=== PATIENT | female | born 1965 | race Two or more races ===

== ENCOUNTER 2022-06-06 10:54 | Outpatient (REF) | payer OTHER, SELFPAY | END 2022-06-06 10:55 | disposition home or self-care (01) | LOC: HO.LAB 10:54 | PROVIDERS: Visit Provider Nurse Practitioner Family | DX: Z13.89 Encounter for screening for other disorder (principal) ==

== ENCOUNTER 2022-06-06 11:31 | Outpatient (REF) | payer OTHER, SELFPAY ==
[2022-06-06 13:59] LABS: Hematocrit 44.2 % (37.0-47.0); Hemoglobin 14.1 g/dl (12.0-16.0); Mean Corpuscular HGB Conc 31.9 g/dl (31.0-35.0); Mean Corpuscular Hemoglobin 28.8 pg (27.0-33.0); Mean Corpuscular Volume 90.4 fL (80.0-98.0); Mean Platelet Volume 10.7 fL (9.4-12.3); Platelet Count 320 X10*3/uL (160-400); Red Blood Count 4.89 X10*6/uL (4.20-5.50); Red Cell Distribution Width 14.1 % (11.0-16.0); White Blood Count 11.4 X10*3/uL (4.8-10.8)
[2022-06-06 14:23] LABS: Appearance Urine Clear; Color Urine Yellow; Glucose Urine UA >=1000 mg/dL (Negative); Leukocyte Esterase Urine Negative (Negative); Nitrite Urine Negative (Negative); Specific Gravity - Urine >= 1.030 (1.005-1.025); UMIC TRIGGER UACC YES; Urine Blood Small (1+) (Negative); Urine Ketones Trace mg/dL (Negative); Urine Protein Trace mg/dL (Neg-Trace)
[2022-06-06 14:28] LABS: Alanine Aminotransferase 56 U/L (0-31); Albumin Level 4.5 g/dL (3.5-5.0); Alkaline Phosphatase 73 U/L (39-117); Anion Gap 13 (12-20); Aspartate Amino Transferase 31 U/L (5-31); Bilirubin Total 0.3 mg/dL (0.0-1.0); Blood Urea Nitrogen 10 mg/dL (9-16); Calcium 9.5 mg/dL (8.4-10.2); Carbon Dioxide 27 mmol/L (22-29); Chloride 109 mmol/L (96-108); Cholesterol 155 mg/dL; Estimated Glomerular Filt Rate > 60; Glucose Fasting 99 mg/dL (60-99); HDL Cholesterol 51 mg/dL; LDL Cholesterol Calculated 70 mg/dl; Potassium 4.7 mmol/L (3.3-5.1); Sodium 144 mmol/L (135-145); Total Protein 7.6 g/dL (6.5-8.0); Triglycerides 171 mg/dL
[2022-06-06 14:30] LABS: Bacteria Urine Trace (None Seen); Calcium Oxalate Crystals Urine Present; Hyaline Casts Urine 0-2 /LPF (0-2); Squamous Epithelial Cell Urine 0-2 /HPF (0-2); WBC Urine 0-5 /HPF (0-5)
[2022-06-06 14:45] LABS: TSH reflex Free T4 1.64 uIU/mL (0.32-4.0)
== END 2022-06-06 11:32 | disposition home or self-care (01) ==
LOC: HO.WFDLDS 11:31
PROVIDERS: Visit Provider Nurse Practitioner Family
DX: E03.9 Hypothyroidism, unspecified (principal); E11.9 Type 2 diabetes mellitus without complications; E78.00 Pure hypercholesterolemia, unspecified; I10 Essential (primary) hypertension; K21.9 Gastro-esophageal reflux disease without esophagitis; K76.0 Fatty (change of) liver, not elsewhere classified
CPT/HCPCS: 36415; 80053; 80061; 81001; 84443; 85027

== ENCOUNTER 2022-07-20 09:15 | Outpatient (REF) | payer OTHER, SELFPAY ==
[2022-07-20 12:23] LABS: Rheumatoid Factor < 13.0 IU/mL (<15.0)
== END 2022-07-20 09:16 | disposition home or self-care (01) ==
LOC: HO.WFDLDS 09:15
PROVIDERS: Visit Provider Nurse Practitioner Family
DX: M19.041 Primary osteoarthritis, right hand (principal); M19.042 Primary osteoarthritis, left hand
CPT/HCPCS: 36415; 86431

== ENCOUNTER 2022-09-14 14:50 | Outpatient (AMB) | payer OTHER, SELFPAY ==
--- NOTE | 2022-09-14 14:52 | MHC.PC.OV ---
Vital Signs 09/14/22 14:55 Height 5 ft 1 in Weight 184 lb 4 oz BMI 34.8 BP 122/74 Blood Pressure Location Lt brachial Position Sitting Pulse 78 Pulse Source Auscultation Intake Visit Reasons: f/u A1C, right pointer finger pain, tinnitus Intake Note: pt is here for f/u dm, right pointer finger pain, tinnitus Yard Manager Required: No Accompanied by: Self / Same As Patient Allergies adhesive tape Allergy (Intermediate, Verified 09/14/22 15:05) Rash tilapia Allergy (Severe, Uncoded 09/14/22 15:05) Anaphylaxis Medication List - Last Reconciled 09/14/22 by Gunjan Davis CNP acetaminophen ER (Tylenol Arthritis Pain) 650 mg PO Q8H PRN 30 days acetaminophen-caffeine 500-65 mg (Excedrin Tension Headache) 2 tabs PO Q8H PRN 30 days amlodipine 5 mg PO DAILY 30 days atorvastatin 20 mg PO DAILY 30 days conj estrog-medroxyprogest brian 0.3-1.5 mg (Prempro) 1 tab PO DAILY duloxetine 60 mg PO DAILY levothyroxine 50 mcg PO DAILY 30 days loratadine (Claritin) 10 mg PO DAILY 30 days metformin ER 500 mg PO DAILY 30 days jmdmskcj-fsn-uwid-FA-vit K-lut 8 mg iron-400 mcg-50 mcg (Centrum Silver Women) 1 tab PO DAILY 30 days nitrofurantoin macrocrystal 50 mg PO BEDTIME pantoprazole 40 mg PO DAILY 30 days sitagliptin phosphate (Januvia) 100 mg PO DAILY 30 days trazodone 200 mg PO DAILY PRN Tobacco use date assessed: 06/06/22 Dental Screening Dental Screen Date: 09/14/22 Did you have a dental visit in the last 12 months?: Yes Did you have a dental problem in the last 6 months where you did not have access to dental care?: No Was dental information given to patient?: Patient has dentist HPI HPI Comments History of Present Illness Details 57-year-old female presents for diabetes, right index finger pain, and tinnitus follow-up She states she has been taking her medications as prescribed. She reports continued persistent pain to her right index finger. She notes new onset of intermittent pain to her wrists and ankle. She also reports continued tinnitus to both years. Reports h/o perforated right TM. She states she recently had sleep studies by [facility] sleep medicine and was diagnose with sleep apnea. She is awaiting to be fitted with CPAP device. She states had eye exam on 02/2022 She has a f/u with podiatry next week. [facility]LY [facility] Medical History (Updated 09/14/22 @ 15:41 by Gunjan Davis CNP) Acid reflux Carpal tunnel syndrome Fatty liver High cholesterol Hypertension Sinusitis Thyroid disease Surgical History (Updated 07/12/22 @ 12:46 by Charlene Tam MA) H/O bilateral oophorectomy H/O: hysterectomy History of back surgery History of cholecystectomy Status post creation of urethral sling by suprapubic approach Family History (Updated 07/12/22 @ 12:47 by Charlene Tam MA) Mother Hypertension High cholesterol Diabetes Father Alcoholism Family/Other Diabetes Social [facility] Patient Tobacco Use Status: Former Tobacco user e-Cigarette/Vaping Use: Never Used Substance Use Type: Marijuana service: No Current occupational status: retired and disabled Cognitive needs: No Hearing needs: Yes (Patient see's ENT) Vision needs: No Questionnaire Thrive Questionnaire Date Thrive assessed: 06/06/22 BON-7 AMB Questionnaire BON-7 Date BON - 7 assessed: 07/12/22 Source: Developed by Drs. Keith Cota, Rhoda Vega, Álvaro Casiano and colleagues, with an educational jose from [employer] Review of Systems Const Details: Const Denies chills, Denies fatigue, Denies fever(s), Denies headache(s) and Denies weakness ENT Denies dizziness and Denies headache(s) Card Denies chest pain, Denies lightheadedness, Denies dyspnea and Denies other (Palpitations) Resp Denies cough, Denies dyspnea, Denies wheezing and Denies other ( shortness of breath) GI Denies abdominal pain, Denies melena, Denies hematochezia, Denies change in bowel habits, Denies dyspepsia and Denies nausea Denies hematuria and Denies dysuria Musc Reports pain to right index finger, wrists, and ankles, Denies abnormal gait, Denies numbness and Denies tingling Skin/Breast Denies rash, Denies unusual bruising and Denies wounds Neuro Denies abnormal gait, Denies dizziness, Denies headache(s), Denies memory loss, Denies numbness, Denies Sensory deficit (Neuro), Denies tingling and Denies weakness Psych Denies anxiety and Denies depression Endo Denies fatigue Aller/Immun Denies wheezing Physical exam (Primary Care) Vital Signs: Last Vital Signs BP 122/74 09/14/22 14:55 BMI result Body Mass Index 34.8 Tobacco/Smoking Status: Tobacco use Status Tobacco use date assessed 06/06/22 09/14/22 14:52 Patient Tobacco Use Status Former Tobacco user 09/14/22 14:52 e-Cigarette/Vaping Use Never Used 09/14/22 14:52 Thrive Assessment: Date of Thrive Assessment Date Thrive assessed 06/06/22 09/14/22 14:52 Const Other: General: no acute distress and well developed Nutritional Appearance: well nourished Orientation/consciousness: patient oriented x3 HENMT Head: Yes normocephalic and Yes atraumatic Eyes General: appearance normal, both eyes and all related structures Pupils: Equal, round and reactive pupils present EOM: EOMs intact bilaterally Resp Effort & Inspection: normal respiratory effort Auscultation: clear to auscultation bilaterally Cardio Rate: regular rate Rhythm: regular rhythm Heart sounds: S1 normal heart sound present, S2 normal heart sound present, no gallops, no murmurs and no rubs GI Palpation (GI): No Abdominal aortic bruit present, Soft to palpation, nontender, No hepatosplenomegaly present and No Rebound tenderness present Auscultation: normal bowel sounds General: Yes no CVA tenderness Back/Spine/Pelvis Back: no CVA tenderness Cervical Spine: cervical ROM normal and No Cervical spine tenderness Thoracic/Lumbar Spine: thoraco-lumbar ROM normal, No pain with thoraco-lumbar ROM, No thoracic spinal tenderness and No lumbar spinal tenderness Extrem General: Yes normal to inspection, No edema and No calf tenderness Tenderness and mild erythema and edema of the right index finger; skin is warm, dry, intact Skin General: warm and dry. Normal skin color. Normal skin turgor Lesions: no lesions Rashes: no rashes Trauma: no lacerations or abrasions Wounds: no wounds Nails: normal Neuro General: patient oriented x3, gait normal and no focal neuro deficit Cranial nerves: Yes Equal, round and reactive pupils present Cognition (Neuro): normal cognition Gait exam (Neuro): Normal gait present Sensory Exam: No Sensory deficit (Neuro) Psych Affect: normal affect Results AMB Hemoglobin A1c AMB Hemoglobin A1c 6.2 % Last Edit by Jonah Penny CMA on 09/14/22 15:51 Assessment and Plan Assessment & Plan (1) Pain in finger of right hand: Code(s): M79.644 - Pain in right finger(s) Plan: She reports continued persistent pain to her right index finger Tenderness and mild erythema and edema of the right index finger RF factor was normal Continue to take Tylenol as needed for pain or discomfort Warm/cold compresses encouraged Referred to rheumatology for further evaluation and treatment (2) Pain in joints: Code(s): M25.50 - Pain in unspecified joint Plan: She notes new onset of intermittent pain to her wrists and ankle. Likely RA. OA is also possible Treatment as above (3) Type 2 diabetes mellitus: Code(s): E11.9 - Type 2 diabetes mellitus without complications Plan: A1c 6.2%, within goal of less than 7.0% Continue with current treatment regimen She is up-to-date on eye exam and has a follow-up appointment with podiatry next week ADA diet and routine exercise encouraged Follow-up in 3 months or return sooner with concerns or symptoms Verbalized understanding and agreed with treatment plan. (4) Hypertension: Code(s): I10 - Essential (primary) hypertension Plan: Blood pressure is controlled, 122/74, within goal of less than 130/80 Continue with current treatment regimen Low-sodium diet encouraged Follow-up in 3 months or return sooner with concerns or symptoms Verbalized understanding and agreed with treatment plan (5) Hypothyroidism: Code(s): E03.9 - Hypothyroidism, unspecified Plan: Previous TSH/T4 were normal Continue with current treatment regimen Will recheck TSH/T4 level (6) High cholesterol: Code(s): E78.00 - Pure hypercholesterolemia, unspecified Plan: Recent cholesterol level is at goal, LDL was 70, within goal of less than 100 Continue with current treatment regimen Will recheck cholesterol level Advised to limit foods high in saturated fat and avoid foods high trans fat Verbalized understanding and agreed with treatment plan. (7) Bilateral tinnitus: Code(s): H93.13 - Tinnitus, bilateral Plan: She also reports continued tinnitus to both years. Reports h/o perforated right TM. Normal exam of both ears Referred to ENT Follow-up with worsening or new symptoms Verbalized understanding and agreed with the plan. Orders: Orders TSH reflex Free T4 Today E03.9 - Hypothyroidism, unspecified Lipid Panel Today E78.00 - Pure hypercholesterolemia, unspecified AMB Hemoglobin A1c Today E11.9 - Type 2 diabetes mellitus without complications Referrals Ear/Nose/Throat Referral H93.13 - Tinnitus, bilateral Rheumatology Referral M25.50 - Pain in unspecified joint, M79.644 - Pain in right finger(s) Coding Level of Care Code Est Pt Level 4 (39808) Diagnoses Pain in finger of right hand M79.644 Pain in joints M25.50 Type 2 diabetes mellitus E11.9 Hypertension I10 Hypothyroidism E03.9 High cholesterol E78.00 Bilateral tinnitus H93.13 Time Spent (min) 35
[2022-09-14 14:55] VITALS: BP 122/74; PULSE 78; BMI 34.8
== END 2022-09-14 15:34 | disposition home or self-care (01) ==
PROVIDERS: PCP Nurse Practitioner Family; Visit Provider Nurse Practitioner Family
DX: M79.644 Pain in right finger(s) (principal); H93.13 Tinnitus, bilateral; I10 Essential (primary) hypertension; E11.9 Type 2 diabetes mellitus without complications; E03.9 Hypothyroidism, unspecified; M25.50 Pain in unspecified joint; E78.00 Pure hypercholesterolemia, unspecified
CPT/HCPCS: 83036; 99214

== ENCOUNTER 2022-09-19 10:27 | Outpatient (REF) | payer OTHER, SELFPAY ==
[2022-09-19 12:39] LABS: Cholesterol 148 mg/dL; HDL Cholesterol 46 mg/dL; LDL Cholesterol Calculated 71 mg/dl; TSH reflex Free T4 0.76 uIU/mL (0.32-4.0); Triglycerides 159 mg/dL
[2022-09-19 14:30] LABS: Appearance Urine Turbid; Color Urine Yellow; Glucose Urine UA Negative (Negative); Leukocyte Esterase Urine Negative (Negative); Nitrite Urine Negative (Negative); PH 5.5 (5.0-9.0); Urine Blood Negative (Negative); Urine Ketones Trace mg/dL (Negative); Urine Protein Trace mg/dL (Neg-Trace)
[2022-09-19 15:15] LABS: Creatinine Urine 164.22 mg/dL; Microalbum/Creatinine Ratio Ur 8.5 ug/mg cr
== END 2022-09-19 10:28 | disposition home or self-care (01) ==
LOC: HO.WFDLDS 10:27
PROVIDERS: Visit Provider Nurse Practitioner Family
DX: E11.9 Type 2 diabetes mellitus without complications (principal); E03.9 Hypothyroidism, unspecified; E78.00 Pure hypercholesterolemia, unspecified
CPT/HCPCS: 36415; 80061; 81003; 82043; 84443

== ENCOUNTER 2022-11-30 15:47 | Outpatient (AMB) | payer OTHER, SELFPAY ==
[2022-11-30 16:00] VITALS: BP 124/70; PULSE 87; RESP 13; TEMP 36.6; O2SAT 99; BMI 34.1
--- NOTE | 2022-11-30 16:00 | MHC.PC.OV ---
Vital Signs 11/30/22 16:00 Height 5 ft 1 in Weight 180 lb 8 oz BMI 34.1 BP 124/70 Blood Pressure Location Rt brachial Position Sitting Respiration 13 Pulse 87 Pulse Source Pulse Oximeter Temp 98 F Temp Source Temporal Artery Scan Pulse Oximetry (%) 99 Oxygen Delivery Method Room Air Intake Visit Reasons: headaches Urban Renewal Manager Required: No Accompanied by: Self / Same As Patient Allergies adhesive tape Allergy (Intermediate, Verified 11/30/22 16:17) Rash tilapia Allergy (Severe, Uncoded 11/30/22 16:17) Anaphylaxis Medication List - Last Reconciled 11/30/22 by Gunjan Davis CNP acetaminophen ER (Tylenol Arthritis Pain) 650 mg PO Q8H PRN 30 days acetaminophen-caffeine 500-65 mg (Excedrin Tension Headache) 2 tabs PO Q8H PRN 30 days amlodipine 5 mg PO DAILY 30 days atorvastatin 20 mg PO DAILY 30 days conj estrog-medroxyprogest brian 0.3-1.5 mg (Prempro) 1 tab PO DAILY duloxetine 60 mg PO DAILY levothyroxine 50 mcg PO DAILY 30 days loratadine (Claritin) 10 mg PO DAILY 30 days metformin ER 500 mg PO DAILY 30 days tunarrgd-bho-bkmm-FA-vit K-lut 8 mg iron-400 mcg-50 mcg (Centrum Silver Women) 1 tab PO DAILY 30 days nitrofurantoin macrocrystal 50 mg PO BEDTIME pantoprazole 40 mg PO DAILY 30 days sitagliptin phosphate (Januvia) 100 mg PO DAILY 30 days trazodone 200 mg PO DAILY PRN Tobacco use date assessed: 06/06/22 Dental Screening Dental Screen Date: 11/30/22 Did you have a dental visit in the last 12 months?: Yes Did you have a dental problem in the last 6 months where you did not have access to dental care?: No Was dental information given to patient?: Patient has dentist HPI HPI Comments History of Present Illness Details 57-year-old female presents with complaints of persistent left-sided headache. She was recently evaluated by Dr. Black, ENT for tinnitus of the right ear, right acoustic neuroma, and chronic right-sided headaches. MRI of the brain on 11/14/2022 was negative. She reports persistent right sided headaches for the past 3 months. She reports associated intermittent pain to the right eye. She notes that she has been taking Excedrin migraine with improvement only if she takes at at the onset of symptoms. She reports history of adverse reactions to Topamax. She denies nausea or vomiting. FORMERLY [facility] Medical History Carpal tunnel syndrome Thyroid disease Hypertension High cholesterol Fatty liver Acid reflux Sinusitis Surgical History H/O bilateral oophorectomy Status post creation of urethral sling by suprapubic approach History of cholecystectomy History of back surgery H/O: hysterectomy Family History Mother Hypertension High cholesterol Diabetes Father Alcoholism Family/Other Diabetes Social History Housing: Condominium Patient Tobacco Use Status: Former Tobacco user e-Cigarette/Vaping Use: Never Used Substance Use Type: Marijuana service: No Current occupational status: retired and disabled Cognitive needs: No Hearing needs: Yes (Patient see's ENT) Vision needs: No Questionnaire Thrive Questionnaire Date Thrive assessed: 06/06/22 BON-7 AMB Questionnaire BON-7 Date BON - 7 assessed: 07/12/22 Source: Developed by Drs. Keith Cota, Rhoda Vega, Álvaro Casiano and colleagues, with an educational jose from [employer]. Review of Systems Const Details: Const Denies chills, Denies fatigue, Denies fever(s), Denies headache(s) and Denies weakness ENT Denies dizziness and Reports headache(s) Card Denies chest pain, Denies lightheadedness, Denies dyspnea and Denies other (Palpitations) Resp Denies cough, Denies dyspnea, Denies wheezing and Denies other ( shortness of breath) GI Denies abdominal pain, Denies melena, Denies hematochezia, Denies change in bowel habits, Denies dyspepsia and Denies nausea Denies hematuria and Denies dysuria Musc Denies abnormal gait, Denies myalgias, Denies arthralgias, Denies numbness and Denies tingling Skin/Breast Denies rash, Denies unusual bruising and Denies wounds Neuro Denies abnormal gait, Denies dizziness, Reports headache(s), Denies memory loss, Denies numbness, Denies Sensory deficit (Neuro), Denies tingling and Denies weakness Psych Denies anxiety, Denies depression, Denies memory loss Endo Denies cold intolerance, Denies fatigue, Denies heat intolerance, Denies polydipsia and Denies polyuria Aller/Immun Denies wheezing Physical exam (Primary Care) Vital Signs: Last Vital Signs Temp 98 F 11/30/22 16:00 Pulse 87 11/30/22 16:00 Resp 13 11/30/22 16:00 BP 124/70 11/30/22 16:00 Pulse Ox 99 11/30/22 16:00 Oxygen Delivery Method Room Air 11/30/22 16:00 BMI result Body Mass Index 34.1 Tobacco/Smoking Status: Tobacco use Status Tobacco use date assessed 06/06/22 11/30/22 16:11 Patient Tobacco Use Status Former Tobacco user 11/30/22 16:11 e-Cigarette/Vaping Use Never Used 11/30/22 16:11 Thrive Assessment: Date of Thrive Assessment Date Thrive assessed 06/06/22 11/30/22 16:11 Const Other: General: no acute distress and well developed Nutritional Appearance: well nourished Orientation/consciousness: patient oriented x3 HENMT Head: Yes normocephalic and Yes atraumatic Eyes General: appearance normal, both eyes and all related structures Pupils: Equal, round and reactive pupils present EOM: EOMs intact bilaterally Resp Effort & Inspection: normal respiratory effort Auscultation: clear to auscultation bilaterally Cardio Rate: regular rate Rhythm: regular rhythm Heart sounds: S1 normal heart sound present, S2 normal heart sound present, no gallops, no murmurs and no rubs GI Palpation (GI): No Abdominal aortic bruit present, Soft to palpation, nontender, No hepatosplenomegaly present and No Rebound tenderness present Auscultation: normal bowel sounds General: Yes no CVA tenderness Back/Spine/Pelvis Back: no CVA tenderness Cervical Spine: cervical ROM normal and No Cervical spine tenderness Thoracic/Lumbar Spine: thoraco-lumbar ROM normal, No pain with thoraco-lumbar ROM, No thoracic spinal tenderness and No lumbar spinal tenderness Extrem General: Yes normal to inspection, No edema and No calf tenderness Skin General: warm and dry. Normal skin color. Normal skin turgor Lesions: no lesions Rashes: no rashes Trauma: no lacerations or abrasions Wounds: no wounds Nails: normal Neuro General: patient oriented x3, gait normal and no focal neuro deficit Cranial nerves: Yes Equal, round and reactive pupils present Cognition (Neuro): normal cognition Gait exam (Neuro): Normal gait present Sensory Exam: No Sensory deficit (Neuro) Psych Appearance: grossly normal Affect: normal affect Attitude: cooperative Thought process: Normal thought process present Assessment and Plan Assessment & Plan (1) Migraine: Code(s): G43.909 - Migraine, unspecified, not intractable, without status migrainosus Plan: Reports persistent right sided headaches for the past 3 months. She reports associated intermittent pain to the right eye. She was recently evaluated by ENT and had a normal MRI Continue to take Excedrin as needed Riboflavin and magnesium ordered. Take as prescribed Advised to keep diary of possible triggers of her migraines Follow-up with PCP next month as planned or return sooner with worsening or new symptoms Verbalized understanding and agreed with treatment plan. Medications: New riboflavin (vitamin B2) 400 mg PO DAILY 30 tabs 3RF 30 days magnesium oxide 400 mg PO DAILY 30 tabs 3RF 30 days Coding Level of Care Code Est Pt Level 3 (00836) Diagnoses Migraine G43.909
== END 2022-11-30 16:29 | disposition home or self-care (01) ==
PROVIDERS: PCP Nurse Practitioner Family; Visit Provider Nurse Practitioner Family
DX: G43.909 Migraine, unspecified, not intractable, without status migrainosus (principal)
CPT/HCPCS: 99213

== ENCOUNTER 2022-12-12 11:01 | Outpatient (AMB) | payer OTHER, SELFPAY ==
[2022-12-12 11:14] VITALS: BP 124/76; TEMP 36.2; BMI 34.4
--- NOTE | 2022-12-12 11:14 | MHC.OFFVIS ---
Intake Vital Signs 12/12/22 11:14 Height 5 ft 1 in Weight 182 lb 1.629 oz BMI 34.4 BP 124/76 Blood Pressure Location Rt brachial Position Sitting Temp 97.1 F Temp Source Skin Intake Visit Reasons: Joint Pain Intake Note: New pt presents today for consult. C/o pain in multiple joints, mostly hands Started approx 1 year ago Has tried voltaren, tylenol, motrin Inspector And Clerk Required: No Accompanied by: Self / Same As Patient Allergies adhesive tape Allergy (Intermediate, Verified 12/12/22 11:30) Rash tilapia Allergy (Severe, Uncoded 12/12/22 11:30) Anaphylaxis Medication List - Last Reconciled 12/12/22 by Gunjan Carter MD acetaminophen ER (Tylenol Arthritis Pain) 650 mg PO Q8H PRN 30 days acetaminophen-caffeine 500-65 mg (Excedrin Tension Headache) 2 tabs PO Q8H PRN 30 days alprazolam mg PO amlodipine 5 mg PO DAILY 30 days atorvastatin 20 mg PO DAILY 30 days conj estrog-medroxyprogest brian 0.3-1.5 mg (Prempro) 1 tab PO DAILY duloxetine 60 mg PO DAILY levothyroxine 50 mcg PO DAILY 30 days loratadine (Claritin) 10 mg PO DAILY 30 days magnesium oxide 400 mg PO DAILY 30 days metformin 500 mg PO DAILY metformin ER 500 mg PO DAILY 30 days uqljcptu-zmk-cdow-FA-vit K-lut 8 mg iron-400 mcg-50 mcg (Centrum Silver Women) 1 tab PO DAILY 30 days naproxen 500 mg PO BID nitrofurantoin macrocrystal 50 mg PO BEDTIME pantoprazole 40 mg PO DAILY 30 days riboflavin (vitamin B2) 400 mg PO DAILY 30 days sitagliptin phosphate (Januvia) 100 mg PO DAILY 30 days trazodone 200 mg PO DAILY PRN HPI HPI Comments History of Present Illness Details This is a 57-year-old female who presents for evaluation of bilateral hand pain. The majority of the pain is the right index DIP joint. States that over the last year or so she has been having worsening finger stiffness and pain. Difficulty opening jars. She has used different medicine such as Tylenol, Aleve, Advil, Voltaren gel all with some relief. She is unaware of any family history of an autoimmune rheumatic disease [facility] Medical History Carpal tunnel syndrome Thyroid disease Hypertension High cholesterol Fatty liver Acid reflux Sinusitis Surgical History H/O bilateral oophorectomy Status post creation of urethral sling by suprapubic approach History of cholecystectomy History of back surgery H/O: hysterectomy Family History Mother Hypertension High cholesterol Diabetes Father Alcoholism Family/Other Diabetes Social History Housing: Condominium Patient Tobacco Use Status: Former Tobacco user e-Cigarette/Vaping Use: Never Used Substance Use Type: Marijuana service: No Current occupational status: retired and disabled Cognitive needs: No Hearing needs: Yes (Patient see's ENT) Vision needs: No Review of Systems Const Reports fatigue and Reports headache(s) Eyes Reports diplopia ENT Reports headache(s), Reports hearing loss and Reports tinnitus GI Reports nausea Reports nocturia Musc Reports deformity, Reports arthralgias, Reports joint swelling, Reports limited range of motion and Reports stiffness Neuro Reports headache(s) and Reports memory loss Psych Reports abnormal sleep pattern, Reports anxiety, Reports depression and Reports memory loss Endo Reports fatigue and Reports polydipsia Physical Exam Vital Signs: Last Vital Signs Temp 97.1 F 12/12/22 11:14 BP 124/76 12/12/22 11:14 BMI result Body Mass Index 34.4 Const General: cooperative, healthy appearing and comfortable Nutritional Appearance: obese Orientation/consciousness: patient oriented x3 Limitations: no limitations HEENT Head: Yes normocephalic and Yes atraumatic Mouth: moist mucous membranes Resp Effort & Inspection: normal respiratory effort and able to speak in complete sentences Neuro General: patient oriented x3 Extrem Other: Right index Heberden's node, mildly erythematous and tender Normal nailfold capillaroscopy Normal range of motion of hands, wrists, elbows and shoulders Assessment & Plan Assessment & Plan (1) Osteoarthritis of hands, bilateral: Code(s): M19.041 - Primary osteoarthritis, right hand; M19.042 - Primary osteoarthritis, left hand Qualifiers: Osteoarthritis type: primary Qualified Code(s): M19.041 - Primary osteoarthritis, right hand; M19.042 - Primary osteoarthritis, left hand Plan: This is a 57-year-old female who presents for evaluation of right index pain. Clinical picture consistent with a Heberden's node. I discussed nature of hand osteoarthritis with patient. Discussed different management strategies. Will refer patient to occupational therapy. She can consider buying a paraffin wax machine. She can take Tylenol up to 1300 mg daily (hx of fatty liver) as needed for joint pain. Can use Voltaren gel. Use NSAIDs only sparingly Plan I spent 30 minutes reviewing patient's chart, evaluating patient, placing orders, counseling patient and documenting in the chart Orders: Orders OT Evaluation and Treatment Today M19.041 - Primary osteoarthritis, right hand, M19.042 - Primary osteoarthritis, left hand Coding Level of Care Code New Pt Level 3 (12458) Diagnoses Primary osteoarthritis of both hands M19.041; M19.042 Osteoarthritis type: primary
== END 2022-12-12 11:50 | disposition home or self-care (01) ==
PROVIDERS: PCP Nurse Practitioner Family; Visit Provider Student in an Organized Health Care Education/Training Program
DX: M19.041 Primary osteoarthritis, right hand (principal); M19.042 Primary osteoarthritis, left hand
CPT/HCPCS: 99203

== ENCOUNTER → 2022-12-12 11:01 | Outpatient (BNVA) | payer OTHER, SELFPAY | PROVIDERS: PCP Nurse Practitioner Family; Visit Provider Student in an Organized Health Care Education/Training Program | DX: M19.041 Primary osteoarthritis, right hand (principal); M19.042 Primary osteoarthritis, left hand | CPT/HCPCS: 99202 ==

== ENCOUNTER 2022-12-28 15:43 | Outpatient (AMB) | payer OTHER, SELFPAY ==
--- NOTE | 2022-12-28 15:45 | A.OFFPC_ITS ---
Vital Signs 12/28/22 15:46 Height 5 ft 1 in BMI Reason not done Patient refused/unable BP 128/74 Blood Pressure Location Lt brachial Position Sitting Respiration 13 Pulse 88 Pulse Source Pulse Oximeter Temp 98.4 F Temp Source Temporal Artery Scan Pulse Oximetry (%) 99 Oxygen Delivery Method Room Air Intake Visit Reasons: 3 mos DM, HTN, HLD, thyroid, joint pain Intake Note: Patient states that she hasn't been able to get her Metformin due to pharmacy stating they didn't receive it. Patient states that she has received ER version of Metformin but not regular.Patient would also like bloodwork to check hormones. Production Reproduction Manager Required: No Accompanied by: Self / Same As Patient Allergies sulfur dioxide Allergy (Severe, Verified 12/28/22 15:56) Anaphylaxis adhesive tape Allergy (Intermediate, Verified 12/28/22 15:56) Rash tilapia Allergy (Severe, Uncoded 12/12/22 11:30) Anaphylaxis Tobacco use date assessed: 12/28/22 Dental Screening Dental Screen Date: 12/28/22 Did you have a dental visit in the last 12 months?: Yes Did you have a dental problem in the last 6 months where you did not have access to dental care?: No Was dental information given to patient?: Patient has dentist HPI HPI Comments History of Present Illness Details 57-year-old female presents for diabetes , hypertension, hyperlipidemia, and hypothyroidism follow-up Her last A1c was 6.2% She admits to taking her medications as prescribed. She notes she was on metformin IR 500 mg and ER 500 mg daily. However, she has been taking metformin ER daily for the past 1 month. She is also on Januvia. [facility] Medical History Carpal tunnel syndrome Thyroid disease Hypertension High cholesterol Fatty liver Acid reflux Sinusitis Surgical History H/O bilateral oophorectomy Status post creation of urethral sling by suprapubic approach History of cholecystectomy History of back surgery H/O: hysterectomy Family History Mother Hypertension High cholesterol Diabetes Father Alcoholism Family/Other Diabetes Social History Housing: Condominium Patient Tobacco Use Status: Former Tobacco user e-Cigarette/Vaping Use: Never Used Substance Use Type: Marijuana service: No Current occupational status: retired and disabled Cognitive needs: No Hearing needs: Yes (Patient see's ENT) Vision needs: No Questionnaire Thrive Questionnaire Date Thrive assessed: 06/06/22 BON-7 AMB Questionnaire BON-7 Date BON - 7 assessed: 07/12/22 Source: Developed by Drs. Keith Cota, Rhoda Vega, Álvaro Casiano and colleagues, with an educational jose from [employer]. Review of Systems Const Details: Const Denies chills, Denies fatigue, Denies fever(s), Denies headache(s) and Denies weakness ENT Denies dizziness and Denies headache(s) Card Denies chest pain, Denies lightheadedness, Denies dyspnea and Denies other (Palpitations) Resp Denies cough, Denies dyspnea, Denies wheezing and Denies other ( shortness of breath) GI Denies abdominal pain, Denies melena, Denies hematochezia, Denies change in jose wel habits, Denies dyspepsia and Denies nausea Denies hematuria and Denies dysuria Musc Denies abnormal gait, Denies myalgias, Denies arthralgias, Denies numbness and Denies tingling Skin/Breast Denies rash, Denies unusual bruising and Denies wounds Neuro Denies abnormal gait, Denies dizziness, Denies headache(s), Denies memory loss, Denies numbness, Denies Sensory deficit (Neuro), Denies tingling and Denies weakness Psych Denies anxiety, Denies depression, Denies memory loss Endo Denies cold intolerance, Denies fatigue, Denies heat intolerance, Denies polydipsia and Denies polyuria Aller/Immun Denies wheezing Physical exam (Primary Care) Tobacco/Smoking Status: Tobacco use Status Tobacco use date assessed 06/06/22 12/28/22 15:46 Patient Tobacco Use Status Former Tobacco user 12/28/22 15:46 e-Cigarette/Vaping Use Never Used 12/28/22 15:46 Thrive Assessment: Date of Thrive Assessment Date Thrive assessed 06/06/22 12/28/22 15:46 Const Other: General: no acute distress and well developed Nutritional Appearance: well nourished Orientation/consciousness: patient oriented x3 [facility] Head: Yes normocephalic and Yes atraumatic Eyes General: appearance normal, both eyes and all related structures Pupils: Equal, round and reactive pupils present EOM: EOMs intact bilaterally Resp Effort & Inspection: normal respiratory effort Auscultation: clear to auscultation bilaterally Cardio Rate: regular rate Rhythm: regular rhythm Heart sounds: S1 normal heart sound present, S2 normal heart sound present, no gallops, no murmurs and no rubs GI Palpation (GI): No Abdominal aortic bruit present, Soft to palpation, nontender, No hepatosplenomegaly present and No Rebound tenderness present Auscultation: normal bowel sounds General: Yes no CVA tenderness Back/Spine/Pelvis Back: no CVA tenderness Cervical Spine: cervical ROM normal and No Cervical spine tenderness Thoracic/Lumbar Spine: thoraco-lumbar ROM normal, No pain with thoraco-lumbar ROM, No thoracic spinal tenderness and No lumbar spinal tenderness Extrem General: Yes normal to inspection, No edema and No calf tenderness Skin General: warm and dry. Normal skin color. Normal skin turgor Lesions: no lesions Rashes: no rashes Trauma: no lacerations or abrasions Wounds: no wounds Nails: normal Neuro General: patient oriented x3, gait normal and no focal neuro deficit Cranial nerves: Yes Equal, round and reactive pupils present Cognition (Neuro): normal cognition Gait exam (Neuro): Normal gait present Sensory Exam: No Sensory deficit (Neuro) Psych Appearance: grossly normal Affect: normal affect Attitude: cooperative Thought process: Normal thought process present Results AMB Hemoglobin A1c AMB Hemoglobin A1c 6.2 % Last Edit by Charlene Tam MA on 12/28/22 16:17 Assessment and Plan Assessment & Plan (1) Type 2 diabetes mellitus: Code(s): E11.9 - Type 2 diabetes mellitus without complications Plan: A1c today is 6.2%, within goal of less than 7.0%. Previous A1c was 6.2% She recent LDL is 71, slightly above goal of less than 70. Continue to take atorvastatin as prescribed. Will recheck lipid level Recent urine/microalbumin creatinine ratio is 8.5 Continue to take metformin and Januvia as prescribed ADA diet and routine exercise encouraged Will recheck A1c in 3 months Follow-up in a month for an extended physical exam Return sooner with symptoms or concerns Verbalized understanding and agreed with treatment plan. (2) Hypertension: Code(s): I10 - Essential (primary) hypertension Plan: Blood pressure is 128/74, within goal of less than 130/80 Continue to take amlodipine as prescribed Low-sodium diet encouraged Will continue to monitor Verbalized understanding and agreed with treatment plan. (3) High cholesterol: Code(s): E78.00 - Pure hypercholesterolemia, unspecified Plan: Normal recent triglycerides, total cholesterol, and HDL level, 159, 148, and 46 respectively LDL is 71, slightly above goal of less than 70 Continue current treatment regimen Advised to limit foods high in saturated fat and avoid foods high trans fat Routine exercise encouraged Will recheck lipid level. Advised to get fasting blood work done before her nex t visit Follow-up in 1 month for an extended physical exam Return sooner with symptoms or concerns Verbalized understanding and agreed with treatment plan. (4) Hypothyroidism: Code(s): E03.9 - Hypothyroidism, unspecified Plan: Recent TSH is normal Continue to take levothyroxine as prescribed Return with symptoms or concerns Verbalized understanding and agreed with treatment plan. Orders: Orders Lipid Panel Today E11.9 - Type 2 diabetes mellitus without complications, E78.00 - Pure hypercholesterolemia, unspecified AMB Hemoglobin A1c Today Z13.9 - Encounter for screening, unspecified Coding Level of Care Code Est Pt Level 4 (09334) Diagnoses Type 2 diabetes mellitus E11.9 Hypertension I10 High cholesterol E78.00 Hypothyroidism E03.9
[2022-12-28 15:46] VITALS: BP 128/74; PULSE 88; RESP 13; TEMP 36.9; O2SAT 99
== END 2022-12-28 16:34 | disposition home or self-care (01) ==
PROVIDERS: PCP Nurse Practitioner Family; Visit Provider Nurse Practitioner Family
DX: E11.9 Type 2 diabetes mellitus without complications (principal); I10 Essential (primary) hypertension; E78.00 Pure hypercholesterolemia, unspecified; E03.9 Hypothyroidism, unspecified
CPT/HCPCS: 99214

== ENCOUNTER 2023-03-08 10:14 | Outpatient (AMB) | payer OTHER, SELFPAY ==
[2023-03-08 10:23] VITALS: BP 118/80; PULSE 108; RESP 13; TEMP 36.4; O2SAT 99; BMI 33.4
--- NOTE | 2023-03-08 10:23 | MHC.PC.OV ---
Vital Signs 03/08/23 10:23 Height 5 ft 1 in Weight 177 lb BMI 33.4 BP 118/80 Blood Pressure Location Rt brachial Position Sitting Respiration 13 Pulse 108 H Pulse Source Pulse Oximeter Temp 97.6 F Temp Source Temporal Artery Scan Pulse Oximetry (%) 99 Oxygen Delivery Method Room Air Intake Visit Reasons: CPE Pulmonary Disease Specialist Required: No Accompanied by: Self / Same As Patient Allergies sulfur dioxide Allergy (Severe, Verified 03/08/23 10:32) Anaphylaxis adhesive tape Allergy (Intermediate, Verified 03/08/23 10:32) Rash tilapia Allergy (Severe, Uncoded 03/08/23 10:32) Anaphylaxis Medication List - Last Reconciled 03/08/23 by Gunjan Davis CNP acetaminophen ER (Tylenol Arthritis Pain) 650 mg PO Q8H PRN 30 days acetaminophen-caffeine 500-65 mg (Excedrin Tension Headache) 2 tabs PO Q8H PRN 30 days alprazolam mg PO amlodipine 5 mg PO DAILY 30 days atorvastatin 20 mg PO DAILY 30 days conj estrog-medroxyprogest brian 0.3-1.5 mg (Prempro) 1 tab PO DAILY duloxetine 60 mg PO DAILY levothyroxine 50 mcg PO DAILY 30 days loratadine (Claritin) 10 mg PO DAILY 30 days magnesium oxide 400 mg PO DAILY 30 days metformin ER 1,000 mg (2 x 500 mg) PO DAILY 90 days invokybo-thd-jzoy-FA-vit K-lut 8 mg iron-400 mcg-50 mcg (Centrum Silver Women) 1 tab PO DAILY 30 days naproxen 500 mg PO BID nitrofurantoin macrocrystal 50 mg PO BEDTIME pantoprazole 40 mg PO DAILY 30 days riboflavin (vitamin B2) 400 mg PO DAILY 30 days sitagliptin phosphate (Januvia) 100 mg PO DAILY 30 days trazodone 200 mg PO DAILY PRN Tobacco use date assessed: 03/08/23 Dental Screening Dental Screen Date: 03/08/23 Did you have a dental visit in the last 12 months?: Yes Did you have a dental problem in the last 6 months where you did not have access to dental care?: No Was dental information given to patient?: Patient has dentist HPI HPI Comments History of Present Illness Details 57-year-old female presents for an extended physical exam She has history of diabetes, hypertension, hyperlipidemia, anxiety, and depression She admits to taking her medications as prescribed without adverse reactions She reports controlled anxiety and depression symptoms on current treatment regimen Reports nasal congestion with post nasal dip. No runny nose, sore throat, cough, headache, fever, chills, fatigue, or weakness. Last mammogram 09/2022: benign mass of the left breast. Next mammogram in March, Last colonoscopy 3 years ago: Benign polyp. She gets colonoscopy done every 5 years She no longer gets pap smear test done. History of hysterectomy and left oophorectomy She is up-to-date on the flu and shingles vaccines [facility] Medical History Carpal tunnel syndrome Thyroid disease Hypertension High cholesterol Fatty liver Acid reflux Sinusitis Surgical History H/O bilateral oophorectomy Status post creation of urethral sling by suprapubic approach History of cholecystectomy History of back surgery H/O: hysterectomy Family History Mother Hypertension High cholesterol Diabetes Father Alcoholism Family/Other Diabetes Social History Housing: Condominium Patient Tobacco Use Status: Former Tobacco user e-Cigarette/Vaping Use: Never Used Substance Use Type: Marijuana service: No Current occupational status: retired and disabled Cognitive needs: No Hearing needs: Yes (Patient see's ENT) Vision needs: No Questionnaire PHQ-9 Over the last 2 weeks, how often have you been bothered by any of the following problems? 1. Little interest or pleasure in doing things: not at all 2. Feeling down, depressed, or hopeless: not at all 3. Trouble falling or staying asleep, or sleeping too much: not at all 4. Feeling tired or having little energy: not at all 5. Poor appetite or overeating: not at all 6. Feeling bad about yourself - or that you are a failure or have let yourself or your family down: not at all 7. Trouble concentrating on things, such as reading the newspaper or watching television: not at all 8. Moving or speaking so slowly that other people could have noticed. Or the opposite - being so fidgety or restless that you have been moving around a lot more than usual: not at all 9. Thoughts that you would be better off or of hurting yourself in some way: not at all Total score: 0 Depression Screening Interpretation: Negative Depression Screening Done: Yes 48876 - PHQ-9 Billing: Yes Source: Developed by Drs. Keith Cota, Rhoda Vega, Álvaro Casiano and colleagues, with an educational jose from [employer]. Thrive Questionnaire Date Thrive assessed: 03/08/23 I am a: Patient What is your living situation today?: I have a steady place to live Within the past 12 months, did the food you bought not last and you didn't have the money to get more?: Never true Within the past 12 months, did you worry whether your food would run out before you got money to buy more?: Never true Do you have trouble paying for medicines?: No Do you have trouble getting transportation to medical appointments?: No Do you have trouble paying your heating and electricity bill?: No Do you have trouble taking care of your child, family member or friend?: No Do you have trouble with day-to-day activities such as bathing, preparing meals, shopping, managing finances, etc.?: No Are you currently unemployed and looking for a job?: No Are you interested in more education?: Yes Please select the resources that you would like help with: Education Currently or been in a relationship where the following occur: no concerns reported THRIVE Score: 0 AUDIT C Alcohol Use Questionnaire (AUDIT-C) 1. How often do you have a drink containing alcohol?: Monthly or less 2. How many drinks containing alcohol do you have on a typical day when you are drinking?: 1 or 2 3. How often do you have six or more drinks on one occasion?: Never Total Score: 1 BON-7 AMB Questionnaire BON-7 Date BNO - 7 assessed: 03/08/23 Feeling nervous, anxious, or on edge: 3 = Nearly every day Not being able to stop or control worryin = Several days Worrying too much about different things: 1 = Several days Trouble relaxin = Not at all Being so restless that it is hard to sit still: 3 = Nearly every day Becoming easily annoyed or irritable: 0 = Not at all Feeling afraid as if something awful might happen: 0 = Not at all Total BON-7 score (0-4 normal; 5-9 mild; 10-14 moderate; 15-21 severe): 8 Source: Developed by Drs. Keith Cota, Rhoda Vega, Álvaro Casiano and colleagues, with an educational jose from [employer]. BON-7 Assessment Billing BON-7 Assessment Tool: BON-7 Assessment 85718 Review of Systems Const Details: Denies chills, Denies fatigue, Denies fever(s), Denies headache(s) and Denies weakness HEENT Denies change in vision, Denies dizziness, Denies headache(s), Denies hearing loss, Denies nasal congestion, Denies sinus pain, Denies sinus pressure and Denies sore throat Card Denies chest pain, Denies lightheadedness, Denies dyspnea and Denies other (palpitations) Resp Denies cough, Denies dyspnea and Denies wheezing GI Denies abdominal pain, Denies melena, Denies hematochezia, Denies change in bowel habits, Denies dyspepsia and Denies nausea Denies hematuria and Denies dysuria Musc Denies abnormal gait, Denies myalgias, Denies arthralgias, Denies numbness and Denies tingling Skin/Breast Denies rash, Denies unusual bruising and Denies wounds Neuro Denies abnormal gait, Denies dizziness, Denies headache(s), Denies memory loss, Denies numbness, Denies Sensory deficit (Neuro), Denies tingling and Denies weakness Psych Denies anxiety, Denies depression and Denies memory loss Endo Denies cold intolerance, Denies fatigue, Denies heat intolerance, Denies polydipsia and Denies polyuria Mark/Lymph Denies easy bleeding and Denies easy bruising Aller/Immun Denies wheezing Physical exam (Primary Care) Vital Signs: Last Vital Signs Temp 97.6 F 03/08/23 10:23 Pulse 108 H 03/08/23 10:23 Resp 13 03/08/23 10:23 BP 118/80 03/08/23 10:23 Pulse Ox 99 03/08/23 10:23 Oxygen Delivery Method Room Air 03/08/23 10:23 BMI result Body Mass Index 33.4 Tobacco/Smoking Status: Tobacco use Status Tobacco use date assessed 03/08/23 03/08/23 10:34 Patient Tobacco Use Status Former Tobacco user 03/08/23 10:34 e-Cigarette/Vaping Use Never Used 03/08/23 10:34 Depression Screening Interpretation: Negative Thrive Assessment: Date of Thrive Assessment Date Thrive assessed 06/06/22 03/08/23 10:34 Currently or been in a relationship where the following occur: no concerns reported Const Other: General: no acute distress, well developed, alert and awake Nutritional Appearance: well nourished Orientation/consciousness: patient oriented x3 HEN[facility] Head: Yes normocephalic and Yes atraumatic Ears: hearing grossly normal bilaterally and TM's normal bilaterally General nose exam: Normal external nose present and Normal nares present Mouth: Normal oral and palatal mucosa present and moist mucous membranes Teeth and gingiva: dentition normal Throat: Yes oropharynx normal Eyes Pupils: Equal, round and reactive pupils present and Pupil accommodation reflex normal EOM: EOMs intact bilaterally Nose Nasal turbinate with mild erythema and edema Neck Neck: Yes normal visual inspection, Yes no lymphadenopathy and Yes trachea midline Thyroid: Thyroid normal Carotids: no bruits Lymphatic: no lymphadenopathy noted Chest Chest palpation & inspection: normal inspection of the chest Resp Effort & Inspection: normal respiratory effort Auscultation: clear to auscultation bilaterally Cardio Rate: regular rate Rhythm: regular rhythm Heart sounds: S1 normal heart sound present, S2 normal heart sound present, no gallops, no murmurs and no rubs Bruits: no abdominal aortic bruits and no carotid bruits GI Palpation (GI): No Abdominal aortic bruit present, Soft to palpation, nontender, No hepatosplenomegaly present and No Rebound tenderness present Auscultation: normal bowel sounds General: Yes no CVA tenderness Back/Spine/Pelvis Back: no CVA tenderness Cervical Spine: cervical ROM normal and No Cervical spine tenderness Thoracic/Lumbar Spine: thoraco-lumbar ROM normal, No pain with thoraco-lumbar ROM, No thoracic spinal tenderness and No lumbar spinal tenderness Skin General: warm and dry. Normal skin color. Normal skin turgor Lesions: no lesions Rashes: no rashes Trauma: no lacerations or abrasions Wounds: no wounds Nails: normal Neuro General: patient oriented x3, gait normal and CN's II-XI intact bilaterally Cranial nerves: Yes Equal, round and reactive pupils present Cognition (Neuro): normal cognition Gait exam (Neuro): Normal gait present Motor exam (neuro): 5/5 motor strength present throughout Sensory Exam: No Sensory deficit (Neuro) Deep tendon reflexes (DTR's): Right patellar reflex intensity grade: 2+ and Left patellar reflex intensity grade: 2+ Extrem General: Yes normal to inspection, No edema and No calf tenderness Psych Appearance: grossly normal Affect: normal affect Attitude: cooperative Thought process: Normal thought process present Assessment and Plan Assessment & Plan (1) Normal physical examination, routine: Code(s): Z00.00 - Encounter for general adult medical examination without abnormal findings Plan: No significant physical restrictions or limitations noted Continue current treatment regimen Follow-up for hypertension and diabetes in 1 month Return sooner with symptoms or concerns Verbalized understanding and agreed with treatment plan (2) Rhinitis: Code(s): J31.0 - Chronic rhinitis Plan: Nasal congestion and postnasal drip x3 weeks Nasal turbinate with mild erythema and edema Flonase as prescribed Follow-up with worsening or new symptoms Verbalized understanding and agreed with treatment plan Orders: Orders Lipid Panel Today E11.9 - Type 2 diabetes mellitus without complications Medications: New fluticasone propionate 50 mcg/actuation (Flonase Allergy Relief) administer into each nostril 1 spray intranasal Q12H 30 days PRN 16 grams 0RF nasal congestion Coding Level of Care Code Est Pt Prev Care 40-64y(32613) Diagnoses Normal physical examination, routine Z00.00 Rhinitis J31.0 Additional Codes BON-7 Assessment Billing - BON-7 Assessment Tool: BON-7 Assessment [id number] ([id number])
== END 2023-03-08 11:19 | disposition home or self-care (01) ==
PROVIDERS: PCP Nurse Practitioner Family; Visit Provider Nurse Practitioner Family
DX: Z00.00 Encounter for general adult medical examination without abnormal findings (principal); J31.0 Chronic rhinitis
CPT/HCPCS: 99396

== ENCOUNTER 2023-04-02 09:09 | Outpatient (REF) | payer OTHER, SELFPAY ==
[2023-04-02 12:00] LABS: Cholesterol 123 mg/dL (<200); HDL Cholesterol 44 mg/dL (>40); LDL Cholesterol Calculated 61 mg/dL (<100); Triglycerides 94 mg/dL (<150)
== END 2023-04-02 09:10 | disposition home or self-care (01) ==
LOC: HO.WFDLDS 09:09
PROVIDERS: Visit Provider Nurse Practitioner Family
DX: E11.9 Type 2 diabetes mellitus without complications (principal); E78.00 Pure hypercholesterolemia, unspecified
CPT/HCPCS: 36415; 80061

== ENCOUNTER 2023-04-05 11:15 | Outpatient (AMB) | payer OTHER, SELFPAY ==
--- NOTE | 2023-04-05 11:25 | MHC.PC.OV ---
Vital Signs 04/05/23 11:26 04/05/23 11:49 Height 5 ft 1 in Weight 174 lb 8 oz BMI 33.0 BP 124/80 120/70 Blood Pressure Location Rt brachial Rt brachial Position Sitting Sitting Respiration 13 Pulse 85 Pulse Source Pulse Oximeter Temp 97.5 F Temp Source Temporal Artery Scan Pulse Oximetry (%) 98 Oxygen Delivery Method Room Air Intake Visit Reasons: DM, HTN Upper And Bottom Lacer Hand Required: No Accompanied by: Self / Same As Patient Allergies sulfur dioxide Allergy (Severe, Verified 04/05/23 11:50) Anaphylaxis adhesive tape Allergy (Intermediate, Verified 04/05/23 11:50) Rash tilapia Allergy (Severe, Uncoded 04/05/23 11:50) Anaphylaxis Medication List - Last Reconciled 04/05/23 by Gunjan Davis CNP acetaminophen ER (Tylenol Arthritis Pain) 650 mg PO Q8H PRN 30 days acetaminophen-caffeine 500-65 mg (Excedrin Tension Headache) 2 tabs PO Q8H PRN 30 days alprazolam mg PO amlodipine 5 mg PO DAILY 30 days atorvastatin 20 mg PO DAILY 30 days conj estrog-medroxyprogest brian 0.3-1.5 mg (Prempro) 1 tab PO DAILY duloxetine 60 mg PO DAILY fluticasone propionate 50 mcg/actuation (Flonase Allergy Relief) 1 spray intranasal Q12H PRN 30 days levothyroxine 50 mcg PO DAILY 30 days loratadine (Claritin) 10 mg PO DAILY 30 days magnesium oxide 400 mg PO DAILY 30 days metformin ER 1,000 mg (2 x 500 mg) PO DAILY 90 days jyreirbq-kge-byer-FA-vit K-lut 8 mg iron-400 mcg-50 mcg (Centrum Silver Women) 1 tab PO DAILY 30 days naproxen 500 mg PO BID nitrofurantoin macrocrystal 50 mg PO BEDTIME pantoprazole 40 mg PO DAILY 30 days riboflavin (vitamin B2) 400 mg PO DAILY 30 days sitagliptin phosphate (Januvia) 100 mg PO DAILY 30 days trazodone 200 mg PO DAILY PRN Tobacco use date assessed: 03/08/23 Dental Screening Dental Screen Date: 04/05/23 Did you have a dental visit in the last 12 months?: Yes Did you have a dental problem in the last 6 months where you did not have access to dental care?: No Was dental information given to patient?: Patient has dentist HPI HPI Comments History of Present Illness Details 57-year-old female presents for hypertension and diabetes follow-up She admits to taking her medications as prescribed without adverse reactions She denies acute symptoms at this time [facility] Medical History Carpal tunnel syndrome Thyroid disease Hypertension High cholesterol Fatty liver Acid reflux Sinusitis Surgical History H/O bilateral oophorectomy Status post creation of urethral sling by suprapubic approach History of cholecystectomy History of back surgery H/O: hysterectomy Family History Mother Hypertension High cholesterol Diabetes Father Alcoholism Family/Other Diabetes Social History [facility] Patient Tobacco Use Status: Former Tobacco user e-Cigarette/Vaping Use: Never Used Substance Use Type: Marijuana service: No Current occupational status: retired and disabled Cognitive needs: No Hearing needs: Yes (Patient see's ENT) Vision needs: No Questionnaire Thrive Questionnaire Date Thrive assessed: 03/08/23 BON-7 AMB Questionnaire BON-7 Date BON - 7 assessed: 03/08/23 Source: Developed by Drs. Keith Cota, Rhoda Vega, Álvaro Casiano and colleagues, with an educational jose from [employer]. Review of Systems Const Details: Const Denies chills, Denies fatigue, Denies fever(s), Denies headache(s) and Denies weakness ENT Denies dizziness and Denies headache(s) Card Denies chest pain, Denies lightheadedness, Denies dyspnea and Denies other (Palpitations) Resp Denies cough, Denies dyspnea, Denies wheezing and Denies other ( shortness of breath) GI Denies abdominal pain, Denies melena, Denies hematochezia, Denies change in bowel habits, Denies dyspepsia and Denies nausea Denies hematuria and Denies dysuria Musc Denies abnormal gait, Denies myalgias, Denies arthralgias, Denies numbness and Denies tingling Skin/Breast Denies rash, Denies unusual bruising and Denies wounds Neuro Denies abnormal gait, Denies dizziness, Denies headache(s), Denies memory loss, Denies numbness, Denies Sensory deficit (Neuro), Denies tingling and Denies weakness Psych Denies anxiety, Denies depression, Denies memory loss Endo Denies cold intolerance, Denies fatigue, Denies heat intolerance, Denies polydipsia and Denies polyuria Aller/Immun Denies wheezing Physical exam (Primary Care) Vital Signs: Last Vital Signs Temp 97.5 F 04/05/23 11:26 Pulse 85 04/05/23 11:26 Resp 13 04/05/23 11:26 BP 124/80 04/05/23 11:26 Pulse Ox 98 04/05/23 11:26 Oxygen Delivery Method Room Air 04/05/23 11:26 BMI result Body Mass Index 33.0 Tobacco/Smoking Status: Tobacco use Status Tobacco use date assessed 03/08/23 04/05/23 11:32 Patient Tobacco Use Status Former Tobacco user 04/05/23 11:32 e-Cigarette/Vaping Use Never Used 04/05/23 11:32 Thrive Assessment: Date of Thrive Assessment Date Thrive assessed 03/08/23 04/05/23 11:32 Const Other: General: no acute distress and well developed Nutritional Appearance: well nourished Orientation/consciousness: patient oriented x3 HENMT Head: Yes normocephalic and Yes atraumatic Eyes General: appearance normal, both eyes and all related structures Pupils: Equal, round and reactive pupils present EOM: EOMs intact bilaterally Resp Effort & Inspection: normal respiratory effort Auscultation: clear to auscultation bilaterally Cardio Rate: regular rate Rhythm: regular rhythm Heart sounds: S1 normal heart sound present, S2 normal heart sound present, no gallops, no murmurs and no rubs GI Palpation (GI): No Abdominal aortic bruit present, Soft to palpation, nontender, No hepatosplenomegaly present and No Rebound tenderness present Auscultation: normal bowel sounds General: Yes no CVA tenderness Back/Spine/Pelvis Back: no CVA tenderness Cervical Spine: cervical ROM normal and No Cervical spine tenderness Thoracic/Lumbar Spine: thoraco-lumbar ROM normal, No pain with thoraco-lumbar ROM, No thoracic spinal tenderness and No lumbar spinal tenderness Extrem General: Yes normal to inspection, No edema and No calf tenderness Skin General: warm and dry. Normal skin color. Normal skin turgor Neuro General: patient oriented x3, gait normal and no focal neuro deficit Cranial nerves: Yes Equal, round and reactive pupils present Cognition (Neuro): normal cognition Gait exam (Neuro): Normal gait present Sensory Exam: No Sensory deficit (Neuro) Psych Appearance: grossly normal Affect: normal affect Attitude: cooperative Thought process: Normal thought process present Assessment and Plan Assessment & Plan (1) Type 2 diabetes mellitus: Code(s): E11.9 - Type 2 diabetes mellitus without complications Plan: Recent A1c is 6.4%, within goal of less than 7.0%. Previous A1c was 6.2% Recent LDL is 61, within goal of less than 70 Continue current treatment regimen ADA diet and routine exercise encouraged Follow-up in 3 months or return sooner with symptoms or concerns Verbalized understanding and agreed with treatment plan (2) Hypertension: Code(s): I10 - Essential (primary) hypertension Plan: Resting BP is 120/70, below goal of less than 130/80 Continue current tx Low sodium diet encouraged Follow up in 3 months Verbalized understanding and agreed with the plan Coding Level of Care Code Est Pt Level 3 (15255) Diagnoses Type 2 diabetes mellitus E11.9 Hypertension I10
[2023-04-05 11:26] VITALS: BP 124/80; PULSE 85; RESP 13; TEMP 36.4; O2SAT 98; BMI 33.0
[2023-04-05 11:49] VITALS: BP 120/70
== END 2023-04-05 11:57 | disposition home or self-care (01) ==
PROVIDERS: PCP Nurse Practitioner Family; Visit Provider Nurse Practitioner Family
DX: E11.9 Type 2 diabetes mellitus without complications (principal); I10 Essential (primary) hypertension
CPT/HCPCS: 83036; 99213

== ENCOUNTER 2023-05-14 10:24 | Outpatient (AMB) | payer OTHER, SELFPAY ==
--- NOTE | 2023-05-14 10:29 | MHC.PC.OV ---
Vital Signs 05/14/23 10:30 Height 5 ft 1 in Weight 178 lb BMI 33.6 BP 126/84 Blood Pressure Location Rt brachial Position Sitting Respiration 13 Pulse 96 Pulse Source Pulse Oximeter Temp 97.6 F Temp Source Temporal Artery Scan Pulse Oximetry (%) 99 Oxygen Delivery Method Room Air Intake Visit Reasons: [facility] ed Strategic Planning Specialist Required: No Accompanied by: Self / Same As Patient Allergies sulfur dioxide Allergy (Severe, Verified 05/14/23 10:44) Anaphylaxis adhesive tape Allergy (Intermediate, Verified 05/14/23 10:44) Rash tilapia Allergy (Severe, Uncoded 05/14/23 10:44) Anaphylaxis Medication List - Last Reconciled 05/14/23 by Gunjan Davis CNP acetaminophen ER (Tylenol Arthritis Pain) 650 mg PO Q8H PRN 30 days acetaminophen-caffeine 500-65 mg (Excedrin Tension Headache) 2 tabs PO Q8H PRN 30 days alprazolam mg PO amlodipine 5 mg PO DAILY 30 days atorvastatin 20 mg PO DAILY 30 days conj estrog-medroxyprogest brian 0.3-1.5 mg (Prempro) 1 tab PO DAILY duloxetine 60 mg PO DAILY fluticasone propionate 50 mcg/actuation (Flonase Allergy Relief) 1 spray intranasal Q12H PRN 90 days levothyroxine 50 mcg PO DAILY 30 days loratadine (Claritin) 10 mg PO DAILY 30 days magnesium oxide 400 mg PO DAILY 30 days metformin ER 1,000 mg (2 x 500 mg) PO DAILY 90 days lmdjslmq-odq-hbtz-FA-vit K-lut 8 mg iron-400 mcg-50 mcg (Centrum Silver Women) 1 tab PO DAILY 30 days naproxen 500 mg PO BID nitrofurantoin macrocrystal 50 mg PO BEDTIME pantoprazole 40 mg PO DAILY 30 days riboflavin (vitamin B2) 400 mg PO DAILY 30 days sitagliptin phosphate (Januvia) 100 mg PO DAILY 30 days tramadol 25 mg PO Q6H PRN trazodone 200 mg PO DAILY PRN Tobacco use date assessed: 03/08/23 Dental Screening Dental Screen Date: 04/05/23 HPI HPI Comments History of Present Illness Details 57-year-old female presents for follow-up visit She was evaluated and treated for left lower quadrant and left flank pain at [facility] ED on 05/09/2023. Abdominal CT due to history of diverticulitis and no history of CT in 20 years; revealed mild transverse colitis (no evidence of diverticulitis) and hepatic steatosis, otherwise normal findings. Labs and urinalysis were reassuring. She was discharged home on tramadol 50 mg a referral was as needed for breakthrough pain for 3 days. She was encouraged to drink plenty of fluids, Tylenol ibuprofen, and to follow-up with her PCP for GI referral She reports continued constant sharp pain in her LLQ. Her symptoms have been the same before and after she was evaluated and treated in the ED. She has been taking Tylenol and Tramadol with minimal relief. Her symptoms are worse with certain, including tomato sauce. She reports associated nausea 2-3 times daily and loose stool especially in the mornings. [facility] Medical History (Updated 05/14/23 @ 11:05 by Gunjan Davis CNP) Colitis Carpal tunnel syndrome Thyroid disease Hypertension High cholesterol Fatty liver Acid reflux Sinusitis Surgical History H/O bilateral oophorectomy Status post creation of urethral sling by suprapubic approach History of cholecystectomy History of back surgery H/O: hysterectomy Family History Mother Hypertension High cholesterol Diabetes Father Alcoholism Family/Other Diabetes Social History Housing: Condominium Patient Tobacco Use Status: Former Tobacco user e-Cigarette/Vaping Use: Never Used Substance Use Type: Marijuana service: No Current occupational status: retired and disabled Cognitive needs: No Hearing needs: Yes (Patient see's ENT) Vision needs: No Questionnaire Thrive Questionnaire Date Thrive assessed: 03/08/23 BON-7 AMB Questionnaire BON-7 Date BON - 7 assessed: 03/08/23 Source: Developed by Drs. Keith Cota, Rhoda Vega, Álvaro Casiano and colleagues, with an educational jose from [employer]. Review of Systems Const Details: Const Denies chills, Denies fatigue, Denies fever(s), Denies headache(s) and Denies weakness ENT Denies dizziness and Denies headache(s) Card Denies chest pain, Denies lightheadedness, Denies dyspnea and Denies other (Palpitations) Resp Denies cough, Denies dyspnea, Denies wheezing and Denies other ( shortness of breath) GI Reports as per HPI Denies hematuria and Denies dysuria Musc Denies abnormal gait, Denies myalgias, Denies arthralgias, Denies numbness and Denies tingling Skin/Breast Denies rash, Denies unusual bruising and Denies wounds Neuro Denies abnormal gait, Denies dizziness, Denies headache(s), Denies memory loss, Denies numbness, Denies Sensory deficit (Neuro), Denies tingling and Denies weakness Psych Denies anxiety, Denies depression, Denies memory loss Endo Denies cold intolerance, Denies fatigue, Denies heat intolerance, Denies polydipsia and Denies polyuria Aller/Immun Denies wheezing Physical exam (Primary Care) Vital Signs: Last Vital Signs Temp 97.6 F 05/14/23 10:30 Pulse 96 05/14/23 10:30 Resp 13 05/14/23 10:30 BP 126/84 05/14/23 10:30 Pulse Ox 99 05/14/23 10:30 Oxygen Delivery Method Room Air 05/14/23 10:30 BMI result Body Mass Index 33.6 Tobacco/Smoking Status: Tobacco use Status Tobacco use date assessed 03/08/23 05/14/23 10:39 Patient Tobacco Use Status Former Tobacco user 05/14/23 10:39 e-Cigarette/Vaping Use Never Used 05/14/23 10:39 Thrive Assessment: Date of Thrive Assessment Date Thrive assessed 03/08/23 05/14/23 10:39 Const Other: General: no acute distress and well developed Nutritional Appearance: well nourished Orientation/consciousness: patient oriented x3 HENMT Head: Yes normocephalic and Yes atraumatic Eyes General: appearance normal, both eyes and all related structures Pupils: Equal, round and reactive pupils present EOM: EOMs intact bilaterally Resp Effort & Inspection: normal respiratory effort Auscultation: clear to auscultation bilaterally Cardio Rate: regular rate Rhythm: regular rhythm Heart sounds: S1 normal heart sound present, S2 normal heart sound present, no gallops, no murmurs and no rubs GI Palpation (GI): No Abdominal aortic bruit present, Soft to palpation, tenderness to right upper and lower quadrants, left quadrant to his worse than right, No hepatosplenomegaly present and No Rebound tenderness present Auscultation: normal bowel sounds General: Yes no CVA tenderness Back/Spine/Pelvis Back: no CVA tenderness Cervical Spine: cervical ROM normal and No Cervical spine tenderness Thoracic/Lumbar Spine: thoraco-lumbar ROM normal, No pain with thoraco-lumbar ROM, No thoracic spinal tenderness and No lumbar spinal tenderness Extrem General: Yes normal to inspection, No edema and No calf tenderness Skin General: warm and dry. Normal skin color. Normal skin turgor Neuro General: patient oriented x3, gait normal and no focal neuro deficit Cranial nerves: Yes Equal, round and reactive pupils present Cognition (Neuro): normal cognition Gait exam (Neuro): Normal gait present Sensory Exam: No Sensory deficit (Neuro) Psych Appearance: grossly normal Affect: normal affect Attitude: cooperative Thought process: Normal thought process present Assessment and Plan Assessment & Plan (1) Colitis: Code(s): K52.9 - Noninfective gastroenteritis and colitis, unspecified Plan: Treated for colitis in the ED about 6 days ago Reports ongoing constant pain to her left lower quadrant Tenderness to right upper and lower quadrants, left quadrant to his worse than right Prednisone 40 mg daily for 5 days ordered. Take as prescribed Zofran prescribed for nausea May take tramadol or Tylenol as needed for breakthrough pain Advised to avoid foods that are triggers [place] [facility] [place] Follow-up with worsening or new symptoms Verbalized understanding and agreed with treatment plan Orders: Referrals Gastroenterology Referral K52.9 - Noninfective gastroenteritis and colitis, unspecified Medications: New ondansetron 4 mg PO Q8H PRN 14 tabs 0RF nausea and vomiting prednisone 40 mg (2 x 20 mg) PO DAILY 10 tabs 0RF 5 days Coding Level of Care Code Est Pt Level 4 (78644) Diagnoses Colitis K52.9
[2023-05-14 10:30] VITALS: BP 126/84; PULSE 96; RESP 13; TEMP 36.4; O2SAT 99; BMI 33.6
== END 2023-05-14 11:04 | disposition home or self-care (01) ==
PROVIDERS: PCP Nurse Practitioner Family; Visit Provider Nurse Practitioner Family
DX: K52.9 Noninfective gastroenteritis and colitis, unspecified (principal)
CPT/HCPCS: 99214

== ENCOUNTER 2023-05-28 16:42 | Outpatient (AMB) | payer OTHER, SELFPAY ==
[2023-05-28 16:47] VITALS: BP 126/76; PULSE 88; O2SAT 98; BMI 33.4
--- NOTE | 2023-05-28 16:47 | MHC.PC.OV ---
Vital Signs 05/28/23 16:47 Height 5 ft 1 in Weight 177 lb BMI 33.4 BP 126/76 Blood Pressure Location Lt brachial Position Sitting Pulse 88 Pulse Source Pulse Oximeter Pulse Oximetry (%) 98 Oxygen Delivery Method Room Air Intake Visit Reasons: Lumbar pain Intake Note: Patient is here with lumbar paqin even after being seen in [facility] 05/17 to 05/19. Allergies sulfur dioxide Allergy (Severe, Verified 05/28/23 16:57) Anaphylaxis adhesive tape Allergy (Intermediate, Verified 05/28/23 16:57) Rash tilapia Allergy (Severe, Uncoded 05/28/23 16:57) Anaphylaxis Medication List - Last Reconciled 05/28/23 by Gunjan Davis CNP acetaminophen ER (Tylenol Arthritis Pain) 650 mg PO Q8H PRN 30 days acetaminophen-caffeine 500-65 mg (Excedrin Tension Headache) 2 tabs PO Q8H PRN 30 days alprazolam mg PO amlodipine 5 mg PO DAILY 30 days atorvastatin 20 mg PO DAILY 30 days conj estrog-medroxyprogest brian 0.3-1.5 mg (Prempro) 1 tab PO DAILY duloxetine 60 mg PO DAILY fluticasone propionate 50 mcg/actuation (Flonase Allergy Relief) 1 spray intranasal Q12H PRN 90 days levothyroxine 50 mcg PO DAILY 30 days loratadine (Claritin) 10 mg PO DAILY 30 days magnesium oxide 400 mg PO DAILY 30 days metformin ER 1,000 mg (2 x 500 mg) PO DAILY 90 days vkzpidkg-skt-qphf-FA-vit K-lut 8 mg iron-400 mcg-50 mcg (Centrum Silver Women) 1 tab PO DAILY 30 days naproxen 500 mg PO BID nitrofurantoin macrocrystal 50 mg PO BEDTIME ondansetron 4 mg PO Q8H PRN pantoprazole 40 mg PO DAILY 30 days prednisone 40 mg (2 x 20 mg) PO DAILY 5 days riboflavin (vitamin B2) 400 mg PO DAILY 30 days sitagliptin phosphate (Januvia) 100 mg PO DAILY 30 days tramadol 25 mg PO Q6H PRN trazodone 200 mg PO DAILY PRN Tobacco use date assessed: 05/28/23 Dental Screening Dental Screen Date: 04/05/23 HPI HPI Comments History of Present Illness Details 57-year-old female presents for a follow-up visit for left flank pain. She notes that she was recently admitted at [facility] for same on 05/18/2023 to 05/20/2023. She brought discharged paperwork with her. She was diagnosed with pyelonephritis and was treated with IV cefpodoxime and sent home on cefpodoxime 100mg BID; she completed the course of the antibiotics. She reports persistent low back pain the day after she was discharged from the hospital. She notes that the pain feels as though Somebody is cracking me open. The pain is slightly improved with standing up. She has been taking taking Naproxen 500mg daily and alternate with Tylenol 650mg daily without improvement. She also uses otc lidocaine patch without relief. She denies fall, injury, or trauma. No tingling or numbness. [facility] Medical History (Updated 05/28/23 @ 17:16 by Gunjan Davis CNP) Colitis Carpal tunnel syndrome Thyroid disease Hypertension High cholesterol Fatty liver Acid reflux Sinusitis Surgical History H/O bilateral oophorectomy Status post creation of urethral sling by suprapubic approach History of cholecystectomy History of back surgery H/O: hysterectomy Family History Mother Hypertension High cholesterol Diabetes Father Alcoholism Family/Other Diabetes Social History Housing: Condominium Patient Tobacco Use Status: Former Tobacco user e-Cigarette/Vaping Use: Never Used Substance Use Type: Marijuana service: No Current occupational status: retired and disabled Cognitive needs: No Hearing needs: Yes (Patient see's ENT) Vision needs: No Questionnaire Thrive Questionnaire Date Thrive assessed: 03/08/23 BON-7 AMB Questionnaire BON-7 Date BON - 7 assessed: 03/08/23 Source: Developed by Drs. Keith Cota, Rhoda Vega, Álvaro Casiano and colleagues, with an educational jose from [employer]. Review of Systems Const Details: Const Denies chills, Denies fatigue, Denies fever(s), Denies headache(s) and Denies weakness ENT Denies dizziness and Denies headache(s) Card Denies chest pain, Denies lightheadedness, Denies dyspnea and Denies other (Palpitations) Resp Denies cough, Denies dyspnea, Denies wheezing and Denies other ( shortness of breath) GI Denies abdominal pain, Denies melena, Denies hematochezia, Denies change in bowel habits, Denies dyspepsia and Denies nausea Denies hematuria and Denies dysuria Musc Reports as per HPI Skin/Breast Denies rash, Denies unusual bruising and Denies wounds Neuro Denies abnormal gait, Denies dizziness, Denies headache(s), Denies memory loss, Denies numbness, Denies Sensory deficit (Neuro), Denies tingling and Denies weakness Psych Denies anxiety, Denies depression, Denies memory loss Endo Denies cold intolerance, Denies fatigue, Denies heat intolerance, Denies polydipsia and Denies polyuria Aller/Immun Denies wheezing Physical exam (Primary Care) Vital Signs: Last Vital Signs Pulse 88 05/28/23 16:47 BP 126/76 05/28/23 16:47 Pulse Ox 98 05/28/23 16:47 Oxygen Delivery Method Room Air 05/28/23 16:47 BMI result Body Mass Index 33.4 Tobacco/Smoking Status: Tobacco use Status Tobacco use date assessed 05/28/23 05/28/23 16:52 Patient Tobacco Use Status Former Tobacco user 05/28/23 16:52 e-Cigarette/Vaping Use Never Used 05/28/23 16:52 Thrive Assessment: Date of Thrive Assessment Date Thrive assessed 03/08/23 05/28/23 16:52 Const Other: General: no acute distress and well developed Nutritional Appearance: well nourished Orientation/consciousness: patient oriented x3 HENMT Head: Yes normocephalic and Yes atraumatic Eyes General: appearance normal, both eyes and all related structures Pupils: Equal, round and reactive pupils present EOM: EOMs intact bilaterally Resp Effort & Inspection: normal respiratory effort Auscultation: clear to auscultation bilaterally Cardio Rate: regular rate Rhythm: regular rhythm Heart sounds: S1 normal heart sound present, S2 normal heart sound present, no gallops, no murmurs and no rubs GI Palpation (GI): No Abdominal aortic bruit present, Soft to palpation, nontender, No hepatosplenomegaly present and No Rebound tenderness present Auscultation: normal bowel sounds General: Yes no CVA tenderness Back/Spine/Pelvis Back: no CVA tenderness Cervical Spine: cervical ROM normal and No Cervical spine tenderness Thoracic/Lumbar Spine: thoraco-lumbar ROM normal, No pain with thoraco-lumbar ROM, No thoracic spinal tenderness and lumbar spinal tenderness Extrem General: Yes normal to inspection, No edema and No calf tenderness Negative straight leg raise bilaterally Skin General: warm and dry. Normal skin color. Normal skin turgor Neuro General: patient oriented x3, gait normal and no focal neuro deficit Cranial nerves: Yes Equal, round and reactive pupils present Cognition (Neuro): normal cognition Gait exam (Neuro): Normal gait present Sensory Exam: No Sensory deficit (Neuro) Psych Appearance: grossly normal Affect: normal affect Attitude: cooperative Thought process: Normal thought process present Assessment and Plan Assessment & Plan (1) Low back pain: Code(s): M54.50 - Low back pain, unspecified Plan: Low back pain x1 week Lumbar tenderness to palpation Negative straight leg raise bilaterally No overt signs of trauma or injury Likely arthritis or herniated disc Tramadol and cyclobenzaprine ordered. Take as prescribed May take Tylenol as prescribed Warm/cool compresses encouraged Follow-up with worsening or new symptoms Verbalized understanding and agreed with treatment plan Medications: New cyclobenzaprine 10 mg PO BID PRN 10 tabs 0RF muscle spasm tramadol 25 mg PO Q6H PRN 10 tabs 0RF pain Coding Level of Care Code Est Pt Level 5 (17091) Diagnoses Low back pain M54.50
== END 2023-05-28 17:45 | disposition home or self-care (01) ==
PROVIDERS: PCP Nurse Practitioner Family; Visit Provider Nurse Practitioner Family
DX: M54.50 Low back pain, unspecified (principal)
CPT/HCPCS: 99214

== ENCOUNTER 2023-06-05 14:01 | Outpatient (REF) | payer OTHER, SELFPAY ==
[2023-06-05 19:18] LABS: Alanine Aminotransferase 49 U/L (0-31); Albumin Level 4.4 g/dL (3.5-5.0); Alkaline Phosphatase 64 U/L (39-117); Aspartate Amino Transferase 26 U/L (5-31); Bilirubin Direct 0.1 mg/dL (0.0-0.5); Bilirubin Total 0.3 mg/dL (0.0-1.0); Lipase 134 U/L (8-78); Total Protein 7.6 g/dL (6.5-8.0)
[2023-06-05 19:53] LABS: Folate 16.4 ng/mL (> or = 4.0); Vitamin B12 1268 pg/mL (200-900)
[2023-06-07 08:53] LABS: Transglutaminase Ab IgG <1.0 U/mL; Transglutaminase IgA <1.0 U/mL
[2023-06-10 07:23] LABS: Vitamin D 25-OH, D2 <4 ng/mL; Vitamin D 25-OH, D3 46 ng/mL; Vitamin D 25-OH, Total 46 ng/mL (30-100)
== END 2023-06-05 14:02 | disposition home or self-care (01) ==
LOC: HO.LAB 14:01
PROVIDERS: PCP Nurse Practitioner Family; Visit Provider Nurse Practitioner Family
DX: R10.9 Unspecified abdominal pain (principal); R74.01 Elevation of levels of liver transaminase levels; E55.9 Vitamin D deficiency, unspecified; R19.7 Diarrhea, unspecified
CPT/HCPCS: 36415; 80076; 82306; 82607; 82746; 83690; 86364; 99202

== ENCOUNTER 2023-06-05 14:01 | Outpatient (AMB) | payer OTHER, SELFPAY ==
--- NOTE | 2023-06-05 14:04 | A.OFFVIS_ITS ---
Vital Signs 06/05/23 14:08 Height 5 ft 1 in Weight 174 lb 2.643 oz BMI 32.9 BP 122/70 Blood Pressure Location Lt brachial Position Sitting Pulse 104 H Intake Visit Reasons: Colitis Intake Note: Jacy presents in the office as a new patient for colitis. CC: she states that she was diagnosed with colitis and her PCP gave her prednisone for a flare up. Every time that she eats she gets nausea - when she wakes up and has nothing in her stomach she has pains and nausea. She is having pains in the RUQ - she also states that she is having some pains in her back and not sure if that is also related to colitis. 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 Patient was seen in the ER on May 08 for right upper quadrant pain. Mild colitis shown in transverse colon. Patient was sent home on antibiotics. Week later patient developed severe abdominal pain radiating to her back. Patient was urinating dark brown urine. Was admitted with UTI with pyelonephritis for IV antibiotics. Patient reports to me that she has been dealing with her abdominal issues for very long time. Previously was evaluated by couple different GI specialties. No significant changes and in no treatment planned for her. Patient is status post cholecystectomy in 2007. Reports variation in her bowel movements. Days with no BM and days with 3-6 BM's a day. Patient reports that she is taking 20 mg of Prilosec every morning and continues to have epigastric pain and bloating. Patient reports that sometimes when the pain is severe she is not eating anything because she is unable to tolerate PFSH Medical History (Updated 06/10/23 @ 19:53 by Renetta Frias BATH HOUSE ATTENDANT-) Colitis Carpal tunnel syndrome Thyroid disease Hypertension High cholesterol Fatty liver Acid reflux Sinusitis Surgical History H/O bilateral oophorectomy Status post creation of urethral sling by suprapubic approach History of cholecystectomy History of back surgery H/O: hysterectomy Family History Mother Hypertension High cholesterol Diabetes Father Alcoholism Family/Other Diabetes Social History [facility] Patient Tobacco Use Status: Former Tobacco user e-Cigarette/Vaping Use: Never Used Substance Use Type: Marijuana service: No Current occupational status: retired and disabled Cognitive needs: No Hearing needs: Yes (Patient see's ENT) Vision needs: No Review of Systems Const Denies weight gain and Denies weight loss ENT Reports no additional complaints, Denies dysphagia and Denies odynophagia Card Reports no additional complaints Resp Reports no additional complaints GI Denies abdominal pain, Denies belching, Denies melena, Denies bloating, Reports constipation, Denies dysphagia, Denies excessive flatus, Reports dyspepsia, Reports heartburn, Denies diarrhea, Reports loose stools, Reports nausea, Denies odynophagia and Denies vomiting Reports no additional complaints Musc Reports no additional complaints Neuro Reports no additional complaints Psych Reports no additional complaints Endo Reports no additional complaints Physical Exam Vital Signs: Last Vital Signs Pulse 104 H 06/05/23 14:08 BP 122/70 06/05/23 14:08 BMI result Body Mass Index 32.9 Const General: healthy appearing and no acute distress Nutritional Appearance: obese Orientation/consciousness: patient oriented x3 Resp Effort & Inspection: normal respiratory effort, able to speak in complete sentences, no tracheal deviation and symmetric chest movement Auscultation: clear to auscultation bilaterally Cardio Rate: regular rate GI Inspection: Yes normal to inspection, No distended and Yes obesity Palpation (GI): Soft to palpation, not firm, nontender and No hepatosplenomegaly present Auscultation: normal bowel sounds General: Yes no CVA tenderness Back/Spine/Pelvis Back: no CVA tenderness Skin General skin exam: elasticity normal, turgor normal and dry skin Neuro General: patient oriented x3 Psych Appearance: grossly normal Mental Status: mental status grossly normal Assessment & Plan Assessment & Plan (1) Colitis: Code(s): K52.9 - Noninfective gastroenteritis and colitis, unspecified Category: Medical (2) Postprandial diarrhea: Code(s): K52.9 - Noninfective gastroenteritis and colitis, unspecified (3) Constipation: Code(s): K59.00 - Constipation, unspecified Qualifiers: Constipation type: slow transit constipation Qualified Code(s): K59.01 - Slow transit constipation (4) Acid reflux: Code(s): K21.9 - Gastro-esophageal reflux disease without esophagitis Category: Medical Qualifiers: Esophagitis presence: esophagitis presence not specified Qualified Code(s): K21.9 - Gastro-esophageal reflux disease without esophagitis (5) Postprandial epigastric pain: Code(s): R10.13 - Epigastric pain Plan Will rule out celiac, H pylori, pancreatic insufficiency. Patient does have a postprandial abdominal bloating and loose stools. Will rule out malabsorption check vitamin B12, folate, vitamin-D level. Will check her lipase as well as liver panel. Patient will be sent for ultrasound. She does report pain in the right upper quadrant right lower quadrant well as left upper quadrant. Low FODMAP diet discussed with patient. Patient will be placed on Nexium and will stop pantoprazole. Patient reports that she has no effect from pantoprazole. Patient can start taking Citrucel to help her bulk stools as well as senna to help her eliminate her bowels better. I will see her in 6 weeks, sooner on as needed basis. She is agreeable to this plan and verbalizes understanding of instructions. She was given the opportunity to ask questions and all questions answered. Thank you for allowing me to participate in her care [facility] records at [facility] reviewed from ED visits as well as admission records Orders: Orders Pancreatic Elastase-1 06/05/23 R10.9 - Unspecified abdominal pain Liver Panel 06/05/23 R74.01 - Elevation of levels of liver transaminase levels Vitamin B12 and Folate 06/05/23 R19.7 - Diarrhea, unspecified Vitamin D 25-OH (D2 and D3) 06/05/23 E55.9 - Vitamin D deficiency, unspecified US abdomen complete 06/05/23 R10.11 - Right upper quadrant pain, R10.9 - Unspecified abdominal pain H pylori Ag Stool 06/05/23 K21.9 - Gastro-esophageal reflux disease without esophagitis Transglutaminase Ab IgG 06/05/23 R10.9 - Unspecified abdominal pain Transglutaminase IgA 06/05/23 R10.9 - Unspecified abdominal pain Lipase 06/05/23 R10.9 - Unspecified abdominal pain Medications: New esomeprazole magnesium (Nexium) 40 mg PO DAILY 30 caps 5RF K21.9 - Gastro- esophageal reflux disease without esophagitis methylcellulose (laxative) (Citrucel) take it with full glass of water 500 mg PO DAILY 90 tabs 2RF K59.00 - Constipation, unspecified sennosides (Natural Senna Laxative) 17.2 mg (2 x 8.6 mg) PO BEDTIME 60 tabs 3RF constipation K59.00 - Constipation, unspecified famotidine (Pepcid) 20 mg PO BEDTIME 30 tabs 3RF K21.9 - Gastro-esophageal reflux disease without esophagitis Discontinued pantoprazole Discontinued Reason: Duplicate 40 mg PO DAILY 30 days 30 tabs 3RF Coding Level of Care Code New Pt Level 5 (76124) Diagnoses Colitis K52.9 Postprandial diarrhea K52.9 Slow transit constipation K59.01 Constipation type: slow transit constipation Gastroesophageal reflux disease, unspecified whether esophagitis present K21.9 Esophagitis presence: esophagitis presence not specified Postprandial epigastric pain R10.13 Time Spent (min) 55 Comment 30 minutes spent with patient and additional 25 minutes spent reviewing her records
[2023-06-05 14:08] VITALS: BP 122/70; PULSE 104; BMI 32.9
== END 2023-06-05 15:00 | disposition home or self-care (01) ==
PROVIDERS: PCP Nurse Practitioner Family; Visit Provider Nurse Practitioner Family
DX: K52.9 Noninfective gastroenteritis and colitis, unspecified (principal); K59.01 Slow transit constipation; K21.9 Gastro-esophageal reflux disease without esophagitis; R10.13 Epigastric pain
CPT/HCPCS: 99205

== ENCOUNTER 2023-06-14 09:29 | Outpatient (REF) | payer OTHER, SELFPAY ==
--- NOTE | ~2023-06-14 | US_ITS ---
EXAMINATION: US ABDOMEN COMPLETE CLINICAL INFORMATION: Unspecified abdominal pain. Right upper quadrant pain status post cholecystectomy. COMPARISON: None available. TECHNIQUE: Real-time imaging of the abdominal viscera. Limited visualization due to bowel gas. FINDINGS: PANCREAS: Limited visualization of pancreatic tail and head. Imaged portion of pancreatic body is unremarkable.. ABDOMINAL AORTA: Unremarkable. INFERIOR VENA CAVA: Visualized portions are normal. LIVER: Hepatomegaly, 18.4 cm. Increased hepatic parenchymal heterogeneity and echogenicity could be associated with hepatocellular disease/hepatic steatosis and substantially limits visualization. Correlation with liver function tests and clinical exam recommended to determine further management. GALLBLADDER: Surgically absent. Echogenic focus in the gallbladder fossa, possibly representing a surgical clip. Limited visualization due to bowel gas. COMMON BILE DUCT: Normal in caliber measuring 0.59 cm in diameter. RIGHT KIDNEY: No hydronephrosis. No renal calculi. Limited visualization. The kidney measures 10.5 cm in maximum dimension. LEFT KIDNEY: Left renal 3 mm upper pole and lower pole calculi. Left renal lower pole 8 mm cluster of calculi. Upper pole 1.3 cm pole cyst with benign features. There is no indication for follow-up imaging. Limited visualization. No hydronephrosis. The kidney measures 11.2 cm in maximum dimension. SPLEEN: Normal. The spleen measures 9.4 cm in maximum dimension. FREE FLUID: None. US/US abdomen complete IMPRESSION: 1. Hepatomegaly, 18.4 cm. Increased hepatic parenchymal heterogeneity and echogenicity could be associated with hepatocellular disease/hepatic steatosis and substantially limits visualization. Correlation with liver function tests and clinical exam recommended to determine further management. 2. Left renal 3 mm upper pole and lower pole calculi. Left renal lower pole 8 mm cluster of calculi. No hydronephrosis.
[2023-06-21 17:03] LABS: Pancreatic Elastase-1 >500 mcg/g
== END 2023-06-14 09:30 | disposition home or self-care (01) ==
LOC: HO.US 09:29
PROVIDERS: PCP Nurse Practitioner Family; Visit Provider Nurse Practitioner Family
DX: R10.11 Right upper quadrant pain (principal); K21.9 Gastro-esophageal reflux disease without esophagitis
CPT/HCPCS: 76700; 82656; 87338

== ENCOUNTER 2023-07-05 12:16 | Outpatient (AMB) | payer OTHER, SELFPAY ==
--- NOTE | 2023-07-05 12:25 | MHC.PC.OV ---
Vital Signs 07/05/23 12:29 Height 5 ft 1 in Weight 175 lb 8 oz BMI 33.2 BP 112/80 Blood Pressure Location Lt brachial Position Sitting Respiration 14 Pulse 108 H Pulse Source Pulse Oximeter Temp 98.4 F Temp Source Oral Pulse Oximetry (%) 98 Oxygen Delivery Method Room Air Intake Visit Reasons: HTN, DM, anxiety, depression Intake Note: Follow up diabetes, depression, anxiety, HTN De Icer Kit Assembler Required: No Allergies sulfur dioxide Allergy (Severe, Verified 07/05/23 12:34) Anaphylaxis adhesive tape Allergy (Intermediate, Verified 07/05/23 12:34) Rash tilapia Allergy (Severe, Uncoded 07/05/23 12:34) Anaphylaxis Medication List - Last Reconciled 07/05/23 by Gunjan Davis CNP acetaminophen ER (Tylenol Arthritis Pain) 650 mg PO Q8H PRN 30 days acetaminophen-caffeine 500-65 mg (Excedrin Tension Headache) 2 tabs PO Q8H PRN 30 days alprazolam mg PO amlodipine 5 mg PO DAILY 30 days atorvastatin 20 mg PO DAILY 30 days conj estrog-medroxyprogest brian 0.3-1.5 mg (Prempro) 1 tab PO DAILY cyclobenzaprine 10 mg PO BID PRN duloxetine 60 mg PO DAILY esomeprazole magnesium (Nexium) 40 mg PO DAILY famotidine (Pepcid) 20 mg PO BEDTIME fluticasone propionate 50 mcg/actuation (Flonase Allergy Relief) 1 spray intranasal Q12H PRN 90 days levothyroxine 50 mcg PO DAILY 30 days magnesium oxide 400 mg PO DAILY 30 days metformin ER 1,000 mg (2 x 500 mg) PO DAILY 90 days methylcellulose (laxative) (Citrucel) 500 mg PO DAILY [id number]-FA-vit K-lut 8 mg iron-400 mcg-50 mcg (Centrum Silver Women) 1 tab PO DAILY 30 days ondansetron 4 mg PO Q8H PRN riboflavin (vitamin B2) 400 mg PO DAILY 30 days sennosides (Natural Senna Laxative) 17.2 mg (2 x 8.6 mg) PO BEDTIME sitagliptin phosphate (Januvia) 100 mg PO DAILY 30 days trazodone 200 mg PO DAILY PRN Tobacco use date assessed: 05/28/23 Dental Screening Dental Screen Date: 04/05/23 HPI HPI Comments History of Present Illness Details 57-year-old female presents for hypertension, diabetes, anxiety, and depression follow-up She admits to taking her medications as prescribed without adverse reactions. She is followed by a psychiatrist every 6 months and a therapist monthly. Her psychiatrist manages her psychotropic medications She requests hepatitis C test due to history of fatty liver and hepatomegaly She offers no complaints and denies acute symptoms at this time PENDING SALE TO [facility] Medical History (Updated 07/05/23 @ 12:58 by Gunjan Davis CNP) Colitis Carpal tunnel syndrome Thyroid disease Hypertension High cholesterol Fatty liver Acid reflux Sinusitis Surgical History H/O bilateral oophorectomy Status post creation of urethral sling by suprapubic approach History of cholecystectomy History of back surgery H/O: hysterectomy Family History Mother Hypertension High cholesterol Diabetes Father Alcoholism Family/Other Diabetes Social History Housing: Condominium Patient Tobacco Use Status: Former Tobacco user e-Cigarette/Vaping Use: Never Used Substance Use Type: Marijuana service: No Current occupational status: retired and disabled Cognitive needs: No Hearing needs: Yes (Patient see's ENT) Vision needs: No Questionnaire PHQ-9 Over the last 2 weeks, how often have you been bothered by any of the following problems? 1. Little interest or pleasure in doing things: several days 2. Feeling down, depressed, or hopeless: several days 3. Trouble falling or staying asleep, or sleeping too much: more than half the days 4. Feeling tired or having little energy: more than half the days 5. Poor appetite or overeating: more than half the days 6. Feeling bad about yourself - or that you are a failure or have let yourself or your family down: several days 7. Trouble concentrating on things, such as reading the newspaper or watching television: not at all 8. Moving or speaking so slowly that other people could have noticed. Or the opposite - being so fidgety or restless that you have been moving around a lot more than usual: several days 9. Thoughts that you would be better off or of hurting yourself in some way: several days Total score: 11 Depression Screening Interpretation: Positive Depression Screening Follow-up: Existing condition and In treatment Depression Screening Done: Yes 66419 - PHQ-9 Billing: Yes Source: Developed by Drs. Keith Cota, Rhoda Vega, Álvaro Casiano and colleagues, with an educational jose from [employer]. Thrive Questionnaire Date Thrive assessed: 03/08/23 BON-7 AMB Questionnaire BON-7 Date BON - 7 assessed: 07/05/23 Feeling nervous, anxious, or on edge: 2 = More than half the days Not being able to stop or control worryin = Several days Worrying too much about different things: 2 = More than half the days Trouble relaxin = More than half the days Being so restless that it is hard to sit still: 0 = Not at all Becoming easily annoyed or irritable: 1 = Several days Feeling afraid as if something awful might happen: 0 = Not at all Total BON-7 score (0-4 normal; 5-9 mild; 10-14 moderate; 15-21 severe): 8 Source: Developed by Drs. Keith Cota, Rhoda Vega, Álvaro Casiano and colleagues, with an educational jose from [employer]. Review of Systems Const Details: Const Denies chills, Denies fatigue, Denies fever(s), Denies headache(s) and Denies weakness ENT Denies dizziness and Denies headache(s) Card Denies chest pain, Denies lightheadedness, Denies dyspnea and Denies other (Palpitations) Resp Denies cough, Denies dyspnea, Denies wheezing and Denies other ( shortness of breath) GI Denies abdominal pain, Denies melena, Denies hematochezia, Denies change in bowel habits, Denies dyspepsia and Denies nausea Denies hematuria and Denies dysuria Musc Denies abnormal gait, Denies myalgias, Denies arthralgias, Denies numbness and Denies tingling Skin/Breast Denies rash, Denies unusual bruising and Denies wounds Neuro Denies abnormal gait, Denies dizziness, Denies headache(s), Denies memory loss, Denies numbness, Denies Sensory deficit (Neuro), Denies tingling and Denies weakness Psych Denies anxiety, Denies depression, Denies memory loss Endo Denies cold intolerance, Denies fatigue, Denies heat intolerance, Denies polydipsia and Denies polyuria Aller/Immun Denies wheezing Physical exam (Primary Care) Vital Signs: Last Vital Signs Temp 98.4 F 07/05/23 12:29 Pulse 108 H 07/05/23 12:29 Resp 14 07/05/23 12:29 BP 112/80 07/05/23 12:29 Pulse Ox 98 07/05/23 12:29 Oxygen Delivery Method Room Air 07/05/23 12:29 BMI result Body Mass Index 33.2 Tobacco/Smoking Status: Tobacco use Status Tobacco use date assessed 05/28/23 07/05/23 12:27 Patient Tobacco Use Status Former Tobacco user 07/05/23 12:27 e-Cigarette/Vaping Use Never Used 07/05/23 12:27 PHQ-9: PHQ-9 Score PHQ-9: Total score 11 07/05/23 12:31 Depression Screening Interpretation: Positive Depression Screening Follow-up: Existing condition and In treatment Thrive Assessment: Date of Thrive Assessment Date Thrive assessed 03/08/23 07/05/23 12:27 Const Other: General: no acute distress and well developed Nutritional Appearance: well nourished Orientation/consciousness: patient oriented x3 HENMT Head: Yes normocephalic and Yes atraumatic Eyes General: appearance normal, both eyes and all related structures Pupils: Equal, round and reactive pupils present EOM: EOMs intact bilaterally Resp Effort & Inspection: normal respiratory effort Auscultation: clear to auscultation bilaterally Cardio Rate: regular rate Rhythm: regular rhythm Heart sounds: S1 normal heart sound present, S2 normal heart sound present, no gallops, no murmurs and no rubs GI Palpation (GI): No Abdominal aortic bruit present, Soft to palpation, nontender, No hepatosplenomegaly present and No Rebound tenderness present Auscultation: normal bowel sounds General: Yes no CVA tenderness Back/Spine/Pelvis Back: no CVA tenderness Cervical Spine: cervical ROM normal and No Cervical spine tenderness Thoracic/Lumbar Spine: thoraco-lumbar ROM normal, No pain with thoraco-lumbar ROM, No thoracic spinal tenderness and No lumbar spinal tenderness Extrem General: Yes normal to inspection, No edema and No calf tenderness Skin General: warm and dry. Normal skin color. Normal skin turgor Neuro General: patient oriented x3, gait normal and no focal neuro deficit Cranial nerves: Yes Equal, round and reactive pupils present Cognition (Neuro): normal cognition Gait exam (Neuro): Normal gait present Sensory Exam: No Sensory deficit (Neuro) Psych Appearance: grossly normal Affect: normal affect Attitude: cooperative Thought process: Normal thought process present Results AMB Hemoglobin A1c AMB Hemoglobin A1c 5.8 % Last Edit by Saba Corona CMA on 07/05/23 12:39 Assessment and Plan Assessment & Plan (1) Hypertension: Code(s): I10 - Essential (primary) hypertension Plan: Blood pressure is 112/80, slightly above goal of less than 130/80 Continue current treatment regimen Low-sodium diet encouraged Advised to get fasting labs done before her next visit Follow-up in 3 months return sooner with symptoms or concerns Verbalized understanding and agreed with treatment plan (2) Type 2 diabetes mellitus: Code(s): E11.9 - Type 2 diabetes mellitus without complications Plan: A1c today is 5.8%, within goal of less than 7.0%. Previous A1c was 6.4% Continue current treatment regimen ADA diet and routine exercise encouraged Follow-up in 3 months Verbalized understanding and agreed with treatment plan (3) Anxiety and depression: Code(s): F41.9 - Anxiety disorder, unspecified; F32.A - Depression, unspecified Plan: Controlled anxiety and depression symptoms on current treatment regimen PHQ-9 and BON-7 scores revealed moderate depression and mild anxiety respectively Continue current treatment regimen Continue follow-up with psychiatrist and therapist as planned Follow-up with symptoms or concerns Verbalized understanding and agreed with treatment plan (4) Fatty liver: Code(s): K76.0 - Fatty (change of) liver, not elsewhere classified Plan: Requests hep C test due to history of fatty liver and hepatomegaly Hep B and C lab ordered (5) Hepatomegaly: Code(s): R16.0 - Hepatomegaly, not elsewhere classified Plan: As above Orders: Orders AMB Hemoglobin A1c Today E11.9 - Type 2 diabetes mellitus without complications TSH reflex Free T4 Today E03.9 - Hypothyroidism, unspecified Complete Blood Count Auto Diff Today E11.9 - Type 2 diabetes mellitus without complications Microalbumin, Random (w Creat) Today E11.9 - Type 2 diabetes mellitus without complications Lipid Panel Today E78.00 - Pure hypercholesterolemia, unspecified Comprehensive [place]. Panel Fast Today E11.9 - Type 2 diabetes mellitus without complications Hepatitis B,C Profile Today K76.0 - Fatty (change of) liver, not elsewhere classified, R16.0 - Hepatomegaly, not elsewhere classified Medications: Refilled cyclobenzaprine 10 mg PO BID PRN 10 tabs 0RF muscle spasm ondansetron 4 mg PO Q8H PRN 14 tabs 0RF nausea and vomiting Coding Level of Care Code Est Pt Level 4 (95129) Complex EM visit Add On G2211 Diagnoses Hypertension I10 Type 2 diabetes mellitus E11.9 Anxiety and depression F41.9; F32.A Fatty liver K76.0 Hepatomegaly R16.0
[2023-07-05 12:29] VITALS: BP 112/80; PULSE 108; RESP 14; TEMP 36.9; O2SAT 98; BMI 33.2
== END 2023-07-05 13:02 | disposition home or self-care (01) ==
PROVIDERS: PCP Nurse Practitioner Family; Visit Provider Nurse Practitioner Family
DX: I10 Essential (primary) hypertension (principal); E11.9 Type 2 diabetes mellitus without complications; F41.9 Anxiety disorder, unspecified; F32.A Depression, unspecified; K76.0 Fatty (change of) liver, not elsewhere classified; R16.0 Hepatomegaly, not elsewhere classified
CPT/HCPCS: 83036; 99214; G2211

== ENCOUNTER 2023-07-19 13:45 | Outpatient (AMB) | payer OTHER, SELFPAY ==
--- NOTE | 2023-07-19 14:00 | A.OFFVIS_ITS ---
Vital Signs 07/19/23 14:07 Height 5 ft 1 in Weight 175 lb 0.752 oz BMI 33.1 BP 110/72 Blood Pressure Location Rt brachial Position Sitting Pulse 92 Pulse Source Pulse Oximeter Pulse Oximetry (%) 98 Oxygen Delivery Method Room Air Intake Visit Reasons: 6 week follow up Intake Note: Jacy presents in office today for a scheduled FUV. CC; Pt reports that their sx have remained somewhat stable. Pt states that they are still experiencing abdominal cramping and nausea. Pt reports that they don't like to eat because they constantly deal with these sx. Pt does report however, that their GERD sx have improved since starting the nexium. 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 Patient does have a postprandial abdominal bloating and loose stools. Will rule out malabsorption check vitamin B12, folate, vitamin-D level. Will check her lipase as well as liver panel. Patient will be sent for ultrasound. She does report pain in the right upper quadrant right lower quadrant well as left upper quadrant. Low FODMA P diet discussed with patient. Patient will be placed on Nexium and will stop pantoprazole. Patient reports that she has no effect from pantoprazole. Patient can start taking Citrucel to help her bulk stools as well as senna to help her eliminate her bowels better. I will see her in 6 weeks, sooner on as needed basis. She is agreeable to this plan and verbalizes understanding of instructions. She was given the opportunity to ask questions and all questions answered. ? Thank you for allowing me to participate in her care ? [facility] records at [facility] reviewed from ED visits as well as admission records Orders Orders Pancreatic Elastase-1 06/05/23 R10.9 Liver Panel 06/05/23 R74.01 Vitamin B12 and Folate 06/05/23 R19.7 Vitamin D 25-OH (D2 and D3) 06/05/23 E55.9 US abdomen complete 06/05/23 R10.11, R10.9 H pylori Ag Stool 06/05/23 K21.9 Transglutaminase Ab IgG 06/05/23 R10.9 Transglutaminase IgA 06/05/23 R10.9 Lipase 06/05/23 R10.9 Medications New esomeprazole magnesium (Nexium) 40 mg PO DAILY 30 caps 5RF K21.9 methylcellulose (laxative) (Citrucel) take it with full glass of water 500 mg PO DAILY 90 tabs 2RF K59.00 sennosides (Natural Senna Laxative) 17.2 mg (2 x 8.6 mg) PO BEDTIME 60 tabs 3RF constipation K59.00 famotidine (Pepcid) 20 mg PO BEDTIME 30 tabs 3RF K21.9 Discontinued pantoprazole Discontinued Reason: Duplicate 40 mg PO DAILY 30 days 30 tabs 3RF TODAY'S VISIT Patient is here today for follow-up and to discuss lab results and ultrasound results. Hepatic steatosis and hepatomegaly found without any acute processes. Patient continues to have postprandial abdominal bloating occasional loose stools and then constipation. Patient has not started Citrucel or Senokot. Patient did not want to get bound up taking the Citrucel. Patient reports that she is eating smaller meals and only couple times a day. Patient states that she does not fried her food. Usually patient reports that she bakes food. Patient reports that her symptoms of acid reflux have improved now that she started taking Nexium. Patient denies any dyspepsia, dysphagia or odynophagia. Denies melena, hematochezia, unintentional weight loss or ribbon like stools. Patient denies any other GI concerning symptoms. Increased AST and lipase level concerning for pancreatitis, chronic. Patient reports today that from her frequent bowel movements and then constipation she feels like her hemorrhoids are getting worse. [facility]LY [facility] Medical History Colitis Carpal tunnel syndrome Thyroid disease Hypertension High cholesterol Fatty liver Acid reflux Sinusitis Surgical History H/O bilateral oophorectomy Status post creation of urethral sling by suprapubic approach History of cholecystectomy History of back surgery H/O: hysterectomy Family History Mother Hypertension High cholesterol Diabetes Father Alcoholism Family/Other Diabetes Social History Housing: Condominium Patient Tobacco Use Status: Former Tobacco user e-Cigarette/Vaping Use: Never Used Substance Use Type: Marijuana service: No Current occupational status: retired and disabled Cognitive needs: No Hearing needs: Yes (Patient see's ENT) Vision needs: No Review of Systems Const Denies weight gain and Denies weight loss ENT Reports no additional complaints, Denies dysphagia and Denies odynophagia Card Reports no additional complaints Resp Reports no additional complaints GI Reports abdominal pain, Denies belching, Denies melena, Denies bloating, Reports constipation, Denies dysphagia, Denies excessive flatus, Denies dyspepsia, Reports heartburn (Improved), Denies diarrhea, Reports loose stools, Denies nausea, Denies odynophagia and Denies vomiting Reports no additional complaints Musc Reports no additional complaints Neuro Reports no additional complaints Psych Reports no additional complaints Endo Reports no additional complaints Physical Exam Vital Signs: Last Vital Signs Pulse 92 07/19/23 14:07 BP 110/72 07/19/23 14:07 Pulse Ox 98 07/19/23 14:07 Oxygen Delivery Method Room Air 07/19/23 14:07 BMI result Body Mass Index 33.1 Const General: healthy appearing and no acute distress Nutritional Appearance: obese Orientation/consciousness: patient oriented x3 Resp Effort & Inspection: normal respiratory effort, able to speak in complete sentences, no tracheal deviation and symmetric chest movement Auscultation: clear to auscultation bilaterally Cardio Rate: regular rate GI Inspection: Yes normal to inspection, No distended and Yes obesity Palpation (GI): Soft to palpation, not firm, nontender and No hepatosplenomegaly present Auscultation: normal bowel sounds General: Yes no CVA tenderness Back/Spine/Pelvis Back: no CVA tenderness Skin General skin exam: elasticity normal, turgor normal and dry skin Neuro General: patient oriented x3 Psych Appearance: grossly normal Mental Status: mental status grossly normal Results Reviewed Results Reviewed: Laboratory Tests 06/05/23 06/05/23 06/14/23 15:09 15:17 08:25 Hgb A1c (Clinic) Total Bilirubin 0.3 Direct Bilirubin 0.1 AST 26 ALT 49 H Alkaline Phosphatase 64 Total Protein 7.6 Lipase 134 H Vitamin B12 1268 H 25-OH Vitamin D Total 46 Folate 16.4 Stool Pancreat Elastase >500 Tiss Transglutamin IgG <1.0 Tiss Transglutamin IgA <1.0 07/05/23 12:31 Hgb A1c (Clinic) 5.8 Total Bilirubin Direct Bilirubin AST ALT Alkaline Phosphatase Total Protein Lipase Vitamin B12 25-OH Vitamin D Total Folate Stool Pancreat Elastase Tiss Transglutamin IgG Tiss Transglutamin IgA ABDOMINAL ULTRASOUND IMPRESSION: 1. Hepatomegaly, 18.4 cm. Increased hepatic parenchymal heterogeneity and echogenicity could be associated with hepatocellular disease/hepatic steatosis and substantially limits visualization. Correlation with liver function tests and clinical exam recommended to determine further management. 2. Left renal 3 mm upper pole and lower pole calculi. Left renal lower pole 8 mm cluster of calculi. No hydronephrosis. Assessment & Plan Assessment & Plan (1) Hepatomegaly: Code(s): R16.0 - Hepatomegaly, not elsewhere classified Category: Medical Plan Most likely chronic pancreatitis, patient was encouraged to avoid dietary triggers. Increased AST as well and hepatomegaly and increase echogenicity of the liver found. Will rule out autoimmune disorders, hemochromatosis, check liver fibrosis. Will send patient for MRCP to rule out blocked CBD. Patient will return in 2-3 months, sooner on as needed basis. Patient was encouraged to increase fluid intake and activity to promote better bowel motility. Patient was encouraged also to take Citrucel daily to help her bulk stools and then Senokot in the evening to help her evacuate her bowels better. Script for Pro ctosol given, patient is complaining of hemorrhoids and is asking for referral to General surgery. Referral sent. Patient will walk over to make appointment to discuss hemorrhoidectomy. She is agreeable to this plan and verbalizes understanding of instructions. She was given the opportunity to ask questions and all questions answered. Thank you for allowing me to participate in her care Orders: Orders Liver Fibrosis Pnl Today R74.8 - Abnormal levels of other serum enzymes Mitochondrial Antibody Today R79.89 - Other specified abnormal findings of blood chemistry Ferritin Today R74.8 - Abnormal levels of other serum enzymes Alpha Fetoprotein Today R79.89 - Other specified abnormal findings of blood chemistry Hepatitis A,B,C Profile Today R79.89 - Other specified abnormal findings of blood chemistry C Reactive Protein Today K58.9 - Irritable bowel syndrome without diarrhea Smooth Muscle Antibody Today R79.89 - Other specified abnormal findings of blood chemistry Calprotectin, Fecal Today R15.9 - Full incontinence of feces IRON PROFILE Today D64.9 - Anemia, unspecified Lipase Today R10.9 - Unspecified abdominal pain MR MRCP Today K85.90 - Acute pancreatitis without necrosis or infection, unspecified, R10.9 - Unspecified abdominal pain, R16.0 - Hepatomegaly, not elsewhere classified Referrals General Surgery Referral K64.9 - Unspecified hemorrhoids Medications: New hydrocortisone 2.5% (Proctosol HC) 1 appl ID BID-QID PRN 30 grams 2RF hemorrh oids K64.9 - Unspecified hemorrhoids Coding Level of Care Code Est Pt Level 4 (37026) Diagnoses Hepatomegaly R16.0 Time Spent (min) 40 Comment 25 minutes spent with patient and additional 10 minutes spent reviewing her records
[2023-07-19 14:07] VITALS: BP 110/72; PULSE 92; O2SAT 98; BMI 33.1
== END 2023-07-19 15:08 | disposition home or self-care (01) ==
PROVIDERS: PCP Nurse Practitioner Family; Visit Provider Nurse Practitioner Family
DX: R16.0 Hepatomegaly, not elsewhere classified (principal)
CPT/HCPCS: 99214

== ENCOUNTER → 2023-07-19 13:45 | Outpatient (BNVA) | payer OTHER, SELFPAY | PROVIDERS: PCP Nurse Practitioner Family; Visit Provider Nurse Practitioner Family | DX: R16.0 Hepatomegaly, not elsewhere classified (principal) | CPT/HCPCS: 99212 ==

== ENCOUNTER 2023-07-23 09:00 | Outpatient (REF) | payer OTHER, SELFPAY ==
[2023-07-23 11:09] LABS: MANUAL DIFF FLAG NO
[2023-07-23 11:23] LABS: Basophils Absolute Auto 0.1 X10*3/uL (0.0-0.2); Basophils Percent Auto 0.5 % (0-2); Eosinophils Absolute Auto 0.2 X10*3/uL (0.0-0.4); Eosinophils Percent Auto 1.4 % (0-4); Hematocrit 45.1 % (37.0-47.0); Hemoglobin 14.7 g/dl (12.0-16.0); Imm Gran Abs Auto 0.04 X10*3/uL (0.00-0.03); Imm Gran Pct Auto 0.3 % (0.0-0.4); Lymphocytes Absolute Auto 2.9 X10*3/uL (1.2-4.9); Lymphocytes Percent Auto 25.1 % (20-40); Mean Corpuscular HGB Conc 32.6 g/dl (31.0-35.0); Mean Corpuscular Hemoglobin 29.4 pg (27.0-33.0); Mean Corpuscular Volume 90.2 fL (80.0-98.0); Mean Platelet Volume 10.4 fL (9.4-12.3); Monocytes Absolute Auto 0.9 X10*3/uL (0.1-1.2); Monocytes Percent Auto 7.7 % (2-11); Neutrophils Absolute Auto 7.6 x10*3/uL (2.0-8.3); Platelet Count 353 X10*3/uL (160-400); Red Cell Distribution Width 14.3 % (11.0-16.0); White Blood Count 11.7 X10*3/uL (4.8-10.8)
[2023-07-23 11:57] LABS: Ferritin 19 ng/mL (10-250)
[2023-07-23 12:02] LABS: HBS Num1 101.09 mIU/mL (0-7.99); HBsAGNum1 0.22 S/CO (0.00-0.99); Hepatitis B Core Antibody Nonreactive (Nonreactive); Hepatitis B Surface Antigen Negative (Negative); ~HepC Num1 0.05 S/CO (0.00-0.79); ~Hepatitis B Surface Antibody REACTIVE (Nonreactive); ~Hepatitis C Antibody Nonreactive (Nonreactive)
[2023-07-23 12:03] LABS: HBS Num1 102.63 mIU/mL (0-7.99); HBsAGNum1 0.26 S/CO (0.00-0.99); Hepatitis A Antibody IgM 0.14 Index (0-0.79); Hepatitis B Core Antibody Nonreactive (Nonreactive); Hepatitis B Surface Antigen Negative (Negative); ~HepC Num1 0.05 S/CO (0.00-0.79); ~Hepatitis A Antibody IgM Nonreactive (Nonreactive); ~Hepatitis B Surface Antibody REACTIVE (Nonreactive); ~Hepatitis C Antibody Nonreactive (Nonreactive)
[2023-07-23 12:27] LABS: Alanine Aminotransferase 52 U/L (0-31); Albumin Level 4.7 g/dL (3.5-5.0); Alkaline Phosphatase 71 U/L (39-117); Anion Gap 14 (12-20); Aspartate Amino Transferase 31 U/L (5-31); Bilirubin Total 0.3 mg/dL (0.0-1.0); Blood Urea Nitrogen 13 mg/dL (9-16); C Reactive Protein 0.15 mg/dL (< or = 0.50); Calcium 9.9 mg/dL (8.4-10.2); Carbon Dioxide 27 mmol/L (22-29); Chloride 105 mmol/L (96-108); Cholesterol 143 mg/dL (<200); Estimated Glomerular Filt Rate > 60; Glucose Fasting 116 mg/dL (60-99); HDL Cholesterol 50 mg/dL (>40); Iron 43 mcg/dL (30-160); LDL Cholesterol Calculated 63 mg/dL (<100); Lipase 42 U/L (8-78); Percent Iron Saturation 11 % (15-50); Potassium 4.1 mmol/L (3.3-5.1); Sodium 142 mmol/L (135-145); TSH reflex Free T4 1.28 uIU/mL (0.32-4.0); Total Iron Binding Capacity 391 mcg/dL (228-428); Total Protein 8.1 g/dL (6.5-8.0); Triglycerides 152 mg/dL (<150); Unsaturated Iron Binding 348 ug/dL
[2023-07-23 12:29] LABS: Microalbum/Creatinine Ratio Ur 12.3 ug/mg cr (<30)
[2023-07-25 13:07] LABS: Alpha Fetoprotein 1.8 ng/mL
[2023-07-26 08:07] LABS: Mitochondrial Antibodies NEGATIVE (NEGATIVE)
[2023-07-29 05:59] LABS: Smooth Muscle Antibody <20 U (<20)
[2023-08-07 18:49] LABS: FIB-ALT 44 U/L (6-29); FIB-Alpha-2-Macroglobulin 324 mg/dL (106-279); FIB-Apolipoprotein A1 168 mg/dL (101-198); FIB-GGT 75 U/L (3-65); FIB-Haptoglobin 254 mg/dL (43-212); FIB-Total Bilirubin 0.3 mg/dL (0.2-1.2); Liver Fibrosis Score 0.27; Liver Fibrosis Stage F1; Nec Inflam Act Grade A0-A1; Nec Inflam Act Score 0.24
== END 2023-07-23 09:01 | disposition home or self-care (01) ==
LOC: HO.WFDLDS 09:00
PROVIDERS: Referring Provider Nurse Practitioner Family; Visit Provider Nurse Practitioner Family
DX: E11.9 Type 2 diabetes mellitus without complications (principal); E03.9 Hypothyroidism, unspecified; K76.0 Fatty (change of) liver, not elsewhere classified; R16.0 Hepatomegaly, not elsewhere classified; R79.89 Other specified abnormal findings of blood chemistry; R74.8 Abnormal levels of other serum enzymes; K58.9 Irritable bowel syndrome, unspecified; D64.9 Anemia, unspecified; R10.9 Unspecified abdominal pain
CPT/HCPCS: 36415; 80053; 80061; 81596; 82043; 82105; 82570; 82728; 83540; 83690; 84443; 85025; 86015; 86140; 86381; 86704; 86706; 86709; 86803; 87340

== ENCOUNTER 2023-08-06 10:12 | Outpatient (AMB) | payer OTHER, SELFPAY ==
--- NOTE | 2023-08-06 10:25 | A.OFFVIS_ITS ---
Vital Signs 08/06/23 10:32 Height 5 ft 1 in Weight 176 lb BMI 33.3 BP 120/76 Blood Pressure Location Rt brachial Position Sitting Pulse 86 Intake Visit Reasons: Unspecified hemorrhoids Intake Note: Patient referred by Steffi LÓPEZ for hemorrhoids. Reports dealing with hemorrhoids for 25yrs since . Was prescribed proctosol cream and noticed mild improvement. Last colonoscopy in 2016. Awaiting to be schedule for repeat colonoscopy. Patient c/o: bleeding. Normal BM. Admissions Recruiter Required: No Accompanied by: Self / Same As Patient Allergies sulfur dioxide Allergy (Severe, Verified 08/06/23 10:30) Anaphylaxis adhesive tape Allergy (Intermediate, Verified 08/06/23 10:30) Rash tilapia Allergy (Severe, Uncoded 08/06/23 10:30) Anaphylaxis HPI Comments Details: Patient presents with a longstanding history of symptomatic hemorrhoids. This has lasted approximately 25 years. She complains of pain, swelling, and prolapsing and bleeding. Patient has had colonoscopies in the past. The most recent was reapproximated years ago and was otherwise within normal limits. Patient has a history of occasional constipation and takes the right if purgatives and stool softeners. No other GI issues or complaints. Chart was reviewed and patient evaluated [facility] Medical History Colitis Carpal tunnel syndrome Thyroid disease Hypertension High cholesterol Fatty liver Acid reflux Sinusitis Surgical History H/O bilateral oophorectomy Status post creation of urethral sling by suprapubic approach History of cholecystectomy History of back surgery H/O: hysterectomy Family History Mother Hypertension High cholesterol Diabetes Father Alcoholism Family/Other Diabetes Social History Housing: Condominium Patient Tobacco Use Status: Former Tobacco user e-Cigarette/Vaping Use: Never Used Substance Use Type: Marijuana service: No Current occupational status: retired and disabled Cognitive needs: No Hearing needs: Yes (Patient see's ENT) Vision needs: No Physical Exam Vital Signs: Last Vital Signs Pulse 86 08/06/23 10:32 BP 120/76 08/06/23 10:32 BMI result Body Mass Index 33.3 Chest Other: Chest breath sounds bilaterally, HS 1 in 2 GI Other: Abdomen corpulent, soft, benign. Rectal exam demonstrates a large external hemorrhoid at the 6 o'clock position and a smaller 1 at the 2 o'clock position prone. Assessment & Plan Assessment & Plan (1) Hemorrhoids: Code(s): K64.9 - Unspecified hemorrhoids Category: Surgical Plan Patient wishes to have these excised. Risks, benefits, and alternatives of hemorrhoidectomy were reviewed with the patient included but not limited to bleeding, infection, recurrence, numbness, pain, scarring, incontinence and the patient wishes to proceed. All questions answered. Arrangements were made for this. Patient will be given a mini bowel prep day prior. Coding Level of Care Code New Pt Level 5 (57272) Diagnoses Hemorrhoids K64.9
[2023-08-06 10:32] VITALS: BP 120/76; PULSE 86; BMI 33.3
== END 2023-08-06 11:21 | disposition home or self-care (01) ==
PROVIDERS: PCP Nurse Practitioner Family; Referring Provider Nurse Practitioner Family; Visit Provider Surgery
DX: K64.9 Unspecified hemorrhoids (principal)
CPT/HCPCS: 99204

== ENCOUNTER → 2023-08-06 10:12 | Outpatient (BNVA) | payer OTHER, SELFPAY | PROVIDERS: PCP Nurse Practitioner Family; Referring Provider Nurse Practitioner Family; Visit Provider Surgery ==

== ENCOUNTER 2023-08-06 10:35 | Outpatient (REF) | payer OTHER, SELFPAY ==
[2023-08-13 21:24] LABS: Calprotectin, Fecal 200 mcg/g
== END 2023-08-06 10:36 | disposition home or self-care (01) ==
LOC: HO.LNP 10:35
PROVIDERS: Visit Provider Nurse Practitioner Family
DX: R15.9 Full incontinence of feces (principal); K64.9 Unspecified hemorrhoids
CPT/HCPCS: 83993; 99202

== ENCOUNTER 2023-08-23 15:59 | Outpatient (AMB) | payer OTHER, SELFPAY ==
[2023-08-23 16:05] VITALS: BP 134/81; PULSE 79; BMI 32.9
--- NOTE | 2023-08-23 16:05 | A.OFFVIS_ITS ---
Vital Signs 08/23/23 16:05 Height 5 ft 1 in Weight 174 lb 2.643 oz BMI 32.9 BP 134/81 Blood Pressure Location Rt brachial Position Sitting Pulse 79 Intake Visit Reasons: 5 week follow up Intake Note: Patient in office today in follow up of labs and US. CC: Patient c/o RUQ abdominal pain and back, nausea and occasional vomiting. Denies other GI symptoms. 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 Increased AST as well and hepatomegaly and increase echogenicity of the liver found. Will rule out autoimmune disorders, hemochromatosis, check liver fibrosis. Will send patient for MRCP to rule out blocked CBD. Patient will return in 2-3 months, sooner on as needed basis. Patient was encouraged to increase fluid intake and activity to promote better bowel motility. Patient was encouraged also to take Citrucel daily to help her bulk stools and then Senokot in the evening to help her evacuate her bowels better. Script for Proctosol given, patient is complaining of hemorrhoids and is asking for referral to General surgery. Referral sent. Patient will walk over to make appointment to discuss hemorrhoidectomy. She is agreeable to this plan and verbalizes understanding of instructions. She was given the opportunity to ask questions and all questions answered. ? Thank you for allowing me to participate in her care Orders Orders Liver Fibrosis Pnl Today R74.8 Mitochondrial Antibody Today R79.89 Ferritin Today R74.8 Alpha Fetoprotein Today R79.89 Hepatitis A,B,C Profile Today R79.89 C Reactive Protein Today K58.9 Smooth Muscle Antibody Today R79.89 Calprotectin, Fecal Today R15.9 IRON PROFILE Today D64.9 Lipase Today R10.9 MR MRCP Today K85.90, R10.9, R16.0 Referrals General Surgery Referral K64.9 Medications New hydrocortisone 2.5% (Proctosol HC) 1 appl [place] BID-QID PRN 30 grams 2RF hemorrhoids K64.9 TODAY'S VISIT Patient is here today for follow-up and to discuss lab results. Negative CRP, ALT continues to be elevated, normal AST. Stool calprotectin 200. Patient continues to have a postprandial loose stools. Abdominal ultrasound shows increase hepatic echogenicity suggesting hepatic steatosis. Patient reports that she has seen GI in the past no mentioned of IBD in the past. Symptoms have been going on for very long time on and off, worsening lately in the past few months.. No family history of IBD. Patient denies melena, hematochezia. Denies any dyspepsia, dysphagia or odynophagia. However patient does reports to feel nauseous occasionally specially in the morning. Occasional vomiting. COUNT INCLUDES THE [facility] Medical History Colitis Carpal tunnel syndrome Thyroid disease Hypertension High cholesterol Fatty liver Acid reflux Sinusitis Surgical History H/O bilateral oophorectomy Status post creation of urethral sling by suprapubic approach History of cholecystectomy History of back surgery H/O: hysterectomy Family History Mother Hypertension High cholesterol Diabetes Father Alcoholism Family/Other Diabetes Social History Housing: Condominium Patient Tobacco Use Status: Former Tobacco user e-Cigarette/Vaping Use: Never Used Substance Use Type: Marijuana service: No Current occupational status: retired and disabled Cognitive needs: No Hearing needs: Yes (Patient see's ENT) Vision needs: No Review of Systems Const Denies weight gain and Denies weight loss ENT Reports no additional complaints, Denies dysphagia and Denies odynophagia Card Reports no additional complaints Resp Reports no additional complaints GI Reports abdominal pain (RUQ), Denies belching, Denies melena, Denies bloating, Reports constipation, Denies dysphagia, Denies excessive flatus, Denies dyspepsia, Reports heartburn (Improved), Denies diarrhea, Reports loose stools, Reports nausea (Occasional), Denies odynophagia and Reports vomiting (Occasional) Reports no additional complaints Musc Reports no additional complaints Neuro Reports no additional complaints Psych Reports no additional complaints Endo Reports no additional complaints Physical Exam Vital Signs: Last Vital Signs Pulse 79 08/23/23 16:05 BP 134/81 08/23/23 16:05 BMI result Body Mass Index 32.9 Const General: healthy appearing and no acute distress Nutritional Appearance: obese Orientation/consciousness: patient oriented x3 Resp Effort & Inspection: normal respiratory effort, able to speak in complete sentences, no tracheal deviation and symmetric chest movement Auscultation: clear to auscultation bilaterally Cardio Rate: regular rate GI Inspection: Yes normal to inspection, No distended and Yes obesity Palpation (GI): Soft to palpation, not firm, nontender and No hepatosplenomegaly present Auscultation: normal bowel sounds General: Yes no CVA tenderness Back/Spine/Pelvis Back: no CVA tenderness Skin General skin exam: elasticity normal, turgor normal and dry skin Neuro General: patient oriented x3 Psych Appearance: grossly normal Mental Status: mental status grossly normal Results Reviewed Results Reviewed: Laboratory Tests 06/05/23 07/23/23 08/06/23 15:17 09:11 08:30 Iron 43 TIBC 391 Ferritin 19 AST 31 ALT 52 H Alkaline Phosphatase 71 Liver GGT 75 H Liver Total Bilirubin 0.3 Liver Fibrosis ALT 44 H Liver Fibrosis Score 0.27 Liver Fibrosis Stage F1 C-Reactive Protein 0.15 Triglycerides 152 H Lipase 134 H 42 Alpha Fetoprotein 1.8 TSH 1.28 Stool Calprotectin 200 H Anti-Mitochondrial Ab NEGATIVE Anti-Smooth Muscle Ab <20 Hepatitis A IgM Ab Nonreactive Hep Bs Antigen Negative Hep Bs Antibody REACTIVE Hep B Core Total Ab Nonreactive Hepatitis C Ab (EIA) Nonreactive ABDOMINAL ULTRASOUND IMPRESSION: 1. Hepatomegaly, 18.4 cm. Increased hepatic parenchymal heterogeneity and echogenicity could be associated with hepatocellular disease/hepatic steatosis and substantially limits visualization. Correlation with liver function tests and clinical exam recommended to determine further management. 2. Left renal 3 mm upper pole and lower pole calculi. Left renal lower pole 8 mm cluster of calculi. No hydronephrosis. Assessment & Plan Assessment & Plan (1) High fecal calprotectin: Code(s): R19.5 - Other fecal abnormalities (2) Abdominal pain: Code(s): R10.9 - Unspecified abdominal pain Qualifiers: Abdominal location: right upper quadrant Qualified Code(s): R10.11 - Right upper quadrant pain (3) Colitis: Code(s): K52.9 - Noninfective gastroenteritis and colitis, unspecified Category: Medical (4) Acid reflux: Code(s): K21.9 - Gastro-esophageal reflux disease without esophagitis Category: Medical Qualifiers: Esophagitis presence: esophagitis presence not specified Qualified Code(s): K21.9 - Gastro-esophageal reflux disease without esophagitis (5) Postprandial diarrhea: Code(s): K52.9 - Noninfective gastroenteritis and colitis, unspecified (6) Constipation: Code(s): K59.00 - Constipation, unspecified Qualifiers: Constipation type: slow transit constipation Qualified Code(s): K59.01 - Slow transit constipation (7) Postprandial epigastric pain: Code(s): R10.13 - Epigastric pain Plan Normal CRP, elevated stool calprotectin. Will send patient for CT enterography. History of colitis in the past. Patient is going next week for hemorrhoidectomy with Dr. Browning. I will see her in the office in 2 months. Patient was encouraged to increase fluid intake and activity to promote better bowel motility. Patient will increase fiber. Continue Nexium in the morning and famotidine at bedtime. Avoid dietary triggers and late night snacking. Staying upright for minimum 3 hours after meals discussed with patient. Patient can take senna at night time to help her move her bowels better. Can take dicyclomine with food couple times a day to help her with cramps. Patient is agreeable to this plan and verbalizes understanding of instructions. She was given the opportunity to ask questions and all questions answered. Thank you for allowing me to participate in her care Orders: Orders Blood Urea Nitrogen 08/23/23 R10.11 - Right upper quadrant pain Creatinine 08/23/23 R10.11 - Right upper quadrant pain CT enterography 08/23/23 R10.9 - Unspecified abdominal pain, R19.5 - Other fecal abnormalities, R19.7 - Diarrhea, unspecified Medications: New dicyclomine 10 mg PO BID PRN 90 caps 2RF abdominal discomfort K58.9 - Irritable bowel syndrome without diarrhea Coding Level of Care Code Est Pt Level 4 (66203) Diagnoses High fecal calprotectin R19.5 Right upper quadrant abdominal pain R10.11 Abdominal location: right upper quadrant Colitis K52.9 Gastroesophageal reflux disease, unspecified whether esophagitis present K21.9 Esophagitis presence: esophagitis presence not specified Postprandial diarrhea K52.9 Slow transit constipation K59.01 Constipation type: slow transit constipation Postprandial epigastric pain R10.13 Time Spent (min) 35 Comment 20 minutes spent with patient and additional 15 minutes spent reviewing her records
== END 2023-08-23 16:35 ==
PROVIDERS: PCP Nurse Practitioner Family; Visit Provider Nurse Practitioner Family
DX: R19.5 Other fecal abnormalities (principal); R10.11 Right upper quadrant pain; K52.9 Noninfective gastroenteritis and colitis, unspecified; K21.9 Gastro-esophageal reflux disease without esophagitis; K59.01 Slow transit constipation; R10.13 Epigastric pain
CPT/HCPCS: 99214

== ENCOUNTER → 2023-08-23 15:59 | Outpatient (BNVA) | payer OTHER, SELFPAY | PROVIDERS: PCP Nurse Practitioner Family; Visit Provider Nurse Practitioner Family | DX: K21.9 Gastro-esophageal reflux disease without esophagitis (principal); K52.9 Noninfective gastroenteritis and colitis, unspecified; K59.01 Slow transit constipation; R19.5 Other fecal abnormalities; R10.11 Right upper quadrant pain; R10.13 Epigastric pain | CPT/HCPCS: 99212 ==

== ENCOUNTER 2023-08-30 10:13 | Day surgery (SDC) | payer OTHER, SELFPAY ==
[2023-08-28 14:30] VITALS: BMI 33.3
--- NOTE | 2023-08-29 16:00 | MHC.SHP ---
Pre-Procedural Eval Section A - 24 Hr Update-Section A only Date of Service: 08/29/23 The patient is an INPATIENT: No Changes since office visit: No Cold of Flu in the past 2 weeks, No New Medical Problems, No Changes in Medication and No Patient answered all questions Section B - Complete if H&P > 30 days Chief Complaint: Unspecified hemorrhoids Allergies: Allergies Allergy/AdvReac Type Severity Reaction Status Date / Time sulfur dioxide Allergy Severe Anaphylaxis Verified 08/23/23 16:12 adhesive tape Allergy Intermediate Rash Verified 08/23/23 16:12 tilapia Allergy Severe Anaphylaxis Uncoded 08/06/23 10:30 Review of Systems Sugical H&P ROS: Negative: Constitution, Cardiovascular, Respiratory, Neurological, Psychiatric, Hem-Onc, Allergic/Immunologic, Gastrointestinal, Genitourinary, Musculoskeletal, Integumentary, Endocrine and Eyes/Ears/Nose/Throat Exam Surgical H&P Exam: Normal: HEENT, Normal: Heart, Normal: Lungs, Normal: Extremities, Normal: Abdomen, Normal: Skin and Normal: Neurological Plan I have reviewed the history and physical and performed a pertinent physical examination on my patient. No changes have occurred unless specified. Time Spent With Patient Time: Total time managing care of this patient today ____ minutes.
--- OUTSIDE RECORDS SUMMARY | 2023-08-30 10:18 | XMS_ITS | Continuity of Care Document ---
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 Role Phone Noa VELOZ, Yefri Regalado Primary Care Physician [place] [facility] [facility] [place]): [place]/22 [facility] [employer] [facility] [address] [place], [place] [address] Attending Physician: Dean Breen Admitting Physician: AdmDean shah Referring Physician: [id number] Allergies, Adverse Reactions, Alerts Substance Reaction Severity Status sulfa drugs rash Active Adhesive Bandage skin irritation, blisters Active Fish hives,anaphylaxis Active metFORMIN nausea Active Immunizations Given and Recorded Vaccine Date Status Refusal Reason pneumococcal 23-valent vaccine 11/22/21 Recorded pneumococcal 23-valent vaccine 04/09/15 Given influenza virus vaccine, inactivated 11/13/21 George rded influenza virus vaccine, inactivated 11/30/20 George rded influenza virus vaccine, inactivated 09/28/18 George rded influenza virus vaccine, inactivated 06/18/18 George rded influenza virus vaccine, inactivated 11/07/17 George rded influenza virus vaccine, inactivated 11/18/15 George rded [id number] 12y+ bivalent booster vax 11/13/21 Recorded Hepatitis A-Hepatitis B Vaccine 07/18/21 Recorded tetanus/diphtheria/pertussis, acel(Tdap) 07/11/21 Recorded SARS-CoV-2 mRNA ([id number]) vax 05/26/21 Recorded zoster vaccine, inactivated 07/12/20 Recorded zoster vaccine, inactivated 10/14/19 Recorded SARS-CoV-2 (COVID-19) mRNA BNT-162b2 vac 06/01/20 Recorded SARS-CoV-2 (COVID-19) mRNA BNT-162b2 vac 05/11/20 Recorded Medications amLODIPine 5 mg oral tablet 1 tablet, By Mouth, Daily, # 90 tablet, 1 Refills, Maintenance, 03/23/22 12:28:00 EST, [id number], 154.94, cm, 03/08/22 9:07:00 EST, Height, 82.7, kg, 12/28/21 14:44:00 EST, Dry Weight Start Date: 03/23/22 Status: Ordered atorvastatin 20 mg oral tablet See Instructions, TAKE 1 TABLET BY MOUTH DAILY AFTER SUPPER. STOP PRAVASTATIN., # 90 tablet, 1 Refills, Maintenance, 04/13/22 9:03:00 EST, [id number], 154.94, cm, 03/08/22 9:07:00 EST, Height, 82.7, kg, 12/28/21 14:44:00 EST, Dry Weight Start Date: 04/13/22 Status: Ordered Cymbalta 60 mg oral enteric coated capsule 1 capsule = 60 mg, By Mouth, Daily, 0 Refills, Maintenance, 06/10/20 9:25:00 EDT, Partial fill uponpatient request if the prescription is for a schedule II opioid drug. Start Date: 06/10/20 Status: Ordered Excedrin Migraine 2 tablet, By Mouth, Every 6 hours, PRN Migraine Headache, 0 Refills, Maintenance, 08/22/16 14:59:30EDT Start Date: 08/22/16 Status: Ordered Freestyle Lite Lancets See Instructions, # 200 each, Refills 1, Tot. Refills 1, Maintenance, Use to check glucose twice daily Dx:E11.9, 06/20/20 11:45:00 EDT, Supply, 155, cm, 06/20/20 11:37:00 EDT, Height, 86.2, kg, 10/29/19 10:59:00 EDT, Dry Weight Start Date: 06/20/20 Stop Date: 08/19/20 Status: Ordered Freestyle Lite Monitor See Instructions, # 1 each, Refills 0, Tot. Refills 0, Maintenance, Use to check glucose twice daily Dx:E11.9, 05/10/21 11:43:00 EDT, Supply, 155, cm, 06/20/20 11:37:00 EDT, Height, 86.2, kg, 10/29/19 10:59:00 EDT, Dry Weight Start Date: 06/20/20 Stop Date: 07/20/20 Status: Ordered Freestyle Lite Test Strips See Instructions, # 200 each, Refills 1, Tot. Refills 1, Maintenance, Use to check glucose twice daily Dx:E11.9, 12/05/20 14:15:00 EDT, Supply, 155, cm, 11/30/20 8:07:00 EDT, Height, 81.6, kg, 11/04/20 22:55:00 EDT, Dry Weight Start Date: 12/05/20 Stop Date: 02/03/21 Status: Ordered Januvia 100 mg oral tablet 1 tablet, By Mouth, Daily, # 90 tablet, 1 Refills, Maintenance, 02/21/22 11:01:00 EST, [facility], 154.94, cm, 12/28/21 14:44:00 EST, Height, 82.7, kg, 12/28/21 14:44:00 EST, Dry Weight Start Date: 02/21/22 Status: Ordered levothyroxine 0.05 mg oral tablet 1 tablet, By Mouth, Daily, # 90 tablet, 1 Refills, Maintenance, 04/03/22 10:03:00 EST, [facility], 154.94, cm, 03/08/22 9:07:00 EST, Height, 82.7, kg, 12/28/21 14:44:00 EST, Dry Weight Start Date: 04/03/22 Status: Ordered lidocaine 5% topical film See Instructions, APPLY 1 PATCH AND LEAVE IN PLACE FOR 12 HOURS, THEN REMOVE AND LEAVE OFF FOR 12 HOURS., # 30 patch, 1 Refills, 02/18/20 13:36:00 EST, [facility]/pharmacy #1234, 30, APPLY [address] FOR 12 HOURS, THEN REMOVE AND LEAVE OFF FO... Start Date: 02/18/20 Status: Ordered MetFORMIN (Eqv-Glucophage XR) 500 mg oral tablet, extended release 1 tablet, By Mouth, Daily, # 30 tablet, 3 Refills, Maintenance, 03/20/22 18:47:00 EST, [id number], 154.94, cm, 03/08/22 9:07:00 EST, Height, 82.7, kg, 12/28/21 14:44:00 EST, Dry Weight Start Date: 03/20/22 Status: Ordered nitrofurantoin macrocrystals 50 mg oral capsule See Instructions, 1 capsule By Mouth Daily after intercourse, # 30 capsule, 5 Refills, Acute 01/23/23 13:32:00 EST, 01/24/22 13:32:00 EST, [id number], Partial fill upon patient request if theprescription is for a schedule II opioid drug., 154... Start Date: 01/24/22 Stop Date: 01/23/23 Status: Ordered nitrofurantoin macrocrystals 50 mg oral capsule See Instructions, 1 capsule By Mouth after intercourse for UTI prevention, # 30 capsule, 5 Refills,Maintenance, 01/23/23 13:32:00 EST, [facility]/pharmacy #1234, Partial fill upon patient request if the prescription is for a schedule II opioid drug., 154.94... Start Date: 01/23/23 Status: Ordered pantoprazole 40 mg oral delayed release tablet 1 tablet, By Mouth, Daily, # 30 tablet, 11 Refills, Maintenance, 02/15/21 13:56:00 EST, 155, cm, 11/30/20 8:07:00 EDT, Height, 81.6, kg, 11/04/20 22:55:00 EDT, Dry Weight Start Date: 02/15/21 Status: Ordered Prempro 0.3 mg-1.5 mg oral tablet See Instructions, ERIN MALIKA TABLETA DIARIA, # 28 tablet, 1 Refills, Maintenance, 05/11/22 13:29:00 EDT, [id number], 28, ERIN MALIKA TABLETA DIARIA, 154.94, cm, 05/08/22 13:56:00 EDT, Height, 84.4,kg, 05/08/22 13:56:00 EDT, Dry Weight Start Date: 05/11/22 Status: Ordered traZODone 100 mg oral tablet 1, tablet, By Mouth, Daily at bedtime, # 30 tablet, Refills 2, Tot. Refills 0, Maintenance, 10/26/19 11:51:00 EDT, Route to Pharmacy Electronically, [id number], 155, cm, 09/08/19 13:02:00 EDT, Height, 85.5, kg, 08/04/19 11:52:00 EDT, Dry Weight Start Date: 10/26/19 Status: Ordered Zofran 4 mg oral tablet 1 tablet = 4 mg, By Mouth, Every 6 hours, PRN Nausea & Vomiting, # 56 tablet, 0 Refills, Maintenance, 06/10/20 10:43:00 EDT, [facility]/pharmacy #[id number], Partial fill upon patient request if the prescription is for a schedule II opioid drug., 155, cm, 06/10/20... Start Date: 06/10/20 Stop Date: 06/24/20 Status: Ordered Problem List Condition Confirmation Course Effective Dates Status H ealth Status Informant Anxiety Confirmed Active Vaginal atrophy Confirmed Active Blepharitis of left eye Confirmed Active Chronic right shoulder pain Confirmed Active Breast cyst on imaging Confirmed Active Recurrent UTI Confirmed Active Depression Confirmed Active Difficulty sleeping Confirmed Active Thoracic disc disease Confirmed Active Duodenitis Confirmed Active Dyspnea on exertion Confirmed Active Gastroesophageal reflux disease Confirmed Active Hormone replacement therapy Confirmed Active Hyperlipidemia Confirmed Active HTN (hypertension) Confirmed Active Hypothyroid Confirmed Active Irritable bowel syndrome Confirmed Active Leukoplakia of tongue Confirmed Active Menopause Confirmed Active Migraines Confirmed Active Obesity Confirmed Active Palpitation Confirmed Active Palpitations Confirmed Active Persistent cough Confirmed Active Prediabetes Confirmed Active Severe obesity (BMI 35.0-39.9) with comorbidity Confirmed Active Fatty liver Confirmed Active Thoracic back pain Confirmed Active New onset type 2 diabetes mellitus Confirmed Active Type 2 diabetes, HbA1c goal < 7% Confirmed Active Ventricular premature beats Confirmed Active Vitamin D deficiency Confirmed Active Social History Social History Type Response Smoking Status Former smoker, quit more than 30 days ago; Other: quit 2016; entered on: 06/25/19 Sex Patient Care team information Care Team Personnel Name: Temi Branch RN Position: [facility] ED RN W/OE and Tasks Member Role: Primary Care Nurse Name: Yefri Latham MD Position: [facility] Primary Care Physician Member Role: PCP Address: Address: [address] [place] [address], [facility] [address] [place] [address]- Care Team Related Persons Name: RICO MALIK Address: home [address] [place] [address] Name: RICO MEREDITH Address: home [id number] [place] [address]
--- OUTSIDE RECORDS SUMMARY | 2023-08-30 10:18 | XMS_ITS | Continuity of Care Document ---
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 Role Phone Yefri Latham MD Primary Care Physician Encounter [facility] [place] Date(s): 08/10/19 - 09/09/19 [facility] [address] [place] [id number] [facility] Allergies, Adverse Reactions, Alerts Substance Reaction Severity Status Adhesive Bandage skin irritation, blisters Active Fish hives,anaphylaxis Active Immunizations Given and Recorded Vaccine Date Status Refusal Reason influenza virus vaccine, inactivated 06/18/18 George rded pneumococcal 23-valent vaccine 04/09/15 Given Medications amLODIPine 2.5 mg oral tablet See Instructions, ART WANG TODOS LOS RODRIGUEZ, # 90 tablet, 1 Refills, Maintenance, 06/08/19 9:09:00 EDT, [facility]/pharmacy #[id number], 155, cm, 04/07/19 11:52:00 EST, Height, 84.7, kg, 04/07/19 11:52:00 EST, Dry Weight Start Date: 06/08/19 Status: Ordered benzonatate 100 mg oral capsule 1 capsule, By Mouth, 3 times a day, for 10 days, # 30 capsule, 0 Refills, Acute, 09/04/19 15:45:00 EDT, [facility], 155, cm, 08/04/19 11:52:00 EDT, Height, 85.5, kg, 08/04/19 11:52:00 EDT, Dry Weight Start Date: 09/04/19 Stop Date: 09/14/19 Status: Ordered busPIRone 5 mg oral tablet 1.5, tablet, By Mouth, 2 times a day, # 90 tablet, Refills 2, Tot. Refills 0, Maintenance, :13:00 EDT, Route to Pharmacy Electronically, [id number], 155, cm, 07/07/19 10:52:00 EDT, Height, 86.6, kg, 07/07/19 10:52:00 EDT, Dry Weight Start Date: 07/27/19 Status: Ordered Excedrin Migraine 2 tablet, By Mouth, Every 6 hours, PRN Migraine Headache, 0 Refills, Maintenance, 08/22/16 14:59:30EDT Start Date: 08/22/16 Status: Ordered levothyroxine 0.05 mg oral tablet 1 tablet, By Mouth, Daily, # 30 tablet, 2 Refills, Maintenance, 07/20/19 9:20:00 EDT, [id number], 155, cm, 07/07/19 10:52:00 EDT, Height, 86.6, kg, 07/07/19 10:52:00 EDT, Dry Weight Start Date: 07/20/19 Status: Ordered lidocaine 5% topical film See Instructions, APPLY 1 PATCH AND LEAVE IN PLACE FOR 12 HOURS, THEN REMOVE AND LEAVE OFF FOR 12 HOURS., # 30 patch, 1 Refills, Maintenance, [facility], 30, APPLY 1 PATCH AND LEAVE IN PLACE FOR12 HOURS, THEN REMOVE AND LEAVE OFF FOR 12 HOURS.,... Start Date: 08/05/19 Status: Ordered melatonin 10 mg oral capsule 1 capsule = 10 mg, By Mouth, Daily at bedtime, 0 Refills, Maintenance, 01/05/19 10:45:14 EST Start Date: 01/05/19 Status: Ordered Milk Thistle = 250 mg, 2 times a day, 0 Refills, Maintenance, 04/07/19 11:54:00 EST Start Date: 04/07/19 Status: Ordered pravastatin 40 mg oral tablet See Instructions, TAKE ONE TABLET BY MOUTH AFTER DINNER INSURANCE ONLY COVERS 30 DAY SUPPLY, # 90 tablet, 1 Refills, Maintenance, 06/08/19 9:10:00 EDT, [facility]/pharmacy #[id number], 155, cm, 04/07/19 11:52:00 EST, Height, 84.7, kg, 04/07/19 11:52:00 EST, Dry We... Start Date: 06/08/19 Status: Ordered Prempro 0.3 mg-1.5 mg oral tablet See Instructions, ERIN DALY TABLETA DIARIA, # 28 tablet, 2 Refills, Maintenance, [facility], 28, ERIN DALY TABLETA DIARIA, 155, cm, 06/25/19 9:37:00 EDT, Height, 84.7, kg, 04/07/19 11:52:00 EST,Dry Weight Start Date: 06/29/19 Status: Ordered traZODone 100 mg oral tablet See Instructions, TAKE 1 TABLET BY MOUTH EVERYDAY AT BEDTIME, # 90 tablet, Refills 1, Tot. Refills 1, Maintenance, 05/08/19 12:14:00 EDT, Instructions Replace Required Details, Route to Pharmacy Electronically, [facility]/pharmacy #[id number], 155, cm, 04/07/19 11... Start Date: 05/08/19 Status: Ordered Problem List Condition Effective Dates Status Health Status Inform ant Anxiety(Confirmed) Active Breast cyst on imaging(Confirmed) Active Depression(Confirmed) Active Difficulty sleeping(Confirmed) Active Thoracic disc disease(Confirmed) Active Diverticulitis(Confirmed) Active Duodenitis(Confirmed) Active Gastroesophageal reflux disease(Confirmed) Active Hormone replacement therapy(Confirmed) Active Hyperlipidemia(Confirmed) Active HTN (hypertension)(Confirmed) Active Hypothyroid(Confirmed) Active Irritable bowel syndrome(Confirmed) Active Menopause(Confirmed) Active Migraines(Confirmed) Active Obesity(Confirmed) Active Prediabetes(Confirmed) Active Fatty liver(Confirmed) Active Thoracic back pain(Confirmed) Active Ventricular premature beats(Confirmed) Active Vitamin D deficiency(Confirmed) Active Social History Social History Type Response Smoking Status Former smoker, quit more than 30 days ago; Other: quit 2016; entered on: 06/25/19 Sex
--- OUTSIDE RECORDS SUMMARY | 2023-08-30 10:19 | XMS_ITS | Continuity of Care Document ---
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 Name Role Phone Yefri Latham MD Primary Care Physician Encounter [facility] [place] Date(s): 08/10/20 - 09/09/[address] [place], [place] [address] Attending Physician: Admpablo, Brent8 Admitting Physician: Admtr, Brent8 Referring Physician: Admtr, Ar8 Allergies, Adverse Reactions, Alerts Substance Reaction Severity Status Adhesive Bandage skin irritation, blisters Active Fish hives,anaphylaxis Active Immunizations Given and Recorded Vaccine Date Status Refusal Reason influenza virus vaccine, inactivated 06/18/18 George rded pneumococcal 23-valent vaccine 04/09/15 Given Medications amLODIPine 2.5 mg oral tablet See Instructions, ART LEONARDOA TODOS LOS RODRIGUEZ, # 90 tablet, 1 Refills, Maintenance, [facility], 155, cm, 06/10/20 9:21:00 EDT, Height, 86.2, kg, 10/29/19 10:59:00 EDT, Dry Weight Start Date: 06/16/20 Status: Ordered busPIRone 5 mg oral tablet 1.5, tablet, By Mouth, 2 times a day, # 270 tablet, Refills 1, Tot. Refills 1, Maintenance, 04/14/20 9:58:00 EST, Route to Pharmacy Electronically, [facility]/pharmacy #[id number], 155, cm, 11/26/19 11:22:00 EDT,Height, 86.2, kg, 10/29/19 10:59:00 EDT, Dry Weight Start Date: 04/14/20 Status: Ordered Cymbalta 60 mg oral enteric [...] to check glucose twice daily Dx:E11.9, 06/20/20 11:43:00 EDT, Supply, 155, cm, 06/20/20 11:37:00 EDT, Height, 86.2, kg, 10/29/19 10:59:00 EDT, Dry Weight Start Date: 06/20/20 Stop Date: 07/20/20 Status: Ordered Freestyle Lite Test Strips See Instructions, # 200 each, Refills 1, Tot. Refills 1, Maintenance, Use to check glucose twice daily Dx:E11.9, 06/20/20 11:44:00 EDT, Supply, 155, cm, 06/20/20 11:37:00 EDT, Height, 86.2, kg, 10/29/19 10:59:00 EDT, Dry Weight Start Date: 06/20/20 Stop Date: 08/19/20 Status: Ordered Januvia 50 mg oral tablet 1 tablet = 50 mg, By Mouth, Daily, # 30 tablet, 2 Refills, Maintenance, 09/08/20 19:01:00 EDT, [facility]t, [facility], Partial fill upon patient request if the prescription is for a schedule II opioid drug., 155, cm, 08/10/20 10:55:00 EDT, Height,... Start Date: 09/08/20 Status: Ordered Januvia 50 mg oral tablet 1 tablet = 50 mg, By Mouth, Daily, # 90 tablet, 1 Refills, Maintenance, 08/01/20 12:14:00 EDT, Tablet, [facility]/pharmacy #1234, Partial fill upon patient request if the prescription is for a schedule II opioid drug., 155, cm, 08/01/20 11:21:00 EDT, Height,... Start Date: 08/01/20 Stop Date: 01/28/21 Status: Ordered levothyroxine 0.05 mg oral tablet 1 tablet, By Mouth, Daily, # 90 tablet, 1 Refills, Maintenance, 10/20/19 19:10:00 EDT, [facility]/pharmacy#1234, 155, cm, 09/08/19 13:02:00 EDT, Height, 85.5, kg, 08/04/19 11:52:00 EDT, Dry Weight Start Date: 10/20/19 Stop Date: 04/17/20 Status: Ordered lidocaine 5% topical film See Instructions, APPLY 1 PATCH AND LEAVE IN PLACE FOR 12 HOURS, THEN REMOVE AND LEAVE OFF FOR 12 HOURS., # 30 patch, 1 Refills, 02/18/20 13:36:00 EST, [facility]/pharmacy #1234, 30, APPLY [address] LEAVEIN PLACE FOR 12 HOURS, THEN REMOVE AND LEAVE OFF FO... Start Date: 02/18/20 Status: Ordered pantoprazole 40 mg oral delayed release tablet 1 tablet, By Mouth, Daily, # 30 tablet, 11 Refills, Maintenance, 01/26/20 12:44:00 EST, 155, cm, 11/26/19 11:22:00 EDT, Height, 86.2, kg, 10/29/19 10:59:00 EDT, Dry Weight Start Date: 01/26/20 Status: Ordered pravastatin 40 mg oral tablet See Instructions, TAKE ONE TABLET BY MOUTH AFTER DINNER INSURANCE ONLY COVERS 30 DAY SUPPLY, # 90 tablet, 1 Refills, Maintenance, 06/15/20 8:14:00 EDT, [facility], 155, cm, 06/10/20 9:21:00 EDT, Height, 86.2, kg, 10/29/19 10:59:00 EDT, Dry Weight Start Date: 06/15/20 Status: Ordered Prempro 0.3 mg-1.5 mg oral tablet See Instructions, ERIN DALY TABLETA DIARIA, # 28 tablet, 1 Refills, Maintenance, [facility], 28, ERIN MALIKA TABLETA DIARIA, 155, cm, 06/20/20 11:37:00 EDT, Height, 86.2, kg, 10/29/19 10:59:00 EDT, Dry Weight Start Date: 07/12/20 Status: Ordered traMADol 50 mg oral tablet See Instructions, TAKE 1 TABLET BY MOUTH EVERY 12 HOURS NEEDED FOR PAIN,INSTR:MAY CAUSE DROWSINESS. NOT TO BE TAKEN WITH TRAZODONE, # 30 tablet, 0 Refills, Maintenance, 12/03/19 21:58:00 EDT, [facility]/pharmacy #1234, 155, cm, 11/26/19 11:22:00 EDT, Heig... Start Date: 12/03/19 Status: Ordered traZODone 100 mg oral tablet 1, tablet, By Mouth, Daily at bedtime, # 30 tablet, Refills 2, Tot. Refills 0, Maintenance, 10/26/19 11:51:00 EDT, Route to Pharmacy Electronically, [id number], 155, cm, 09/08/19 13:02:00 EDT, Height, 85.5, kg, 08/04/19 11:52:00 EDT, Dry Weight Start Date: 10/26/19 Status: Ordered Zofran 4 mg oral tablet 1 tablet = 4 mg, By Mouth, Every 6 hours, PRN Nausea & Vomiting, # 56 tablet, 0 Refills, Maintenance, 06/10/20 10:43:00 EDT, [facility]/pharmacy #1234, Partial fill upon patient request if the prescription is for a schedule II opioid drug., 155, cm, 06/10/20... Start Date: 06/10/20 Stop Date: 06/24/20 Status: Ordered Problem List Condition Effective Dates Status Health Status Inform ant Anxiety(Confirmed) Active Breast cyst on imaging(Confirmed) Active Depression(Confirmed) Active Difficulty sleeping(Confirmed) Active Thoracic disc disease(Confirmed) Active Duodenitis(Confirmed) Active Dyspnea on exertion(Confirmed) Active Gastroesophageal reflux disease(Confirmed) Active Hormone replacement therapy(Confirmed) Active Hyperlipidemia(Confirmed) Active HTN (hypertension)(Confirmed) Active Hypothyroid(Confirmed) Active Irritable bowel syndrome(Confirmed) Active Menopause(Confirmed) Active Migraines(Confirmed) Active Obesity(Confirmed) Active Palpitation(Confirmed) Active Prediabetes(Confirmed) Active Fatty liver(Confirmed) Active Thoracic back pain(Confirmed) Active New onset type 2 diabetes mellitus(Confirmed) Active Ventricular premature beats(Confirmed) Active Vitamin D deficiency(Confirmed) Active Social History Social History Type Response Smoking Status Former smoker, quit more than 30 days ago; Other: quit 2016; entered on: 06/25/19 Sex
--- OUTSIDE RECORDS SUMMARY | 2023-08-30 10:19 | XMS_ITS | Continuity of Care Document ---
Author Organization [facility] Address [address] [place] [address]- Care Team Providers Care Cargo Station Worker Name Role Phone Noa VELOZ, Yefri Regalado Primary Care Physician [place] [facility] [place] - 12/23/[address] [address] Attending Physician: Dean Breen Admitting Physician: Dean Breen Referring Physician: AdmtrDean Allergies, Adverse Reactions, Alerts Substance Reaction Severity [...] influenza virus vaccine, inactivated 11/18/15 George rded [id number] 12y+ bivalent booster vax 11/13/21 Recorded Hepatitis A-Hepatitis B Vaccine 07/18/21 Recorded tetanus/diphtheria/pertussis, acel(Tdap) 07/11/21 Recorded SARS-CoV-2 mRNA (zuahtmj-fpum-eowsp) vax 05/26/21 Recorded zoster vaccine, inactivated 07/12/20 Recorded zoster vaccine, inactivated 10/14/19 Recorded SARS-CoV-2 (COVID-19) mRNA BNT-162b2 vac 06/01/20 Recorded SARS-CoV-2 (COVID-19) mRNA BNT-162b2 vac 05/11/20 Recorded Medications amLODIPine 5 mg oral tablet 1 tablet, By Mouth, Daily, # 90 tablet, 1 Refills, Maintenance, 03/23/22 12:28:00 EST, [facility], 154.94, cm, 03/08/22 9:07:00 EST, Height, 82.7, kg, 12/28/21 14:44:00 EST, Dry Weight Start Date: 03/23/22 Status: Ordered atorvastatin 20 mg oral tablet See Instructions, TAKE 1 TABLET BY MOUTH DAILY AFTER SUPPER. STOP PRAVASTATIN., # 90 tablet, 1 Refills, Maintenance, 04/13/22 9:03:00 EST, [facility], 154.94, cm, 03/08/22 9:07:00 EST, Height, 82.7, [...] Daily, # 90 tablet, 1 Refills, Maintenance, 06/25/22 13:25:00 EDT, [facility], 154.94, cm, 06/13/22 15:46:00 EDT, Height, 84.4, kg, 05/08/22 13:56:00 EDT, Dry Weight Start Date: 06/25/22 Status: Ordered levothyroxine 0.05 mg oral tablet 1 tablet, By Mouth, Daily, # 90 tablet, 1 Refills, Maintenance, 04/03/22 10:03:00 EST, [facility], 154.94, cm, 03/08/22 9:07:00 EST, Height, 82.7, kg, 12/28/21 14:44:00 EST, Dry Weight Start Date: 04/03/22 Status: Ordered lidocaine 5% topical film See Instructions, APPLY 1 PATCH AND LEAVE IN PLACE FOR 12 HOURS, THEN REMOVE AND LEAVE OFF FOR 12 HOURS., # 30 patch, 1 Refills, 02/18/20 13:36:00 EST, [facility]/pharmacy #1234, 30, APPLY [address] FOR 12 HOURS, THEN REMOVE AND LEAVE OFF FO... Start Date: 02/18/20 Status: Ordered MetFORMIN (Eqv-Glucophage XR) 500 mg oral tablet, extended release 1 tablet, By Mouth, Daily, # 30 tablet, 2 Refills, Maintenance, 07/20/22 9:09:00 EDT, [facility], 154.94, cm, 06/13/22 15:46:00 EDT, Height, 84.4, kg, 05/08/22 13:56:00 EDT, Dry Weight Start Date: 07/20/22 Status: Ordered nitrofurantoin macrocrystals 50 mg oral capsule See Instructions, 1 capsule By Mouth Daily after intercourse, # 30 capsule, 5 Refills, Acute 01/23/23 13:32:00 EST, 01/24/22 13:32:00 EST, [facility]/pharmacy #1234, Partial fill upon patient request if theprescription is for a schedule II opioid drug., 154... Start Date: 01/24/22 Stop Date: 01/23/23 Status: Ordered nitrofurantoin macrocrystals 50 mg oral capsule See Instructions, 1 capsule By Mouth after intercourse for UTI prevention, # 30 capsule, 5 Refills,Maintenance, 01/23/23 13:32:00 EST, [facility]/pharmacy #1234, Partial fill upon patient request if [...] Refills, Maintenance, 05/11/22 13:29:00 EDT, [facility], 28, ERIN MALIKA TABLETA DIARIA, 154.94, cm, 05/08/22 13:56:00 EDT, Height, 84.4,kg, 05/08/22 13:56:00 EDT, Dry Weight Start Date: 05/11/22 Status: Ordered traZODone 100 mg oral tablet 1, tablet, By Mouth, Daily at bedtime, # 30 tablet, Refills 2, Tot. Refills 0, Maintenance, 10/26/19 11:51:00 EDT, Route to Pharmacy Electronically, [facility] ST[facility] 458[facility], 155, cm, 09/08/19 13:02:00 EDT, Height, 85.5, kg, 08/04/19 11:52:00 EDT, Dry Weight Start Date: 10/26/19 Status: Ordered Zofran 4 mg oral tablet 1 tablet = 4 mg, By Mouth, Every 6 hours, PRN Nausea & Vomiting, # 56 tablet, 0 Refills, Maintenance, 06/10/20 10:43:00 EDT, [facility]/pharmacy #1234, Partial fill upon patient request if [...] Active Menopause Confirmed Active Migraines Confirmed Active Obese class I Confirmed Active Obesity Confirmed Active Palpitation Confirmed Active Palpitations Confirmed Active Persistent cough Confirmed Active Prediabetes Confirmed Active Fatty liver Confirmed Active Thoracic back pain Confirmed Active New onset type 2 diabetes mellitus Confirmed Active Type 2 diabetes, HbA1c goal < 7% Confirmed Active Ventricular premature beats Confirmed Active Vitamin D deficiency Confirmed Active Social History Social History Type Response Smoking Status Former smoker, quit more than 30 days ago; Other: quit 2017; entered on: 06/25/19 Sex Patient Care team information Care Team Personnel Name: Temi Branch RN Position: [facility] ED RN W/OE and Tasks Member Role: Primary Care Nurse Name: Yefri Latham MD Position: [facility] Physician - Primary Care Member Role: PCP Address: Address: [address] [place] [address], [address] [place] [address]- Care Team Related Persons Name: RICO MALIK Address: home [address] [place] [address] Name: RICO MEREDITH Address: home [address] [place] [address]
--- OUTSIDE RECORDS SUMMARY | 2023-08-30 10:19 | XMS_ITS | Continuity of Care Document ---
Author Organization [facility] Address [address] [place] [address] [address] [place] [address]- Care Team Providers Care Accounts Specialist Name Role Phone Noa VELOZ, Yefri Regalado Primary Care Physician En[place] [facility] [place](s[place] 08/10/20 - 08/17/[address] [place] [address]- Attending Physician: Ky Dawson MD Referring Physician: Selma Real MD Allergies, Adverse Reactions, Alerts Substance Reaction Severity Status Adhesive Bandage skin irritation, blisters Active Fish hives,anaphylaxis Active Immunizations Given and Recorded Vaccine Date Status Refusal Reason influenza virus vaccine, inactivated 06/18/18 George rded pneumococcal 23-valent vaccine 04/09/15 Given Medications amLODIPine 2.5 mg oral tablet See Instructions, ART AWNG TODOS [place], # 90 tablet, 1 Refills, Maintenance, [facility] ST[facility] 67545, 155, cm, 06/10/20 9:21:00 EDT, Height, 86.2, kg, 10/29/19 10:59:00 EDT, Dry Weight Start Date: 06/16/20 Status: Ordered busPIRone 5 mg oral tablet 1.5, tablet, By Mouth, 2 times a day, # 270 tablet, Refills 1, Tot. Refills 1, Maintenance, 04/14/20 9:58:00 EST, Route to Pharmacy Electronically, [facility]/pharmacy #[id number], 155, cm, 11/26/19 11:22:00 EDT,Height, 86.2, [...] 1 Refills, Maintenance, 08/01/20 12:14:00 EDT, Tablet, [facility]/pharmacy #1234, Partial fill upon patient request if the prescription is for a schedule II opioid drug., 155, cm, 08/01/20 11:21:00 EDT, Height,... Start Date: 08/01/20 Stop Date: 01/28/21 Status: Ordered levothyroxine 0.05 mg oral tablet 1 tablet, By Mouth, Daily, # 90 tablet, 1 Refills, Maintenance, 10/20/19 19:10:00 EDT, [facility]/pharmacy#1234, 155, cm, 09/08/19 13:02:00 EDT, Height, 85.5, kg, 08/04/19 11:52:00 EDT, Dry Weight Start Date: 10/20/19 Stop Date: 04/17/20 Status: Ordered lidocaine 5% topical film See Instructions, APPLY 1 PATCH AND LEAVE IN PLACE FOR 12 HOURS, THEN REMOVE AND LEAVE OFF FOR 12 HOURS., # 30 patch, 1 Refills, 02/18/20 13:36:00 EST, [facility]/pharmacy #1234, 30, APPLY [address] FOR 12 HOURS, THEN REMOVE AND LEAVE OFF FO... Start Date: 02/18/20 Status: Ordered metFORMIN 500 mg oral tablet See Instructions, Take 1 tab daily for 3 days then increase to 1 tab twice daily after meals, # 180tablet, 1 Refills, Maintenance, 06/20/20 11:42:00 EDT, [facility]/pharmacy #[id number], Partial fill upon patient request if the prescription is for a schedule II o... Start Date: 06/20/20 Status: Ordered metFORMIN 500 mg oral tablet, extended release 2 tablet = 1,000 mg, By Mouth, Daily, # 180 tablet, 1 Refills, Maintenance, 08/01/20 12:14:00 EDT, ER Tablet, [facility]/pharmacy #1234, Partial fill upon patient request if the prescription is for a schedule II opioid drug., 155, cm, 08/01/20 11:21:00 EDT,... Start Date: 08/01/20 Stop Date: 01/28/21 Status: Ordered pantoprazole 40 mg oral delayed [...] tablet, 1 Refills, Maintenance, 06/15/20 8:14:00 EDT, [facility]/pharmacy #1234, 155, cm, 06/10/20 9:21:00 EDT, Height, 86.2, kg, 10/29/19 10:59:00 EDT, Dry Weight Start Date: 06/15/20 Status: Ordered Prempro 0.3 mg-1.5 mg oral tablet See Instructions, ERIN MALIKA TABLETA DIARIA, # 28 tablet, 1 Refills, Maintenance, [facility] ST[facility] 10980, 28, ERIN MALIKA TABLETA DIARIA, 155, cm, 06/20/20 11:37:00 EDT, Height, 86.2, kg, 10/29/19 10:59:00 EDT, Dry Weight Start Date: 07/12/20 Status: Ordered traMADol 50 mg oral tablet See Instructions, TAKE 1 TABLET BY MOUTH EVERY 12 HOURS NEEDED FOR PAIN,INSTR:MAY CAUSE DROWSINESS. NOT TO BE TAKEN WITH TRAZODONE, # 30 tablet, 0 Refills, Maintenance, 12/03/19 21:58:00 EDT, [facility]/pharmacy #1234, 155, cm, 11/26/19 11:22:00 EDT, He[facility]... Start Date: 12/03/19 Status: Ordered traZODone 100 mg oral tablet 1, tablet, By Mouth, Daily at bedtime, # 30 tablet, Refills 2, Tot. Refills 0, Maintenance, 10/26/19 11:51:00 EDT, Route to Pharmacy Electronically, [facility] STORE 16590, 155, cm, 09/08/19 13:02:00 EDT, Height, 85.5, kg, 08/04/19 11:52:00 EDT, Dry Weight Start Date: 10/26/19 Status: Ordered Zofran 4 mg oral tablet 1 tablet = 4 mg, By Mouth, Every 6 hours, PRN Nausea & Vomiting, # 56 tablet, 0 Refills, Maintenance, 06/10/20 10:43:00 EDT, [id number], Partial fill upon patient request if the [...] premature beats(Confirmed) Active Vitamin D deficiency(Confirmed) Active Vital Signs Most recent to oldest [Reference Range]: 1 Height 155 cm (08/10/20 10:55 AM) Weight 84.7 kg (08/10/20 10:55 AM) Pulse Rate [55-90 bpm] 109 bpm *H* (08/10/20 10:55 AM) Body Mass Index [18.5-24.99] 35.25 *>HHI* (08/10/20 10:55 AM) Blood Pressure [90-138/55-84 mm Hg] 121/ 78mm Hg (08/10/20 10:55 AM) Respiratory Rate [16-30 br/min] 16 br/mi n (08/10/20 10:55 AM) Temperature [96.8-100.4 DegF] 96.7 DegF *L* (08/10/20 10:55 AM) Blood pressure sites Arm, right (08/10/20 10:55 AM) Temperature Route Temporal (08/10/20 10:55 AM) Weight Obtained Via Standing scale (08/10/20 10:55 AM) Social History Social History Type Response Smoking Status Former smoker, quit more than 30 days ago; Other: quit 2016; entered on: 06/25/19 Sex
--- OUTSIDE RECORDS SUMMARY | 2023-08-30 10:19 | XMS_ITS | Continuity of Care Document ---
Author Organization [facility] Address [address] [place] [address]- Care Team Providers Care Tennis Net Maker Name Role Phone Yefri Latham MD Primary Care Physician [phone] Encounter [facility] [place] Date(s): 08/25/22 - 12/23/[address] [address] Attending Physician: Pat Becerra MD Admitting Physician: Pat Becerra MD Referring Physician: Yefri Latham MD Allergies, Adverse Reactions, Alerts Substance Reaction [...] influenza virus vaccine, inactivated 11/18/15 George rded [id number] 12y+ bivalent booster vax 11/13/21 Recorded Hepatitis A-Hepatitis B Vaccine 07/18/21 Recorded tetanus/diphtheria/pertussis, acel(Tdap) 07/11/21 Recorded SARS-CoV-2 mRNA ([id number]-lrkk-oblbl) vax 05/26/21 Recorded zoster vaccine, inactivated 07/12/20 Recorded zoster vaccine, inactivated 10/14/19 Recorded SARS-CoV-2 (COVID-19) mRNA BNT-162b2 vac 06/01/20 Recorded SARS-CoV-2 (COVID-19) mRNA BNT-162b2 vac 05/11/20 Recorded Medications amLODIPine 5 mg oral tablet 1 tablet, By Mouth, Daily, # 90 tablet, 1 Refills, Maintenance, 03/23/22 12:28:00 EST, [facility], 154.94, cm, 03/08/22 9:07:00 EST, Height, 82.7, kg, 12/28/21 14:44:00 EST, Dry Weight Start Date: 03/23/22 Status: Ordered atorvastatin 20 mg oral tablet See Instructions, TAKE 1 TABLET BY MOUTH DAILY AFTER SUPPER. STOP PRAVASTATIN., # 90 tablet, 1 Refills, Maintenance, 04/13/22 9:03:00 EST, [facility], 154.94, cm, 03/08/22 9:07:00 EST, Height, 82.7, [...] Refills, Maintenance, 06/25/22 13:25:00 EDT, [facility], 154.94, cm, 06/13/22 15:46:00 EDT, Height, 84.4, kg, 05/08/22 13:56:00 EDT, Dry Weight Start Date: 06/25/22 Status: Ordered levothyroxine 0.05 mg oral tablet 1 tablet, By Mouth, Daily, # 90 tablet, 1 Refills, Maintenance, 04/03/22 10:03:00 EST, [facility], 154.94, cm, 03/08/22 9:07:00 EST, Height, 82.7, kg, 12/28/21 14:44:00 EST, Dry Weight Start Date: 04/03/22 Status: Ordered lidocaine 5% topical film See Instructions, APPLY 1 PATCH [address] LEAVE IN PLACE FOR 12 HOURS, THEN REMOVE AND LEAVE OFF FOR 12 HOURS., # 30 patch, 1 Refills, 02/18/20 13:36:00 EST, [facility]/pharmacy #1234, 30, APPLY [address] FOR 12 HOURS, THEN REMOVE AND LEAVE OFF FO... Start Date: 02/18/20 Status: Ordered MetFORMIN (Eqv-Glucophage XR) 500 mg oral tablet, extended release 1 tablet, By Mouth, Daily, # 30 tablet, 2 Refills, Maintenance, 07/20/22 9:09:00 EDT, [facility], 154.94, cm, 06/13/22 15:46:00 EDT, Height, 84.4, kg, 05/08/22 13:56:00 EDT, Dry Weight Start Date: 07/20/22 Status: Ordered nitrofurantoin macrocrystals 50 mg oral capsule See Instructions, 1 capsule By Mouth Daily after intercourse, # 30 capsule, 5 Refills, Acute 01/23/23 13:32:00 EST, 01/24/22 13:32:00 EST, [facility]/pharmacy #1234, Partial fill upon patient request if theprescription is for a schedule II opioid drug., 154... Start Date: 01/24/22 Stop Date: 01/23/23 Status: Ordered nitrofurantoin macrocrystals 50 mg oral capsule See Instructions, 1 capsule By Mouth after intercourse for UTI prevention, # 30 capsule, 5 Refills,Maintenance, 01/23/23 13:32:00 EST, [facility]/pharmacy #1234, Partial fill upon patient request if [...] Refills, Maintenance, 05/11/22 13:29:00 EDT, [facility], 28, ERIN MALIKA TABLETA DIARIA, 154.94, cm, 05/08/22 13:56:00 EDT, Height, 84.4,kg, 05/08/22 13:56:00 EDT, Dry Weight Start Date: 05/11/22 Status: Ordered traZODone 100 mg oral tablet 1, tablet, By Mouth, Daily at bedtime, # 30 tablet, Refills 2, Tot. Refills 0, Maintenance, 10/26/19 11:51:00 EDT, Route to Pharmacy Electronically, [facility] STORE 12005, 155, cm, 09/08/19 13:02:00 EDT, Height, 85.5, kg, 08/04/19 11:52:00 EDT, Dry Weight Start Date: 10/26/19 Status: Ordered Zofran 4 mg oral tablet 1 tablet = 4 mg, By Mouth, Every 6 hours, PRN Nausea & Vomiting, # 56 tablet, 0 Refills, Maintenance, 06/10/20 10:43:00 EDT, [facility]/pharmacy #1234, Partial fill upon patient request if [...] Team Personnel Name: Temi Branch RN Position: [facility] ED RN W/OE and Tasks Member Role: Primary Care Nurse Name: Yefri Latham MD Position: [facility] Physician - Primary Care Member Role: PCP Address: Address: [address] [place] [address], [address] [place] [address]- Care Team Related Persons Name: RICO MALIK Address: home [address] [place] [address] Name: RICO MEREDITH Address: home [address] [place] [address]
--- OUTSIDE RECORDS SUMMARY | 2023-08-30 10:19 | XMS_ITS | Continuity of Care Document ---
Author Organization [facility] Address [address] [place] [address]- Care Team Providers Care Lapel Baster Name Role Phone Susan SUGGS, Gunjan Primary Care Physician Encounter [facility] [place] Date(s): 08/27/22 - 09/26/22 [facility] [address] [place] [id number]- Allergies, Adverse Reactions, Alerts Substance Reaction Severity [...] influenza virus vaccine, inactivated 11/18/15 George rded [id number] 12y+ bivalent booster vax 11/13/21 Recorded Hepatitis A-Hepatitis B Vaccine 07/18/21 Recorded tetanus/diphtheria/pertussis, acel(Tdap) 07/11/21 Recorded SARS-CoV-2 mRNA ([id number]) vax 05/26/21 Recorded zoster vaccine, inactivated 07/12/20 Recorded zoster vaccine, inactivated 10/14/19 Recorded SARS-CoV-2 (COVID-19) mRNA BNT-162b2 vac 06/01/20 Recorded SARS-CoV-2 (COVID-19) mRNA BNT-162b2 vac 05/11/20 Recorded Medications amLODIPine 5 mg oral tablet 1 tablet, By Mouth, Daily, # 90 tablet, 1 Refills, Maintenance, 03/23/22 12:28:00 EST, [facility], 154.94, cm, 03/08/22 9:07:00 EST, Height, 82.7, kg, 12/28/21 14:44:00 EST, Dry Weight Start Date: 03/23/22 Status: Ordered atorvastatin 20 mg oral tablet See Instructions, TAKE 1 TABLET BY MOUTH DAILY AFTER SUPPER. STOP PRAVASTATIN., # 90 tablet, 1 Refills, Maintenance, 04/13/22 9:03:00 EST, [facility], 154.94, cm, 03/08/22 9:07:00 EST, Height, 82.7, [...] Refills, Maintenance, 06/25/22 13:25:00 EDT, [facility], 154.94, cm, 06/13/22 15:46:00 EDT, Height, 84.4, kg, 05/08/22 13:56:00 EDT, Dry Weight Start Date: 06/25/22 Status: Ordered levothyroxine 0.05 mg oral tablet 1 tablet, By Mouth, Daily, # 90 tablet, 1 Refills, Maintenance, 04/03/22 10:03:00 EST, [facility] ST[facility] 36806, 154.94, cm, 03/08/22 9:07:00 EST, Height, 82.7, kg, 12/28/21 14:44:00 EST, Dry Weight Start Date: 04/03/22 Status: Ordered lidocaine 5% topical film See Instructions, APPLY 1 [address] LEAVE IN PLACE FOR 12 HOURS, THEN REMOVE AND LEAVE OFF FOR 12 HOURS., # 30 patch, 1 Refills, 02/18/20 13:36:00 EST, [facility]/pharmacy #1234, 30, APPLY [address] LEAVEIN PLACE FOR 12 HOURS, THEN REMOVE AND LEAVE OFF FO... Start Date: 02/18/20 Status: Ordered MetFORMIN (Eqv-Glucophage XR) 500 mg oral tablet, extended release 1 tablet, By Mouth, Daily, # 30 tablet, 2 Refills, Maintenance, 07/20/22 9:09:00 EDT, [facility] ST[facility] 63142, 154.94, cm, 06/13/22 15:46:00 EDT, Height, 84.4, [...] 30 capsule, 5 Refills,Maintenance, 01/23/23 13:32:00 EST, [id number], Partial fill upon [...] Refills, Maintenance, 05/11/22 13:29:00 EDT, [facility], 28, ERIN MALIKA TABLETA DIARIA, 154.94, cm, 05/08/22 13:56:00 EDT, Height, 84.4,kg, 05/08/22 13:56:00 EDT, Dry Weight Start Date: 05/11/22 Status: Ordered traZODone 100 mg oral tablet 1, tablet, By Mouth, Daily at bedtime, # 30 tablet, Refills 2, Tot. Refills 0, Maintenance, 10/26/19 11:51:00 EDT, Route to Pharmacy Electronically, [facility], 155, cm, 09/08/19 13:02:00 EDT, Height, 85.5, kg, 08/04/19 11:52:00 EDT, Dry Weight Start Date: 10/26/19 Status: Ordered Zofran 4 mg oral tablet 1 tablet = 4 mg, By Mouth, Every 6 hours, PRN Nausea & Vomiting, # 56 tablet, 0 Refills, Maintenance, 06/10/20 10:43:00 EDT, [id number], Partial fill upon patient request [...] Team Personnel Name: Temi Branch RN Position: S ED RN W/OE and Tasks Member Role: Primary Care Nurse Name: Gunjan Davis NP Position: Reference Physician Member Role: PCP Address: Address: [address] [place] [address]- Care Team Related Persons Name: RICO MALIK Address: home [address] [place] [address] Name: RICO MEREDITH Address: home [address] [place] [address]
--- OUTSIDE RECORDS SUMMARY | 2023-08-30 10:19 | XMS_ITS | Continuity of Care Document ---
Author Organization [facility] Address [address] [place] [address] [address] [place] [address]- Care Team Providers Care Drum Saw Operator Name Role Phone Yefri Latham MD Primary Care Physician [phone] [place] [facility] [place] Date(s): 03/18/23 - 08/17/[address] [place] [address]- Attending Physician: Thea Evans MD Referring Physician: Yefri Latham MD Allergies, [...] influenza virus vaccine, inactivated 11/18/15 George rded [id number] 12y+ bivalent booster vax 11/13/21 Recorded Hepatitis A-Hepatitis B Vaccine 07/18/21 Recorded tetanus/diphtheria/pertussis, acel(Tdap) 07/11/21 Recorded SARS-CoV-2 mRNA ([id number]) vax 05/26/21 Recorded zoster vaccine, inactivated 07/12/20 Recorded zoster vaccine, inactivated 10/14/19 Recorded SARS-CoV-2 (COVID-19) mRNA BNT-162b2 vac 06/01/20 Recorded SARS-CoV-2 (COVID-19) mRNA BNT-162b2 vac 05/11/20 Recorded Medications amLODIPine 5 mg oral tablet 1 tablet, By Mouth, Daily, # 90 tablet, 1 Refills, Maintenance, 03/23/22 12:28:00 EST, [facility], 154.94, cm, 03/08/22 9:07:00 EST, Height, 82.7, kg, 12/28/21 14:44:00 EST, Dry Weight Start Date: 03/23/22 Status: Ordered atorvastatin 20 mg oral tablet See Instructions, TAKE 1 TABLET BY MOUTH DAILY AFTER SUPPER. STOP PRAVASTATIN., # 90 tablet, 1 Refills, Maintenance, 04/13/22 9:03:00 EST, [facility], 154.94, cm, 03/08/22 9:07:00 EST, Height, 82.7, [...] Daily, # 90 tablet, 1 Refills, Maintenance, 05/28/23 16:22:00 EDT, [facility], 155, cm, 05/20/23 12:48:00 EDT, Height, 78.5, kg, 05/18/23 16:51:00 EDT, Dry Weight Start Date: 05/28/23 Status: Ordered levothyroxine 0.05 mg oral tablet 1 tablet, By Mouth, Daily, # 90 tablet, 1 Refills, Maintenance, 04/03/22 10:03:00 EST, [facility], 154.94, cm, 03/08/22 9:07:00 EST, Height, 82.7, kg, 12/28/21 14:44:00 EST, Dry Weight Start Date: 04/03/22 Status: Ordered MetFORMIN (Eqv-Glucophage XR) 500 mg oral tablet, extended release 1 tablet, By Mouth, Daily, # 30 tablet, 2 Refills, Maintenance, 07/20/22 9:09:00 EDT, [facility], 154.94, cm, 06/13/22 15:46:00 EDT, Height, 84.4, kg, 05/08/22 13:56:00 EDT, Dry Weight Start Date: 07/20/22 Status: Ordered nitrofurantoin macrocrystals 50 mg oral capsule See Instructions, 1 capsule By Mouth after intercourse for UTI prevention, # 30 capsule, 5 Refills,Maintenance, 01/23/23 13:32:00 EST, [facility]/pharmacy #[id number], Partial fill upon patient request [...] Refills, Maintenance, 05/11/22 13:29:00 EDT, [facility], 28, ERIN MALIKA TABLETA DIARIA, 154.94, cm, 05/08/22 13:56:00 EDT, Height, 84.4,kg, 05/08/22 13:56:00 EDT, Dry Weight Start Date: 05/11/22 Status: Ordered traZODone 100 mg oral tablet 1, tablet, By Mouth, Daily at bedtime, # 30 tablet, Refills 2, Tot. Refills 0, Maintenance, 10/26/19 11:51:00 EDT, Route to Pharmacy Electronically, [facility], 155, cm, 09/08/19 13:02:00 EDT, Height, 85.5, kg, 08/04/19 11:52:00 EDT, Dry Weight Start Date: 10/26/19 Status: Ordered Zofran 4 mg oral tablet 1 tablet = 4 mg, By Mouth, Every 6 hours, PRN Nausea & Vomiting, # 56 tablet, 0 Refills, Maintenance, 06/10/20 10:43:00 EDT, [facility]/pharmacy #[id number], Partial fill upon patient request if the prescription is for a schedule II opioid drug., 155, cm, 06/10/20... Start Date: 06/10/20 Stop Date: 06/24/20 Status: Ordered Problem List Condition Confirmation Course Effective Dates Status H ealth Status Informant Anxiety Confirmed Active Vaginal atrophy Confirmed Active Blepharitis of left eye Confirmed Active Hematuria Confirmed Active Chronic right shoulder pain Confirmed Active Breast cyst on imaging Confirmed Active Recurrent UTI Confirmed Active Depression Confirmed Active Difficulty sleeping Confirmed Active Thoracic disc disease Confirmed Active Duodenitis Confirmed Active Dyspnea on exertion Confirmed Active Gastroesophageal reflux disease Confirmed Active Hormone replacement therapy Confirmed Active Hyperlipidemia Confirmed Active HTN (hypertension) Confirmed Active Hypothyroid Confirmed Active Irritable bowel syndrome Confirmed Active Renal calculi Confirmed Active Leukoplakia of tongue Confirmed Active Menopause Confirmed Active Migraines Confirmed Active Obese class I Confirmed Active Obesity Confirmed Active Palpitation Confirmed Active Palpitations Confirmed Active Persistent cough Confirmed Active Prediabetes Confirmed Active Fatty liver Confirmed Active Thoracic back pain Confirmed Active New onset type 2 diabetes mellitus Confirmed Active Type 2 diabetes, HbA1c goal < 7% Confirmed Active UTI (urinary tract infection) Confirmed Active Ventricular premature beats Confirmed Active Vitamin D deficiency Confirmed Active Social History Social History Type Response Smoking Status Former smoker, quit more than 30 days ago; Other: quit 2016; entered on: 06/25/19 Sex Patient Care team information Care Team Personnel Name: Temi Branch RN Position: [facility] ED RN W/OE and Tasks Member Role: Primary Care Nurse Name: Yefri Latham MD Position: [facility] Physician - Primary Care Member Role: PCP Address: Address: [address] [place] [address], [address] [place] [address]- Care Team Related Persons Name: RICO MALIK Address: [address] [place] [address] Name: RICO MEREDITH Address: home [id number] [place] [address]
--- OUTSIDE RECORDS SUMMARY | 2023-08-30 10:19 | XMS_ITS | Continuity of Care Document ---
Author Organization [facility] Address [address] [place] [address]- Care Team Providers Care Animal Trainer Name Role Phone Noa VELOZ, Yefri Regalado Primary Care Physician [phone] Encounter [facility] [place] Date(s): 10/02/19 - 11/01/[address] [address]- [facility] Attending Physician: Dean Breen Admitting Physician: AdmtrDean Referring Physician: Admtr ArRom Allergies, Adverse Reactions, Alerts Substance Reaction Severity Status Adhesive Bandage skin irritation, blisters Active Fish hives,anaphylaxis Active Immunizations Given and Recorded Vaccine Date Status Refusal Reason influenza virus vaccine, inactivated 06/18/18 George rded pneumococcal 23-valent vaccine 04/09/15 Given Medications amLODIPine 2.5 mg oral tablet See Instructions, ART WANG TODOS LOS RODRIGUEZ, # 90 tablet, 1 Refills, Maintenance, 06/08/19 9:09:00 EDT, [facility]/pharmacy #1234, 155, cm, 04/07/19 11:52:00 EST, Height, 84.7, kg, 04/07/19 11:52:00 EST, Dry Weight Start Date: 06/08/19 Status: Ordered busPIRone 5 mg oral tablet 1.5, tablet, By Mouth, 2 times a day, # 90 tablet, Refills 5, Tot. Refills 5, Maintenance, 10/20/2011:28:00 EDT, Route to Pharmacy Electronically, [facility]/pharmacy #1234, 155, cm, 09/08/19 13:02:00 EDT,Height, 85.5, kg, 08/04/19 11:52:00 EDT, Dry Weight Start Date: 10/20/19 Status: Ordered Excedrin Migraine 2 tablet, By Mouth, Every 6 hours, PRN Migraine Headache, 0 Refills, Maintenance, 08/22/16 14:59:30EDT Start Date: 08/22/16 Status: Ordered levothyroxine 0.05 mg oral tablet 1 tablet, By Mouth, Daily, # 90 tablet, 1 Refills, Maintenance, 10/20/19 19:10:00 EDT, [facility]/pharmacy#1234, 155, cm, 09/08/19 13:02:00 EDT, Height, 85.5, kg, 08/04/19 11:52:00 EDT, Dry Weight Start Date: 10/20/19 Stop Date: 04/17/20 Status: Ordered lidocaine 5% topical film See Instructions, APPLY 1 PATCH AND LEAVE IN PLACE FOR 12 HOURS, THEN REMOVE AND LEAVE OFF FOR 12 HOURS., # 30 patch, 1 Refills, Maintenance, [facility], 30, APPLY 1 PATCH AND LEAVE IN [...] tablet, 1 Refills, Maintenance, 06/08/19 9:10:00 EDT, [facility], 155, cm, 04/07/19 11:52:00 EST, Height, 84.7, kg, 04/07/19 11:52:00 EST, Dry We... Start Date: 06/08/19 Status: Ordered Prempro 0.3 mg-1.5 mg oral tablet See Instructions, ERIN MALIKA TABLETA DIARIA, # 28 tablet, 2 Refills, Maintenance, [facility], 28, ERIN MALIKA TABLETA DIARIA, 155, cm, 09/08/19 13:02:00 EDT, Height, 85.5, kg, 08/04/19 11:52:00 EDT, Dry Weight Start Date: 09/14/19 Status: Ordered traMADol 50 mg oral tablet 1 tablet = 50 mg, By Mouth, Every 12 hours, PRN as needed for pain, May cause drowsiness. Not to betaken with Trazodone, # 30 tablet, 0 Refills, Acute 11/06/19 18:05:00 EDT, 10/21/19 18:05:00 EDT, Tablet, [facility]/pharmacy #1234, 155, cm, 09/08/19 13:02... Start Date: 10/21/19 Stop Date: 11/06/19 Status: Ordered traZODone 100 mg oral tablet 1, tablet, By Mouth, Daily at bedtime, # 30 tablet, Refills 2, Tot. Refills 0, Maintenance, 10/26/19 11:51:00 EDT, Route to Pharmacy Electronically, [facility], 155, cm, 09/08/19 13:02:00 EDT, Height, 85.5, kg, 08/04/19 11:52:00 EDT, Dry Weight Start Date: 10/26/19 Status: Ordered Problem List Condition Effective Dates [...]
--- OUTSIDE RECORDS SUMMARY | 2023-08-30 10:19 | XMS_ITS | Continuity of Care Document ---
Author Organization [facility] Address [address] [place] [address] [address], [address] [place] [address]- Care Team Providers Care Armored Cable Machine Operator Name Role Phone Noa VELOZ, Yefri Regalado Primary Care Physician [phone] Encounter [facility] [place] Date(s): 11/11/19 - 12/11/19 [facility] [address] [place] [address] Drive, [address] [place] [address]- [facility] Allergies, Adverse Reactions, Alerts Substance Reaction Severity Status Adhesive Bandage skin irritation, blisters Active Fish hives,anaphylaxis Active Immunizations Given and Recorded Vaccine Date Status Refusal Reason influenza virus vaccine, inactivated 06/18/18 George rded pneumococcal 23-valent vaccine 04/09/15 Given Medications amLODIPine 2.5 mg oral tablet See Instructions, ART FERRARA RODRIGUEZ, # 90 tablet, 1 Refills, Maintenance, 12/03/19 10:55:00 EDT, [facility]/pharmacy #1234, 155, cm, 11/26/19 11:22:00 EDT, Height, 86.2, kg, 10/29/19 10:59:00 EDT, Dry Weight Start Date: 12/03/19 Status: Ordered busPIRone 5 mg oral tablet 1.5, tablet, By Mouth, 2 times a day, # 90 tablet, Refills 5, Tot. Refills 5, Maintenance, 10/20/2011:28:00 EDT, Route to Pharmacy Electronically, [facility]/pharmacy #1234, 155, cm, 09/08/19 13:02:00 EDT,Height, 85.5, kg, 08/04/19 11:52:00 EDT, Dry Weight Start Date: 10/20/19 Status: Ordered Excedrin Migraine 2 tablet, By Mouth, Every 6 hours, PRN Migraine Headache, 0 Refills, Maintenance, 08/22/16 14:59:30EDT Start Date: 08/22/16 Status: Ordered levothyroxine 0.05 mg oral tablet 1 tablet, By Mouth, Daily, # 90 tablet, 1 Refills, Maintenance, 10/20/19 19:10:00 EDT, [facility]/pharmacy#1234, 155, cm, 09/08/19 13:02:00 EDT, Height, 85.5, kg, 08/04/19 11:52:00 EDT, Dry Weight Start Date: 10/20/19 Stop Date: 04/17/20 Status: Ordered lidocaine 5% topical film See Instructions, APPLY 1 PATCH AND LEAVE IN PLACE FOR 12 HOURS, THEN REMOVE AND LEAVE OFF FOR 12 HOURS., # 30 patch, 1 Refills, Maintenance, [facility], 30, APPLY 1 PATCH AND LEAVE IN [...] SUPPLY, # 90 tablet, 1 Refills, Maintenance, 12/03/19 10:49:00 EDT, [facility], 155, cm, 11/26/19 11:22:00EDT, Height, 86.2, kg, 10/29/19 10:59:00 EDT, Dry W... Start Date: 12/03/19 Status: Ordered Prempro 0.3 mg-1.5 mg oral tablet See Instructions, ERIN MALIKA TABLETA DIARIA, # 28 tablet, 2 Refills, Maintenance, [facility], 28, ERIN MALIKA TABLETA DIARIA, 155, cm, 09/08/19 13:02:00 EDT, Height, 85.5, kg, 08/04/19 11:52:00 EDT, Dry Weight Start Date: 09/14/19 Status: Ordered traMADol 50 mg oral tablet See Instructions, TAKE 1 TABLET BY MOUTH EVERY 12 HOURS NEEDED FOR PAIN,INSTR:MAY CAUSE DROWSINESS. NOT TO BE TAKEN WITH TRAZODONE, # 30 tablet, 0 Refills, Maintenance, 12/03/19 21:58:00 EDT, [facility]/pharmacy #1234, 155, cm, 11/26/19 11:22:00 EDT, [facility]... Start Date: 12/03/19 Status: Ordered traZODone 100 mg oral tablet 1, tablet, By Mouth, Daily at bedtime, # 30 tablet, Refills 2, Tot. Refills 0, Maintenance, 10/26/19 11:51:00 EDT, Route to Pharmacy Electronically, [facility] 380[facility], 155, cm, 09/08/19 13:02:00 EDT, Height, 85.5, [...]
--- OUTSIDE RECORDS SUMMARY | 2023-08-30 10:19 | XMS_ITS | Continuity of Care Document ---
Author Organization [facility] Address [address] [place] [address], [address] [place] [address]- Care Team Providers Care Biometrics Experimentalist Name Role Phone Yefri Latham MD Primary Care Physician Encounter [facility] [place] Date(s): 11/26/19 - 12/03/19 [facility] [address] [place] [address] Drive, [address] [place] [address]- [facility] Attending Physician: Leonie Gonzalez MD Referring Physician: Yefri Latham MD Allergies, [...] tablet, 1 Refills, Maintenance, 12/03/19 10:55:00 EDT, [facility]/pharmacy #1234, 155, cm, 11/26/19 11:22:00 EDT, Height, 86.2, kg, 10/29/19 10:59:00 EDT, Dry Weight Start Date: 12/03/19 Status: Ordered busPIRone 5 mg oral tablet 1.5, tablet, By Mouth, 2 times a day, # 90 tablet, Refills 5, Tot. Refills 5, Maintenance, 10/20/2011:28:00 EDT, Route to Pharmacy Electronically, [facility]/pharmacy #1234, 155, cm, 09/08/19 13:02:00 EDT,Height, 85.5, kg, 08/04/19 11:52:00 EDT, Dry Weight Start Date: 10/20/19 Status: Ordered Excedrin Migraine 2 tablet, By Mouth, Every 6 hours, PRN Migraine Headache, 0 Refills, Maintenance, 08/22/16 14:59:30EDT Start Date: 08/22/16 Status: Ordered levothyroxine 0.05 mg oral tablet 1 tablet, By Mouth, Daily, # 90 tablet, 1 Refills, Maintenance, 10/20/19 19:10:00 EDT, [facility]/pharmacy#1234, 155, cm, 09/08/19 13:02:00 EDT, Height, 85.5, kg, 08/04/19 11:52:00 EDT, Dry Weight Start Date: 10/20/19 Stop Date: 04/17/20 Status: Ordered lidocaine 5% topical film See Instructions, APPLY 1 PATCH AND LEAVE IN PLACE FOR 12 HOURS, THEN REMOVE AND LEAVE OFF FOR 12 HOURS., # 30 patch, 1 Refills, Maintenance, [facility], 30, APPLY 1 PATCH AND LEAVE IN [...] 28 tablet, 2 Refills, Maintenance, [facility], 28, ERIN MALIKA TABLETA DIARIA, 155, cm, 09/08/19 13:02:00 EDT, Height, 85.5, kg, 08/04/19 11:52:00 EDT, Dry Weight Start Date: 09/14/19 Status: Ordered traMADol 50 mg oral tablet See Instructions, TAKE 1 TABLET BY MOUTH EVERY 12 HOURS NEEDED FOR PAIN,INSTR:MAY CAUSE DROWSINESS. NOT TO BE TAKEN WITH TRAZODONE, # 30 tablet, 0 Refills, Maintenance, 12/03/19 21:58:00 EDT, [facility]/pharmacy #1234, 155, cm, 11/26/19 11:22:00 EDT, Heig... Start Date: 12/03/19 Status: Ordered traZODone 100 mg oral tablet 1, tablet, By Mouth, Daily at bedtime, # 30 tablet, Refills 2, Tot. Refills 0, Maintenance, 10/26/19 11:51:00 EDT, Route to Pharmacy Electronically, [facility] 80844, 155, cm, 09/08/19 13:02:00 EDT, Height, 85.5, [...] oldest [Reference Range]: 1 Height 155 cm (11/26/19 11:22 AM) Weight 86.2 kg (11/26/19 11:22 AM) Body Mass Index [18.5-24.99] 35.88 *>HHI* (11/26/19 11:22 AM) Social History Social History Type Response Smoking Status Former smoker, quit more than 30 days ago; Other: quit 2016; entered on: 06/25/19 Sex
--- OUTSIDE RECORDS SUMMARY | 2023-08-30 10:19 | XMS_ITS | Continuity of Care Document ---
Author Organization [facility] Address [address] [place] [address]- Care Team Providers Care Automation Mechanic Name Role Phone Noa VELOZ, Yefri Regalado Primary Care Physician [id number] 01/12/21 - 02/11/[address] [address] Attending Physician: Dean Breen Admitting Physician: AdmtrDean Referring Physician: AdmtrDean Allergies, Adverse Reactions, Alerts [...] LOS RODRIGUEZ, # 90 tablet, 1 Refills, [facility], 155, cm, 11/30/20 8:07:00 EDT, Height, 81.6, kg, 11/04/20 22:55:00 EDT, Dry Weight Start Date: 12/06/20 Status: Ordered busPIRone 5 mg oral tablet 1.5, tablet, By Mouth, 2 times a day, # 270 tablet, Refills 1, Route to Pharmacy Electronically, [facility] 163[facility], 155, cm, 11/30/20 8:07:00 EDT, Height, 81.6, kg, 11/04/20 22:55:00 EDT, Dry Weight Start Date: 01/22/21 Status: Ordered Cymbalta 60 mg oral enteric coated capsule 1 capsule = 60 mg, By Mouth, Daily, 0 Refills, Maintenance, 06/10/20 9:25:00 EDT, Partial fill uponpatient request if the prescription is for a schedule II opioid drug. Start Date: 06/10/20 Status: Ordered Estrace Vaginal Cream 0.1 mg/g See Instructions, 1 Gm Vaginally nightly for 2 weeks, then twice per week, # 42.5 Gm, 3 Refills, Maintenance, 11/30/20 8:39:00 EDT, [facility]/pharmacy #1234, Partial fill upon patient request if the prescription is for a schedule II opioid drug., 155, cm, 1... Start Date: 11/30/20 Status: Ordered Excedrin Migraine 2 tablet, By [...] Date: 12/05/20 Stop Date: 02/03/21 Status: Ordered levothyroxine 0.05 mg oral tablet 1 tablet, By Mouth, Daily, # 90 tablet, 1 Refills, Maintenance, 10/20/19 19:10:00 EDT, [facility]/pharmacy#1234, 155, cm, 09/08/19 13:02:00 EDT, Height, 85.5, kg, 08/04/19 11:52:00 EDT, Dry Weight Start Date: 10/20/19 Stop Date: 04/17/20 Status: Ordered lidocaine 5% topical film See Instructions, APPLY 1 PATCH AND LEAVE IN PLACE FOR 12 HOURS, THEN REMOVE AND LEAVE OFF FOR 12 HOURS., # 30 patch, 1 Refills, 02/18/20 13:36:00 EST, [facility]/pharmacy #1234, 30, APPLY 1 PATCH AND LEAVEIN [...] INSURANCE ONLY COVERS 30 DAY SUPPLY, # 30 tablet, 5 Refills, Maintenance, 01/22/21 17:02:00 EST, [facility]/pharmacy #1234, 155, cm, 11/30/20 8:07:00 EDT, Height, 81.6, kg, 11/04/20 22:55:00 EDT, Dry We... Start Date: 01/22/21 Status: Ordered Prempro 0.3 mg-1.5 mg oral tablet See Instructions, ERIN MALIKA TABLETA DIARIA, # 28 tablet, 1 Refills, [facility] 34913, 28, ERIN MALIKA TABLETA DIARIA, 155, cm, 11/30/20 8:07:00 EDT, Height, 81.6, kg, 11/04/20 22:55:00 EDT, Dry Weight Start Date: 01/11/21 Status: Ordered sitaGLIPtin 100 mg oral tablet 1 tablet = 100 mg, By Mouth, Daily, (Increased dose), # 90 tablet, 1 Refills, Maintenance, 09/15/2111:43:00 EDT, Tablet, [facility]/pharmacy #1234, Partial fill upon patient request if the prescription is for a schedule II opioid drug., 155, cm, 08/10/20 10... Start Date: 09/14/20 Stop Date: 03/13/21 Status: Ordered traMADol 50 mg oral tablet See Instructions, TAKE 1 TABLET BY MOUTH EVERY 12 HOURS NEEDED FOR PAIN,INSTR:MAY CAUSE DROWSINESS. NOT TO BE TAKEN WITH TRAZODONE, # 30 tablet, 0 Refills, Maintenance, 12/03/19 21:58:00 EDT, [facility]/pharmacy #1234, 155, cm, 11/26/19 11:22:00 EDT, Heig... Start Date: 12/03/19 Status: Ordered traZODone 100 mg oral tablet 1, tablet, By Mouth, Daily at bedtime, # 30 tablet, Refills 2, Tot. Refills 0, Maintenance, 10/26/19 11:51:00 EDT, Route to Pharmacy Electronically, [facility] 63011, 155, cm, 09/08/19 13:02:00 EDT, Height, 85.5, kg, 08/04/19 11:52:00 EDT, Dry Weight Start Date: 10/26/19 Status: Ordered trimethoprim 100 mg oral tablet See Instructions, 1 tablet By Mouth Daily after intercourse, # 30 tablet, 5 Refills, Acute :40:00 EDT, 11/30/20 8:40:00 EDT, [facility], Partial fill upon patient request if the prescription is for a schedule II opioid drug., 155, cm... Start Date: 11/30/20 Stop Date: 11/29/21 Status: Ordered Zofran 4 mg oral tablet [...] Status Health Status Inform ant Anxiety(Confirmed) Active Vaginal atrophy(Confirmed) Active Blepharitis of left eye(Confirmed) Active Breast cyst on imaging(Confirmed) Active Recurrent UTI(Confirmed) Active Depression(Confirmed) Active Difficulty sleeping(Confirmed) Active Thoracic [...]
--- OUTSIDE RECORDS SUMMARY | 2023-08-30 10:19 | XMS_ITS | Continuity of Care Document ---
Author Organization [facility] Address [address] [place] [address]- Care Team Providers Care Flash Oven Operator Name Role Phone Noa VELOZ, Yefri Regalado Primary Care Physician [phone] [place] [facility] [place] - 01/19/[address] [address] Discharge Disposition: A-D/C Home Attending Physician: Reina Skinner MD Admitting Physician: Reina Skinner MD Referring Physician: Reina Skinner MD Allergies, Adverse Reactions, Alerts Substance Reaction Severity Status Adhesive Bandage skin irritation, blisters Active Fish hives,anaphylaxis Active Immunizations Given and Recorded Vaccine Date Status Refusal Reason influenza virus vaccine, inactivated 06/18/18 George rded pneumococcal 23-valent vaccine 04/09/15 Given Medications amLODIPine 2.5 mg oral tablet See Instructions, ART DALY TABLETA TODOS LOS RODRIGUEZ, # 90 tablet, 1 Refills, Maintenance, 12/03/19 10:55:00 EDT, [facility]/pharmacy #1234, 155, cm, 11/26/19 11:22:00 EDT, Height, 86.2, kg, 10/29/19 10:59:00 EDT, Dry Weight Start Date: 12/03/19 Status: Ordered busPIRone 5 mg oral tablet 1.5, tablet, By Mouth, 2 times a day, # 90 tablet, Refills 5, Tot. Refills 5, Maintenance, 10/20/2011:28:00 EDT, Route to Pharmacy Electronically, [facility]/pharmacy #1234, 155, cm, 09/08/19 13:02:00 EDT,Height, 85.5, kg, 08/04/19 11:52:00 EDT, Dry Weight Start Date: 10/20/19 Status: Ordered Excedrin Migraine 2 tablet, By Mouth, Every 6 hours, PRN Migraine Headache, 0 Refills, Maintenance, 08/22/16 14:59:30EDT Start Date: 08/22/16 Status: Ordered levothyroxine 0.05 mg oral tablet 1 tablet, By Mouth, Daily, # 90 tablet, 1 Refills, Maintenance, 10/20/19 19:10:00 EDT, [facility], 155, cm, 09/08/19 13:02:00 EDT, Height, 85.5, kg, 08/04/19 11:52:00 EDT, Dry Weight Start Date: 10/20/19 Stop Date: 04/17/20 Status: Ordered lidocaine 5% topical film See Instructions, APPLY 1 PATCH [address] LEAVE IN PLACE FOR 12 HOURS, THEN REMOVE AND LEAVE OFF FOR 12 HOURS., # 30 patch, 1 Refills, Maintenance, [facility] 24915, 30, APPLY 1 PATCH AND LEAVE IN PLACE FOR12 HOURS, THEN REMOVE AND LEAVE OFF FOR 12 HOURS.,... Start Date: 08/05/19 Status: Ordered melatonin 10 mg oral capsule 1 capsule = 10 mg, By Mouth, Daily at bedtime, 0 Refills, Maintenance, 01/05/19 10:45:14 EST Start Date: 01/05/19 Status: Ordered methocarbamol 750 mg oral tablet See Instructions, TAKE 1 TABLET BY MOUTH 3 TIMES A DAY FOR 10 DAYS, # 30 tablet, 1 Refills, Acute, [facility] 23578, 155, cm, 11/26/19 11:22:00 EDT, Height, 86.2, kg, 10/29/19 10:59:00 EDT, Dry Weight Start Date: 01/18/20 Status: Ordered Milk Thistle = 250 mg, [...] 28 tablet, 2 Refills, Maintenance, [facility], 28, ERIN MALIKA TABLETA DIARIA, 155, cm, 09/08/19 13:02:00 EDT, Height, 85.5, kg, 08/04/19 11:52:00 EDT, Dry Weight Start Date: 09/14/19 Status: Ordered traMADol 50 mg oral tablet See Instructions, TAKE 1 TABLET BY MOUTH EVERY 12 HOURS NEEDED FOR PAIN,INSTR:MAY CAUSE DROWSINESS. NOT TO BE TAKEN WITH TRAZODONE, # 30 tablet, 0 Refills, Maintenance, 12/03/19 21:58:00 EDT, [facility]/pharmacy #1234, 155, cm, 11/26/19 11:22:00 EDT, Heig... Start Date: 12/03/19 Status: Ordered traZODone 100 mg oral tablet 1, tablet, By Mouth, Daily at bedtime, # 30 tablet, Refills 2, Tot. Refills 0, Maintenance, 10/26/19 11:51:00 EDT, Route to Pharmacy Electronically, [facility], 155, cm, 09/08/19 13:02:00 EDT, Height, 85.5, [...]
--- OUTSIDE RECORDS SUMMARY | 2023-08-30 10:19 | XMS_ITS | Continuity of Care Document ---
Author Organization [facility] Address [address] [place] [address]- Care Team Providers Care Health Information Technician Name Role Phone Noa VELOZ, Yefri Regalado Primary Care Physician [place] [facility] [place]/26/20 - 02/25/20 [facility] [address], [place] [address] Allergies, Adverse Reactions, Alerts Substance Reaction Severity Status Adhesive Bandage skin irritation, blisters Active Fish hives,anaphylaxis Active Immunizations Given and Recorded Vaccine Date Status Refusal Reason influenza virus vaccine, inactivated 06/18/18 George rded pneumococcal 23-valent vaccine 04/09/15 Given Medications amLODIPine 2.5 mg oral tablet See Instructions, ART WANG TODOS LOS RODRIGUEZ, # 90 tablet, 1 Refills, Maintenance, 12/03/19 10:55:00 EDT, [facility]/pharmacy #1234, 155, cm, 11/26/19 11:22:00 EDT, Height, 86.2, kg, 10/29/19 10:59:00 EDT, Dry Weight Start Date: 12/03/19 Status: Ordered busPIRone 5 mg oral tablet 1.5, tablet, By Mouth, 2 times a day, # 90 tablet, Refills 5, Tot. Refills 5, Maintenance, 10/20/2011:28:00 EDT, Route to Pharmacy Electronically, [facility]/pharmacy #1234, 155, cm, 09/08/19 13:02:00 EDT,Height, 85.5, kg, 08/04/19 11:52:00 EDT, Dry Weight Start Date: 10/20/19 Status: Ordered Excedrin Migraine 2 tablet, By Mouth, Every 6 hours, PRN Migraine Headache, 0 Refills, Maintenance, 08/22/16 14:59:30EDT Start Date: 08/22/16 Status: Ordered levothyroxine 0.05 mg oral tablet 1 tablet, By Mouth, Daily, # 90 tablet, 1 Refills, Maintenance, 10/20/19 19:10:00 EDT, [facility]/pharmacy#1234, 155, cm, 09/08/19 13:02:00 EDT, Height, 85.5, kg, 08/04/19 11:52:00 EDT, Dry Weight Start Date: 10/20/19 Stop Date: 04/17/20 Status: Ordered lidocaine 5% topical film See Instructions, APPLY 1 PATCH AND LEAVE IN PLACE FOR 12 HOURS, THEN REMOVE AND LEAVE OFF FOR 12 HOURS., # 30 patch, 1 Refills, 02/18/20 13:36:00 EST, [facility]/pharmacy #1234, 30, APPLY [address]IN PL[address] FOR 12 HOURS, THEN REMOVE AND LEAVE OFF FO... Start Date: 02/18/20 Status: Ordered melatonin 10 mg oral capsule 1 capsule = 10 mg, By Mouth, Daily at bedtime, 0 Refills, Maintenance, 01/05/19 10:45:14 EST Start Date: 01/05/19 Status: Ordered Milk Thistle = 250 mg, 2 times a day, 0 Refills, Maintenance, 04/07/19 11:54:00 EST Start Date: 04/07/19 Status: Ordered pantoprazole 40 mg oral delayed [...] tablet, 1 Refills, Maintenance, 12/03/19 10:49:00 EDT, [facility]/pharmacy #1234, 155, cm, 11/26/19 11:22:00EDT, Height, 86.2, kg, 10/29/19 10:59:00 EDT, Dry W... Start Date: 12/03/19 Status: Ordered Prempro 0.3 mg-1.5 mg oral tablet See Instructions, ERIN DALY TABLETA DIARIA, # 28 tablet, 1 Refills, 01/26/20 11:46:00 EST, [facility]/pharmacy #1234, 28, ERIN DALY TABLETA DIARIA, 155, cm, 11/26/19 11:22:00 EDT, Height, 86.2, kg, 10/28/2009:59:00 EDT, Dry Weight Start Date: 01/26/20 Status: Ordered traMADol 50 mg oral tablet See Instructions, TAKE 1 TABLET BY MOUTH EVERY 12 HOURS NEEDED FOR PAIN,INSTR:MAY CAUSE DROWSINESS. NOT TO BE TAKEN WITH TRAZODONE, # 30 tablet, 0 Refills, Maintenance, 12/03/19 21:58:00 EDT, [facility]/pharmacy #1234, 155, cm, 11/26/19 11:22:00 EDT, [facility]... Start Date: 12/03/19 Status: Ordered traZODone 100 mg oral tablet 1, tablet, By Mouth, Daily at bedtime, # 30 tablet, Refills 2, Tot. Refills 0, Maintenance, 10/26/19 11:51:00 EDT, Route to Pharmacy Electronically, [facility] STORE [id number], 155, cm, 09/08/19 13:02:00 EDT, Height, 85.5, [...]
--- OUTSIDE RECORDS SUMMARY | 2023-08-30 10:19 | XMS_ITS | Continuity of Care Document ---
Author Organization [facility] Address [address] [place] [address]- Care Team Providers Care Refinery Operator Light Ends Recovery Name Role Phone Susan SUGGS, Gunjan Primary Care Physician [place] [facility] [place] - 10/11/[address] [address]- Attending Physician: Dean Breen Admitting Physician: Dean [...] influenza virus vaccine, inactivated 11/18/15 George rded [id number] 12y+ bivalent booster vax 11/13/21 Recorded Hepatitis A-Hepatitis B Vaccine 07/18/21 Recorded tetanus/diphtheria/pertussis, acel(Tdap) 07/11/21 Recorded SARS-CoV-2 mRNA ([id number]) vax 05/26/21 Recorded zoster vaccine, inactivated 07/12/20 Recorded zoster vaccine, inactivated 10/14/19 Recorded SARS-CoV-2 (COVID-19) mRNA BNT-162b2 vac 06/01/20 Recorded SARS-CoV-2 (COVID-19) mRNA BNT-162b2 vac 05/11/20 Recorded Medications amLODIPine 5 mg oral tablet 1 tablet, By Mouth, Daily, # 90 tablet, 1 Refills, Maintenance, 03/23/22 12:28:00 EST, [facility], 154.94, cm, 03/08/22 9:07:00 EST, Height, 82.7, kg, 12/28/21 14:44:00 EST, Dry Weight Start Date: 03/23/22 Status: Ordered atorvastatin 20 mg oral tablet See Instructions, TAKE 1 TABLET BY MOUTH DAILY AFTER SUPPER. STOP PRAVASTATIN., # 90 tablet, 1 Refills, Maintenance, 04/13/22 9:03:00 EST, [facility], 154.94, cm, 03/08/22 9:07:00 EST, Height, 82.7, [...] tablet, 1 Refills, Maintenance, 06/25/22 13:25:00 EDT, [facility], 154.94, cm, 06/13/22 15:46:00 EDT, Height, 84.4, kg, 05/08/22 13:56:00 EDT, Dry Weight Start Date: 06/25/22 Status: Ordered levothyroxine 0.05 mg oral tablet 1 tablet, By Mouth, Daily, # 90 tablet, 1 Refills, Maintenance, 04/03/22 10:03:00 EST, [facility], 154.94, cm, 03/08/22 9:07:00 EST, Height, 82.7, kg, 12/28/21 14:44:00 EST, Dry Weight Start Date: 04/03/22 Status: Ordered lidocaine 5% topical film See Instructions, APPLY 1 [address]ATCH [address] LEAVE IN PLACE FOR 12 HOURS, THEN REMOVE AND LEAVE OFF FOR 12 HOURS., # 30 patch, 1 Refills, 02/18/20 13:36:00 EST, [facility], 30, APPLY [address] LEAVEIN PL[address] FOR 12 HOURS, THEN REMOVE AND LEAVE OFF FO... Start Date: 02/18/20 Status: Ordered MetFORMIN (Eqv-Glucophage XR) 500 mg oral tablet, extended release 1 tablet, By Mouth, Daily, # 30 tablet, 2 Refills, Maintenance, 07/20/22 9:09:00 EDT, [facility], 154.94, cm, 06/13/22 15:46:00 EDT, Height, 84.4, [...] Refills, Maintenance, 05/11/22 13:29:00 EDT, [facility], 28, ERIN MALIKA TABLETA DIARIA, 154.94, cm, 05/08/22 13:56:00 EDT, Height, 84.4,kg, 05/08/22 13:56:00 EDT, Dry Weight Start Date: 05/11/22 Status: Ordered traZODone 100 mg oral tablet 1, tablet, By Mouth, Daily at bedtime, # 30 tablet, Refills 2, Tot. Refills 0, Maintenance, 10/26/19 11:51:00 EDT, Route to Pharmacy Electronically, [facility], 155, cm, 09/08/19 13:02:00 EDT, Height, 85.5, kg, 08/04/19 11:52:00 EDT, Dry Weight Start Date: 10/26/19 Status: Ordered Zofran 4 mg oral tablet 1 tablet = 4 mg, By Mouth, Every 6 hours, PRN Nausea & Vomiting, # 56 tablet, 0 Refills, Maintenance, 06/10/20 10:43:00 EDT, [facility]/pharmacy #1234, Partial fill upon patient [...] Care team information Care Team Personnel Name: Sarina RNTemi Position: S ED RN W/OE and Tasks Member Role: Primary Care Nurse Name: Gunjan Davis NP Position: Reference Physician Member Role: PCP Address: Address: [address] [place] [address]- Care Team Related Persons Name: RICO MALIK Address: home [address] [place] [address] Name: RICO MEREDITH Address: home [id number] [place] [address]
--- OUTSIDE RECORDS SUMMARY | 2023-08-30 10:19 | XMS_ITS | Continuity of Care Document ---
Author Organization [facility] Address [address] [place] [address]- Care Team Providers Care Dat Instructor Name Role Phone Yefri Latham MD Primary Care Physician [phone] [id number] Date(s): 10/31/18 - 02/27/19 [facility] [address] [place] [address]- [facility] Attending Physician: Ivonne Philip DO Admitting Physician: Ivonne Philip DO Referring Physician: Yefri Latham MD Allergies, Adverse Reactions, Alerts Substance Reaction Severity Status Adhesive Bandage skin irritation, blisters Active Fish hives,anaphylaxis Active Immunizations Given and Recorded Vaccine Date Status Refusal Reason influenza virus vaccine, inactivated 06/18/18 George rded pneumococcal 23-valent vaccine 04/09/15 Given Medications amLODIPine 2.5 mg oral tablet See Instructions, # 30 tablet, Refills 2 Tot. Refills 2, TOME MALIKA TABLETA TOFAROOQ RODRIGUEZ, [facility]/pharmacy #1234 Start Date: 10/31/18 Status: Ordered busPIRone 5 mg oral tablet 5 mg, 1, tablet, By Mouth, 2 times a day, May cause drowsiness, # 60 tablet, Refills 1, Tot. Refills 1, Maintenance, 01/06/19 17:35:19 EST, Route to Pharmacy Electronically, [id number], [facility]/pharmacy #1234 Start Date: 01/06/19 Stop Date: 03/07/19 Status: Ordered Carafate 1 gm oral tablet 1 Gm, 1, tablet, By Mouth, 4 times a day, # 120 tablet, Refills 3, Tot. Refills 3, Maintenance, 10/24/18 11:09:51 EDT, Route to Pharmacy Electronically, [id number], [facility]/pharmacy #1234 Start Date: 10/24/18 Status: Ordered Excedrin Migraine 2 tablet, By Mouth, Every 6 hours, PRN Other, 0 Refills, Maintenance, 08/22/16 14:59:30 Start Date: 08/22/16 Status: Ordered levothyroxine 0.05 mg oral tablet See Instructions, TAKE 1 TABLET BY MOUTH ONCE DAILY (DECREASED DOSE), # 90 tablet, 1 Refills, Soft Stop, 02/09/19 17:08:00 EST, [facility]/pharmacy #1234, 158, cm, 01/05/19 10:45:00 EST, Height, 82.6, kg, 12/08/18 14:09:00 EDT, Dry Weight Start Date: 02/09/19 Status: Ordered lidocaine 5% topical film See Instructions, # 30 patch, Refills 1 Tot. Refills 1, APPLY 1 PATCH AND LEAVE IN PLACE FOR 12 HOURS, THEN REMOVE AND LEAVE OFF FOR 12 HOURS., [facility]/pharmacy #1234 Start Date: 09/04/18 Status: Ordered melatonin 10 mg oral capsule 1 capsule = 10 mg, By Mouth, Daily at bedtime, 0 Refills, Maintenance, 01/05/19 10:45:14 EST Start Date: 01/05/19 Status: Ordered pravastatin 40 mg oral tablet See Instructions, # 30 tablet, Refills 1 Tot. Refills 1, TAKE ONE TABLET BY MOUTH AFTER DINNER INSURANCE ONLY COVERS 30 DAY SUPPLY, [facility]/pharmacy #1234 Start Date: 12/29/18 Status: Ordered Prempro 0.3 mg-1.5 mg oral tablet See Instructions, # 28 tablet, Refills 2 Tot. Refills 2, ERIN MALIKA TABLETA DIARIA, [facility]/pharmacy #1234 Start Date: 10/20/18 Status: Ordered Protonix 40 mg oral delayed release tablet 1 tablet = 40 mg, By Mouth, Daily, # 90 tablet, 3 Refills, Maintenance, 12/31/18 16:30:40 EST, EC Tablet Start Date: 12/31/18 Status: Ordered traZODone 100 mg oral tablet See Instructions, # 30 tablet, Refills 1 Tot. Refills 1, TAKE 1 TABLET BY MOUTH AT BEDTIME, [facility]/pharmacy #1234 Start Date: 12/23/18 Status: Ordered Valtrex 1 gm oral tablet 1 tablet = 1 Gm, By Mouth, 2 times a day, for 5 days, # 10 tablet, 2 Refills, Acute 03/04/19 17:44:00 EST, 02/17/19 17:44:00 EST, Tablet, [facility]/pharmacy #1234, 158, cm, 02/16/19 15:00:00 EST, Height, 82.6, kg, 12/08/18 14:09:00 EDT, Dry Weight Start Date: 02/17/19 Stop Date: 03/04/19 Status: Ordered Problem List Condition Effective Dates Status Health Status Inform ant URTI (acute upper respirator y infection)(Confirmed) Active Anxiety(Confirmed) Active Bipolar disorder(Confirmed) Active Breast cyst on imaging(Confirmed) Active Depression(Confirmed) Active Difficulty sleeping(Confirmed) Active Thoracic disc disease(Confirmed) Active Diverticulitis(Confirmed) Active Duodenitis(Confirmed) Active Gastroesophageal reflux disease(Confirmed) Active POP-Q stage 2 rectocele(Confirmed) Active Hormone replacement therapy(Confirmed) Active Hyperlipidemia(Confirmed) Active HTN (hypertension)(Confirmed) Active Hypothyroid(Confirmed) Active Irritable bowel syndrome(Confirmed) Active Menopause(Confirmed) Active Migraines(Confirmed) Active Mixed incontinence(Confirmed) Active Obesity(Confirmed) Active Prediabetes(Confirmed) Active Thoracic back pain(Confirmed) Active Ventricular premature beats(Confirmed) Active Vitamin D deficiency(Confirmed) Active Social History Social History Type Response Smoking Status Former smoker; Type: Cigarettes entered on: 08/22/16 Sex Female
--- OUTSIDE RECORDS SUMMARY | 2023-08-30 10:19 | XMS_ITS | Continuity of Care Document ---
Author Organization [facility] Address [address] [place] [address]- Care Team Providers Care Filler Shredder Helper Name Role Phone Noa VELOZ, Yefri Regalado Primary Care Physician [phone] Encounter [facility] [place] Date(s): 10/30/19 - 11/29/19 [facility] [address] [place] [address]- [facility] Allergies, Adverse Reactions, Alerts Substance Reaction Severity Status Adhesive Bandage skin irritation, blisters Active Fish hives,anaphylaxis Active Immunizations Given and Recorded Vaccine Date Status Refusal Reason influenza virus vaccine, inactivated 06/18/18 George rded pneumococcal 23-valent vaccine 04/09/15 Given Medications amLODIPine 2.5 mg oral tablet See Instructions, ART FERRARA RODRIGUEZ, # 90 tablet, 1 Refills, Maintenance, 06/08/19 9:09:00 EDT, [facility]/pharmacy #1234, 155, cm, 04/07/19 11:52:00 EST, Height, 84.7, kg, 04/07/19 11:52:00 EST, Dry Weight Start Date: 06/08/19 Status: Ordered busPIRone 5 mg oral tablet 1.5, tablet, By Mouth, 2 times a day, # 90 tablet, Refills 5, Tot. Refills 5, Maintenance, 10/20/2011:28:00 EDT, Route to Pharmacy Electronically, [facility]/pharmacy #1234, 155, cm, 09/08/19 13:02:00 EDT,Height, 85.5, kg, 08/04/19 11:52:00 EDT, Dry Weight Start Date: 10/20/19 Status: Ordered Excedrin Migraine 2 tablet, By Mouth, Every 6 hours, PRN Migraine Headache, 0 Refills, Maintenance, 08/22/16 14:59:30EDT Start Date: 08/22/16 Status: Ordered levothyroxine 0.05 mg oral tablet 1 tablet, By Mouth, Daily, # 90 tablet, 1 Refills, Maintenance, 10/20/19 19:10:00 EDT, [facility]/pharmacy#1234, 155, cm, 09/08/19 13:02:00 EDT, Height, 85.5, kg, 08/04/19 11:52:00 EDT, Dry Weight Start Date: 10/20/19 Stop Date: 04/17/20 Status: Ordered lidocaine 5% topical film See Instructions, APPLY 1 PATCH AND LEAVE IN PLACE FOR 12 HOURS, THEN REMOVE AND LEAVE OFF FOR 12 HOURS., # 30 patch, 1 Refills, Maintenance, [facility], 30, APPLY 1 PATCH AND LEAVE IN [...] 28 tablet, 2 Refills, Maintenance, [facility], 28, ERIN MALIKA TABLETA DIARIA, 155, cm, 09/08/19 13:02:00 EDT, Height, 85.5, kg, 08/04/19 11:52:00 EDT, Dry Weight Start Date: 09/14/19 Status: Ordered traZODone 100 mg oral tablet 1, tablet, By Mouth, Daily at bedtime, # 30 tablet, Refills 2, Tot. Refills 0, Maintenance, 10/26/19 11:51:00 EDT, Route to Pharmacy Electronically, [facility], 155, cm, 09/08/19 13:02:00 EDT, Height, 85.5, [...]
--- OUTSIDE RECORDS SUMMARY | 2023-08-30 10:19 | XMS_ITS | Continuity of Care Document ---
Author Organization [facility] Address [address] [place] [address]- Care Team Providers Care Firestop/Containment Worker Name Role Phone Noa VELOZ, Yefri Regalado Primary Care Physician [place] [facility] [place] 11/19/19 - 12/19/[address] [address] Attending Physician: Admtr, Brent8 Admitting Physician: AdmtrDean Referring Physician: Admtr, Ar8 Allergies, Adverse Reactions, [...] tablet, 1 Refills, Maintenance, 12/03/19 10:55:00 EDT, [facility]/pharmacy #1234, 155, cm, 11/26/19 11:22:00 EDT, Height, 86.2, kg, 10/29/19 10:59:00 EDT, Dry Weight Start Date: 12/03/19 Status: Ordered busPIRone 5 mg oral tablet 1.5, tablet, By Mouth, 2 times a day, # 90 tablet, Refills 5, Tot. Refills 5, Maintenance, 10/20/2011:28:00 EDT, Route to Pharmacy Electronically, [facility]/pharmacy #1234, 155, cm, 09/08/19 13:02:00 EDT,Height, 85.5, kg, 08/04/19 11:52:00 EDT, Dry Weight Start Date: 10/20/19 Status: Ordered Excedrin Migraine 2 tablet, By Mouth, Every 6 hours, PRN Migraine Headache, 0 Refills, Maintenance, 08/22/16 14:59:30EDT Start Date: 08/22/16 Status: Ordered levothyroxine 0.05 mg oral tablet 1 tablet, By Mouth, Daily, # 90 tablet, 1 Refills, Maintenance, 10/20/19 19:10:00 EDT, [facility]/pharmacy#1234, 155, cm, 09/08/19 13:02:00 EDT, Height, 85.5, kg, 08/04/19 11:52:00 EDT, Dry Weight Start Date: 10/20/19 Stop Date: 04/17/20 Status: Ordered lidocaine 5% topical film See Instructions, APPLY 1 PATCH AND LEAVE IN PLACE FOR 12 HOURS, THEN REMOVE AND LEAVE OFF FOR 12 HOURS., # 30 patch, 1 Refills, Maintenance, [facility], 30, APPLY 1 PATCH AND LEAVE IN [...] 28 tablet, 2 Refills, Maintenance, [facility], 28, ERIN MALIKA TABLETA DIARIA, 155, cm, 09/08/19 13:02:00 EDT, Height, 85.5, kg, 08/04/19 11:52:00 EDT, Dry Weight Start Date: 09/14/19 Status: Ordered traMADol 50 mg oral tablet See Instructions, TAKE 1 TABLET BY MOUTH EVERY 12 HOURS NEEDED FOR PAIN,INSTR:MAY CAUSE DROWSINESS. NOT TO BE TAKEN WITH TRAZODONE, # 30 tablet, 0 Refills, Maintenance, 12/03/19 21:58:00 EDT, [facility]/pharmacy #1234, 155, cm, 11/26/19 11:22:00 EDT, [facility]... Start Date: 12/03/19 Status: Ordered traZODone 100 mg oral tablet 1, tablet, By Mouth, Daily at bedtime, # 30 tablet, Refills 2, Tot. Refills 0, Maintenance, 10/26/19 11:51:00 EDT, Route to Pharmacy Electronically, [facility], 155, cm, 09/08/19 13:02:00 EDT, Height, 85.5, [...]
--- OUTSIDE RECORDS SUMMARY | 2023-08-30 10:19 | XMS_ITS | Continuity of Care Document ---
Author Organization [facility] Address [address] [place] [address]- Care Team Providers Care Funeral Pre Arrangement Specialist Name Role Phone Yefri Latham MD Primary Care Physician [phone] [place] [facility] [place] 07/23/19 - 08/22/19 [facility] [address] [place] [address]- [facility] Attending Physician: Dean Breen Admitting Physician: AdmtrDean Referring Physician: Admtr Ar8 Allergies, Adverse Reactions, Alerts Substance Reaction [...] Maintenance, :13:00 EDT, Route to Pharmacy Electronically, [facility], 155, cm, 07/07/19 10:52:00 EDT, Height, 86.6, kg, 07/07/19 10:52:00 EDT, Dry Weight Start Date: 07/27/19 Status: Ordered Excedrin Migraine 2 tablet, By Mouth, Every 6 hours, PRN Migraine Headache, 0 Refills, Maintenance, 08/22/16 14:59:30EDT Start Date: 08/22/16 Status: Ordered levothyroxine 0.05 mg oral tablet 1 tablet, By Mouth, Daily, # 30 tablet, 2 Refills, Maintenance, 07/20/19 9:20:00 EDT, [facility], 155, cm, 07/07/19 10:52:00 EDT, Height, 86.6, kg, 07/07/19 10:52:00 EDT, Dry Weight Start Date: 07/20/19 Status: Ordered lidocaine 5% topical film See Instructions, APPLY 1 PATCH AND LEAVE IN PLACE FOR 12 HOURS, THEN REMOVE AND LEAVE OFF FOR 12 HOURS., # 30 patch, 1 Refills, Maintenance, [facility], 30, APPLY 1 PATCH AND LEAVE IN [...] tablet, 1 Refills, Maintenance, 06/08/19 9:10:00 EDT, [facility]/pharmacy #1234, 155, cm, 04/07/19 11:52:00 EST, Height, 84.7, kg, 04/07/19 11:52:00 EST, Dry We... Start Date: 06/08/19 Status: Ordered Prempro 0.3 mg-1.5 mg oral tablet See Instructions, ERIN MALIKA TABLETA DIARIA, # 28 tablet, 2 Refills, Maintenance, [facility], 28, ERIN MALIKA TABLETA DIARIA, 155, cm, 06/25/19 9:37:00 EDT, Height, 84.7, kg, 04/07/19 11:52:00 EST,Dry Weight Start Date: 06/29/19 Status: Ordered traZODone 100 mg oral tablet See Instructions, TAKE 1 TABLET BY MOUTH EVERYDAY AT BEDTIME, # 90 tablet, Refills 1, Tot. Refills 1, Maintenance, 05/08/19 12:14:00 EDT, Instructions Replace Required Details, Route to Pharmacy Electronically, [facility]/pharmacy #1234, 155, cm, 04/07/19 11... Start Date: [...] Mixed incontinence(Confirmed) Active Obesity(Confirmed) Active Prediabetes(Confirmed) Active Fatty liver(Confirmed) Active Thoracic back pain(Confirmed) Active Ventricular premature beats(Confirmed) Active Vitamin D deficiency(Confirmed) Active Social History Social History Type Response Smoking Status Former smoker, quit more than 30 days ago; Other: quit 2016; entered on: 06/25/19 Sex
--- OUTSIDE RECORDS SUMMARY | 2023-08-30 10:19 | XMS_ITS | Continuity of Care Document ---
Author Organization [facility] ter Address [address] [place] [id number]- Care Team Providers Care Coldfusion Name Role Phone Yefri Latham MD Primary Care Physician [phone] [place] [facility] [place]): 03/03/19 - 03/10/[address] [address]- [facility] Attending Physician: Yefri Latham MD Allergies, Adverse Reactions, Alerts Substance Reaction Severity Status Adhesive Bandage skin irritation, blisters Active Fish hives,anaphylaxis Active Immunizations Given and Recorded Vaccine Date Status Refusal Reason influenza virus vaccine, inactivated 06/18/18 George rded pneumococcal 23-valent vaccine 04/09/15 Given Medications amLODIPine 2.5 mg oral tablet See Instructions, # 30 tablet, Refills 2 Tot. Refills 2, TOME MALIKA TABLETA TODOS [place]ODRIGUEZ, [facility]/pharmacy #[id number] Start Date: 10/31/18 Status: Ordered busPIRone 5 mg oral tablet See Instructions, 1.5 tabs By Mouth 2 times a day, # 180 tablet, Refills 1, Tot. Refills 1, Maintenance, 03/09/19 16:10:00 EST, Instructions Replace Required Details, Route to Pharmacy Electronically, [facility]/pharmacy #[id number], 158, cm, 03/03/19 12:49:00 ES... Start Date: 03/09/19 Status: Ordered Cipro 500 mg oral tablet 1 tablet = 500 mg, By Mouth, Every 12 hours, for 7 days, # 14 tablet, 0 Refills, Acute 03/13/19 12:35:00 EST, 03/06/19 12:35:00 EST, Tablet, [facility]/pharmacy #1234, 158, cm, 03/03/19 12:49:00 EST, Height, 82.6, kg, 12/08/18 14:09:00 EDT, Dry Weight Start Date: 03/06/19 Stop Date: 03/13/19 Status: Ordered Excedrin Migraine 2 tablet, By Mouth, Every 6 hours, PRN Migraine Headache, 0 Refills, Maintenance, 08/22/16 14:59:30EDT Start Date: 08/22/16 Status: Ordered levothyroxine 0.05 mg oral tablet See Instructions, TAKE 1 TABLET BY MOUTH ONCE DAILY (DECREASED DOSE), # 90 tablet, 1 Refills, Soft Stop, 02/09/19 17:08:00 EST, [facility]/pharmacy #1234, 158, cm, 01/05/19 10:45:00 EST, Height, 82.6, kg, 12/08/18 14:09:00 EDT, Dry Weight Start Date: 02/09/19 Status: Ordered lidocaine 5% topical film See Instructions, # 30 patch, Refills 1 Tot. Refills 1, APPLY 1 PATCH AND LEAVE IN PLACE FOR 12 HOURS, THEN REMOVE AND LEAVE OFF FOR 12 HOURS., [facility]/pharmacy #1234 Start Date: 09/04/18 Status: Ordered melatonin 10 mg oral capsule 1 capsule = 10 mg, By Mouth, Daily at bedtime, 0 Refills, Maintenance, 01/05/19 10:45:14 EST Start Date: 01/05/19 Status: Ordered pravastatin 40 mg oral tablet See Instructions, # 30 tablet, Refills 1 Tot. Refills 1, TAKE ONE TABLET BY MOUTH AFTER DINNER INSURANCE ONLY COVERS 30 DAY SUPPLY, [facility]/pharmacy #1234 Start Date: 12/29/18 Status: Ordered Prempro 0.3 mg-1.5 mg oral tablet See Instructions, # 28 tablet, Refills 2 Tot. Refills 2, ERIN MALIKA TABLETA DIARIA, [facility]/pharmacy #1234 Start Date: 10/20/18 Status: Ordered Problem List Condition Effective Dates [...] premature beats(Confirmed) Active Vitamin D deficiency(Confirmed) Active Results Orders for Microbiology Reports Name Date Urine Culture 03/03/19 Microbiology Reports TEST:Urine Culture STATUS:Auth (Verified) BODY SITE: SOURCE:URINE COLLECTED DATE/TIME:03/03/19 1:57 PM Urine Culture SPECIMEN DESCRIPTION : URINE CLEAN CATCH/MIDSTREAM SPECIAL REQUESTS : NONE CULTURE : 10-50,000 COL/ML PROTEUS MIRABILIS REPORT STATUS : FINAL 03/05/2019 ORGANISM 10-50,000 COL/ML PROTEUS MIRABILIS METHOD MIN. INHIB. CONC. (MCG/ML) AMPICILLIN SUSCEPTIBLE AMPICILLIN/SULBACTAM SUSCEPTIBLE AMOXICILLIN/CLAVULAN SUSCEPTIBLE CEFAZOLIN SUSCEPTIBLE CEFEPIME SUSCEPTIBLE CEFTRIAXONE SUSCEPTIBLE CIPROFLOXACIN SUSCEPTIBLE GENTAMICIN SUSCEPTIBLE LEVOFLOXACIN SUSCEPTIBLE MEROPENEM SUSCEPTIBLE NITROFURANTOIN RESISTANT PIPERACILLIN/TAZOBAC SUSCEPTIBLE TRIMETH/SULFAMETHOX SUSCEPTIBLE TETRACYCLINE RESISTANT Social History Social History Type Response Smoking Status Former smoker; Type: Cigarettes entered on: 08/22/16 Sex Female
[2023-08-30 10:51] VITALS: BMI 32.8
[2023-08-30 11:07] VITALS: BP 129/71; PULSE 105; RESP 16; TEMP 36.7; O2SAT 99
[2023-08-30 11:21] LABS: Glucose, Whole Blood 109 mg/dL (60-115)
[2023-08-30] MEDS: Lactated Ringers 1,000 ML 100 ML IVCONT (11:32)
--- NOTE | 2023-08-30 12:35 | HO.ANESPROP2 ---
Documented by User: Naima Mina NP 08/29/23 14:25 HPI - Anesthesia Eval Consult details Narrative: 58yo F for Hemorrhoidectomy Anesthesia Pre-Procedure Meds Is the patient on any of the following meds?: GLP1/DPP4 PMFSH Active Problems Active Problems: All Active Problems Hemorrhoids (Acute) Hepatomegaly (Acute) Low back pain (Acute) Rhinitis (Acute) Osteoarthritis of hands, bilateral (Acute) Migraine (Acute) Bilateral tinnitus (Acute) Pain in joints (Acute) Pain in finger of right hand (Acute) NESTOR (obstructive sleep apnea) (Acute) Arthritis of finger of both hands (Acute) Anxiety and depression (Acute) Lower urinary tract symptoms (Acute) Type 2 diabetes mellitus (Acute) Hypothyroidism (Acute) Colitis (Acute) High cholesterol (Acute) Fatty liver (Acute) Acid reflux (Acute) Hypertension (Acute) Past Medical History Medical History (Updated 08/30/23 @ 10:50 by Swathi Martinez RN) Bilateral carpal tunnel syndrome Diabetes Sleep apnea Colitis Carpal tunnel syndrome Thyroid disease Hypertension High cholesterol Fatty liver Acid reflux Sinusitis Family History Family History Mother Hypertension High cholesterol Diabetes Father Alcoholism Family/Other Diabetes Surgical History Surgical History (Updated 08/30/23 @ 10:51 by Swathi Martinez RN) History of ear surgery H/O bilateral oophorectomy Status post creation of urethral sling by suprapubic approach History of cholecystectomy History of back surgery H/O: hysterectomy Social History Social History Housing: Condominium Patient Tobacco Use Status: Former Tobacco user e-Cigarette/Vaping Use: Never Used Use of substances other than those prescribed or required for medical reasons: Yes Substance Use Type: Marijuana Are you DNR?: No Advance Directives: No Advance Directives Information Provided: Yes service: No Current occupational status: retired and disabled Cognitive needs: No Hearing needs: Yes (Patient see's ENT) Vision needs: No Meds Allergies Allergy/AdvReac Type Severity Reaction Status Date / Time sulfur dioxide Allergy Severe Anaphylaxis Verified 08/23/23 16:12 adhesive tape Allergy Intermediate Rash Verified 08/23/23 16:12 tilapia Allergy Severe Anaphylaxis Uncoded 08/06/23 10:30 Home Medications ?Medication ?Instructions ?Recorded ?Confirmed ?Last Taken ?Type duloxetine 60 mg capsule,delayed 60 mg PO DAILY 06/06/22 08/28/23 Unknown History release trazodone 100 mg tablet 200 mg PO DAILY PRN Insomnia 06/06/22 08/28/23 Unknown History alprazolam 0.5 mg tablet 0.25 mg PO DAILY PRN Anxiety 12/12/22 08/28/23 Unknown History sitagliptin phosphate 100 mg 100 mg PO QPM 08/28/23 08/28/23 Unknown History tablet (Januvia) Exam Height,Weight and Vital Signs: Height 5 ft 1 in Weight 79.832 kg Pertinent Lab Results Pertinent Lab Results: Laboratory Tests 07/23/23 09:11 WBC 11.7 H Hgb 14.7 Hct 45.1 Plt Count 353 Sodium 142 Potassium 4.1 Chloride 105 Carbon Dioxide 27 BUN 13 Creatinine 0.78 Assessment and Plan Assessment Anesthesia Assessment: Chart Reviewed Documented by User: Kath Hewitt DO 08/30/23 12:45 HPI - Anesthesia Eval Anesthesia Pre-Procedure Meds Is the patient on any of the following meds?: GLP1/DPP4 If yes to any meds - educate patient: Pt education - increased risk of aspiration and/or euvolemic DKA [facility] Past Medical History Medical History (Updated 08/30/23 @ 10:50 by Swathi Martinez RN) Bilateral carpal tunnel syndrome Diabetes Sleep apnea Colitis Carpal tunnel syndrome Thyroid disease Hypertension High cholesterol Fatty liver Acid reflux Sinusitis Family History Family History Mother Hypertension High cholesterol Diabetes Father Alcoholism Family/Other Diabetes Family history of problems with anesthesia: No Surgical History Surgical History (Updated 08/30/23 @ 10:51 by Swathi Martinez RN) History of ear surgery H/O bilateral oophorectomy Status post creation of urethral sling by suprapubic approach History of cholecystectomy History of back surgery H/O: hysterectomy History of Problems with Anesthesia: No Social History Social History Housing: Condominium Patient Tobacco Use Status: Former Tobacco user e-Cigarette/Vaping Use: Never Used Use of substances other than those prescribed or required for medical reasons: Yes Substance Use Type: Marijuana Are you DNR?: No Advance Directives: No Advance Directives Information Provided: Yes service: No Current occupational status: retired and disabled Cognitive needs: No Hearing needs: Yes (Patient see's ENT) Vision needs: No Meds Allergies Allergy/AdvReac Type Severity Reaction Status Date / Time sulfur dioxide Allergy Severe Anaphylaxis Verified 08/23/23 16:12 adhesive tape Allergy Intermediate Rash Verified 08/23/23 16:12 tilapia Allergy Severe Anaphylaxis Uncoded 08/06/23 10:30 Home Medications ?Medication ?Instructions ?Recorded ?Confirmed ?Last Taken ?Type duloxetine 60 mg capsule,delayed 60 mg PO DAILY 06/06/22 08/28/23 Unknown History release trazodone 100 mg tablet 200 mg PO DAILY PRN Insomnia 06/06/22 08/28/23 Unknown History alprazolam 0.5 mg tablet 0.25 mg PO DAILY PRN Anxiety 12/12/22 08/28/23 Unknown History sitagliptin phosphate 100 mg 100 mg PO QPM 08/28/23 08/28/23 Unknown History tablet (Januvia) Exam Exam Date and Time: August 30, 2023 1235 Height,Weight and Vital Signs: Height 5 ft 1 in Weight 79.832 kg Vital Signs Temperature 98.1 F 08/30/23 11:07 Pulse Rate 105 H 08/30/23 11:07 Respiratory Rate 16 08/30/23 11:07 Blood Pressure 129/71 08/30/23 11:07 Pulse Oximetry 99 08/30/23 11:07 Oxygen Delivery Method Room Air 08/30/23 11:07 Temperature 98.1 F 08/30/23 11:07 Pulse Rate 105 H 08/30/23 11:07 Respiratory Rate 16 08/30/23 11:07 Blood Pressure 129/71 08/30/23 11:07 Pulse Oximetry 99 08/30/23 11:07 Oxygen Delivery Method Room Air 08/30/23 11:07 Airway Mallampati Class: II TM Dist: <=3cm Neck ROM: Full Loose/Missing/Broken Teeth: No (patient denies any loose or broken teeth) Heart: S1S2 Lungs: CTAB Assessment and Plan Assessment Anesthesia Assessment: Anesthesia Plan Discussed and Chart Reviewed Final Anesthetic Review Family History of Problems with Anesthesia: No History of Problems with Anesthesia: No NPO: Yes ASA Class: III Final Preanesthetic Review: No Changes in Pt Med Stat, Meds/Allgs Chart Reviewed, Consent Obtained/Reviewed and Anes Risks/Benef Reviewed Patient Risk: Intermediate Procedure Risk: Low Anesthetic Plan Anesthetic Plan: GA and Agree w/ Assess. and Plan Disposition: Standard PACU
[2023-08-30 13:50] VITALS: BP 119/75; PULSE 76; RESP 20; TEMP 36.3; O2SAT 90
--- NOTE | 2023-08-30 13:53 | P.OP_ITS ---
Operative Note Operative Note Date of Service: 08/30/23 Narrative: Preoperative diagnosis: [] Symptomatic internal and external hemorrhoids Postop diagnosis: [] The same Procedure [] internal and external hemorrhoidectomy Surgeon: [] Nam Strategic Planning Director: [] Type of Anesthesia: [] General Indication for surgery: [] Large hemorrhoids of 3, 7, 11 o'clock position lithotomy excised. Findings: [] Patient brought to the operating room, placed on operative table in supine position, after an adequate level of general anesthesia was induced, patient was placed in lithotomy position. Anorectal area was prepped and draped in usual sterile fashion. The above-mentioned hemorrhoidal areas were each grasped and sequentially taken down/excised using double firing of ligature device. Specimens sent to pathology. Wounds were irrigated, secured hemostasis, infiltrated with 0.5% Marcaine followed by xylocaine impregnated Gelfoam pad and sterile dressing. Sponge, needle, and instrument counts reported correct. Patient tolerated the procedure well and emerged from anesthesia in stable condition. EBL minimal
[2023-08-30 13:55] VITALS: BP 122/78; PULSE 92; RESP 20; O2SAT 92
[2023-08-30 14:00] VITALS: BP 117/71; PULSE 92; RESP 20; O2SAT 96
[2023-08-30 14:05] VITALS: BP 121/72; PULSE 103; RESP 20; O2SAT 96
[2023-08-30 14:20] VITALS: BP 121/76; PULSE 85; RESP 20; TEMP 36.7; O2SAT 96
== END 2023-08-30 14:59 | disposition home or self-care (01) ==
PROVIDERS: PCP Nurse Practitioner Family; Visit Provider Surgery
PROC: (CPT 46260; principal; 2023-08-30 13:10)
DX: K64.8 Other hemorrhoids (principal); K64.4 Residual hemorrhoidal skin tags; E65 Localized adiposity; K76.0 Fatty (change of) liver, not elsewhere classified; K59.00 Constipation, unspecified; K21.9 Gastro-esophageal reflux disease without esophagitis; I10 Essential (primary) hypertension; E78.00 Pure hypercholesterolemia, unspecified; L23.1 Allergic contact dermatitis due to adhesives; Z88.2 Allergy status to sulfonamides; Z90.49 Acquired absence of other specified parts of digestive tract; Z98.890 Other specified postprocedural states; Z87.891 Personal history of nicotine dependence
CPT/HCPCS: 46260; 82947; 88304; J0690; J1100; J2250; J2405; J2704; J2795; J3010

== ENCOUNTER → 2023-08-30 10:13 | Outpatient (BNV) | payer OTHER, SELFPAY | PROVIDERS: PCP Nurse Practitioner Family; Visit Provider Surgery | DX: K64.9 Unspecified hemorrhoids (principal) | CPT/HCPCS: 46260 ==

== ENCOUNTER 2023-09-16 11:17 | Outpatient (AMB) | payer OTHER, SELFPAY ==
[2023-09-16 11:24] VITALS: BP 128/77; PULSE 86
--- NOTE | 2023-09-16 11:24 | MHC.OFFVIS ---
Vital Signs 09/16/23 11:24 Weight 172 lb BP 128/77 Blood Pressure Location Rt brachial Position Sitting Pulse 86 Intake Visit Reasons: S/P hemorrhoidectomy Intake Note: Patient here s/p hemorrhoidectomy. Reports healing well. Patient c/o: mild discomfort. Taking tylenol as needed. SX: 08-30-2023. Manager International Required: No Accompanied by: Self / Same As Patient Allergies sulfur dioxide Allergy (Severe, Verified 09/16/23 11:25) Anaphylaxis adhesive tape Allergy (Intermediate, Verified 09/16/23 11:25) Rash tilapia Allergy (Severe, Uncoded 09/16/23 11:25) Anaphylaxis HPI Comments Details: Status post hemorrhoidectomy. Patient has been having regular bowel habits with stool softeners. She is undergoing local wound care as well as Sitz baths. Pain is improving. [facility] Medical History (Updated 08/30/23 @ 10:50 by Swathi Martinez RN) Bilateral carpal tunnel syndrome Diabetes Sleep apnea Colitis Carpal tunnel syndrome Thyroid disease Hypertension High cholesterol Fatty liver Acid reflux Sinusitis Surgical History (Updated 09/16/23 @ 13:31 by Nba Browning MD) History of ear surgery H/O bilateral oophorectomy Status post creation of urethral sling by suprapubic approach History of cholecystectomy History of back surgery H/O: hysterectomy Family History Mother Hypertension High cholesterol Diabetes Father Alcoholism Family/Other Diabetes Social History Housing: Condominium Patient Tobacco Use Status: Former Tobacco user e-Cigarette/Vaping Use: Never Used Substance Use Type: Marijuana service: No Current occupational status: retired and disabled Cognitive needs: No Hearing needs: Yes (Patient see's ENT) Vision needs: No Physical Exam Vital Signs: Last Vital Signs Pulse 86 09/16/23 11:24 BP 128/77 09/16/23 11:24 GI Other: Anorectal wounds are healing very well. Assessment & Plan Assessment & Plan (1) Postop check: Code(s): Z09 - Encounter for follow-up examination after completed treatment for conditions other than malignant neoplasm Category: Surgical Plan Patient is continue local wound therapy, and dietary therapy and will otherwise follow-up p.r.n.. All questions answered. Coding Level of Care Code Global (86186) Diagnoses Postop check Z09
== END 2023-09-16 11:31 | disposition home or self-care (01) ==
PROVIDERS: PCP Nurse Practitioner Family; Visit Provider Surgery
DX: Z09 Encounter for follow-up examination after completed treatment for conditions other than malignant neoplasm (principal)
CPT/HCPCS: 99024

== ENCOUNTER → 2023-09-16 11:17 | Outpatient (BNVA) | payer OTHER, SELFPAY | PROVIDERS: PCP Nurse Practitioner Family; Visit Provider Surgery | DX: Z09 Encounter for follow-up examination after completed treatment for conditions other than malignant neoplasm (principal); Z98.890 Other specified postprocedural states; Z87.19 Personal history of other diseases of the digestive system | CPT/HCPCS: 99212 ==

== ENCOUNTER 2023-10-08 09:41 | Outpatient (AMB) | payer OTHER, SELFPAY ==
--- NOTE | 2023-10-08 09:44 | A.OFFPC_ITS ---
Vital Signs 10/08/23 09:53 Height 5 ft 1 in Weight 170 lb 8 oz BMI 32.2 BP 112/82 Blood Pressure Location Rt brachial Position Sitting Respiration 16 Pulse 102 H Pulse Source Pulse Oximeter Temp 99.1 F Temp Source Oral Pulse Oximetry (%) 98 Oxygen Delivery Method Room Air Intake Visit Reasons: follow up dm Intake Note: patient here to follow up on DM. 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: No Is last menstrual period known: No Post menopausal: No Patient : No Allergies sulfur dioxide Allergy (Severe, Verified 10/08/23 10:16) Anaphylaxis adhesive tape Allergy (Intermediate, Verified 10/08/23 10:16) Rash tilapia Allergy (Severe, Uncoded 10/08/23 10:16) Anaphylaxis Medication List - Last Reconciled 10/08/23 by Gunjan Davis CNP acetaminophen ER (Tylenol Arthritis Pain) 650 mg PO Q8H PRN 30 days acetaminophen-caffeine 500-65 mg (Excedrin Tension Headache) 2 tabs PO Q8H PRN 30 days alprazolam 0.25 mg PO DAILY PRN amlodipine 5 mg PO DAILY 90 days atorvastatin 20 mg PO DAILY 30 days conj estrog-medroxyprogest brian 0.3-1.5 mg (Prempro) 1 tab PO DAILY dicyclomine 10 mg PO BID PRN duloxetine 60 mg PO DAILY esomeprazole magnesium (Nexium) 40 mg PO DAILY famotidine (Pepcid) 20 mg PO BEDTIME fluticasone propionate 50 mcg/actuation (Flonase Allergy Relief) 1 spray intranasal Q12H PRN 90 days hydrocortisone 2.5% (Proctosol HC) 1 appl [place] BID-QID PRN levothyroxine 50 mcg PO DAILY 30 days metformin ER 1,000 mg (2 x 500 mg) PO DAILY 90 days methylcellulose (laxative) (Citrucel) 500 mg PO DAILY trgnplve-sfp-adqd-FA-vit K-lut 8 mg iron-400 mcg-50 mcg (Centrum Silver Women) 1 tab PO DAILY 30 days ondansetron 4 mg PO Q8H PRN riboflavin (vitamin B2) 400 mg PO DAILY 30 days sennosides (Natural Senna Laxative) 17.2 mg (2 x 8.6 mg) PO BEDTIME sitagliptin phosphate (Januvia) 100 mg PO QPM trazodone 200 mg PO DAILY PRN Tobacco use date assessed: 10/08/23 Dental Screening Dental Screen Date: 04/05/23 HPI HPI Comments History of Present Illness Details 58-year-old female presents for hyperten jamaal and diabetes follow-up She admits to taking her medications as prescribed without adverse reactions She notes that she has been making healthy dietary changes and exercising routinely She reports intermittent feelings of sweating, chills, and subjective low-grade fever for the past one week. She thinks she may have UTI due to h/o frequent UTI. She denies urinary symptoms at this time [facility] Medical History (Updated 10/08/23 @ 10:30 by Gunjan Davis CNP) Bilateral carpal tunnel syndrome Diabetes Sleep apnea Colitis Carpal tunnel syndrome Thyroid disease Hypertension High cholesterol Fatty liver Acid reflux Sinusitis Surgical History (Updated 09/16/23 @ 13:31 by Nba Browning MD) History of ear surgery H/O bilateral oophorectomy Status post creation of urethral sling by suprapubic approach History of cholecystectomy History of back surgery H/O: hysterectomy Family History Mother Hypertension High cholesterol Diabetes Father Alcoholism Family/Other Diabetes Social History Housing: Condominium Patient Tobacco Use Status: Former Tobacco user e-Cigarette/Vaping Use: Never Used Substance Use Type: Marijuana service: No Current occupational status: retired and disabled Cognitive needs: No Hearing needs: Yes (Patient see's ENT) Vision needs: No Questionnaire Thrive Questionnaire Date Thrive assessed: 03/08/23 BON-7 AMB Questionnaire BON-7 Date BON - 7 assessed: 07/05/23 Source: Developed by Drs. Keith Cota, Rhoda Vega, Álvaro Casiano and colleagues, with an educational jose from [employer]. Review of Systems Const Details: Const Denies chills, Denies fatigue, Denies fever(s), Denies headache(s) and Denies weakness ENT Denies dizziness and Denies headache(s) Card Denies chest pain, Denies lightheadedness, Denies dyspnea and Denies other (Palpitations) Resp Denies cough, Denies dyspnea, Denies wheezing and Denies other ( shortness of breath) GI Denies abdominal pain, Denies melena, Denies hematochezia, Denies change in bowel habits, Denies dyspepsia and Denies nausea Denies hematuria and Denies dysuria Musc Denies abnormal gait, Denies myalgias, Denies arthralgias, Denies numbness and Denies tingling Skin/Breast Denies rash, Denies unusual bruising and Denies wounds Neuro Denies abnormal gait, Denies dizziness, Denies headache(s), Denies memory loss, Denies numbness, Denies Sensory deficit (Neuro), Denies tingling and Denies weakness Psych Denies anxiety, Denies depression, Denies memory loss Endo Denies cold intolerance, Denies fatigue, Denies heat intolerance, Denies po lydipsia and Denies polyuria Aller/Immun Denies wheezing Physical exam (Primary Care) Vital Signs: Last Vital Signs Temp 99.1 F 10/08/23 09:53 Pulse 102 H 10/08/23 09:53 Resp 16 10/08/23 09:53 BP 112/82 10/08/23 09:53 Pulse Ox 98 10/08/23 09:53 Oxygen Delivery Method Room Air 10/08/23 09:53 BMI result Body Mass Index 32.2 Tobacco/Smoking Status: Tobacco use Status Tobacco use date assessed 10/08/23 10/08/23 09:57 Patient Tobacco Use Status Former Tobacco user 10/08/23 09:46 e-Cigarette/Vaping Use Never Used 10/08/23 09:46 Thrive Assessment: Date of Thrive Assessment Date Thrive assessed 03/08/23 10/08/23 09:46 Const Other: General: no acute distress and well developed Nutritional Appearance: well nourished Orientation/consciousness: patient oriented x3 HENMT Head: Yes normocephalic and Yes atraumatic Eyes General: appearance normal, both eyes and all related structures Pupils: Equal, round and reactive pupils present EOM: EOMs intact bilaterally Resp Effort & Inspection: normal respiratory effort Auscultation: clear to auscultation bilaterally Cardio Rate: regular rate Rhythm: regular rhythm Heart sounds: S1 normal heart sound present, S2 normal heart sound present, no gallops, no murmurs and no rubs GI Palpation (GI): No Abdominal aortic bruit present, Soft to palpation, nontender, No hepatosplenomegaly present and No Rebound tenderness present Auscultation: normal bowel sounds General: Yes no CVA tenderness Back/Spine/Pelvis Back: no CVA tenderness Cervical Spine: cervical ROM normal and No Cervical spine tenderness Thoracic/Lumbar Spine: thoraco-lumbar ROM normal, No pain with thoraco-lumbar ROM, No thoracic spinal tenderness and No lumbar spinal tenderness Extrem General: Yes normal to inspection, No edema and No calf tenderness Skin General: warm and dry. Normal skin color. Normal skin turgor Neuro General: patient oriented x3, gait normal and no focal neuro deficit Cranial nerves: Yes Equal, round and reactive pupils present Cognition (Neuro): normal cognition Gait exam (Neuro): Normal gait present Sensory Exam: No Sensory deficit (Neuro) Psych Appearance: grossly normal Affect: normal affect Attitude: cooperative Thought process: Normal thought process present Results AMB Hemoglobin A1c AMB Hemoglobin A1c 5.7 % Last Edit by Chichi Gates on 10/08/23 10:18 Assessment and Plan Assessment & Plan (1) Hypertension: Code(s): I10 - Essential (primary) hypertension Plan: Blood pressure is 112/82, slightly above goal of less than 130/80 Continue current treatment regimen Low-sodium diet encouraged Follow-up 3 months or sooner with symptoms or concerns Verbalized understanding and agreed with the treatment plan (2) Type 2 diabetes mellitus: Code(s): E11.9 - Type 2 diabetes mellitus without complications Plan: A1c today is 5.7%, within goal of less than 7.0%. Previous A1c was 5.8% Continue current treatment regimen ADA diet and routine exercise encouraged Follow-up in 3 months Verbalized understanding and agreed with treatment plan (3) Chills: Code(s): R68.83 - Chills (without fever) Plan: She has had chills, subjective low-grade fever, and sweating for the past 1 week Current temperature is 99.1 degrees UTI or viral illness is likely Will check CBC and urinalysis/culture and make changes as needed Adequate hydration encouraged Follow-up with worsening or new symptoms Verbalized understanding and agreed with the treatment plan (4) Subjective fever: Code(s): R50.9 - Fever, unspecified Plan: Plan as above Orders: Orders AMB Hemoglobin A1c Today Z13.9 - Encounter for screening, unspecified Complete Blood Count Auto Diff Today R50.9 - Fever, unspecified, R68.83 - Chills (without fever) UA CC w/rflx Micro + Cult Today R50.9 - Fever, unspecified, R68.83 - Chills (without fever) Coding Level of Care Code Est Pt Level 4 (14031) Complex EM visit Add On G2211 Diagnoses Hypertension I10 Type 2 diabetes mellitus E11.9 Chills R68.83 Subjective fever R50.9
[2023-10-08 09:53] VITALS: BP 112/82; PULSE 102; RESP 16; TEMP 37.3; O2SAT 98; BMI 32.2
== END 2023-10-08 10:37 | disposition home or self-care (01) ==
PROVIDERS: PCP Nurse Practitioner Family; Visit Provider Nurse Practitioner Family
DX: I10 Essential (primary) hypertension (principal); E11.9 Type 2 diabetes mellitus without complications; R68.83 Chills (without fever); R50.9 Fever, unspecified; Z13.9 Encounter for screening, unspecified
CPT/HCPCS: 83036; 99214; G2211

== ENCOUNTER 2023-10-08 10:43 | Outpatient (REF) | payer OTHER, SELFPAY ==
[2023-10-08 14:37] LABS: MANUAL DIFF FLAG NO
[2023-10-08 14:46] LABS: Basophils Absolute Auto 0.1 X10*3/uL (0.0-0.2); Basophils Percent Auto 0.5 % (0-2); Eosinophils Absolute Auto 0.1 X10*3/uL (0.0-0.4); Eosinophils Percent Auto 1.3 % (0-4); Hematocrit 44.2 % (37.0-47.0); Hemoglobin 14.3 g/dl (12.0-16.0); Imm Gran Abs Auto 0.04 X10*3/uL (0.00-0.03); Imm Gran Pct Auto 0.4 % (0.0-0.4); Lymphocytes Absolute Auto 2.9 X10*3/uL (1.2-4.9); Lymphocytes Percent Auto 25.7 % (20-40); Mean Corpuscular HGB Conc 32.4 g/dl (31.0-35.0); Mean Corpuscular Hemoglobin 28.6 pg (27.0-33.0); Mean Corpuscular Volume 88.4 fL (80.0-98.0); Mean Platelet Volume 10.2 fL (9.4-12.3); Monocytes Absolute Auto 0.8 X10*3/uL (0.1-1.2); Monocytes Percent Auto 7.1 % (2-11); Neutrophils Absolute Auto 7.3 x10*3/uL (2.0-8.3); Platelet Count 332 X10*3/uL (160-400); Red Cell Distribution Width 14.3 % (11.0-16.0); White Blood Count 11.2 X10*3/uL (4.8-10.8)
[2023-10-08 14:50] LABS: Appearance Urine Turbid; Color Urine Yellow; Glucose Urine UA Negative (Negative); Leukocyte Esterase Urine Trace (Negative); Nitrite Urine Negative (Negative); PH 5.5 (5.0-9.0); UMIC TRIGGER UACC YES; Urine Blood Negative (Negative); Urine Ketones 40 mg/dL (Negative); Urine Protein Trace mg/dL (Neg-Trace)
[2023-10-08 15:07] LABS: Blood Urea Nitrogen 11 mg/dL (9-16); Cholesterol 138 mg/dL (<200); Estimated Glomerular Filt Rate > 60; HDL Cholesterol 48 mg/dL (>40); LDL Cholesterol Calculated 68 mg/dL (<100); Triglycerides 113 mg/dL (<150)
[2023-10-08 15:14] LABS: Bacteria Urine 1+ (None Seen); Calcium Oxalate Crystals Urine Present; Hyaline Casts Urine 0-2 /LPF (0-2); RBC Urine 0-2 /HPF (0-2); Squamous Epithelial Cell Urine 0-2 /HPF (0-2); WBC Urine 0-5 /HPF (0-5)
== END 2023-10-08 10:44 | disposition home or self-care (01) ==
LOC: HO.WFDLDS 10:43
PROVIDERS: Referring Provider Nurse Practitioner Family; Visit Provider Nurse Practitioner Family
DX: R10.11 Right upper quadrant pain (principal); R50.9 Fever, unspecified; E78.00 Pure hypercholesterolemia, unspecified
CPT/HCPCS: 36415; 80061; 81001; 82565; 84520; 85025

== ENCOUNTER 2023-10-17 07:53 | Outpatient (REF) | payer OTHER, SELFPAY ==
--- NOTE | ~2023-10-17 | CT_ITS ---
EXAMINATION: CT ENTEROGRAPHY ABDOMEN AND PELVIS WITH CONTRAST CLINICAL INFORMATION: Fecal abnormalities. COMPARISON: Abdominal ultrasound June 14, 2023 TECHNIQUE: Study performed with oral VoLumen (1500 mL) and 480 mL of water to distend the abdomen. The patient was injected with 85 mL Omnipaque 350 intravenous contrast which was administered without adverse effect. Coronal and sagittal reformatted images were obtained at the technologist's workstation. This CT examination was performed using dose optimization techniques as appropriate, variously including the following: *Automated exposure control *Adjustment of mA and/or kV according to patient size (this includes techniques or standardized protocols for targeted exams where dose is matched to indication/reason for exam; i.e. extremities or head) *Use of iterative reconstruction technique DLP: 486 mGy-cm FINDINGS: GASTROINTESTINAL FINDINGS: Stomach: Satisfactorily distended and unremarkable. Small intestine: Suboptimally distended. No small bowel obstruction. Terminal ileum is unremarkable. Large intestine: The colon is fluid-filled from the cecum through the descending colon. There is a 5 cm segment of underdistended sigmoid colon possibly representing peristalsis. Appendix is within normal limits. No perirectal changes redemonstrated. Additional findings: No abnormal enhancement of the vasa recta or significant mesenteric or retroperitoneal lymphadenopathy is seen. No abdominal abscess or fistulous tract demonstrated. ABDOMINAL AND PELVIC CT FINDINGS: Liver, gallbladder, biliary tract: Few hepatic hypodensities too small to characterize. The liver is normal in size and contour. No biliary ductal dilatation. Status post cholecystectomy. Pancreas: Unremarkable. Spleen: Unremarkable. Adrenal glands and kidneys: The adrenal glands are normal in size and configuration. The kidneys are symmetric in size and enhancement. No hydronephrosis or perinephric fluid collection. 1.5 cm left renal cyst for which no further imaging follow-up is needed. Ureters and bladder: Unremarkable. Lymphovascular structures: No bulky lymphadenopathy. Normal caliber abdominal aorta. Pelvis: Uterus is surgically absent. Bones: No destructive bone lesions. Lung bases: No pleural or pericardial effusion. Other: Asymmetric left inferior breast tissue with calcification. CT/CT enterography IMPRESSION: Fluid-filled colon from the cecum to the descending colon. This may represent colitis. Infectious and inflammatory etiologies should be considered. 5 cm segment of underdistended sigmoid colon possibly representing peristalsis. Consider correlation with direct visualization. Asymmetric left inferior breast tissue with calcification. Advise correlation with recent mammogram. Electronically signed by: Robles Felipe MD 10/17/2023 02:39 PM EDT RP
[2023-10-17] MEDS: iohexoL 350 MG/ML 100 ML INFUS..BTL 85 ML IV (09:47)
[2023-10-17] MEDS: Sorbitol/Mannit/Xanth Imaging 500 ML LIQUID 1500 ML PO (09:50)
== END 2023-10-17 07:54 | disposition home or self-care (01) ==
LOC: HO.CT 07:53
PROVIDERS: PCP Nurse Practitioner Family; Visit Provider Nurse Practitioner Family
DX: R19.5 Other fecal abnormalities (principal); R19.7 Diarrhea, unspecified; R10.9 Unspecified abdominal pain
CPT/HCPCS: 74177; Q9967

== ENCOUNTER 2023-10-17 09:41 | Emergency (ER) | payer OTHER, SELFPAY ==
--- NOTE | ~2023-10-17 | XR_ITS ---
EXAMINATION: XR LUMBOSACRAL SPINE CLINICAL INFORMATION: Low back pain for 2 weeks COMPARISON: None available. TECHNIQUE: Three views of the lumbosacral spine. FINDINGS: There is a minimal scoliosis convex to the left. Some mild degenerative changes are present with disc space narrowing at L2-L3 and L3-L4 with some endplate changes with mild osteophytes. No bony destructive lesions are seen. No fractures or subluxations. Surgical clips are present in the gallbladder fossa. XR/XR lumbar spine 2-3V IMPRESSION: Mild degenerative changes as described above. No acute finding. Electronically signed by: Dmitri Parra MD 10/17/2023 01:02 PM EDT
[2023-10-17 09:49] VITALS: BP 147/81; PULSE 106; RESP 16; TEMP 37.2; O2SAT 100; BMI 32.5
--- NOTE | 2023-10-17 10:24 | ED_ITS ---
HPI - General Adult General Chief complaint: Back Pain/Injury Stated complaint: l hip pain Time Seen by Provider: 10/17/23 10:24 Source: patient Mode of arrival: ambulatory Limitations: no limitations History of Present Illness ED Provider: Arlen Galvez PA-C HPI narrative: Patient is a 58 year old assigned female at with a history of DM, OA, HTN, and NESTOR presenting to the emergency department today with left sided low back pain. Patient states that over the last month she has had left sided low back pain that radiates into her left hip. Patient states that she has a history of a previous back surgery in 2016 and is still established with the personnel security specialist. Patient denies any dizziness, lightheadedness, abdominal pain, nausea, vomiting, fever, chills, blurry vision, double vision, loss of vision, chest pain, difficulty breathing, shortness of breath, night sweats, pain with urination, increased urinary frequency, increased urinary urgency, blood in her urine or stool, syncope or a near syncopal episode, recent trauma or falls, bowel incontinence, bladder incontinence, or any other complaints at this time. Onset (ago): month(s) (1) Location: back and left Relieving factors: none Exacerbating factors: none Associated symptoms: denies other symptoms Treatments prior to arrival: none Related Data Home Medications ?Medication ?Instructions ?Recorded ?Confirmed duloxetine 60 mg capsule,delayed 60 mg PO DAILY 06/06/22 10/08/23 release trazodone 100 mg tablet 200 mg PO DAILY PRN Insomnia 06/06/22 10/08/23 alprazolam 0.5 mg tablet 0.25 mg PO DAILY PRN Anxiety 12/12/22 10/08/23 sitagliptin phosphate 100 mg 100 mg PO QPM 08/28/23 10/08/23 tablet (Januvia) Previous Rx's ?Medication ?Instructions ?Recorded acetaminophen-caffeine 500 mg-65 2 tab PO Q8H PRN pain 30 days #30 11/14/22 mg tablet (Excedrin Tension tabs Headache) fluticasone propionate 50 1 spray intranasal Q12H PRN nasal 05/08/23 mcg/actuation nasal congestion 90 days #16 grams spray,suspension (Flonase Allergy Relief) acetaminophen 650 mg 650 mg PO Q8H PRN pain 30 days #60 05/13/23 tablet,extended release (Tylenol tabs Arthritis Pain) levothyroxine 50 mcg tablet 50 mcg PO DAILY 30 days #30 tabs 05/13/23 esomeprazole magnesium 40 mg 40 mg PO DAILY #30 caps 06/05/23 capsule,delayed release (Nexium) methylcellulose (laxative) 500 mg 500 mg PO DAILY #90 tabs 06/05/23 tablet (Citrucel) sennosides 8.6 mg tablet (Natural 17.2 mg (2 x 8.6 mg) PO BEDTIME 06/05/23 Senna Laxative) constipation #60 tabs ondansetron 4 mg disintegrating 4 mg PO Q8H PRN nausea and 07/05/23 tablet vomiting #14 tabs conj estrogen-medroxyprogesterone 1 tab PO DAILY #28 tabs 07/17/23 0.3 mg-1.5 mg tablet (Prempro) hydrocortisone 2.5 % topical cream 1 appl [place] BID-QID PRN hemorrhoids 07/19/23 with perineal applicator #30 grams (Proctosol HC) duhjqoum-ralu-hfdf 8 mg-folic 400 1 tab PO DAILY 30 days #30 tabs 07/20/23 mcg-K 50 mcg-lutein 300 mcg tablet (Centrum Silver Women) metformin 500 mg tablet,extended 1,000 mg (2 x 500 mg) PO DAILY 90 08/13/23 release 24 hr days #180 tabs dicyclomine 10 mg capsule 10 mg PO BID PRN abdominal 08/23/23 discomfort #90 caps riboflavin (vitamin B2) 400 mg 400 mg PO DAILY 30 days #30 tabs 08/23/23 tablet atorvastatin 20 mg tablet 20 mg PO DAILY 30 days #30 tabs 09/27/23 amlodipine 5 mg tablet 5 mg PO DAILY 90 days #90 tabs 10/01/23 famotidine 20 mg tablet (Pepcid) 20 mg PO BEDTIME #30 tabs 10/17/23 prednisone 20 mg tablet 20 mg PO DAILY 7 days #7 tabs 10/17/23 Allergies Allergy/AdvReac Type Severity Reaction Status Date / Time sulfur dioxide Allergy Severe Anaphylaxis Verified 10/17/23 09:51 adhesive tape Allergy Intermediate Rash Verified 10/17/23 09:51 tilapia Allergy Severe Anaphylaxis Uncoded 10/17/23 09:51 Review of Systems Constitutional: Constitutional: Reports no additional constitutional complaints, Denies chills, Denies fever(s) and Denies night sweats Eyes: Eyes: Reports no additional eye complaints, Denies blurry vision, Denies change in vision, Denies diplopia, Denies eye discharge, Denies loss of vision and Denies eye pain ENT: Denies dizziness Cardiovascular: Cardiovascular: Reports no additional cardiovascular complaints, Denies chest pain, Denies lightheadedness, Denies Loss of Consciousness and Denies dyspnea Respiratory: Respiratory: Reports no additional respiratory complaints and Denies dyspnea Gastrointestinal: Gastrointestinal: Reports no additional gastrointestinal complaints, Denies abdominal pain, Denies melena, Denies hematochezia, Denies change in bowel habits and Denies change in stool character Genitourinary: Genitourinary: Denies hematuria, Denies urinary frequency, Denies dysuria, Denies urinary incontinence, Denies urinary hesitancy and Denies urinary urgency Musculoskeletal: Musculoskeletal: Reports no additional musculoskeletal complaints, Reports back pain, Denies numbness and Denies tingling Neurologic: Denies dizziness, Denies loss of vision, Denies numbness and Denies tingling Psychiatric: Psychiatric: Reports no additional psychiatric complaints Endocrine: Endocrine: Reports no additional endocrine complaints Hematologic/Lymphatic: Hematologic/Lymphatic: Reports no additional hemato logic/lymphatic complaints Allergic/Immunologic: Allergic/Immunologic: Reports no additional allergic/immunologic complaints [facility] Past Medical History Attestation statement: The following information was validated with the patient. Source: old records reviewed and nursing notes reviewed Medical History Bilateral carpal tunnel syndrome Diabetes Sleep apnea Colitis Carpal tunnel syndrome Thyroid disease Hypertension High cholesterol Fatty liver Acid reflux Sinusitis Surgical History History of ear surgery H/O bilateral oophorectomy Status post creation of urethral sling by suprapubic approach History of cholecystectomy History of back surgery H/O: hysterectomy Family History Family History Mother Hypertension High cholesterol Diabetes Father Alcoholism Family/Other Diabetes Social History Social History [facility]: [facility] Patient Tobacco Use Status: Former Tobacco user e-Cigarette/Vaping Use: Never Used Substance Use Type: Marijuana Advance Directives: Yes Advance Directives Information Provided: Yes Advance Directives on File: No Do you have a plan to hurt others: No Plan service: No Current occupational status: retired and disabled Cognitive needs: No Hearing needs: Yes (Patient see's ENT) Vision needs: No Physical Exam ED Vital Signs: Vital Signs - 24 hr 10/17/23 09:49 10/17/23 13:03 10/17/23 13:10 Temperature 98.9 F 98.0 F 98.0 F Pulse Rate 106 H 90 90 Respiratory Rate 16 16 16 Blood Pressure 147/81 H 134/72 134/72 Pulse Oximetry 100 98 98 Oxygen Delivery Method Room Air Room Air Room Air BMI result Body Mass Index 32.5 Const General: cooperative, no acute distress, alert and awake Nutritional Appearance: well nourished Orientation/consciousness: patient oriented x3 Limitations: no limitations HENMT Head: Yes normal to inspection and Yes atraumatic Ears: hearing grossly normal bilaterally and external ears normal General nose exam: Normal external nose present, no nasal discharge noted and no epistaxis Face and sinus: Yes normal facial exam, No abrasion and No laceration Mouth: Normal oral and palatal mucosa present, no drooling and no muffled voice Eyes General: appearance normal, both eyes and all related structures Periorbital: periorbital findings normal Eyelids: Yes eyelids normal Conjunctivae: conjunctivae normal Pupils: Equal, round and reactive pupils present EOM: EOMs intact bilaterally Neck Neck: Yes normal visual inspection, Yes full ROM and Yes no lymphadenopathy Chest Chest palpation & inspection: normal inspection of the chest Resp Effort & Inspection: normal respiratory effort and able to speak in complete sentences GI Inspection: Yes normal to inspection Neuro General: patient oriented x3 and moves all extremities Cranial nerves: Yes Equal, round and reactive pupils present Cognition (Neuro): normal cognition Extrem General: Yes normal to inspection, Yes full ROM and Yes capillary refill normal Psych Appearance: grossly normal Mental Status: mental status grossly normal Affect: normal affect Attitude: cooperative Thought process: Normal thought process present Thought content: Normal thought content present Insight: Good insight present (Psych) Medications Administered Discontinued Medications Generic Name Dose Route Start Last Admin Trade Name Freq PRN Reason Stop Dose Admin Methylprednisolone Sodium Succinate 60 mg 10/17/23 12:51 10/17/23 13:06 Methylprednisolone Sod Succ 125 Mg/2 Ml Vial IM 10/17/23 12:52 60 mg ONCE ONE Administration Medical Decision Making Medical Decision Making MDM Narrative: Patient is a 58 year old assigned female at with a history of DM, HTN, OA, Migraines, anxiety, and previous back surgery in 2016, presenting to the emergency department today with left sided low back pain. Patient's physical exam was unremarkable. Patient's lumbar x-ray showed degenerative changes. I explained my physical exam findings as well as all test results to the patient. I answered all questions asked by the patient. I stressed the importance of the patient taking her medication as directed (either prescribed or as the over the counter packaging recommends). I stressed the importance of the patient following up with her primary care provider and her personnel security specialist. I stressed the importance of the patient returning to the emergency department immediately if her symptoms were to worsen or if she were to develop any dizziness, shortness of breath, difficulty breathing, chest pain, blurry vision, loss of vision, nausea, vomiting, abdominal pain, fever, chills, back pain, or any other complaints. Patient verbalized agreement and understanding with this treatment plan and discharge. Differential Diagnosis Differential Diagnoses: The differential diagnosis associated with the presentation includes Low back pain Sciatica OA Stenosis Admission/Observation Consideration of admission/observation: Escalation of care including admission/observation considered Patient would have been admitted to the hospital had her work up had any findings where hospital admission was appropriate and her clinical presentation warranted hospital admission. Independent Interpretation I performed an independent interpretation of an: Plain X-Ray Interpretation: My interpretation is in agreement with the radiologist's impression of this imaging study. EXAMINATION: XR LUMBOSACRAL SPINE CLINICAL INFORMATION: Low back pain for 2 weeks COMPARISON: None available. TECHNIQUE: Three views of the lumbosacral spine. FINDINGS: There is a minimal scoliosis convex to the left. Some mild degenerative changes are present with disc space narrowing at L2-L3 and L3-L4 with some endplate changes with mild osteophytes. No bony destructive lesions are seen. No fractures or subluxations. Surgical clips are present in the gallbladder fossa. XR/XR lumbar spine 2-3V IMPRESSION: Mild degenerative changes as described above. No acute finding. Electronically signed by: Dmitri Parra MD 10/17/2023 01:02 PM EDT RP Dictated By: Dmitri Parra MD Signed By: Electronically signed by Dmitri Parra MD 10/17/23 1300 Radiology Impression Discussion of test interpretation with radiology: I have reviewed the radiologist's reading. Chronic Conditions Patient?s care impacted by: Diabetes Discharge Plan Discharge Clinical Impression: Low back pain Patient Disposition: Home, Self-Care Instructions: Acute Low Back Pain (ED) Additional Instructions: The steroids will make your sugar elevated over the next few days. This is normal and will resolve after completion of your medication. Follow up with your primary care provider and your spinal specialist. Return to the emergency d epartment immediately if your symptoms worsen or if you develop any dizziness, shortness of breath, difficulty breathing, chest pain, blurry vision, loss of vision, nausea, vomiting, abdominal pain, fever, chills, back pain, or any other complaints. Prescriptions: New prednisone 20 mg tablet 20 mg PO DAILY 7 Days Qty: 7 0RF No Action Excedrin Tension Headache 500-65 mg tablet 2 tab PO Q8H PRN (Reason: pain) 30 Days Qty: 30 1RF fluticasone propionate [Flonase Allergy Relief] 50 mcg/actuation spray,suspension 1 spray intranasal Q12H PRN (Reason: nasal congestion) 90 Days Qty: 16 1RF Rx Instructions: administer into each nostril levothyroxine 50 mcg tablet 50 mcg PO DAILY 30 Days Qty: 30 3RF acetaminophen [Tylenol Arthritis Pain] 650 mg tablet extended release 650 mg PO Q8H PRN (Reason: pain) 30 Days Qty: 60 2RF Prempro 0.3-1.5 mg tablet 1 tab PO DAILY Qty: 28 3RF Centrum Silver Women 8 mg iron-400 mcg-50 mcg tablet 1 tab PO DAILY 30 Days Qty: 30 3RF metformin 500 mg tablet extended release 24 hr 1,000 mg PO DAILY 90 Days Qty: 180 1RF riboflavin (vitamin B2) 400 mg tablet 400 mg PO DAILY 30 Days Qty: 30 3RF atorvastatin 20 mg tablet 20 mg PO DAILY 30 Days Qty: 30 3RF amlodipine 5 mg tablet 5 mg PO DAILY 90 Days Qty: 90 1RF famotidine [Pepcid] 20 mg tablet 20 mg PO BEDTIME Qty: 30 3RF Januvia 100 mg tablet 100 mg PO QPM Rx Instructions: takes at 5:00 p.m. daily duloxetine 60 mg capsule,delayed release(DR/EC) 60 mg PO DAILY trazodone 100 mg tablet 200 mg PO DAILY PRN (Reason: Insomnia) Rx Instructions: For anxiety ondansetron 4 mg tablet,disintegrating 4 mg PO Q8H PRN (Reason: nausea and vomiting) Qty: 14 0RF alprazolam 0.5 mg tablet 0.25 mg PO DAILY PRN (Reason: Anxiety) esomeprazole magnesium [Nexium] 40 mg capsule,delayed release(DR/EC) 40 mg PO DAILY Qty: 30 5RF Citrucel 500 mg tablet 500 mg PO DAILY Qty: 90 2RF Rx Instructions: take it with full glass of water sennosides [Natural Senna Laxative] 8.6 mg tablet 17.2 mg PO BEDTIME Qty: 60 3RF dicyclomine 10 mg capsule 10 mg PO BID PRN (Reason: abdominal discomfort) Qty: 90 2RF hydrocortisone [Proctosol HC] 2.5 % cream with perineal applicator 1 appl [place] BID-QID PRN (Reason: hemorrhoids) Qty: 30 2RF Referrals: Alhaji Kamara MD [Primary Care Provider] - Interventions: ED Discharge Assessment Last Done: 10/17/23 13:10 Discharge Date/Time: 10/17/23 13:11 Print Language: Ivorian
--- OUTSIDE RECORDS SUMMARY | 2023-10-17 10:25 | XMS_ITS | Continuity of Care Document ---
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 Name Role Phone Yefri Latham MD Primary Care Physician [phone] [place] [facility] [place]28[place] - 12/28/[address] [id number] Discharge Disposition: A-D/C Home Attending Physician: Keith Kenny MD Admitting Physician: Keith Kenny MD Referring Physician: Keith Kenny MD Allergies, Adverse Reactions, Alerts Substance Reaction [...] influenza virus vaccine, inactivated 11/18/15 George rded [id number] 12y+ bivalent booster vax 11/13/21 Recorded Hepatitis A-Hepatitis B Vaccine 07/18/21 Recorded tetanus/diphtheria/pertussis, acel(Tdap) 07/11/21 Recorded SARS-CoV-2 mRNA ([id number]) vax 05/26/21 Recorded zoster vaccine, inactivated 07/12/20 Recorded zoster vaccine, inactivated 10/14/19 Recorded SARS-CoV-2 (COVID-19) mRNA BNT-162b2 vac 06/01/20 Recorded SARS-CoV-2 (COVID-19) mRNA BNT-162b2 vac 05/11/20 Recorded Medications amLODIPine 5 mg oral tablet 1 tablet, By Mouth, Daily, # 90 tablet, 1 Refills, Maintenance, 09/20/21 10:31:00 EDT, [id number], 155, cm, 02/22/21 15:59:00 EST, Height, 81.6, kg, 11/04/20 22:55:00 EDT, Dry Weight Start Date: 09/20/21 Status: Ordered atorvastatin 20 mg oral tablet See Instructions, TAKE 1 TABLET BY MOUTH DAILY AFTER SUPPER. STOP PRAVASTATIN., # 90 tablet, 1 Refills, Maintenance, 12/28/21 12:01:00 EST, [id number], 154.94, cm, 12/27/21 12:36:00 EST, Height,84.09, kg, 12/27/21 12:36:00 EST, Dry Weight Start Date: 12/28/21 Status: Ordered Cymbalta 60 mg oral enteric coated capsule 1 capsule = 60 mg, By Mouth, Daily, 0 Refills, Maintenance, 06/10/20 9:25:00 EDT, Partial fill uponpatient request if the prescription is for a schedule II opioid drug. Start Date: 06/10/20 Status: Ordered doxycycline hyclate 100 mg oral capsule 1 capsule = 100 mg, By Mouth, 2 times a day, for 10 days, Take with food, # 20 capsule, 0 Refills, Acute 12/30/21 13:58:00 EST, 12/20/21 13:58:00 EST, Capsule, [id number], Partial fill upon patient request if the prescription is for a schedule... Start Date: 12/20/21 Stop Date: 12/30/21 Status: Ordered Excedrin Migraine 2 tablet, By [...] Mouth, Daily, # 90 tablet, 1 Refills, [id number], 155, cm, 02/22/21 15:59:00 EST,Height, 81.6, kg, 11/04/20 22:55:00 EDT, Dry Weight Start Date: 08/29/21 Status: Ordered levothyroxine 0.05 mg oral tablet 1 tablet, By Mouth, Daily, # 90 tablet, 1 Refills, [facility], 155, cm, 02/22/21 15:59:00 EST,Height, 81.6, kg, 11/04/20 22:55:00 EDT, Dry Weight Start Date: 10/02/21 Status: Ordered lidocaine 5% topical film See Instructions, APPLY 1 PATCH AND LEAVE IN PLACE FOR 12 HOURS, THEN REMOVE AND LEAVE OFF FOR 12 HOURS., # 30 patch, 1 Refills, 02/18/20 13:36:00 EST, [id number], 30, APPLY [address] LEAVEIN PLACE FOR 12 HOURS, THEN REMOVE AND LEAVE OFF FO... Start Date: 02/18/20 Status: Ordered metFORMIN 500 mg oral tablet, extended release 1 tablet = 500 mg, By Mouth, Daily, # 90 tablet, 1 Refills, Maintenance, 09/07/21 12:18:00 EDT, ER Tablet, [id number], Partial fill upon patient request if the prescription is for a schedule II opioid drug., 155, cm, 02/22/21 15:59:00 EST, Hei... Start Date: 09/07/21 Stop Date: 03/06/22 Status: Ordered pantoprazole 40 mg oral delayed release tablet 1 tablet, By Mouth, Daily, # 30 tablet, 11 Refills, Maintenance, 02/15/21 13:56:00 EST, 155, cm, 11/30/20 8:07:00 EDT, Height, 81.6, kg, 11/04/20 22:55:00 EDT, Dry Weight Start Date: 02/15/21 Status: Ordered Prempro 0.3 mg-1.5 mg oral tablet See Instructions, ERIN MALIKA TABLETA DIARIA, # 28 tablet, 1 Refills, Maintenance, 11/27/21 10:31:00 EDT, [id number], 28, ERIN DALY TABLETA DIARIA, 155, cm, 02/22/21 15:59:00 EST, Height, 81.6, kg, 11/04/20 22:55:00 EDT, Dry Weight Start Date: 11/27/21 Status: Ordered Tessalon Perles 100 mg oral capsule 1 capsule = 100 mg, By Mouth, 3 times a day, for 10 days, for cough, # 30 capsule, 0 Refills, Acute12/30/21 13:59:00 EST, 12/20/21 13:59:00 EST, Capsule, [id number], Partial fill upon patient request if the prescription is for a schedule II o... Start Date: 12/20/21 Stop Date: 12/30/21 Status: Ordered traZODone 100 mg oral tablet 1, tablet, By Mouth, Daily at bedtime, # 30 tablet, Refills 2, Tot. 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 Confirmed Active Menopause Confirmed Active Migraines Confirmed Active Obese class II Confirmed Active Obesity Confirmed Active Palpitation Confirmed Active Palpitations Confirmed Active Persistent cough Confirmed Active Prediabetes Confirmed Active Fatty liver Confirmed Active Thoracic back pain Confirmed Active New onset type 2 diabetes mellitus Confirmed Active Type 2 diabetes, HbA1c goal < 7% Confirmed Active Ventricular premature beats Confirmed Active Vitamin D deficiency Confirmed Active Procedures Procedure Date Related Diagnosis Body Site Status Revision or removal of impla nted spinal neurostimulator pulse generator or rail setter Completed Vital Signs Most recent to oldest [Reference Range]: 1 2 3 Height 154.94 cm (12/28/21 2:44 PM) 154.94 cm (12/27/21 12:36 PM) Weight 84.09 kg (12/28/21 2:44 PM) 84.09 kg (12/27/21 12:36 PM) Oxygen Saturation [94-100 %] 97 % (12/28/21 8:00 PM) 100 % (12/28/21 7:15 PM) 100 % (12/28/21 7:00 PM) Pulse Rate [55-90 bpm] 85 bpm (12/28/21 2:44 PM) Body Mass Index [18.5-24.99 kg/m2] 35.03 kg/m2 *>HHI* (12/28/21 2:44 PM) 35.03 kg/m2 *>HHI* (12/27/21 12:36 PM) Blood Pressure [90-138/55-84 mm Hg] 122/74mm Hg (12/28/21 7:15 PM) 124/72mm Hg (12/28/21 7:00 PM) 123/78mm Hg (12/28/21 6:45 PM) Respiratory Rate [16-30 br/min] 9 br/min *L* (12/28/21 7:15 PM) 21 br/min (12/28/21 7:00 PM) 14 br/min *L* (12/28/21 6:45 PM) Temperature [96.8-100.4 DegF] 97.5 DegF (12/28/21 6:00 PM) 97.1 DegF (12/28/21 5:15 PM) 98.1 DegF (12/28/21 2:44 PM) Liters per Minute 2 L/min (12/28/21 6:00 PM) 2 L/min (12/28/21 5:30 PM) 6 L/min (12/28/21 5:15 PM) Mode of Delivery (Oxygen) Room air (12/28/21 6:45 PM) Nasal cannula (12/28/21 6:00 PM) Nasal cannula (12/28/21 5:30 PM) Blood pressure sites Arm, right (12/28/21 6:00 PM) Arm, right (12/28/21 5:15 PM) Arm, right (12/28/21 2:44 PM) Temperature Route Temporal (12/28/21 6:00 PM) Temporal (12/28/21 5:15 PM) Femoral (12/28/21 2:44 PM) Dry Weight 82.7 kg (12/28/21 2:44 PM) 84.09 kg (12/27/21 12:36 PM) Weight Obtained Via Patient/family state d (12/27/21 12:36 PM) Dry Weight Obtained Via Standing scale (12/28/21 2:44 PM) Patient/family stated (12/27/21 12:36 PM) Social History Social History Type Response Smoking Status Former smoker, quit more than 30 days ago; Other: quit 2016; entered on: 06/25/19 Sex Note * Sheree Ramirez RN: PERFORM Event Display: Discharge/Transfer Note Hospital Authored Date: [id number] Nursing Discharge Note Entered On: 12/28/2021 20:00 EST Performed On: 12/28/2021 19:59 EST by Sheree Ramirez RN Nursing Discharge Note 2 Discharge Time : 12/28/2021 19:54 EST Discharge Level of Care at Discharge : Home/Care Home/Foster Care Patient Left Unit Via : Wheelchair Patient Accompanied Off Unit with : Significant other DC Instructions Provided & Signed by Pt : Yes Patient Understands D/C Instructions : Yes Patient Instructions Discharge Signed : No Did Pt have Specialty Bed or Wound Vac : No Sheree Ramirez RN - 12/28/2021 19:59 EST * Sheree Ramirez RN: PERFORM Event Display: Patient Education/Instruction Authored Date: [id number] Inpatient Adult Discharge Instructions [address] [address] Name: KARMA CAMACHO : 1965 Visit: 12/28/2021 13:00:00 Current Date: 12/28/2021 19:24 Account: [id number] Inpatient Adult Discharge Instructions We would like to thank you for allowing us to assist you with your healthcare needs. The following includes patient education materials and information regarding your injury/illness. Our entire staffstrives to provide an excellent experience for our patients and their families. PLEASE ENSURE YOU FOLLOW-UP PER THE INSTRUCTIONS BELOW! ?? YOUR OPINION IS IMPORTANT TO US! Please complete the survey you may receive by mail or email. Your feedback will be used to make improvements to the healthcare experiences of our patients and their families. Surveys are administered by [employer] ?? If further treatment with your primary care physician or another doctor is recommended, it is important for you to keep the appointment. Call your primary care physician or return to the Emergency Department immediately if your condition worsens, fails to improve, or new symptoms develop. If you need to find a doctor, you can call [facility] for a referral at [phone] or toll free at [phone] or log in to [email or web address].. ?? You can view and manage your care through the patient portal or by using a health care trae of your choosing. [employer] is a website that allows you to securely view your medical information including your hospital discharge summary, office visit summaries, medications and follow-up visits. You can also request appointments, renew medications, and request access to your medical information using a health care trae of your choosing, or just ask a question. You can enroll at [email or web address] or register during your next office visit. You have been discharged from [facility], Patient Care Unit: [facility]. If you have any questions regarding these instructions after you leave, please call us and we will be happy to assist you. [facility] Your Care Team Attending Physician Keith Kenny MD Discharging Providers Keith Kenny MD Reason for Admission POST LAMINECTOMY 23OVN Your Diagnosis Post laminectomy syndrome Tests Performed Below is a partial list of the tests performed during your hospitalization. You may have had other tests and procedures not included in this list. Please discuss all test results with your provider. GLUCOSE POC Primary Care Provider Yefri Latham MD Advance Directive Health Care Proxy on File Yes - Health Care Proxy No qualifying data available. Discharge Vitals Temperature: 97.1 DegF Height: 154.94 cm Pulse Rate: 85 bpm Weight: 84.09 kg Respiratory Rate:??9 br/min??Low Body Mass Index:??35.03 kg/m2??Critical Systolic Blood Pressure: 122 mm Hg Body surface area: 1.9 Diastolic Blood Pressure: 74 mm Hg ?? Oxygen Saturation: 100 % ?? Studies Pending All tests and labs ordered during this hospital stay have been completed unless listed below. Please discuss all pending results with your provider listed above in these instructions. ?? No incomplete studies found What to do next Instructions From Your Doctor Discharge Orders Instructions from your Care Team Ok to shower in 24 hours. Keep incision clean and dry Scheduled Follow-Up Appointments 2021 1:50 PM EST ?? With: Yefri Latham MD Where: [facility] [address] [place] [address]- You Need to Schedule the Following Appointments Follow Up with??Zoya VELOZ, Keith Banegas When??Within 1 to 2 weeks Where: ?? Discharge Medications COLON KARMA CAMACHO :1965 Visit Date:12/28/2021 Medications: Please continue your medications until treatment is completed or stopped by your provider. Medications not listed below should be discontinued. Discuss any questions related to medications with your provider. What How Much When Instructions Next Dose Unchanged Amlodipine (amLODIPine 5 mg oral tablet) 1 tab(s) Oral Daily As prescribed Unchanged Apap/ Asa/ Caffeine (Excedrin Migraine) 2 tab(s) Oral Every 6 hours as needed for Migraine Headache As prescribed Unchanged Atorvastatin (atorvastatin 20 mg oral tablet) See instructions TAKE 1 TABLET BY MOUTH DAILY AFTER SUPPER. STOP PRAVASTATIN. ?? As prescribed Unchanged Benzonatate (Tessalon Perles 100 mg oral capsule) 1 capsule Oral 3 times a day Duration: 10 Days for cough ?? As prescribed Unchanged Conjugated Estrogens-Medroxyprogesterone (Prempro 0.3 mg-1.5 mg oral tablet) See instructions ERIN MALIKA TABLETA DIARIA ?? As prescribed Unchanged Doxycycline (doxycycline hyclate 100 mg oral capsule) 1 capsule Oral Twice a day Duration: 10 Days Take with food ?? As prescribed Unchanged Duloxetine (Cymbalta 60 mg oral enteric coated capsule) 1 capsule Oral Daily As prescribed Unchanged Durable Medical Equipment (Freestyle Lite Lancets) See instructions Duration: 30 Days Use to check glucose twice daily Dx:E11.9 ?? As prescribed Unchanged Durable Medical Equipment (Freestyle Lite Monitor) See instructions Duration: 30 Days Use to check glucose twice daily Dx:E11.9 ?? As prescribed Unchanged Durable Medical Equipment (Freestyle Lite Test Strips) See instructions Duration: 30 Days Use to check glucose twice daily Dx:E11.9 ?? As prescribed Unchanged Levothyroxine (levothyroxine 0.05 mg oral tablet) 1 tab(s) Oral Daily As prescribed Unchanged Lidocaine Topical (lidocaine 5% topical film) See instructions APPLY 1 PATCH AND LEAVE IN PLACE FOR 12 HOURS, THEN REMOVE AND LEAVE OFF FOR 12 HOURS. ?? As prescribed Unchanged Metformin (metFORMIN 500 mg oral tablet, extended release) 1 tab(s) Oral Daily Duration: 90 Days As prescribed Unchanged Ondansetron (Zofran 4 mg oral tablet) 1 tab(s) Oral Every 6 hours as needed for Nausea & Vomiting Duration: 14 Days As prescribed Unchanged Pantoprazole (pantoprazole 40 mg oral delayed release tablet) 1 tab(s) Oral Daily As prescribed Unchanged sitagliptin (Januvia 100 mg oral tablet) 1 tab(s) Oral Daily As prescribed Unchanged Trazodone (traZODone 100 mg oral tablet) 1 tab(s) Oral Daily at Bedtime As prescribed Test Results Below is a partial list of the most recent Laboratory test results done prior to this discharge. You may have had other tests and procedures not included in this list. Please discuss all test resultswith your provider. GLUCOSE POC (12/28/2021) ???Glucose, POC - 128 mg/dL Allergies (NKA means No Known Allergies) Adhesive Bandage??(skin irritation, blisters) Fish??(hives,anaphylaxis) metFORMIN??(nausea) sulfa drugs??(rash) Problems Active Problems??(33) Anxiety?? Blepharitis of left eye?? Breast cyst on imaging?? Chronic right shoulder pain?? Depression?? Difficulty sleeping?? Duodenitis?? Dyspnea on exertion?? Fatty liver?? Gastroesophageal reflux disease?? Hormone replacement therapy?? HTN (hypertension)?? Hyperlipidemia?? Hypothyroid?? Irritable bowel syndrome?? Leukoplakia of tongue?? Menopause?? Migraines?? New onset type 2 diabetes mellitus?? Obese class II?? Obesity?? Palpitation?? Palpitations?? Persistent cough?? Prediabetes?? Recurrent UTI?? Spinal cord stimulator dysfunction?? Thoracic back pain?? Thoracic disc disease?? Type 2 diabetes, HbA1c goal < 7%?? Vaginal atrophy?? Ventricular premature beats?? Vitamin D deficiency?? Education Materials Below is the list of Educational Leaflet Providered with your Discharge Instructions. Surgery Medical Daystay Surgical Overnight Discharge Instructions?? Valuables and Belongings I fully understand and agree that [facility] accepts no responsibility for all my personal property including clothing, toilet articles, radios, jewelry, dentures, hearing aids, rings, money, or any other property that is in my possession or is brought to me after admission. I understand certain valuables may be placed in a hospital safe for a short period of time. I understand that the hospital is not liable for loss or damage due to accident, fire, or other natural occurrence while said property is in the safe. I accept full responsibility for any personal property that I keep with me, and will not hold the hospital responsible in case of loss or disappearance. I acknowledge that i have been encouraged to send valuables and belongings home. ?? Review of Valuable and Belonging List: With patient Date for Pt to Sign Valuables/Belongings: 12/28/21 15:23:00 ?? Valuables & Belongings ?? Clothes Electronic devices Jewelry Monetary Items Personal devices Miscellaneous Medications (Valuables) Valuables at Bedside Bathrobe ? Valuables Sent Home ? Valuables Sent to Security ? Other Discharge Information ? Pulmonary Rehab Status?? Pulmonary Rehab Discharge Status?? Respiratory Rate:??9 br/min??Low ? Common Emergency Awareness Tips IS IT A STROKE? Act FAST and Check for these signs: FACE Does the face look uneven? ARM Does one arm drift down? SPEECH Does their speech sound strange? TIME Call at any sign of stroke ?? Heart Attack Signs Chest discomfort: Most heart attacks involve discomfort in the center of the chest and lasts more than a few minutes, or goes away and comes back. It can feel like uncomfortable pressure, squeezing, fullness or pain. Discomfort in upper body: Symptoms can include pain or discomfort in one or both arms, back, neck, jaw or stomach. Shortness of breath: With or without discomfort. Other signs: Breaking out in a cold sweat, nausea, or lightheaded. Remember, MINUTES DO MATTER. If you experience any of these heart attack warning signs, call to get immediate medical attention! ?? Smoking can increase your chances of developing chronic health problems and can cause harmful effects to other family members in your house. If you smoke, you are strongly encouraged to quit. Please call [facility] at [phone] or [phone]) or log in to [email or web address] for referrals to smoking cessation programs. ?? The National Suicide Prevention Hotline is available 03/09 if you or someone you know needs to find a reason to keep living. By calling 0-935-039-Guardi[employer] (8165) you'll be connected to a skilled, trained counselor at a crisis center in your area. INPATIENT DISCHARGE INSTRUCTIONS SIGNATURE PAGE KARMA FUENTES Location:[facility] Registration Date and Time:12/28/2021 13:00 [facility] Primary Care Physician: Noa VELOZ, Yefri Regalado, I KARMA FUENTES, have received the above patient education materials/instructions and have verbalized understanding. If ambulance or transport services are being used I further acknowledge being given a choice of service. ?? If you need to contact me, please call me at this number: . Patient/Slot Floor Person Name: Patient/Slot Floor Person Signature: Relationship to Patient: Witness Name/Signature: Date: * Sheree Ramirez RN: PERFORM Event Display: Patient Education Leaflets Authored Date: [id number] Surgery Medical Daystay Surgical Overnight Discharge Instructions ?? 295 Medical Daystay/Surgical Overnight Discharge Instructions ? Since your coordination and judgment may be altered by medication and/or anesthesia, a responsible adult must drive you home from the hospital. ? If you have received medication for pain or sedation while under our care, you should not drive, operate machinery, drink alcohol, or sign any legal documents for 24 hours.?? You should have someone with you at home tonight. ? Remain at home the day of discharge.?? You may be up and about unless otherwise instructed by your physician. ? You may resume your daily prescription medication schedule.?? Any depressant medication should be avoided for 24 hours unless otherwise instructed by your surgeon or anesthesiologist. ? Call your physician for a follow-up appointment.? If you experience unusual or severe pain not relied by your pain medication, excessive bleedingor drainage, persistent nausea and vomiting, excessive swelling or redness, foul odor from incisionsite or fever over 100.6F, you need to call your physician. ? A follow-up phone call by a nurse will be made the day after your procedure.?? If you have stayed with us over night, you will not be receiving a follow-up phone call. ? Nausea and vomiting are a common side effect of prescription pain medication.?? We recommend that pills are not taken on an empty stomach.?? While taking any prescription pain medication you should not drive or drink alcohol. ? Patient Care team information Care Team Personnel Name: Sarina RN, Temi Harris Position: [facility] ED RN W/OE and Tasks Member Role: Primary Care Nurse Name: Yefri Latham MD Position: [facility] Primary Care Physician Member Role: PCP Address: Address: [address] [place] [address], [address] [place] [address]- [place] Care Team Related Persons Name: RICO MALIK Address: home [address] [place] [address] Name: RICO MEREDITH Address: home [address] [place] [address]
[2023-10-17 13:03] VITALS: BP 134/72; PULSE 90; RESP 16; TEMP 36.7; O2SAT 98
[2023-10-17] MEDS: methylPREDNISolone Sod Succ 125 MG/2 ML VIAL 60 MG IM (13:06)
[2023-10-17 13:10] VITALS: BP 134/72; PULSE 90; RESP 16; TEMP 36.7; O2SAT 98
== END 2023-10-17 13:11 | disposition home or self-care (01) ==
PROVIDERS: Emergency Provider Emergency Medicine; PCP Family Medicine
DX: M54.50 Low back pain, unspecified (principal); E11.9 Type 2 diabetes mellitus without complications; I10 Essential (primary) hypertension; E78.5 Hyperlipidemia, unspecified; Z87.891 Personal history of nicotine dependence; Z79.84 Long term (current) use of oral hypoglycemic drugs; Z79.02 Long term (current) use of antithrombotics/antiplatelets; Z79.899 Other long term (current) drug therapy
CPT/HCPCS: 72100; 74177; 96372; 99283; 99284; J2919; Q9967

== ENCOUNTER 2023-11-05 14:30 | Outpatient (AMB) | payer OTHER, SELFPAY ==
[2023-11-05 14:37] VITALS: BP 98/66; PULSE 84; O2SAT 97; BMI 33.1
--- NOTE | 2023-11-05 14:37 | A.OFFVIS_ITS ---
Vital Signs 11/05/23 14:37 Height 5 ft 1 in Weight 175 lb BMI 33.1 BP 98/66 Blood Pressure Location Rt brachial Position Sitting Pulse 84 Pulse Source Pulse Oximeter Pulse Oximetry (%) 97 Oxygen Delivery Method Room Air Intake Visit Reasons: 2 months follow up Intake Note: Jacy presents in office today for a scheduled 2 mos FUV. CC; Pt was rx'd dicyclomine at their last visit. Pt has had a CT scan (10/16) and lab work (10/07) since their last visit. Pt reports that they are still taking all their rx'd medications without any difficulties. Pt also reports that she recently was diagnosed with breast cancer. Pt is already seeing oncology. Pt has been struggling with L Leg pain and is set to see an cardiology clinical nurse specialist within the next two weeks. Pt is looking to see if there is anything that can be done in the mean time. Pt has also stopped taking their senna as it no longer helps. Pt has still been having BMs but would like to know if there is another option to replace it. 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 Accompanied by: Spouse Allergies Fish Containing Products Allergy (Severe, Verified 11/13/23 11:15) Anaphylaxis sulfur dioxide Allergy (Severe, Verified 11/13/23 11:15) Anaphylaxis adhesive tape Allergy (Intermediate, Verified 11/13/23 11:15) Rash metformin Adverse Reaction (Mild, Verified 11/13/23 11:15) Nausea Sulfa (Sulfonamide Antibiotics) Adverse Reaction (Unknown, Verified 11/13/23 11:15) unknown HPI HPI 2 months follow up : Details: LAST VISIT: High fecal calprotectin Abdominal pain Colitis Acid reflux Postprandial diarrhea Constipation Postprandial epigastric pain Plan Normal CRP, elevated stool calprotectin. Will send patient for CT enterography. History of colitis in the past. Patient is going next week for hemorrhoidectomy with Dr. Browning. I will see her in the office in 2 months. Patient was encouraged to increase fluid intake and activity to promote better bowel motility. Patient will increase fiber. Continue Nexium in the morning and famotidine at bedtime. Avoid dietary triggers and late night snacking. Staying upright for minimum 3 hours after meals discussed with patient. Patient can take senna at night time to help her move her bowels better. Can take dicyclomine with food couple times a day to help her with cramps. Patient is agreeable to this plan and verbalizes understanding of instructions. She was given the opportunity to ask questions and all questions answered. ? Thank you for allowing me to participate in her care Orders Orders Blood Urea Nitrogen 08/23/23 R10.11 Creatinine 08/23/[address] enterography 08/23/23 R10.9, R19.5, R19.7 Medications New dicyclomine 10 mg PO BID PRN 90 caps 2RF abdominal discomfort K58.9 TODAY'S VISIT: Patient is here today for follow-up and to discuss enterography results. Results discussed with patient. Large portion of bowel filled with fluid questioning colitis, however patient reports that she has been constipated and not moving her bowels well. Denies any diarrhea. Denies any melena, hematochezia. Recently underwent hemorrhoidectomy with Dr. Browning and reports to be doing well. Patient no longer has abdominal pain or cramping. Patient denies melena, hematochezia, unintentional weight loss or ribbon like stools. Patient denies any dyspepsia, dysphagia or odynophagia. Patient has been diagnosed with breast cancer and already has seen oncologist. Patient denies any nausea or vomiting. [facility] Medical History (Updated 11/13/23 @ 11:34 by Elana Thompson MD) History of breast cancer Fusion of lumbar spine Bilateral carpal tunnel syndrome Diabetes Sleep apnea Colitis Carpal tunnel syndrome Thyroid disease Hypertension High cholesterol Fatty liver Acid reflux Sinusitis Surgical History History of ear surgery H/O bilateral oophorectomy Status post creation of urethral sling by suprapubic approach History of cholecystectomy History of back surgery H/O: hysterectomy Family History Mother Hypertension High cholesterol Diabetes Father Alcoholism Family/Other Diabetes Social History Housing: Condominium Patient Tobacco Use Status: Former Tobacco user e-Cigarette/Vaping Use: Never Used Substance Use Type: Marijuana service: No Current occupational status: retired and disabled Cognitive needs: No Hearing needs: Yes (Patient see's ENT) Vision needs: No Review of Systems Const Denies weight gain and Denies weight loss ENT Reports no additional complaints, Denies dysphagia and Denies odynophagia Card Reports no additional complaints Resp Reports no additional complaints GI Denies abdominal pain, Denies belching, Denies melena, Denies bloating, Denies change in bowel habits, Reports constipation, Denies dysphagia, Denies excessive flatus, Denies dyspepsia, Denies heartburn, Denies diarrhea, Denies loose stools, Denies nausea, Denies odynophagia and Denies vomiting Reports no additional complaints Musc Reports no additional complaints Neuro Reports no additional complaints Psych Reports no additional complaints Endo Reports no additional complaints Physical Exam Vital Signs: Last Vital Signs Pulse 84 11/05/23 14:37 BP 98/66 11/05/23 14:37 Pulse Ox 97 11/05/23 14:37 Oxygen Delivery Method Room Air 11/05/23 14:37 BMI result Body Mass Index 33.1 Const General: healthy appearing and no acute distress Nutritional Appearance: obese Orientation/consciousness: patient oriented x3 Resp Effort & Inspection: normal respiratory effort, able to speak in complete sentences, no tracheal deviation and symmetric chest movement Auscultation: clear to auscultation bilaterally Cardio Rate: regular rate GI Inspection: Yes normal to inspection, No distended and Yes obesity Palpation (GI): Soft to palpation, not firm, nontender and No hepatosplenomegaly present Auscultation: normal bowel sounds General: Yes no CVA tenderness Back/Spine/Pelvis Back: no CVA tenderness Skin General skin exam: elasticity normal, turgor normal and dry skin Neuro General: patient oriented x3 Psych Appearance: grossly normal Mental Status: mental status grossly normal Results Reviewed Results Reviewed: CT ENTEROGRAPHY FINDINGS: GASTROINTESTINAL FINDINGS: Stomach: Satisfactorily distended and unremarkable. Small intestine: Suboptimally distended. No small bowel obstruction. Terminal ileum is unremarkable. Large intestine: The colon is fluid-filled from the cecum through the descending colon. There is a 5 cm segment of underdistended sigmoid colon possibly representing peristalsis. Appendix is within normal limits. No perirectal changes redemonstrated. Additional findings: No abnormal enhancement of the vasa recta or significant mesenteric or retroperitoneal lymphadenopathy is seen. No abdominal abscess or fistulous tract demonstrated. ABDOMINAL AND PELVIC CT FINDINGS: Liver, gallbladder, biliary tract: Few hepatic hypodensities too small to characterize. The liver is normal in size and contour. No biliary ductal dilatation. Status post cholecystectomy. Pancreas: Unremarkable. Spleen: Unremarkable. Adrenal glands and kidneys: The adrenal glands are normal in size and configuration. The kidneys are symmetric in size and enhancement. No hydronephrosis or perinephric fluid collection. 1.5 cm left renal cyst for which no further imaging follow-up is needed. Ureters and bladder: Unremarkable. Lymphovascular structures: No bulky lymphadenopathy. Normal caliber abdominal aorta. Pelvis: Uterus is surgically absent. Bones: No destructive bone lesions. Lung bases: No pleural or pericardial effusion. Other: Asymmetric left inferior breast tissue with calcification. CT/CT enterography IMPRESSION: Fluid-filled colon from the cecum to the descending colon. This may represent colitis. Infectious and inflammatory etiologies should be considered. 5 cm segment of underdistended sigmoid colon possibly representing peristalsis. Consider correlation with direct visualization. Assessment & Plan Assessment & Plan (1) Colitis: Code(s): K52.9 - Noninfective gastroenteritis and colitis, unspecified Category: Medical (2) Acid reflux: Code(s): K21.9 - Gastro-esophageal reflux disease without esophagitis Category: Medical Qualifiers: Esophagitis presence: esophagitis presence not specified Qualified Code(s): K21.9 - Gastro-esophageal reflux disease without esophagitis (3) High fecal calprotectin: Code(s): R19.5 - Other fecal abnormalities (4) Abdominal pain: Code(s): R10.9 - Unspecified abdominal pain Qualifiers: Abdominal location: left lower quadrant Qualified Code(s): R10.32 - Left lower quadrant pain (5) Constipation: Code(s): K59.00 - Constipation, unspecified Qualifiers: Constipation type: slow transit constipation Qualified Code(s): K59.01 - Slow transit constipation (6) Postprandial epigastric pain: Code(s): R10.13 - Epigastric pain Plan Enterography results discussed with patient. Patient will continue high-fiber diet. Increase fluid intake and activity to promote better bowel motility. Patient will start taking Dulcolax and Colace. I would like to send patient for colonoscopy to do biopsy from her colon to rule out colitis. Patient wants to wait little bit as she just had hemorrhoid surgery. Patient will follow-up in 3 months, sooner on as needed basis. She is agreeable to this plan and verbalizes understanding of instructions. She was given the opportunity to ask questions and all questions answered. Thank you for allowing me to participate in her care Medications: New docusate sodium 100 mg PO BEDTIME 90 caps 3RF K59.00 - Constipation, unspecified bisacodyl (Dulcolax (bisacodyl)) 10 mg (2 x 5 mg) PO BEDTIME 180 tabs 4RF Coding Level of Care Code Est Pt Level 4 (17919) Diagnoses Colitis K52.9 Gastroesophageal reflux disease, unspecified whether esophagitis present K21.9 Esophagitis presence: esophagitis presence not specified High fecal calprotectin R19.5 Left lower quadrant abdominal pain R10.32 Abdominal location: left lower quadrant Slow transit constipation K59.01 Constipation type: slow transit constipation Postprandial epigastric pain R10.13 Time Spent (min) 35 Comment 20 minutes spent with patient and additional 15 minutes spent reviewing her records
== END 2023-11-05 15:19 | disposition home or self-care (01) ==
PROVIDERS: PCP Nurse Practitioner Family; Visit Provider Nurse Practitioner Family
DX: K52.9 Noninfective gastroenteritis and colitis, unspecified (principal); K21.9 Gastro-esophageal reflux disease without esophagitis; R19.5 Other fecal abnormalities; R10.32 Left lower quadrant pain; K59.01 Slow transit constipation; R10.13 Epigastric pain
CPT/HCPCS: 99214

== ENCOUNTER → 2023-11-05 14:30 | Outpatient (BNVA) | payer OTHER, SELFPAY | PROVIDERS: PCP Nurse Practitioner Family; Visit Provider Nurse Practitioner Family | DX: K21.9 Gastro-esophageal reflux disease without esophagitis (principal); K52.9 Noninfective gastroenteritis and colitis, unspecified; K59.01 Slow transit constipation; R19.5 Other fecal abnormalities; R10.32 Left lower quadrant pain; R10.13 Epigastric pain | CPT/HCPCS: 99212 ==

== ENCOUNTER 2023-11-13 11:07 | Outpatient (AMB) | payer OTHER, SELFPAY ==
--- NOTE | 2023-11-13 11:11 | MHC.OFFVIS ---
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 Hx of back surgery. She mentions that her pain starts form her lower back ands moves down to her hip, thigh, groin and stops at the knee and calf. Patient reports she has tried using her back brace and walker but it doesn't help. Allergies Fish Containing Products Allergy (Severe, Verified 11/13/23 11:15) Anaphylaxis sulfur dioxide Allergy (Severe, Verified 11/13/23 11:15) Anaphylaxis adhesive tape Allergy (Intermediate, Verified 11/13/23 11:15) Rash metformin Adverse Reaction (Mild, Verified 11/13/23 11:15) Nausea Sulfa (Sulfonamide Antibiotics) Adverse Reaction (Unknown, Verified 11/13/23 11:15) unknown Medication List - Last Reconciled 11/13/23 by Elana Thompson MD acetaminophen ER (Tylenol Arthritis Pain) 650 mg PO Q8H PRN 30 days acetaminophen-caffeine 500-65 mg (Excedrin Tension Headache) 2 tabs PO Q8H PRN 30 days alprazolam 0.25 mg PO DAILY PRN amlodipine 5 mg PO DAILY 90 days atorvastatin 20 mg PO DAILY 30 days bisacodyl (Dulcolax (bisacodyl)) 10 mg (2 x 5 mg) PO BEDTIME dicyclomine 10 mg PO BID PRN docusate sodium 100 mg PO BEDTIME duloxetine 60 mg PO DAILY esomeprazole magnesium (Nexium) 40 mg PO DAILY famotidine (Pepcid) 20 mg PO BEDTIME fluticasone propionate 50 mcg/actuation (Flonase Allergy Relief) 1 spray intranasal Q12H PRN 90 days hydrocortisone 2.5% (Proctosol HC) 1 appl NE BID-QID PRN levothyroxine 50 mcg PO DAILY 30 days metformin ER 1,000 mg (2 x 500 mg) PO DAILY 90 days methylcellulose (laxative) (Citrucel) 500 mg PO DAILY [id number] K-lut 8 mg iron-400 mcg-50 mcg (Centrum Silver Women) 1 tab PO DAILY 30 days ondansetron 4 mg PO Q8H PRN prednisone 20 mg PO DAILY 7 days riboflavin (vitamin B2) 400 mg PO DAILY 30 days sitagliptin phosphate (Januvia) 100 mg PO QPM tramadol 25 mg PO BID PRN trazodone 200 mg PO DAILY PRN HPI Comments Details: S/P lumbar decompression and fusion T8-[address] Marin 2015, complicated surgery, coded during the surgery per patient. Also had SCS stimulator 03/2016. Stimulator removed 12/[address] Kenny. Back pain was relieved and was doing well until September this year 2023. Gradually started having left sided pain, going to hip and groin, then eventually down to knee and calf. Sensitive to touch. Feels like burning. Uses a walker. Denies numbness. Feels left leg is weak. Admitted at [facility] for same pain. Treatment done so far: tylenol 650mg gabapentin - finished, none anymore, was only 100mg TID oral prednisone - can't take much due to DM can't take NSAIDs History of breast CA newly diagnosed this month, will get lumpectomy and radiation. [facility] Medical History (Updated 11/13/23 @ 11:34 by Elana Thompson MD) History of breast cancer Fusion of lumbar spine Bilateral carpal tunnel syndrome Diabetes Sleep apnea Colitis Carpal tunnel syndrome Thyroid disease Hypertension High cholesterol Fatty liver Acid reflux Sinusitis Surgical History History of ear surgery H/O bilateral oophorectomy Status post creation of urethral sling by suprapubic approach History of cholecystectomy History of back surgery H/O: hysterectomy Family History Mother Hypertension High cholesterol Diabetes Father Alcoholism Family/Other Diabetes Social History Housing: Condominium Patient Tobacco Use Status: Former Tobacco user e-Cigarette/Vaping Use: Never Used Substance Use Type: Marijuana service: No Current occupational status: retired and disabled Cognitive needs: No Hearing needs: Yes (Patient see's ENT) Vision needs: No Review of Systems Const All systems reviewed & are unremarkable except as noted in HPI and below Physical Exam Vital Signs: BMI result Body Mass Index 33.1 Constitutional: Patient appears to be in no acute distress, well nourished and well developed. Patient was appropriately conversant and oriented. Good historian. MSK: No specific abnormalities found on inspection of the spine and all extremities. Tender left lumbar paraspinals, left SI joint. Lumbar ROM was full. Bilateral hip, knee and ankle ROM WNL. No ligamentous laxity or crepitance. No increased effusion. Straight-leg raising test positive left. FABERE test positive left. Neurological: Give-way weakness left hip flexors. Less than [id number] left knee extension. No footdrop or dorsiflexion weakness. Garcia?s negative bilaterally. Gait is non-antalgic without loss of balance. Results Reviewed Results Reviewed: I independently reviewed the results of the following: Lumbar x-rays showed mild disc space loss L3-4 I reviewed records from the following: Discharge summary from [facility] Medical Assessment & Plan Assessment & Plan (1) Lumbar radiculopathy, acute: Code(s): M54.16 - Radiculopathy, lumbar region Category: Medical (2) Fusion of lumbar spine: Code(s): M43.26 - Fusion of spine, lumbar region Category: Medical (3) History of breast cancer: Code(s): Z85.3 - Personal history of malignant neoplasm of breast Category: Medical Plan New onset left-sided lumbar radiculitis, suspect L3-4 level. Newly diagnosed breast cancer. History of lumbar decompression and fusion thoracic, 2016. Patient had undergone adequate conservative management without improvement of condition, with concerning findings of left leg weakness, on top of history/new diagnosis of breast cancer. It would be reasonable to obtain further imaging such as MRI. An MRI would help rule out any serious condition, guide treatment and assess prognosis for recovery. Specifically ruling out L3-4 or L4-5 disc herniation. In the meantime, we will put patient back on gabapentin 300 mg b.i.d.. If tolerates after 1 week, can increase to 300 mg t.i.d.. Discussed side effects and precautions. Assessment and plan discussed with patient, and patient was agreeable. All questions were answered thoroughly. Elana Thompson MD, SONJA Board Certified, [place] [employer] and [employer] (ABPMR) Board Certified, [place] [employer] Electro[employer]ostic [employer] (ABEM) Orders: Orders MR lumbar spine wo con Today M43.26 - Fusion of spine, lumbar region, M54.16 - Radiculopathy, lumbar region, Z85.3 - Personal history of malignant neoplasm of breast Medications: New gabapentin start with 300mg twice a day for a week, if tolerating go up to 300mg three times a day 300 mg PO TID 90 caps 1RF Coding Level of Care Code New Pt Level 4 (16969) Diagnoses Lumbar radiculopathy, acute M54.16 Fusion of lumbar spine M43.26 History of breast cancer Z85.3
[2023-11-13 11:16] VITALS: BMI 33.1
== END 2023-11-13 11:42 | disposition home or self-care (01) ==
PROVIDERS: PCP Nurse Practitioner Family; Visit Provider Physical Medicine & Rehabilitation
DX: M54.16 Radiculopathy, lumbar region (principal); M43.26 Fusion of spine, lumbar region; Z85.3 Personal history of malignant neoplasm of breast
CPT/HCPCS: 99204

== ENCOUNTER → 2023-11-13 11:07 | Outpatient (BNVA) | payer OTHER, SELFPAY | PROVIDERS: PCP Nurse Practitioner Family; Visit Provider Physical Medicine & Rehabilitation | DX: M54.16 Radiculopathy, lumbar region (principal); M43.26 Fusion of spine, lumbar region; Z85.3 Personal history of malignant neoplasm of breast | CPT/HCPCS: 99202 ==

== ENCOUNTER 2023-11-14 19:34 | Outpatient (REF) | payer OTHER, SELFPAY ==
--- NOTE | ~2023-11-14 | MR_ITS ---
EXAMINATION: MR LUMBAR SPINE WITHOUT CONTRAST CLINICAL INFORMATION: Radiculopathy, lumbar region COMPARISON: None available. TECHNIQUE: MRI of the lumbar spine was obtained using routine sequences without contrast. FINDINGS: There are 5 nonrib-bearing lumbar-type vertebrae. Preservation of the normal lumbar lordosis. No listhesis. The vertebral body heights are preserved. Multilevel disc desiccation with moderate disc height loss at L2-3. Multilevel endplate osteophytosis. The visualized spinal cord is normal in caliber. No abnormal cord signal. The conus medullaris terminates at T12/L1: T12-L1: Shallow disc bulge. No significant spinal canal or neural foraminal narrowing. L1-2: Bilateral facet arthrosis. No significant spinal canal or neural foraminal narrowing. L2-3: Diffuse disc bulge. No significant spinal canal or neural foraminal narrowing. L3-4: There is a T2 hypointense lesion within the left extraforaminal region region demonstrates STIR hyperintensity. There is also abnormal STIR hyperintensity involving the extraforaminal left exiting L3 nerve roots Diffuse disc bulge with superimposed left foraminal disc protrusion. Annular fissure and bilateral facet arthrosis. No significant spinal canal stenosis. Moderate left neural foraminal narrowing with impingement of the left exiting L3 nerve roots. L4-5: Diffuse disc bulge with superimposed left foraminal disc protrusion. Annular fissure and bilateral facet arthrosis. No significant spinal canal stenosis. Moderate left neural foraminal narrowing with impingement of the left exiting L4 nerve roots. L5-S1: Bilateral facet arthrosis. No significant spinal canal or neural foraminal narrowing. The paravertebral soft tissues are unremarkable. MR/MR lumbar spine wo con IMPRESSION: -At L3-L4, there is a T2 hypointense lesion within the left extraforaminal region with associated edema. Findings could represent a peripheral nerve sheath tumor versus an acute extruded disc or sequestered disc. There is also a left foraminal disc protrusion with annular fissure causing moderate left neural foraminal narrowing and impingement of the left exiting L3 nerve roots. Recommend further evaluation with contrast-enhanced MRI. -At L4-L5, there is a left foraminal disc protrusion with annular fissure causing moderate left neural foraminal narrowing with impingement of the left exiting L4 nerve roots. Electronically signed by: Sondra Doll MD 11/15/2023 03:10 PM EDT
== END 2023-11-14 19:35 | disposition home or self-care (01) ==
LOC: HO.MRI 19:34
PROVIDERS: PCP Nurse Practitioner Family; Visit Provider Physical Medicine & Rehabilitation
DX: M54.16 Radiculopathy, lumbar region (principal); M43.26 Fusion of spine, lumbar region; Z85.3 Personal history of malignant neoplasm of breast
CPT/HCPCS: 72148

== ENCOUNTER 2023-11-28 14:57 | Outpatient (REF) | payer OTHER, SELFPAY ==
--- NOTE | ~2023-11-28 | MR_ITS ---
EXAMINATION: MR LUMBAR SPINE WITH CONTRAST CLINICAL INFORMATION: Evaluate for findings at L3-4 COMPARISON: MR lumbar spine on 11/14/2023 TECHNIQUE: MRI of the lumbar spine was obtained using routine sequences with contrast. Intravenous contrast: Gadavist 8 mL. FINDINGS: Please note that only localizer and postcontrast sequences are obtained. Refer to most recent MRI lumbar spine for complete findings. At L3-4, there is left foraminal/extraforaminal disc protrusion with surrounding patchy enhancement. Abnormal enhancement is seen also involving the left extraforaminal L3 nerve roots. MR/MR lumbar spine w con IMPRESSION: Left foraminal/extraforaminal disc protrusion with surrounding patchy enhancement. Findings are favored to represent acute/subacute disc herniation. Abnormal enhancement of the left extraforaminal L3 nerve roots likely reflect reactive changes. Recommend short-term follow-up to assess for improvement versus stability. Electronically signed by: Sondra Doll MD 11/30/2023 01:34 PM EDT
[2023-11-28] MEDS: gadobutroL 10 ML VIAL IVPUSH (15:35)
== END 2023-11-28 14:58 | disposition home or self-care (01) ==
LOC: HO.MRI 14:57
PROVIDERS: PCP Nurse Practitioner Family; Visit Provider Physical Medicine & Rehabilitation
DX: M54.16 Radiculopathy, lumbar region (principal); M43.26 Fusion of spine, lumbar region; Z85.3 Personal history of malignant neoplasm of breast
CPT/HCPCS: 72149; A9585

== ENCOUNTER 2023-12-19 12:50 | Outpatient (AMB) | payer OTHER, SELFPAY ==
[2023-12-19 13:02] VITALS: BP 129/79; PULSE 93; O2SAT 96; BMI 32.7
--- NOTE | 2023-12-19 13:02 | A.OFFVIS_ITS ---
Vital Signs 12/19/23 13:02 Height 5 ft 1 in Weight 173 lb BMI 32.7 BP 129/79 Blood Pressure Location Rt brachial Position Sitting Pulse 93 Pulse Source Pulse Oximeter Pulse Oximetry (%) 96 Oxygen Delivery Method Room Air Intake Visit Reasons: Radiculopathy, lumbar region Allergies Fish Containing Products Allergy (Severe, Verified 12/19/23 13:03) Anaphylaxis sulfur dioxide Allergy (Severe, Verified 12/19/23 13:03) Anaphylaxis adhesive tape Allergy (Intermediate, Verified 12/19/23 13:03) Rash metformin Adverse Reaction (Mild, Verified 12/19/23 13:03) Nausea Sulfa (Sulfonamide Antibiotics) Adverse Reaction (Unknown, Verified 12/19/23 13:03) unknown Medication List - Last Reconciled 12/19/23 by Delfina Mcclellan acetaminophen ER (Tylenol Arthritis Pain) 650 mg PO Q8H PRN 30 days acetaminophen-caffeine 500-65 mg (Excedrin Tension Headache) 2 tabs PO Q8H PRN 30 days alprazolam 0.25 mg PO DAILY PRN amlodipine 5 mg PO DAILY 90 days atorvastatin 20 mg PO DAILY 30 days bisacodyl (Dulcolax (bisacodyl)) 10 mg (2 x 5 mg) PO BEDTIME cyclobenzaprine 10 mg PO BEDTIME PRN dicyclomine 10 mg PO BID PRN docusate sodium 100 mg PO BEDTIME duloxetine 60 mg PO DAILY esomeprazole magnesium (Nexium) 40 mg PO DAILY famotidine (Pepcid) 20 mg PO BEDTIME fluticasone propionate 50 mcg/actuation (Flonase Allergy Relief) 1 spray intranasal Q12H PRN 90 days hydrocortisone 2.5% (Proctosol HC) 1 appl UT BID-QID PRN levothyroxine 50 mcg PO DAILY 30 days metformin ER 1,000 mg (2 x 500 mg) PO DAILY 90 days methylcellulose (laxative) (Citrucel) 500 mg PO DAILY [id number]-FA-vit K-lut 8 mg iron-400 mcg-50 mcg (Centrum Silver Women) 1 tab PO DAILY 30 days ondansetron 4 mg PO Q8H PRN prednisone 20 mg PO DAILY 7 days riboflavin (vitamin B2) 400 mg PO DAILY 30 days sitagliptin phosphate (Januvia) 100 mg PO QPM tramadol 25 mg PO BID PRN trazodone 200 mg PO DAILY PRN HPI Comments Details: Jacy is a very pleasant 58-year-old female who presents to the office today for evaluation and management of her chronic lower back pain. Patient has been suffering with this pain for many years, she states it has been worse over the last 3 months. Denies inciting injury, fall, trauma that would have exacerbated her pain Endorses left lower back pain with radiation down the leg to the midcalf, pain also radiates around to the groin. Recent MRI reviewed, results as per below Denies red flag symptoms including new loss of bowel, bladder or saddle anesthesia. Pain today is rated as a 10/10, constant. She has tried doing stretches at home but it is too painful. She is not able to do physical therapy as it is too painful. Denies history of chiropractor, acupuncture, massage or previous attempts at injections. In terms of muscle damage condition is described as throbbing, shooting, stabbing, stinging, hot, burning, cramping, spreading Pain is negatively impacting patient's enjoyment of life, general activity, sleep, ability to care for herself, ability to function normally Patient is also currently being treated for breast cancer, she underwent left breast surgery 2 weeks ago to have to removed. At follow-up was found that there are still atypical cells. She is pending surgical date for 2nd surgery. She states this lower back pain has made her surgical recovery very difficult. Denies current use of anticoagulants Denies implantable devices, pacemaker defibrillator Denies current use of nicotine, tobacco, alcohol or illicit substances [facility] Medical History (Updated 12/19/23 @ 13:34 by Sumi Godoy APRN, [employer]CR[employer]) History of breast cancer Fusion of lumbar spine Bilateral carpal tunnel syndrome Diabetes Sleep apnea Colitis Carpal tunnel syndrome Thyroid disease Hypertension High cholesterol Fatty liver Acid reflux Sinusitis Surgical History History of ear surgery H/O bilateral oophorectomy Status post creation of urethral sling by suprapubic approach History of cholecystectomy History of back surgery H/O: hysterectomy Family History Mother Hypertension High cholesterol Diabetes Father Alcoholism Family/Other Diabetes Social History Housing: Condominium Patient Tobacco Use Status: Former Tobacco user e-Cigarette/Vaping Use: Never Used Substance Use Type: Marijuana service: No Current occupational status: retired and disabled Cognitive needs: No Hearing needs: Yes (Patient see's ENT) Vision needs: No Review of Systems Const All systems reviewed & are unremarkable except as noted in HPI and below Physical Exam Vital Signs: Last Vital Signs Pulse 93 12/19/23 13:02 BP 129/79 12/19/23 13:02 Pulse Ox 96 12/19/23 13:02 Oxygen Delivery Method Room Air 12/19/23 13:02 BMI result Body Mass Index 32.7 General: awake, alert, oriented. Answers questions appropriately. Fully engaged in examination. Skin: warm, dry, intact HEENT: Normocephalic. Hearing intact. Cardiac: External chest normal in appearance. Respiratory: No cough, audible wheezing or stridor. Abdomen: without gross distension. MS: No obvious swelling or deformities. Able to transition from sit to stand unassisted. Ambulates with bilaterally normal heel strike and toe off Tenderness over lumbar vertebrae and lumbar paraspinal muscles SLR positive on the left Nontender over bilateral PSIS Left lower extremity strength 4/5, right lower extremity strength 5/5 Negative footdrop, negative clonus limited lumbar range of motion secondary to pain Valsalva negative Neurological: Oriented to person, place, time and situation. Thought process intact. Ambulates with use of a walker Psychiatric: Appropriate mood and affect. Good judgment and insight. Results Reviewed Results Reviewed: 11/28/23 MR/MR lumbar spine w con FINDINGS: Please note that only localizer and postcontrast sequences are obtained. Refer to most recent MRI lumbar spine for complete findings. At L3-4, there is left foraminal/extraforaminal disc protrusion with surrounding patchy enhancement. Abnormal enhancement is seen also involving the left extraforaminal L3 nerve roots. IMPRESSION: Left foraminal/extraforaminal disc protrusion with surrounding patchy enhancement. Findings are favored to represent acute/subacute disc herniation. Abnormal enhancement of the left extraforaminal L3 nerve roots likely reflect reactive changes. Recommend short-term follow-up to assess for improvement versus stability. 11/14/23 MR/MR lumbar spine wo con FINDINGS: There are 5 nonrib-bearing lumbar-type vertebrae. Preservation of the normal lumbar lordosis. No listhesis. The vertebral body heights are preserved. Multilevel disc desiccation with moderate disc height loss at L2-3. Multilevel endplate osteophytosis. The visualized spinal cord is normal in caliber. No abnormal cord signal. The conus medullaris terminates at T12/L1: T12-L1: Shallow disc bulge. No significant spinal canal or neural foraminal narrowing. L1-2: Bilateral facet arthrosis. No significant spinal canal or neural foraminal narrowing. L2-3: Diffuse disc bulge. No significant spinal canal or neural foraminal narrowing. L3-4: There is a T2 hypointense lesion within the left extraforaminal region region demonstrates STIR hyperintensity. There is also abnormal STIR hyperintensity involving the extraforaminal left exiting L3 nerve roots Diffuse disc bulge with superimposed left foraminal disc protrusion. Annular fissure and bilateral facet arthrosis. No significant spinal canal stenosis. Moderate left neural foraminal narrowing with impingement of the left exiting L3 nerve roots. L4-5: Diffuse disc bulge with superimposed left foraminal disc protrusion. Annular fissure and bilateral facet arthrosis. No significant spinal canal stenosis. Moderate left neural foraminal narrowing with impingement of the left exiting L4 nerve roots. L5-S1: Bilateral facet arthrosis. No significant spinal canal or neural foraminal narrowing. The paravertebral soft tissues are unremarkable. IMPRESSION: -At L3-L4, there is a T2 hypointense lesion within the left extraforaminal region with associated edema. Findings could represent a peripheral nerve sheath tumor versus an acute extruded disc or sequestered disc. There is also a left foraminal disc protrusion with annular fissure causing moderate left neural foraminal narrowing and impingement of the left exiting L3 nerve roots. Recommend further evaluation with contrast-enhanced MRI. -At L4-L5, there is a left foraminal disc protrusion with annular fissure causing moderate left neural foraminal narrowing with impingement of the left exiting L4 nerve roots. Assessment & Plan Assessment & Plan (1) Post laminectomy syndrome: Code(s): M96.1 - Postlaminectomy syndrome, not elsewhere classified Category: Medical (2) Lumbar radiculopathy: Code(s): M54.16 - Radiculopathy, lumbar region Category: Medical Plan Diclofenac 50 mg p.o. daily, patient advised on cautions for use. Do not take with any other nonsteroidal anti-inflammatory medications. Take with food Methocarbamol 500 mg p.o. 3 times daily as needed. Patient advised on cautions for use Patient has exhausted conservative therapy including NSAIDs, topical medications, lidocaine patches, heat. She is unable to tolerate physical therapy as it is too painful. Discussed options for treatment including diagnostic interventional testing, epidural steroid injections, peripheral nerve stimulation with Sprint, RFA and more permanent neuromodulation. Will schedule for fluoroscopy guided left L3-4 transforaminal epidural steroid injection with local anesthetic. All questions and concerns have been answered and patient agrees with the plan. Follow up after injections and sooner if needed. Medications: New methocarbamol Discontinue use of Cyclobenzaprine No driving while taking this medication. Do no take with alcohol or other [employer] Depressants 500 mg PO TID PRN 90 tabs 1RF muscle spasm diclofenac potassium 50 mg PO DAILY 30 tabs 1RF Discontinued cyclobenzaprine Discontinued Reason: Doctor's Order 10 mg PO BEDTIME PRN 30 tabs 0RF muscle spasm Coding Level of Care Code New Pt Level 4 (92427) Complex EM visit Add On G2211 Diagnoses Post laminectomy syndrome M96.1 Lumbar radiculopathy M54.16
== END 2023-12-19 13:20 | disposition home or self-care (01) ==
LOC: HO.PMC 12:50
PROVIDERS: PCP Nurse Practitioner Family; Visit Provider Registered Nurse Emergency
DX: M96.1 Postlaminectomy syndrome, not elsewhere classified (principal); M54.16 Radiculopathy, lumbar region
CPT/HCPCS: 99204; G2211

== ENCOUNTER → 2023-12-19 12:50 | Outpatient (BNVA) | payer OTHER, SELFPAY | PROVIDERS: PCP Nurse Practitioner Family; Visit Provider Registered Nurse Emergency | DX: M54.16 Radiculopathy, lumbar region (principal); M96.1 Postlaminectomy syndrome, not elsewhere classified | CPT/HCPCS: 99202 ==

== ENCOUNTER 2024-01-13 12:45 | Outpatient (AMB) | payer OTHER, SELFPAY ==
--- NOTE | 2024-01-13 12:55 | MHC.PC.OV ---
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: No Is last menstrual period known: No Post menopausal: No Patient : No Allergies Fish Containing Products Allergy (Severe, Verified 01/13/24 13:17) Anaphylaxis sulfur dioxide Allergy (Severe, Verified 01/13/24 13:17) Anaphylaxis adhesive tape Allergy (Intermediate, Verified 01/13/24 13:17) Rash Sulfa (Sulfonamide Antibiotics) Adverse Reaction (Unknown, Verified 01/13/24 13:17) unknown Medication List - Last Reconciled 01/13/24 by Gunjan Davis CNP acetaminophen ER (Tylenol Arthritis Pain) 650 mg PO Q8H PRN 30 days acetaminophen-caffeine 500-65 mg (Excedrin Tension Headache) 2 tabs PO Q8H PRN 30 days alprazolam 0.25 mg PO DAILY PRN amlodipine 5 mg PO DAILY 90 days atorvastatin 20 mg PO DAILY 30 days diclofenac potassium 50 mg PO DAILY duloxetine 60 mg PO DAILY esomeprazole magnesium (Nexium) 40 mg PO DAILY famotidine (Pepcid) 20 mg PO BEDTIME hydrocortisone 2.5% (Proctosol HC) 1 appl AL BID-QID PRN levothyroxine 50 mcg PO DAILY 30 days metformin ER 1,000 mg (2 x 500 mg) PO DAILY 90 days ondansetron 4 mg PO Q8H PRN riboflavin (vitamin B2) 400 mg PO DAILY 30 days sitagliptin phosphate (Januvia) 100 mg PO QPM trazodone 200 mg PO DAILY PRN Tobacco use date assessed: 01/13/24 Dental Screening Dental Screen Date: 01/13/24 Did you have a dental visit in the last 12 months?: Yes Did you have a dental problem in the last 6 months where you did not have access to dental care?: No Was dental information given to patient?: Patient has dentist HPI HPI Comments History of Present Illness Details The patient is a 58-year-old female presenting with concerns primarily related to her ongoing management of Type 2 Diabetes Mellitus and Essential Hypertension. She reports previous stable control with a recent glycated hemoglobin increase from 5.7% in September to 5.8%. No significant changes in management were required as the goal remains less than 7.0%. For hypertension, her blood pressure readings were consistent with previous records; 118/80 mmHg today, slightly above goal of 130/80 mmHg. 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 She described significant back pain, which has not been alleviated fully with current measures. Previously proposed surgical intervention was declined as she plans to address her upcoming breast surgery first. Consultants have suggested injection therapy as a potential intervention. She reports persistent left knee pain, which she thinks may be related to her back pain. She requests x-ray of the left knee. The patient has a history of breast cancer with a prior lumpectomy on the left breast, and she is scheduled for a second surgery. Regular monitoring has led to early detection and planned interventions. Additionally, she anticipates the need for back surgery post-breast surgery and completion of personal commitments. She expresses ongoing anxiety and depression, attributing to both her physical health challenges and the emotional burden of managing these largely independently. She maintains treatment with both a therapist and psychiatrist, whom she sees regularly. In summary, the patient manages multiple chronic conditions alongside surgical planning and mental health treatment. No acute exacerbation of medical concerns was detailed beyond current management challenges. [facility] Medical History (Updated 01/13/24 @ 13:40 by Gunjan Davis CNP) History of breast cancer Fusion of lumbar spine Bilateral carpal tunnel syndrome Diabetes Sleep apnea Colitis Carpal tunnel syndrome Thyroid disease Hypertension High cholesterol Fatty liver Acid reflux Sinusitis Surgical History History of ear surgery H/O bilateral oophorectomy Status post creation of urethral sling by suprapubic approach History of cholecystectomy History of back surgery H/O: hysterectomy Family History Mother Hypertension High cholesterol Diabetes Father Alcoholism Family/Other Diabetes Social History Housing: Condominium Patient Tobacco Use Status: Former Tobacco user e-Cigarette/Vaping Use: Never Used Substance Use Type: Marijuana service: No Current occupational status: retired and disabled Cognitive needs: No Hearing needs: Yes (Patient see's ENT) Vision needs: No Questionnaire PHQ-9 Over the last 2 weeks, how often have you been bothered by any of the following problems? 1. Little interest or pleasure in doing things: more than half the days 2. Feeling down, depressed, or hopeless: more than half the days 3. Trouble falling or staying asleep, or sleeping too much: more than half the days 4. Feeling tired or having little energy: more than half the days 5. Poor appetite or overeating: not at all 6. Feeling bad about yourself - or that you are a failure or have let yourself or your family down: several days 7. Trouble concentrating on things, such as reading the newspaper or watching television: not at all 8. Moving or speaking so slowly that other people could have noticed. Or the opposite - being so fidgety or restless that you have been moving around a lot more than usual: several days 9. Thoughts that you would be better off or of hurting yourself in some way: several days Total score: 11 Depression Screening Interpretation: Positive Depression Screening Done: Yes 26964 - PHQ-9 Billing: Yes Source: Developed by Drs. Keith Cota, Rhoda Vega, Álvaro Casiano and colleagues, with an educational jose from [employer]. Thrive Questionnaire Date Thrive assessed: 01/13/24 I am a: Patient What is your living situation today?: I have a steady place to live Within the past 12 months, did the food you bought not last and you didn't have the money to get more?: Sometimes True Within the past 12 months, did you worry whether your food would run out before you got money to buy more?: Often true Do you have trouble paying for medicines?: No Do you have trouble getting transportation to medical appointments?: No Do you have trouble paying your heating and electricity bill?: No Do you have trouble taking care of your child, family member or friend?: Yes Do you have trouble with day-to-day activities such as bathing, preparing meals, shopping, managing finances, etc.?: Yes Are you currently unemployed and looking for a job?: No Are you interested in more education?: Yes Please select the resources that you would like help with: Food and Utilities Currently or been in a relationship where the following occur: I choose not to answer THRIVE Score: 2 AUDIT C Alcohol Use Questionnaire (AUDIT-C) 1. How often do you have a drink containing alcohol?: Never 2. How many drinks containing alcohol do you have on a typical day when you are drinking?: 1 or 2 3. How often do you have six or more drinks on one occasion?: Never Total Score: 0 BON-7 AMB Questionnaire BON-7 Date BON - 7 assessed: 01/13/24 Feeling nervous, anxious, or on edge: 3 = Nearly every day Not being able to stop or control worryin = Nearly every day Worrying too much about different things: 3 = Nearly every day Trouble relaxin = Nearly every day Being so restless that it is hard to sit still: 0 = Not at all Becoming easily annoyed or irritable: 1 = Several days Feeling afraid as if something awful might happen: 1 = Several days Total BON-7 score (0-4 normal; 5-9 mild; 10-14 moderate; 15-21 severe): 14 Source: Developed by Drs. Keith Cota, Rhoda Vega, Álvaro Casiano and colleagues, with an educational jose from [employer]. BON-7 Assessment Billing BON-7 Assessment Tool: BON-7 Assessment 91930 Review of Systems Const Details: Const Denies chills, Denies fatigue, Denies fever(s), Denies headache(s) and Denies weakness ENT Denies dizziness and Denies headache(s) Card Denies chest pain, Denies lightheadedness, Denies dyspnea and Denies other (Palpitations) Resp Denies cough, Denies dyspnea, Denies wheezing and Denies other ( shortness of breath) GI Denies abdominal pain, Denies melena, Denies hematochezia, Denies change in bowel habits, Denies dyspepsia and Denies nausea Denies hematuria and Denies dysuria Musc Reports left knee pain and chronic low back pain Skin/Breast Denies rash, Denies unusual bruising and Denies wounds Neuro Denies abnormal gait, Denies dizziness, Denies headache(s), Denies memory loss, Denies numbness, Denies Sensory deficit (Neuro), Denies tingling and Denies weakness Psych Reports anxiety, Reports depression, Denies memory loss Endo Denies cold intolerance, Denies fatigue, Denies heat intolerance, Denies polydipsia and Denies polyuria Aller/Immun Denies wheezing Physical exam (Primary Care) Vital Signs: Last Vital Signs Temp 98.8 F 01/13/24 13:05 Pulse 84 01/13/24 13:05 Resp 16 01/13/24 13:05 BP 132/65 01/13/24 13:05 Pulse Ox 99 01/13/24 13:05 Oxygen Delivery Method Room Air 01/13/24 13:05 BMI result Body Mass Index 33.4 Tobacco/Smoking Status: Tobacco use Status Tobacco use date assessed 01/13/24 01/13/24 13:09 Patient Tobacco Use Status Former Tobacco user 01/13/24 12:57 e-Cigarette/Vaping Use Never Used 01/13/24 12:57 PHQ-9: PHQ-9 Score PHQ-9: Total score 11 01/13/24 12:57 Depression Screening Interpretation: Positive Thrive Assessment: Date of Thrive Assessment Date Thrive assessed 01/13/24 01/13/24 13:09 Currently or been in a relationship where the following occur: I choose not to answer Const Other: General: no acute distress and well developed Nutritional Appearance: well nourished Orientation/consciousness: patient oriented x3 HENMT Head: Yes normocephalic and Yes atraumatic Eyes General: appearance normal, both eyes and all related structures Pupils: Equal, round and reactive pupils present EOM: EOMs intact bilaterally Resp Effort & Inspection: normal respiratory effort Auscultation: clear to auscultation bilaterally Cardio Rate: regular rate Rhythm: regular rhythm Heart sounds: S1 normal heart sound present, S2 normal heart sound present, no gallops, no murmurs and no rubs GI Palpation (GI): No Abdominal aortic bruit present, Soft to palpation, nontender, No hepatosplenomegaly present and No Rebound tenderness present Auscultation: normal bowel sounds General: Yes no CVA tenderness Back/Spine/Pelvis Back: no CVA tenderness Extrem General: Yes normal to inspection, No edema and No calf tenderness Skin General: warm and dry. Normal skin color. Normal skin turgor Neuro General: patient oriented x3, gait normal and no focal neuro deficit Cranial nerves: Yes Equal, round and reactive pupils present Cognition (Neuro): normal cognition Gait exam (Neuro): Normal gait present Sensory Exam: No Sensory deficit (Neuro) Psych Appearance: grossly normal Affect: normal affect Attitude: cooperative Thought process: Normal thought process present Results AMB Hemoglobin A1c AMB Hemoglobin A1c 5.8 % Last Edit by Chichi Gates on 01/13/24 13:27 Coding Level of Care Code Est Pt Level 4 (37017) Complex EM visit Add On G2211 Diagnoses Hypertension I10 Type 2 diabetes mellitus E11.9 Lumbar radiculopathy M54.16 History of breast cancer Z85.3 Anxiety and depression F41.9; F32.A Left knee pain M25.562 Additional Codes BON-7 Assessment Billing - BON-7 Assessment Tool: BON-7 Assessment 00127 ([id number]) PHQ-9 - 14741 - PHQ-9 Billing: Yes ([id number]) Assessment & Plan Assessment & Plan (1) Hypertension: Code(s): I10 - Essential (primary) hypertension Category: Medical Plan: Maintain present treatment regimen. Reinforce dietary salt restriction for better hypertension control. (2) Type 2 diabetes mellitus: Code(s): E11.9 - Type 2 diabetes mellitus without complications Category: Medical Plan: Continue with current management efforts. Encourage dietary improvements and further monitoring of glucose levels. No medication adjustments required at present. (3) Lumbar radiculopathy: Code(s): M54.16 - Radiculopathy, lumbar region Category: Medical Plan: Encouraged to follow up with orthopedic to discuss potential injection therapy post-breast surgery. (4) History of breast cancer: Code(s): Z85.3 - Personal history of malignant neoplasm of breast Category: Medical Plan: Planned surgical intervention as a continuation of current oncological management. (5) Anxiety and depression: Code(s): F41.9 - Anxiety disorder, unspecified; F32.A - Depression, unspecified Category: Medical Plan: No active SI. No HI. Continue regular sessions with a therapist monthly and consult the psychiatrist every three months. Monitor symptoms and manage according to current psychiatric plan. (6) Left knee pain: Code(s): M25.562 - Pain in left knee Category: Medical Plan: Take Tylenol as prescribed. Warm/cool compresses encouraged. X-ray ordered. Plan During the visit, we reviewed the patient's current health status, emphasizing successful diabetes management despite a slight increase in A1c. We affirmed her current hypertension management protocol in the context of her excellent blood pressure readings. For her lumbar disc issues, we discussed the ongoing pain management plan with the possibility of future injections after completing breast surgery. I highlighted the importance of adhering to her dietary advice to manage both her hypertension and diabetes effectively. For her mental health, she is reminded of the importance of ongoing support, ensuring open communication with her therapists and psychiatrists. We concluded with a discussion regarding the upcoming surgical schedule and postoperative considerations. She expressed understanding and agreement with the current plan and its components. Orders: Orders AMB Hemoglobin A1c Today Z13.9 - Encounter for screening, unspecified XR knee LT 2V Today M25.562 - Pain in left knee TSH reflex Free T4 Today E03.9 - Hypothyroidism, unspecified Medications: Refilled levothyroxine 50 mcg PO DAILY 30 days 30 tabs 3RF Patient Instructions: - Continue current medications for diabetes and hypertension. - Adhere to a low-salt diet to support hypertension management. - Maintain scheduled appointments with both her therapist and psychiatrist. - Follow through with the orthopedic assessment post-breast surgery for potential back interventions. - Pursue ongoing scheduled monitoring for breast cancer management. - Schedule follow-up for a knee x-ray to address persistent pain. - Plan for a physical examination in March post-surgical recovery. Patient was informed and verbally consented to the use of an ambient scribe for clinic note documentation during this visit.
[2024-01-13 13:05] VITALS: BP 132/65; PULSE 84; RESP 16; TEMP 37.1; O2SAT 99; BMI 33.4
[2024-01-13 13:22] VITALS: BP 118/80
== END 2024-01-13 13:33 | disposition home or self-care (01) ==
PROVIDERS: PCP Nurse Practitioner Family; Visit Provider Nurse Practitioner Family
DX: I10 Essential (primary) hypertension (principal); E11.9 Type 2 diabetes mellitus without complications; M54.16 Radiculopathy, lumbar region; Z85.3 Personal history of malignant neoplasm of breast; F41.9 Anxiety disorder, unspecified; F32.A Depression, unspecified; M25.562 Pain in left knee; Z13.9 Encounter for screening, unspecified

== ENCOUNTER → 2024-01-13 12:45 | Outpatient (BNVA) | payer OTHER, SELFPAY | PROVIDERS: PCP Nurse Practitioner Family; Visit Provider Nurse Practitioner Family | DX: I10 Essential (primary) hypertension (principal); E11.9 Type 2 diabetes mellitus without complications; M54.16 Radiculopathy, lumbar region; M25.562 Pain in left knee; F41.9 Anxiety disorder, unspecified; F32.A Depression, unspecified; Z85.3 Personal history of malignant neoplasm of breast | CPT/HCPCS: 83036; 96127; 99212 ==

== ENCOUNTER 2024-01-23 06:15 | Outpatient (REF) | payer OTHER, SELFPAY ==
--- NOTE | ~2024-01-23 | FL_ITS ---
EXAMINATION: FLUORO GUIDANCE IN TREATMENT ROOM CLINICAL INFORMATION: Radiculopathy, lumbar region. COMPARISON: None available. TECHNIQUE: Fluoroscopy supervised by: Dr. Jose Guadalupe Bull. Fluoroscopy time: 0.1 minutes. Cumulative Dose: 0.215 mGy. DAP: 0.0197 mGy-m2 (milligray-meter squared). Images: 2. FINDINGS: A single needle is present on the left and a transforaminal location in the lumbar spine. Contrast is in the epidural space around the nerve root. FL/FL guidance in treatment room IMPRESSION: Fluoroscopy during procedure. Please see procedure report for additional information. Electronically signed by: Dmitri Parra MD 03/12/2024 07:39 AM EST
== END 2024-01-23 06:16 | disposition home or self-care (01) ==
LOC: CF 06:15
PROVIDERS: Visit Provider Internal Medicine
DX: M54.16 Radiculopathy, lumbar region (principal)
CPT/HCPCS: 64483; J1100; J2003; Q9967

== ENCOUNTER 2024-01-23 12:41 | Outpatient (AMB) | payer OTHER, SELFPAY ==
[2024-01-23 12:48] VITALS: BP 127/76; PULSE 99; O2SAT 98
--- NOTE | 2024-01-23 12:48 | MHC.OFFVIS ---
Vital Signs 01/23/24 12:48 01/23/24 13:07 BP 127/76 128/72 Blood Pressure Location Rt brachial Rt brachial Position Sitting Sitting Pulse 99 101 H Pulse Source Pulse Oximeter Pulse Oximeter Pulse Oximetry (%) 98 98 Oxygen Delivery Method Room Air Room Air Intake Visit Reasons: Left L3-L4 TFESI Allergies Fish Containing Products Allergy (Severe, Verified 01/13/24 13:17) Anaphylaxis sulfur dioxide Allergy (Severe, Verified 01/13/24 13:17) Anaphylaxis adhesive tape Allergy (Intermediate, Verified 01/13/24 13:17) Rash Sulfa (Sulfonamide Antibiotics) Adverse Reaction (Unknown, Verified 01/13/24 13:17) unknown HPI HPI Left L3-L4 TFESI: Details: Patient presents for scheduled procedure. Denies any recent cough, cold, infection, fever or other significant changes in medical history since last office visit. REPLACED BY [facility] Medical History (Updated 01/13/24 @ 13:40 by Gunjan Davis CNP) History of breast cancer Fusion of lumbar spine Bilateral carpal tunnel syndrome Diabetes Sleep apnea Colitis Carpal tunnel syndrome Thyroid disease Hypertension High cholesterol Fatty liver Acid reflux Sinusitis Surgical History History of ear surgery H/O bilateral oophorectomy Status post creation of urethral sling by suprapubic approach History of cholecystectomy History of back surgery H/O: hysterectomy Family History Mother Hypertension High cholesterol Diabetes Father Alcoholism Family/Other Diabetes Social History Housing: Condominium Patient Tobacco Use Status: Former Tobacco user e-Cigarette/Vaping Use: Never Used Substance Use Type: Marijuana service: No Current occupational status: retired and disabled Cognitive needs: No Hearing needs: Yes (Patient see's ENT) Vision needs: No Physical Exam Vital Signs: Last Vital Signs Pulse 99 01/23/24 12:48 BP 127/76 01/23/24 12:48 Pulse Ox 98 01/23/24 12:48 Oxygen Delivery Method Room Air 01/23/24 12:48 Office Procedures Details: Transforaminal epidural steroid injection, Left L3/4 After obtaining written consent, pre-procedure blood pressure and heart rate were stable and recorded in the nursing record. The patient was placed in the prone position on the fluoroscopy table. The lumbosacral area was prepped with chloraprep, allowed to dry and draped in sterile fashion. Using fluoroscopy, the skin overlying our target was anesthetized with 0.5% lidocaine. A 22 gauge 3.5 inch spinal needle was advanced to the safe triangle in the upper pole of the left L3/4 foramen. No paresthesias were elicited with needle placement and aspiration was negative for blood and CSF. Correct needle position was confirmed with approximately 1 ml contrast dye (Omnipaque 180 mg/ml) injected under real-time fluoroscopy. No evidence of vascular or intrathecal uptake was seen and there was both epidural and peripheral spread of the contrast agent. 10 mg dexamethasone plus 1 ml containing 0.5% lidocaine was slowly injected. The needle was flushed and removed. the same procedure was repeated for the remaining levels. The skin was cleansed and a sterile bandages were applied. The patient tolerated the procedure well and no complications were encountered. Following the procedure the patient's vital signs were stable. The patient was discharged home in good condition with post-procedural instructions. Time Out: Immediately prior to the procedure, the following was verbally confirmed that there is a signed consent form and that the correct patient, planned procedure, site and side are consistent with documentation and that necessary equipment and/or blood products are available prior to the start of the case. Complications: none EBL: <5 cc 93137 - Lumbar/Sacral Procedure code (CPT) selection complete Assessment & Plan Assessment & Plan (1) Lumbar radiculopathy: Code(s): M54.16 - Radiculopathy, lumbar region Category: Medical Plan Patient is status post left L3-4 TFESI. Patient tolerated procedure well and was discharged home in stable condition with discharge instructions. All questions were answered. We will follow-up via telephone or in clinic to assess response to therapy. A follow-up appointment was made during today's visit. Orders: Orders FL guidance in treatment room Today M54.16 - Radiculopathy, lumbar region Coding Level of Care Code Procedure Only Diagnoses Lumbar radiculopathy M54.16 CPT Codes Transforaminal Epidural Steroid Inj - TESI 3: 03138 - Lumbar/Sacral ([id number])
[2024-01-23 13:07] VITALS: BP 128/72; PULSE 101; O2SAT 98
== END 2024-01-23 13:20 | disposition home or self-care (01) ==
LOC: HO.PMCPRC 12:41
PROVIDERS: PCP Nurse Practitioner Family; Visit Provider Internal Medicine
DX: M54.16 Radiculopathy, lumbar region (principal)
CPT/HCPCS: 64483

== ENCOUNTER 2024-03-26 12:21 | Outpatient (AMB) | payer OTHER, SELFPAY ==
--- NOTE | 2024-03-26 12:28 | A.OFFPC_ITS ---
Vital Signs 03/26/24 12:32 Height 5 ft 1 in Weight 173 lb 2 oz BMI 32.7 BP 110/70 Blood Pressure Location Rt brachial Position Sitting Respiration 14 Pulse 103 H Pulse Source Pulse Oximeter Temp 98.0 F Temp Source Oral Pulse Oximetry (%) 98 Oxygen Delivery Method Room Air Intake Visit Reasons: cpe Intake Note: CPE Allergies Fish Containing Products Allergy (Severe, Verified 03/26/24 12:53) Anaphylaxis sulfur dioxide Allergy (Severe, Verified 03/26/24 12:53) Anaphylaxis adhesive tape Allergy (Intermediate, Verified 03/26/24 12:53) Rash Sulfa (Sulfonamide Antibiotics) Adverse Reaction (Unknown, Verified 03/26/24 12:53) unknown Medication List - Last Reconciled 03/26/24 by Gunjan Davis CNP acetaminophen ER (Tylenol Arthritis Pain) 650 mg PO Q8H PRN 30 days acetaminophen-caffeine 500-65 mg (Excedrin Tension Headache) 2 tabs PO Q8H PRN 30 days alprazolam 0.25 mg PO DAILY PRN amlodipine 5 mg PO DAILY 90 days atorvastatin 20 mg PO DAILY 30 days duloxetine 60 mg PO DAILY esomeprazole magnesium (Nexium) 40 mg PO DAILY hydrocortisone 2.5% (Proctosol HC) 1 appl PA BID-QID PRN levothyroxine 50 mcg PO DAILY 30 days metformin ER 1,000 mg (2 x 500 mg) PO DAILY 90 days ondansetron 4 mg PO Q8H PRN Shower Chair As directed sitagliptin phosphate (Januvia) 100 mg PO QPM trazodone 200 mg PO DAILY PRN Tobacco use date assessed: 01/13/24 Dental Screening Dental Screen Date: 01/13/24 Did you have a dental visit in the last 12 months?: Yes Did you have a dental problem in the last 6 months where you did not have access to dental care?: No HPI HPI Comments History of Present Illness Details 58-year-old female presents for an exten ded physical exam Acute issue(s) - She reports intermittent, excessive ge neralized sweating throughout the day and night for the past several months. Denies fever, chills, or malaise. 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 Started radiation therapy on 03/16/2024 and will complete on 04/13/2024 at [facility] Past Medical History - HTN - HLD - DM - Anxiety - Depression - Chronic left knee pain and weakness - Herniated disc with T8-T11 fusion in 2 016 Social History - Former smoker. Does not vape. Drinks 2 -3 beers twice monthly. Denies recreational drug use - Has been making healthy dietary choice s. She is active but does not exercise routinely. Sleep disturbance due to night sweats Health maintenance - [facility] 2 [facility]. The referral made to [facility] for diabetic retinal exam - Last dental visit was 6 months ago - Last tetanus vaccine was in 06/2021 - She is up-to-date on the shingles vacc ine - She notes that is up-to-date on the fl u vaccine - She no longer performs Pap smear test. She has history of hysterectomy and left oophorectomy - Last mammogram was in 09/2023: DCIS gra de 3 cancer of left breast. Will obtain record from [facility] - She notes that her last colonoscopy wa s 5 years ago and due for a colonoscopy. Referred to [facility] for [facility] for chronic left knee pain [facility] Medical History (Updated 03/26/24 @ 16:06 by Gunjan Davis CNP) History of breast cancer Fusion of lumbar spine Bilateral carpal tunnel syndrome Diabetes Sleep apnea Colitis Carpal tunnel syndrome Thyroid disease Hypertension High cholesterol Fatty liver Acid reflux Sinusitis Surgical History History of ear surgery H/O bilateral oophorectomy Status post creation of urethral sling by suprapubic approach History of cholecystectomy History of back surgery H/O: hysterectomy Family History Mother Hypertension High cholesterol Diabetes Father Alcoholism Family/Other Diabetes Social History Housing: Condominium Patient Tobacco Use Status: Former Tobacco user e-Cigarette/Vaping Use: Never Used Substance Use Type: Marijuana service: No Current occupational status: retired and disabled Cognitive needs: No Hearing needs: Yes (Patient see's ENT) Vision needs: No Questionnaire PHQ-9 Over the last 2 weeks, how often have you been bothered by any of the following problems? 1. Little interest or pleasure in doing things: more than half the days 2. Feeling down, depressed, or hopeless: several days 3. Trouble falling or staying asleep, or sleeping too much: nearly every day 4. Feeling tired or having little energy: several days 5. Poor appetite or overeating: nearly every day 6. Feeling bad about yourself - or that you are a failure or have let yourself or your family down: not at all 7. Trouble concentrating on things, such as reading the newspaper or watching television: not at all 8. Moving or speaking so slowly that other people could have noticed. Or the opposite - being so fidgety or restless that you have been moving around a lot more than usual: nearly every day 9. Thoughts that you would be better off or of hurting yourself in some way: not at all Total score: 13 Depression Screening Interpretation: Positive Depression Screening Follow-up: Existing condition and In treatment Depression Screening Done: Yes 31431 - PHQ-9 Billing: Yes Source: Developed by Drs. Keith Cota, Rhoda Vega, Álvaro Casiano and colleagues, with an educational jose from [employer]. Thrive Questionnaire Date Thrive assessed: 03/26/24 I am a: Patient What is your living situation today?: I have a steady place to live Within the past 12 months, did the food you bought not last and you didn't have the money to get more?: Often true Within the past 12 months, did you worry whether your food would run out before you got money to buy more?: Often true Do you have trouble paying for medicines?: No Do you have trouble getting transportation to medical appointments?: No Do you have trouble paying your heating and electricity bill?: No Do you have trouble taking care of your child, family member or friend?: I choose not to answer this question Do you have trouble with day-to-day activities such as bathing, preparing meals, shopping, managing finances, etc.?: No Are you currently unemployed and looking for a job?: No Are you interested in more education?: Yes Please select the resources that you would like help with: None Currently or been in a relationship where the following occur: I choose not to answer THRIVE Score: 2 AUDIT C Alcohol Use Questionnaire (AUDIT-C) 1. How often do you have a drink containing alcohol?: Never 3. How often do you have six or more drinks on one occasion?: Never Total Score: 0 Score Reviewed/Action Taken: Yes BON-7 AMB Questionnaire BON-7 Date BON - 7 assessed: 03/26/24 Feeling nervous, anxious, or on edge: 1 = Several days Not being able to stop or control worryin = Several days Worrying too much about different things: 1 = Several days Trouble relaxin = Not at all Being so restless that it is hard to sit still: 3 = Nearly every day Becoming easily annoyed or irritable: 1 = Several days Feeling afraid as if something awful might happen: 0 = Not at all Total BON-7 score (0-4 normal; 5-9 mild; 10-14 moderate; 15-21 severe): 7 Source: Developed by Drs. Keith Cota, Rhoda Vega, Álvaro Casiano and colleagues, with an educational jose from [employer]. BON-7 Assessment Billing BON-7 Assessment Tool: BON-7 Assessment 48472 Review of Systems Const Details: Denies chills, Denies fatigue, Denies fever(s), Denies headache(s) and Denies weakness HEENT Denies change in vision, Denies dizziness, Denies headache(s), Denies hearing loss, Denies nasal congestion, Denies sinus pain, Denies sinus pressure and Denies sore throat Card Denies chest pain, Denies lightheadedness, Denies dyspnea and Denies other (palpitations) Resp Denies cough, Denies dyspnea and Denies wheezing GI Denies abdominal pain, Denies melena, Denies hematochezia, Denies change in bowel habits, Denies dyspepsia and Denies nausea Denies hematuria and Denies dysuria Musc Reports as per HPI Skin/Breast Denies rash, Denies unusual bruising and Denies wounds Neuro Denies abnormal gait, Denies dizziness, Denies headache(s), Denies memory loss, Denies numbness, Denies Sensory deficit (Neuro), Denies tingling and Denies weakness Psych Denies anxiety, Denies depression and Denies memory loss Endo Denies cold intolerance, Denies fatigue, Reports heat intolerance, Denies polydipsia and Denies polyuria Mark/Lymph Denies easy bleeding and Denies easy bruising Aller/Immun Denies wheezing Physical exam (Primary Care) Vital Signs: Last Vital Signs Temp 98.0 F 03/26/24 12:32 Pulse 103 H 03/26/24 12:32 Resp 14 03/26/24 12:32 BP 110/70 03/26/24 12:32 Pulse Ox 98 03/26/24 12:32 Oxygen Delivery Method Room Air 03/26/24 12:32 BMI result Body Mass Index 32.7 Tobacco/Smoking Status: Tobacco use Status Tobacco use date assessed 01/13/24 03/26/24 12:35 Patient Tobacco Use Status Former Tobacco user 03/26/24 12:35 e-Cigarette/Vaping Use Never Used 03/26/24 12:35 PHQ-9: PHQ-9 Score PHQ-9: Total score 13 03/26/24 16:11 Depression Screening Interpretation: Positive Depression Screening Follow-up: Existing condition and In treatment Thrive Assessment: Date of Thrive Assessment Date Thrive assessed 03/26/24 03/26/24 13:28 Currently or been in a relationship where the following occur: I choose not to answer Const Other: General: no acute distress, well developed, alert and awake Nutritional Appearance: well nourished Orientation/consciousness: patient oriented x3 HENMT Head: Yes normocephalic and Yes atraumatic Ears: hearing grossly normal bilaterally and TM's normal bilaterally General nose exam: Normal external nose present and Normal nares present Mouth: Normal oral and palatal mucosa present and moist mucous membranes Teeth and gingiva: dentition normal Throat: Yes oropharynx normal Eyes Pupils: Equal, round and reactive pupils present and Pupil accommodation reflex normal EOM: EOMs intact bilaterally Neck Neck: Yes normal visual inspection, Yes no lymphadenopathy and Yes trachea midline Thyroid: Thyroid normal Carotids: no bruits Lymphatic: no lymphadenopathy noted Chest Chest palpation & inspection: normal inspection of the chest Resp Effort & Inspection: normal respiratory effort Auscultation: clear to auscultation bilaterally Cardio Rate: regular rate Rhythm: regular rhythm Heart sounds: S1 normal heart sound present, S2 normal heart sound present, no gallops, no murmurs and no rubs Bruits: no abdominal aortic bruits and no carotid bruits GI Palpation (GI): No Abdominal aortic bruit present, Soft to palpation, nontender, No hepatosplenomegaly present and No Rebound tenderness present Auscultation: normal bowel sounds General: Yes no CVA tenderness Back/Spine/Pelvis Back: no CVA tenderness Cervical Spine: cervical ROM normal and No Cervical spine tenderness Thoracic/Lumbar Spine: thoraco-lumbar ROM normal, No pain with thoraco-lumbar ROM, No thoracic spinal tenderness and No lumbar spinal tenderness Skin General: warm and dry. Normal skin color. Normal skin turgor Lesions: no lesions Rashes: no rashes Trauma: no lacerations or abrasions Wounds: no wounds Nails: normal Neuro General: patient oriented x3, gait normal and CN's II-XI intact bilaterally Cranial nerves: Yes Equal, round and reactive pupils present Cognition (Neuro): normal cognition Gait exam (Neuro): Normal gait present Motor exam (neuro): 5/5 motor strength present to BLE and RLE, RLE stronger than LLE Sensory Exam: No Sensory deficit (Neuro) Deep tendon reflexes (DTR's): Right patellar reflex intensity grade: 2+ and Left patellar reflex intensity grade: 2+ Extrem General: Yes normal to inspection, No edema and No calf tenderness Psych Appearance: grossly normal Affect: normal affect Attitude: cooperative Thought process: Normal thought process present Coding Level of Care Code Est Pt Level 4 (42659) Est Pt Prev Care 40-64y(36072) Diagnoses Normal physical examination, routine Z00.00 Chronic pain of left knee M25.562; G89.29 Hypertension I10 Excessive sweating R61 Sleep disturbance G47.9 Obesity (BMI 30-39.9) E66.9 Anxiety and depression F41.9; F32.A Type 2 diabetes mellitus E11.9 Colon cancer screening Z12.11 Additional Codes BON-7 Assessment Billing - BON-7 Assessment Tool: BON-7 Assessment 57311 ([id number]) PHQ-9 - 29767 - PHQ-9 Billing: Yes ([id number]) Assessment & Plan Assessment & Plan (1) Normal physical examination, routine: Code(s): Z00.00 - Encounter for general adult medical examination without abnormal findings Category: Medical Plan: Normal physical exam for chronic left knee pain and weakness. Right lower extremity stronger than left. No overt injury or trauma. Continue current treatment regimen. Use cane for ambulation at all times. Follow-up with [facility] as planned. Return in a month for diabetes, hypertension, and excessive sweating or sooner with worsening or new symptoms. Verbalized understanding and agreed with treatment plan. (2) Chronic pain of left knee: Code(s): M25.562 - Pain in left knee; G89.29 - Other chronic pain Category: Medical Plan: Plan as above. (3) Hypertension: Code(s): I10 - Essential (primary) hypertension Category: Medical Plan: Blood pressure is 110/70, within goal of less than 130/80. Continue current treatment regimen. Low-sodium diet encouraged. Follow-up in 1 month. Verbalized understanding and agreed with the plan. (4) Excessive sweating: Code(s): R61 - Generalized hyperhidrosis Category: Medical Plan: She has been experiencing intermittent, excessive sweating throughout the day and night for the past several months. Her sleep is interrupted due to sweating. Low TSH or hyperthyroidism or infection can be contributory factors. Vasomotor symptoms due to menopause is also likely. Will check CBC, CMP, uric acid, T spot, TSH/T4 levels. He has history of hypothyroidism on levothyroxine 50 mics daily which she takes as prescribed. Her last TSH blood work was in 07/23/2023, normal. Will review results and make changes as needed. Instructed on sleep hygiene. Follow-up with worsening or new symptoms. Verbalized understanding and agreed with treatment plan. (5) Sleep disturbance: Code(s): G47.9 - Sleep disorder, unspecified Category: Medical Plan: Plan as above. (6) Obesity (BMI 30-39.9): Code(s): E66.9 - Obesity, unspecified Category: Medical Plan: She currently weighs 173 lb, BMI is 32.7. She is active but does not exercise routinely. Routine exercise encouraged. Will referred to dietitian or weight management as needed. Verbalized understanding and agreed with the plan. (7) Anxiety and depression: Code(s): F41.9 - Anxiety disorder, unspecified; F32.A - Depression, unspecified Category: Medical Plan: Controlled symptoms. Continue current treatment regimen. Follow-up with worsening or new symptoms. Verbalized understanding and agreed with the plan. (8) Type 2 diabetes mellitus: Code(s): E11.9 - Type 2 diabetes mellitus without complications Category: Medical Plan: Continue current treatment regimen. He has not had an eye exam for the past 2 years. He is followed by [facility]; referral made to them for diabetic eye exam. Advised to get fasting lipid panel blood work done before next visit. Follow-up as planned. Verbalized understanding and agreed with the plan. (9) Colon cancer screening: Code(s): Z12.11 - Encounter for screening for malignant neoplasm of colon Category: Medical Plan: Last colonoscopy was 5 years ago and due for a colonoscopy. Referred to [facility] for a [place]. Orders: Orders Lipid Panel Today E78.00 - Pure hypercholesterolemia, unspecified T Spot TB Today R61 - Generalized hyperhidrosis Complete Blood Count Auto Diff Today R61 - Generalized hyperhidrosis Comprehensive Met. Panel Today R61 - Generalized hyperhidrosis Uric Acid Today R61 - Generalized hyperhidrosis Referrals Ophthalmology Referral E11.9 - Type 2 diabetes mellitus without complications Gastroenterology Referral Z12.11 - Encounter for screening for malignant neoplasm of colon
[2024-03-26 12:32] VITALS: BP 110/70; PULSE 103; RESP 14; TEMP 36.7; O2SAT 98; BMI 32.7
--- OUTSIDE RECORDS SUMMARY | 2024-03-26 12:35 | XMS_ITS | Encounter Summary ---
Author Organization [employer] Address [address] [place] [address] Care Team Providers Care Visual Effects Artist Name Role Phone Unavailable Primary Care Provider Unavailabl e Encounter Details Date Type Department Care Team (Latest Contact Info) Description 07/31/2018 Abstract [facility] CONVERSIONS Dental, Provider, DDS Social History Tobacco Use Types Packs/Day Years Used Date Smoking Tobacco: Never Assessed Comments Unknown Sex and Gender Information Value Date Recorded Sex Assigned at Female 12/11/2021 10:29 AM EDT Legal Sex Female 10:29 AM EDT Gender Identity Female 12/11/2021 10:29 AM EDT Sexual Orientation Straight 12/11/2021 10 :29 AM EDT documented as of this encounter Plan of Treatment Not on file documented as of this encounter Visit Diagnoses Not on filedocumented in this encounter
--- OUTSIDE RECORDS SUMMARY | 2024-03-26 12:35 | XMS_ITS | Clinical Summary ---
Author Organization [employer] Address [address] [place] [address] Care Team Providers Care Order Desk Clerk Name Role Phone Unavailable Primary Care Provider Unavailabl e Social History Tobacco Use Types Packs/Day Years Used Date Smoking Tobacco: Never Assessed Comments Unknown Sex and Gender Information Value Date Recorded Sex Assigned at Female 12/11/2021 10:29 AM EDT Legal Sex Female 10:29 AM EDT Gender Identity Female 12/11/2021 10:29 AM EDT Sexual Orientation Straight 12/11/2021 10 :29 AM EDT Plan of Treatment Health Maintenance Due Date Last Done Comments CT Colonography 1963 Colonoscopy 1963 Colorectal Cancer Screening 1963 Depression Screening 1963 FIT DNA/Cologuard 1963 FIT 1963 FOBT 1963 Sigmoidoscopy 1963 Alcohol/Substance Use Screening 1975 Tobacco Screening 1975 DTaP/Tdap/Td Vaccines (1 - Tdap) 07/08/1982 Pap Smear 07/08/1984 Cervical Cancer Screening 07/08/1993 HPV/Cotest 07/08/1993 Mammogram 2003 Pneumococcal Vaccine: 50+ Ye ars (1 of 1 - PCV) 07/08/2013 Zoster Vaccines (1 of 2) 07/08/2013 COVID-19 Vaccine ( - 2023-2 5 season) 2023 Influenza Vaccine (#1) 2023 RSV Patients and Pa tients Aged 60 years or older (1 - 1-dose 75+ series) 07/08/2038 HIB Vaccines Aged Out No longer eligi ble based on patient's age to complete this topic HPV Vaccines Aged Out No longer eligi ble based on patient's age to complete this topic Hepatitis A Vaccines Aged Out No long er eligible based on patient's age to complete this topic Hepatitis B Vaccines Aged Out No long er eligible based on patient's age to complete this topic IPV Vaccines Aged Out No longer eligi ble based on patient's age to complete this topic Meningococcal Vaccine Aged Out No parisa crystal eligible based on patient's age to complete this topic Pneumococcal Vaccine: Pediat rics (0 to 5 Years) and At-Risk Patients (6 to 49) Years) Aged Out No longer eligible b ased on patient's age to complete this topic RSV under 20 months Aged Out No longe r eligible based on patient's age to complete this topic Rotavirus Vaccines Aged Out No longer eligible based on patient's age to complete this topic
== END 2024-03-26 13:34 | disposition home or self-care (01) ==
PROVIDERS: PCP Nurse Practitioner Family; Visit Provider Nurse Practitioner Family
DX: Z00.00 Encounter for general adult medical examination without abnormal findings (principal); M25.562 Pain in left knee; E11.9 Type 2 diabetes mellitus without complications; G89.29 Other chronic pain; I10 Essential (primary) hypertension; R61 Generalized hyperhidrosis; G47.9 Sleep disorder, unspecified; E66.9 Obesity, unspecified; F41.9 Anxiety disorder, unspecified; F32.A Depression, unspecified; Z12.11 Encounter for screening for malignant neoplasm of colon

== ENCOUNTER 2024-03-26 13:37 | Outpatient (REF) | payer OTHER, SELFPAY ==
--- OUTSIDE RECORDS SUMMARY | 2024-03-26 13:47 | XMS_ITS | Clinical Summary ---
Author Organization [employer] Address [address] [place] [address] Care Team Providers Care Air Defence Officer Name Role Phone Unavailable Primary Care Provider [...]
--- OUTSIDE RECORDS SUMMARY | 2024-03-26 13:47 | XMS_ITS | Encounter Summary ---
Author Organization [employer] Address [address] [place] [address] Care Team Providers Care Polymer Specialist Name Role Phone Unavailable Primary Care Provider Unavailabl e Encounter Details Date Type Department Care Team (Latest Contact Info) Description 07/31/2018 Abstract [facility] CONVERSIONS Dental, Provider, DDS Social History [...]
[2024-03-26 17:32] LABS: MANUAL DIFF FLAG NO
[2024-03-26 17:43] LABS: Basophils Absolute Auto 0.1 X10*3/uL (0.0-0.2); Basophils Percent Auto 0.7 % (0-2); Eosinophils Absolute Auto 0.1 X10*3/uL (0.0-0.4); Hematocrit 43.1 % (37.0-47.0); Hemoglobin 13.9 g/dl (12.0-16.0); Imm Gran Abs Auto 0.03 X10*3/uL (0.00-0.03); Imm Gran Pct Auto 0.3 % (0.0-0.4); Lymphocytes Absolute Auto 1.8 X10*3/uL (1.2-4.9); Lymphocytes Percent Auto 19.8 % (20-40); Mean Corpuscular HGB Conc 32.3 g/dl (31.0-35.0); Mean Corpuscular Volume 86.7 fL (80.0-98.0); Mean Platelet Volume 10.2 fL (9.4-12.3); Monocytes Absolute Auto 0.7 X10*3/uL (0.1-1.2); Monocytes Percent Auto 7.6 % (2-11); Neutrophils Absolute Auto 6.3 x10*3/uL (2.0-8.3); Neutrophils Percent Auto 70.6 % (45-73); Platelet Count 313 X10*3/uL (160-400); Red Blood Count 4.97 X10*6/uL (4.20-5.50); Red Cell Distribution Width 14.6 % (11.0-16.0)
[2024-03-26 18:06] LABS: Alanine Aminotransferase 41 U/L (0-31); Albumin Level 4.6 g/dL (3.5-5.0); Alkaline Phosphatase 76 U/L (39-117); Anion Gap 13 (12-20); Aspartate Amino Transferase 29 U/L (5-31); Bilirubin Total 0.4 mg/dL (0.0-1.0); Blood Urea Nitrogen 14 mg/dL (9-16); Calcium 9.9 mg/dL (8.4-10.2); Carbon Dioxide 29 mmol/L (22-29); Chloride 104 mmol/L (96-108); Estimated Glomerular Filt Rate > 60; Glucose Random 120 mg/dL (60-115); Potassium 3.8 mmol/L (3.3-5.1); Sodium 142 mmol/L (135-145); Total Protein 8.3 g/dL (6.5-8.0); Uric Acid 4.4 mg/dL (2.4-5.7)
[2024-03-26 18:21] LABS: TSH reflex Free T4 0.62 uIU/mL (0.32-4.0)
[2024-03-29 17:59] LABS: TS Negative Control Passed; TS Panel A 0; TS Panel B 0; TS Positive Control Passed; TSpotTB Negative (Negative)
== END 2024-03-26 13:38 | disposition home or self-care (01) ==
LOC: HO.WFDLDS 13:37
PROVIDERS: Visit Provider Nurse Practitioner Family
DX: R61 Generalized hyperhidrosis (principal); E03.9 Hypothyroidism, unspecified; I10 Essential (primary) hypertension; E11.9 Type 2 diabetes mellitus without complications; E78.00 Pure hypercholesterolemia, unspecified; G47.9 Sleep disorder, unspecified; N95.1 Menopausal and female climacteric states
CPT/HCPCS: 36415; 80053; 84443; 84550; 85025; 86481; 96127; 99212; 99396

== ENCOUNTER 2024-03-31 11:04 | Outpatient (AMB) | payer OTHER, SELFPAY ==
--- NOTE | 2024-03-31 11:12 | A.OFFVIS_ITS ---
Vital Signs 03/31/24 11:13 Height 5 ft 1 in Weight 171 lb 15.369 oz BMI 32.5 BP 119/68 Blood Pressure Location Lt brachial Position Sitting Pulse 88 Intake Visit Reasons: ~3-5 mos FUV. Discuss colo Intake Note: Jacy presents in the office as a follow up to discuss colonoscopy. CC: She states that she had a week in Feb she was having diarrhea 4 times a day. She states she goes normally twice a day but sometimes she has bouts that comes with pains. RUQ. She states that she eats better and does not need the medication to normalize her stools. Donor Services Team Leader Required: No Allergies Fish Containing Products Allergy (Severe, Verified 03/31/24 11:30) Anaphylaxis sulfur dioxide Allergy (Severe, Verified 03/31/24 11:30) Anaphylaxis adhesive tape Allergy (Intermediate, Verified 03/31/24 11:30) Rash Sulfa (Sulfonamide Antibiotics) Adverse Reaction (Unknown, Verified 03/31/24 11:30) unknown HPI HPI ~3-5 mos FUV. Discuss colo: Details: LAST VISIT Colitis Acid reflux High fecal calprotectin Abdominal pain Constipation Postprandial epigastric pain Plan Enterography results discussed with patient. Patient will continue high-fiber diet. Increase fluid intake and activity to promote better bowel motility. Patient will start taking Dulcolax and Colace. I would like to send patient for colonoscopy to do biopsy from her colon to rule out colitis. Patient wants to wait little bit as she just had hemorrhoid surgery. Patient will follow-up in 3 months, sooner on as needed basis. She is agreeable to this plan and verbalizes understanding of instructions. She was given the opportunity to ask questions and all questions answered. ? Thank you for allowing me to participate in her care Medications New docusate sodium 100 mg PO BEDTIME 90 caps 3RF K59.00 bisacodyl (Dulcolax (bisacodyl)) 10 mg (2 x 5 mg) PO BEDTIME 180 tabs 4RF TODAY'S VISIT Patient is here today for follow-up and to discuss going for colonoscopy and upper endoscopy. Patient reports that he has been feeling better now that she change some of her diet it continues to have occasional postprandial loose stools the patient what she eats. Her acid reflux is suppressed for the most part with Nexium. Patient denies any nausea or vomiting. Reports occasional postprandial abdominal bloating depending on what she eats. Patient denies melena, hematochezia, unintentional weight loss or ribbon like stools. Patient reports occasional dyspepsia without dysphagia or odynophagia. Patient will be sent for upper endoscopy and colonoscopy. Denies any issues with anesthesia in the past. History of sleep apnea. Not on any anticoagulation medication. [facility] Medical History (Updated 03/26/24 @ 16:06 by Gunjan Davis MACHINE DESIGN ENGINEER) History of breast cancer Fusion of lumbar spine Bilateral carpal tunnel syndrome Diabetes Sleep apnea Colitis Carpal tunnel syndrome Thyroid disease Hypertension High cholesterol Fatty liver Acid reflux Sinusitis Surgical History History of ear surgery H/O bilateral oophorectomy Status post creation of urethral sling by suprapubic approach History of cholecystectomy History of back surgery H/O: hysterectomy Family History Mother Hypertension High cholesterol Diabetes Father Alcoholism Family/Other Diabetes Social [facility] Patient Tobacco Use Status: Former Tobacco user e-Cigarette/Vaping Use: Never Used Substance Use Type: Marijuana service: No Current occupational status: retired and disabled Cognitive needs: No Hearing needs: Yes (Patient see's ENT) Vision needs: No Review of Systems Const Denies weight gain and Denies weight loss ENT Reports no additional complaints, Denies dysphagia and Denies odynophagia Card Reports no additional complaints Resp Reports no additional complaints GI Denies abdominal pain, Denies belching, Denies melena, Denies bloating, Denies change in bowel habits, Reports constipation, Denies dysphagia, Denies excessive flatus, Denies dyspepsia, Denies heartburn, Denies diarrhea, Denies loose stools, Denies nausea, Denies odynophagia and Denies vomiting Reports no additional complaints Musc Reports no additional complaints Neuro Reports no additional complaints Psych Reports no additional complaints Endo Reports no additional complaints Physical Exam Vital Signs: Last Vital Signs Pulse 88 03/31/24 11:13 BP 119/68 03/31/24 11:13 BMI result Body Mass Index 32.5 Const General: healthy appearing and no acute distress Nutritional Appearance: obese Orientation/consciousness: patient oriented x3 Resp Effort & Inspection: normal respiratory effort, able to speak in complete sentences, no tracheal deviation and symmetric chest movement Auscultation: clear to auscultation bilaterally Cardio Rate: regular rate GI Inspection: Yes normal to inspection, No distended and Yes obesity Palpation (GI): Soft to palpation, not firm, nontender and No hepatosplenomegaly present Auscultation: normal bowel sounds General: Yes no CVA tenderness Back/Spine/Pelvis Back: no CVA tenderness Skin General skin exam: elasticity normal, turgor normal and dry skin Neuro General: patient oriented x3 Psych Appearance: grossly normal Mental Status: mental status grossly normal Assessment & Plan Assessment & Plan (1) Colitis: Code(s): K52.9 - Noninfective gastroenteritis and colitis, unspecified Category: Medical (2) Acid reflux: Code(s): K21.9 - Gastro-esophageal reflux disease without esophagitis Category: Medical Qualifiers: Esophagitis presence: esophagitis presence not specified Qualified Code(s): K21.9 - Gastro-esophageal reflux disease without esophagitis (3) Colon cancer screening: Code(s): Z12.11 - Encounter for screening for malignant neoplasm of colon Category: Medical (4) High fecal calprotectin: Code(s): R19.5 - Other fecal abnormalities (5) Abdominal pain: Code(s): R10.9 - Unspecified abdominal pain Qualifiers: Abdominal location: right upper quadrant Qualified Code(s): R10.11 - Right upper quadrant pain (6) Constipation: Code(s): K59.00 - Constipation, unspecified Qualifiers: Constipation type: slow transit constipation Qualified Code(s): K59.01 - Slow transit constipation (7) Postprandial epigastric pain: Code(s): R10.13 - Epigastric pain Plan Patient will continue Nexium. Avoiding dietary triggers in late night snacking. Patient was encouraged to take fiber and increase fluid intake. Patient will be sent for upper endoscopy to rule out duodenitis, gastritis, esophagitis, H pylori. What to expect before during and after procedure discussed with patient. Stressed the importance of good bowel prep as she is going to have colonoscopy as well. Patient denies any cardiac or respiratory symptoms. Message sent to Surgical schedules to look both upper endoscopy and colonoscopy. No issues with anesthesia in the past. Patient will be see him after the procedure, sooner on as needed basis. Patient is agreeable to this plan and verbalizes understanding of instructions. She was given the opportunity to ask questions patient concerned. Thank you for allowing me to participate in her care Medications: New bisacodyl (Dulcolax (bisacodyl)) 10 mg (2 x 5 mg) PO BEDTIME 60 tabs 4RF polyethylene glycol 3350 (Miralax) As directed by gastroenterology department at [facility] 238 grams PO ONCE 238 grams 0RF Z12.11 - Encounter for screening for malignant neoplasm of colon Coding Level of Care Code Est Pt Level 4 (73309) Complex EM visit Add On G2211 Diagnoses Colitis K52.9 Gastroesophageal reflux disease, unspecified whether esophagitis present K21.9 Esophagitis presence: esophagitis presence not specified Colon cancer screening Z12.11 High fecal calprotectin R19.5 Right upper quadrant abdominal pain R10.11 Abdominal location: right upper quadrant Slow transit constipation K59.01 Constipation type: slow transit constipation Postprandial epigastric pain R10.13 Time Spent (min) 35 Comment 25 minutes spent with patient and additional 10 minutes spent reviewing her records
[2024-03-31 11:13] VITALS: BP 119/68; PULSE 88; BMI 32.5
--- OUTSIDE RECORDS SUMMARY | 2024-03-31 12:14 | XMS_ITS | Clinical Summary ---
Author Organization [employer] Address [address] [place] [address] Care Team Providers Care Skein Drier Name Role Phone Unavailable Primary Care Provider [...]
--- OUTSIDE RECORDS SUMMARY | 2024-03-31 12:14 | XMS_ITS | Encounter Summary ---
Author Organization [employer] Address [address] [place] [address] Care Team Providers Care Foreign Broadcast Specialist Name Role Phone Unavailable Primary Care Provider Unavailabl e Encounter Details Date Type Department Care Team (Latest Contact Info) Description 07/31/2018 Abstract [facility] Dental, Provider, DDS Social History [...]
== END 2024-03-31 13:10 | disposition home or self-care (01) ==
PROVIDERS: PCP Nurse Practitioner Family; Visit Provider Nurse Practitioner Family
DX: K52.9 Noninfective gastroenteritis and colitis, unspecified (principal); K21.9 Gastro-esophageal reflux disease without esophagitis; R19.5 Other fecal abnormalities; K59.01 Slow transit constipation
CPT/HCPCS: 99214; G2211

== ENCOUNTER → 2024-03-31 11:04 | Outpatient (BNVA) | payer OTHER, SELFPAY | PROVIDERS: PCP Nurse Practitioner Family; Visit Provider Nurse Practitioner Family | DX: Z12.11 Encounter for screening for malignant neoplasm of colon (principal); K52.9 Noninfective gastroenteritis and colitis, unspecified; K21.9 Gastro-esophageal reflux disease without esophagitis; K59.01 Slow transit constipation; R19.5 Other fecal abnormalities; R10.11 Right upper quadrant pain; R10.13 Epigastric pain | CPT/HCPCS: 99212 ==

== ENCOUNTER 2024-04-03 10:59 | Outpatient (REF) | payer OTHER, SELFPAY ==
--- OUTSIDE RECORDS SUMMARY | 2024-04-03 12:07 | XMS_ITS | Encounter Summary ---
Author Organization [employer] Address [address] [facility] [address] [place] [address] Care Team Providers Care Bird Raiser Name Role Phone Unavailable Primary Care Provider Unavailabl e Encounter Details Date Type Department Care Team (Latest Contact Info) Description 07/31/2018 Abstract [facility] Dental, Provider, DDS Social History Tobacco [...]
--- OUTSIDE RECORDS SUMMARY | 2024-04-03 12:07 | XMS_ITS | Clinical Summary ---
Author Organization [employer] Address [address] [facility] [address] [address] [place] [address] Care Team Providers Care Ecommerce Marketing Manager Name Role Phone Unavailable Primary Care Provider [...]
[2024-04-03 14:19] LABS: Cholesterol 130 mg/dL (<200); HDL Cholesterol 49 mg/dL (>40); LDL Cholesterol Calculated 59 mg/dL (<100); Triglycerides 111 mg/dL (<150)
== END 2024-04-03 11:00 | disposition home or self-care (01) ==
LOC: HO.WFDLDS 10:59
PROVIDERS: Visit Provider Nurse Practitioner Family
DX: E78.00 Pure hypercholesterolemia, unspecified (principal)
CPT/HCPCS: 36415; 80061

== ENCOUNTER 2024-04-24 11:39 | Outpatient (AMB) | payer OTHER, SELFPAY ==
--- NOTE | 2024-04-24 11:48 | A.OFFPC_ITS ---
Vital Signs 04/24/24 11:55 04/24/24 12:17 Height 5 ft 1 in Weight 173 lb BMI 32.7 BP 137/75 130/86 Blood Pressure Location Rt brachial Rt brachial Position Sitting Sitting Respiration 16 Pulse 88 Pulse Source Pulse Oximeter Temp 97.7 F Temp Source Oral Pulse Oximetry (%) 98 Oxygen Delivery Method Room Air Intake Visit Reasons: 1 mos HTN, DM, excessive sweating Intake Note: patient here for 1 month follow up on HTN, DM and excessive sweating Equipment Application Specialist Required: No Is last menstrual period known: No Post menopausal: No Patient : No Allergies Fish Containing Products Allergy (Severe, Verified 04/24/24 12:09) Anaphylaxis sulfur dioxide Allergy (Severe, Verified 04/24/24 12:09) Anaphylaxis adhesive tape Allergy (Intermediate, Verified 04/24/24 12:09) Rash Sulfa (Sulfonamide Antibiotics) Adverse Reaction (Unknown, Verified 04/24/24 12:09) unknown Medication List - Last Reconciled 04/24/24 by Gunjan Davis CNP acetaminophen ER (Tylenol Arthritis Pain) 650 mg PO Q8H PRN 30 days acetaminophen-caffeine 500-65 mg (Excedrin Tension Headache) 2 tabs PO Q8H PRN 30 days alprazolam 0.25 mg PO DAILY PRN amlodipine 5 mg PO DAILY 90 days anastrozole 1 mg PO DAILY atorvastatin 20 mg PO DAILY 30 days duloxetine 60 mg PO DAILY esomeprazole magnesium 40 mg PO DAILY hydrocortisone 2.5% (Proctosol HC) 1 appl [place] BID-QID PRN levothyroxine 50 mcg PO DAILY 30 days metformin ER 1,000 mg (2 x 500 mg) PO DAILY 90 days ondansetron 4 mg PO Q8H PRN Shower Chair As directed sitagliptin phosphate (Januvia) 100 mg PO QPM 90 days trazodone 200 mg PO DAILY Tobacco use date assessed: 04/24/24 Dental Screening Dental Screen Date: 04/24/24 Did you have a dental visit in the last 12 months?: Yes Did you have a dental problem in the last 6 months where you did not have access to dental care?: No Was dental information given to patient?: Patient has dentist HPI HPI Comments History of Present Illness Details 58-year-old female presents for hyperten jamaal, diabetes, and excessive sweating follow-up. She admits to taking her medications as prescribed without adverse reactions. He has been making healthy lifestyle changes. She has been experiencing intermittent, excessive sweating throughout the day and night for the past several months. She notes associated hot flashes. Her sleep is interrupted due to sweating. Recent TSH and CBC blood work is unrevealing. She does not want to be referred to net applications developer as recommended by her PCP and wants to trial Veozah for vasomotor symptoms. [facility] Medical History (Updated 04/24/24 @ 12:39 by Gunjan Davis CNP) History of breast cancer Fusion of lumbar spine Bilateral carpal tunnel syndrome Diabetes Sleep apnea Colitis Carpal tunnel syndrome Thyroid disease Hypertension High cholesterol Fatty liver Acid reflux Sinusitis Surgical History History of ear surgery H/O bilateral oophorectomy Status post creation of urethral sling by suprapubic approach History of cholecystectomy History of back surgery H/O: hysterectomy Family History Mother Hypertension High cholesterol Diabetes Father Alcoholism Family/Other Diabetes Social History Housing: Condominium Patient Tobacco Use Status: Former Tobacco user e-Cigarette/Vaping Use: Never Used Substance Use Type: Marijuana service: No Current occupational status: retired and disabled Current occupational exposures/hazards: No Cognitive needs: No Hearing needs: Yes (Patient see's ENT) Vision needs: No Questionnaire Thrive Questionnaire Date Thrive assessed: 03/12/24 I am a: Patient What is your living situation today?: I have a steady place to live Within the past 12 months, did the food you bought not last and you didn't have the money to get more?: Often true Within the past 12 months, did you worry whether your food would run out before you got money to buy more?: Often true Do you have trouble paying for medicines?: No Do you have trouble getting transportation to medical appointments?: No Do you have trouble paying your heating and electricity bill?: No Do you have trouble taking care of your child, family member or friend?: I choose not to answer this question Do you have trouble with day-to-day activities such as bathing, preparing meals, shopping, managing finances, etc.?: No Are you currently unemployed and looking for a job?: No Are you interested in more education?: Yes Currently or been in a relationship where the following occur: I choose not to answer THRIVE Score: 2 BON-7 AMB Questionnaire BON-7 Date BON - 7 assessed: 03/26/24 Source: Developed by Drs. Keith Cota, Rhoda Vega, Álvaro Casiano and colleagues, with an educational jose from [employer]. Review of Systems Const Details: Const Denies chills, Denies fatigue, Denies fever(s), Denies headache(s) and Denies weakness ENT Denies dizziness and Denies headache(s) Card Denies chest pain, Denies lightheadedness, Denies dyspnea and Denies other (Palpitations) Resp Denies cough, Denies dyspnea, Denies wheezing and Denies other ( shortness of breath) GI Denies abdominal pain, Denies melena, Denies hematochezia, Denies change in bowel habits, Denies dyspepsia and Denies nausea Denies hematuria and Denies dysuria Musc Denies abnormal gait, Denies myalgias, Denies arthralgias, Denies numbness and Denies tingling Skin/Breast Denies rash, Denies unusual bruising and Denies wounds Neuro Denies abnormal gait, Denies dizziness, Denies headache(s), Denies memory loss, Denies numbness, Denies Sensory deficit (Neuro), Denies tingling and Denies weakness Psych Denies anxiety, Denies depression, Denies memory loss Endo Denies cold intolerance, Denies fatigue, Reports heat intolerance, Denies polydipsia and Denies polyuria Aller/Immun Denies wheezing Physical exam (Primary Care) Vital Signs: Last Vital Signs Temp 97.7 F 04/24/24 11:55 Pulse 88 04/24/24 11:55 Resp 16 04/24/24 11:55 BP 137/75 04/24/24 11:55 Pulse Ox 98 04/24/24 11:55 Oxygen Delivery Method Room Air 04/24/24 11:55 BMI result Body Mass Index 32.7 Tobacco/Smoking Status: Tobacco use Status Tobacco use date assessed 04/24/24 04/24/24 12:01 Patient Tobacco Use Status Former Tobacco user 04/24/24 11:51 e-Cigarette/Vaping Use Never Used 04/24/24 11:51 Thrive Assessment: Date of Thrive Assessment Date Thrive assessed 03/12/24 04/24/24 11:51 Currently or been in a relationship where the following occur: I choose not to answer Const Other: General: no acute distress and well developed Nutritional Appearance: well nourished Orientation/consciousness: patient oriented x3 HENMT Head: Yes normocephalic and Yes atraumatic Eyes General: appearance normal, both eyes and all related structures Pupils: Equal, round and reactive pupils present EOM: EOMs intact bilaterally Resp Effort & Inspection: normal respiratory effort Auscultation: clear to auscultation bilaterally Cardio Rate: regular rate Rhythm: regular rhythm Heart sounds: S1 normal heart sound present, S2 normal heart sound present, no g allops, no murmurs and no rubs GI Palpation (GI): No Abdominal aortic bruit present, Soft to palpation, nontender, No hepatosplenomegaly present and No Rebound tenderness present Auscultation: normal bowel sounds General: Yes no CVA tenderness Back/Spine/Pelvis Back: no CVA tenderness Cervical Spine: cervical ROM normal and No Cervical spine tenderness Thoracic/Lumbar Spine: thoraco-lumbar ROM normal, No pain with thoraco-lumbar ROM, No thoracic spinal tenderness and No lumbar spinal tenderness Extrem General: Yes normal to inspection, No edema and No calf tenderness Skin General: warm and dry. Normal skin color. Normal skin turgor Neuro General: patient oriented x3, gait normal and no focal neuro deficit Cranial nerves: Yes Equal, round and reactive pupils present Cognition (Neuro): normal cognition Gait exam (Neuro): Normal gait present Sensory Exam: No Sensory deficit (Neuro) Psych Appearance: grossly normal Affect: normal affect Attitude: cooperative Thought process: Normal thought process present Results AMB Hemoglobin A1c AMB Hemoglobin A1c 6.0 % Last Edit by Chichi Gates MA on 04/24/24 12:13 Coding Level of Care Code Est Pt Level 4 (25657) Diagnoses Hypertension I10 Type 2 diabetes mellitus E11.9 High cholesterol E78.00 Hypothyroidism E03.9 Sleep disturbance G47.9 Excessive sweating R61 Vasomotor symptoms due to menopause N95.1 Assessment & Plan Assessment & Plan (1) Hypertension: Code(s): I10 - Essential (primary) hypertension Category: Medical Plan: Resting blood pressure is 130/86, slightly above goal of less 130/80. Continue current treatment regimen. Follow-up in 3 months or sooner with symptoms or concerns. Verbalized understanding and agreed with treatment plan. (2) Type 2 diabetes mellitus: Code(s): E11.9 - Type 2 diabetes mellitus without complications Category: Medical Plan: A1c today is 6.0%, within goal of less than 7.0%. Previous A1c was 5.8%. Continue current treatment regimen. Follow-up in 3 months. Verbalized understanding and agreed with treatment plan. (3) High cholesterol: Code(s): E78.00 - Pure hypercholesterolemia, unspecified Category: Medical Plan: Recent lipid panel level is normal. LDL is 59, within goal of less than 100. Continue current treatment regimen. Will monitor annually with related symptoms or concerns. Verbalized understanding and agreed with treatment plan. (4) Hypothyroidism: Code(s): E03.9 - Hypothyroidism, unspecified Category: Medical Plan: Recent TSH level was normal. Continue current treatment regimen. Will monitor annually or with related symptoms or concerns. Verbalized understanding and agreed with treatment plan. (5) Sleep disturbance: Code(s): G47.9 - Sleep disorder, unspecified Category: Medical Plan: She has been experiencing intermittent, excessive sweating throughout the day and night for the past several months. She notes associated hot flashes. Her sleep is interrupted due to sweating. Recent TSH and CBC blood work is unrevealing. She does not want to be referred to net applications developer as recommended by her PCP and wants to trial Veozah for vasomotor symptoms. Veozah 45 mg daily ordered; advised to take as prescribed. Instructed on the risks, benefits, and potential adverse reactions of the medication. Advised to avoid taking Excedrin frequently while on the medication due to potential interaction. She has history of slightly elevated ALT. Recent ALT level is 41. Will recheck ALT level in 3 months. Advised to fast for 10-12 hours, may drink water, and perform liver enzyme blood work 2-3 days before next visit. Follow-up with worsening or new symptoms. Verbalized understanding and agreed with treatment plan. (6) Excessive sweating: Code(s): R61 - Generalized hyperhidrosis Category: Medical Plan: Plan as above. (7) Vasomotor symptoms due to menopause: Code(s): N95.1 - Menopausal and female climacteric states Category: Medical Plan: Plan as above. Orders: Orders AMB Hemoglobin A1c Today Z13.9 - Encounter for screening, unspecified Medications: New fezolinetant 45 mg PO DAILY 30 days 30 tabs 3RF
[2024-04-24 11:55] VITALS: BP 137/75; PULSE 88; RESP 16; TEMP 36.5; O2SAT 98; BMI 32.7
[2024-04-24 12:17] VITALS: BP 130/86
== END 2024-04-24 12:28 | disposition home or self-care (01) ==
LOC: HO.HMCFM 11:40
PROVIDERS: PCP Nurse Practitioner Family; Visit Provider Nurse Practitioner Family
DX: I10 Essential (primary) hypertension (principal); E11.9 Type 2 diabetes mellitus without complications; E78.00 Pure hypercholesterolemia, unspecified; E03.9 Hypothyroidism, unspecified; G47.9 Sleep disorder, unspecified; R61 Generalized hyperhidrosis; N95.1 Menopausal and female climacteric states; Z13.9 Encounter for screening, unspecified

== ENCOUNTER → 2024-04-24 11:39 | Outpatient (BNVA) | payer OTHER, SELFPAY | PROVIDERS: PCP Nurse Practitioner Family; Visit Provider Nurse Practitioner Family | DX: I10 Essential (primary) hypertension (principal); E11.9 Type 2 diabetes mellitus without complications; E78.00 Pure hypercholesterolemia, unspecified; E03.9 Hypothyroidism, unspecified; G47.9 Sleep disorder, unspecified; R61 Generalized hyperhidrosis; N95.1 Menopausal and female climacteric states | CPT/HCPCS: 83036; 99212 ==

== ENCOUNTER 2024-05-11 10:47 | Outpatient (AMB) | payer OTHER, SELFPAY ==
--- NOTE | 2024-05-11 10:50 | MHC.PC.OV ---
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 Operations General Agent Required: No Is last menstrual period known: No Post menopausal: No Patient : No Allergies Fish Containing Products Allergy (Severe, Verified 05/11/24 10:54) Anaphylaxis sulfur dioxide Allergy (Severe, Verified 05/11/24 10:54) Anaphylaxis adhesive tape Allergy (Intermediate, Verified 05/11/24 10:54) Rash Sulfa (Sulfonamide Antibiotics) Adverse Reaction (Unknown, Verified 05/11/24 10:54) unknown Tobacco use date assessed: 05/11/24 Dental Screening Dental Screen Date: 05/11/24 Did you have a dental visit in the last 12 months?: No Did you have a dental problem in the last 6 months where you did not have access to dental care?: No Was dental information given to patient?: Patient has dentist HPI HPI Comments History of Present Illness Details 58-year-old female presents for documentation to have dental work. She has a dental appointment for fillings in 2 days. She has no history of heart disease. She admits to taking her medications as prescribed without adverse reaction. She reports chronic left knee pain. She states that her health plan recently approved cortisone injection for the left knee. She is followed by [facility]. Denies tingling or numbness. [facility] Medical History (Updated 04/24/24 @ 12:39 by Gunjan Davis CNP) History of breast cancer Fusion of lumbar spine Bilateral carpal tunnel syndrome Diabetes Sleep apnea Colitis Carpal tunnel syndrome Thyroid disease Hypertension High cholesterol Fatty liver Acid reflux Sinusitis Surgical History History of ear surgery H/O bilateral oophorectomy Status post creation of urethral sling by suprapubic approach History of cholecystectomy History of back surgery H/O: hysterectomy Family History Mother Hypertension High cholesterol Diabetes Father Alcoholism Family/Other Diabetes Social History Housing: Condominium Patient Tobacco Use Status: Former Tobacco user e-Cigarette/Vaping Use: Never Used Substance Use Type: Marijuana Patient : No service: No Current occupational status: retired and disabled Current occupational exposures/hazards: No Cognitive needs: No Hearing needs: Yes (Patient see's ENT) Vision needs: No Questionnaire PHQ-9 Over the last 2 weeks, how often have you been bothered by any of the following problems? 1. Little interest or pleasure in doing things: several days 2. Feeling down, depressed, or hopeless: several days 3. Trouble falling or staying asleep, or sleeping too much: more than half the days 4. Feeling tired or having little energy: more than half the days 5. Poor appetite or overeating: nearly every day 6. Feeling bad about yourself - or that you are a failure or have let yourself or your family down: not at all 7. Trouble concentrating on things, such as reading the newspaper or watching television: not at all 8. Moving or speaking so slowly that other people could have noticed. Or the opposite - being so fidgety or restless that you have been moving around a lot more than usual: several days 9. Thoughts that you would be better off or of hurting yourself in some way: not at all Total score: 10 Depression Screening Interpretation: Positive Depression Screening Follow-up: Existing condition and In treatment Depression Screening Done: Yes Source: Developed by Drs. Keith Cota, Rhoda Vega, Álvaro Casiano and colleagues, with an educational jose from [employer]. Thrive Questionnaire Date Thrive assessed: 03/12/24 I am a: Patient What is your living situation today?: I have a steady place to live Within the past 12 months, did the food you bought not last and you didn't have the money to get more?: Often true Within the past 12 months, did you worry whether your food would run out before you got money to buy more?: Often true Do you have trouble paying for medicines?: No Do you have trouble getting transportation to medical appointments?: No Do you have trouble paying your heating and electricity bill?: No Do you have trouble taking care of your child, family member or friend?: I choose not to answer this question Do you have trouble with day-to-day activities such as bathing, preparing meals, shopping, managing finances, etc.?: No Are you currently unemployed and looking for a job?: No Are you interested in more education?: Yes Currently or been in a relationship where the following occur: I choose not to answer THRIVE Score: 2 BON-7 AMB Questionnaire BON-7 Date BON - 7 assessed: 03/26/24 Source: Developed by Drs. Keith Cota, Rhoda Vega, Álvaro Casiano and colleagues, with an educational jose from [employer]. Review of Systems Const Details: Const Denies chills, Denies fatigue, Denies fever(s), Denies headache(s) and Denies weakness ENT Denies dizziness and Denies headache(s) Card Denies chest pain, Denies lightheadedness, Denies dyspnea and Denies other (Palpitations) Resp Denies cough, Denies dyspnea, Denies wheezing and Denies other ( shortness of breath) GI Denies abdominal pain, Denies melena, Denies hematochezia, Denies change in bowel habits, Denies dyspepsia and Denies nausea Denies hematuria and Denies dysuria Musc Reports as per HPI Skin/Breast Denies rash, Denies unusual bruising and Denies wounds Neuro Denies abnormal gait, Denies dizziness, Denies headache(s), Denies memory loss, Denies numbness, Denies Sensory deficit (Neuro), Denies tingling and Denies weakness Psych Denies anxiety, Denies depression, Denies memory loss Endo Denies cold intolerance, Denies fatigue, Denies heat intolerance, Denies polydipsia and Denies polyuria Aller/Immun Denies wheezing Physical exam (Primary Care) Vital Signs: Last Vital Signs Temp 98.5 F 05/11/24 10:56 Pulse 97 05/11/24 10:56 Resp 16 05/11/24 10:56 BP 132/77 05/11/24 10:56 Pulse Ox 99 05/11/24 10:56 Oxygen Delivery Method Room Air 05/11/24 10:56 BMI result Body Mass Index 33.2 Tobacco/Smoking Status: Tobacco use Status Tobacco use date assessed 05/11/24 05/11/24 10:59 Patient Tobacco Use Status Former Tobacco user 05/11/24 10:53 e-Cigarette/Vaping Use Never Used 05/11/24 10:53 PHQ-9: PHQ-9 Score PHQ-9: Total score 10 05/11/24 10:53 Depression Screening Interpretation: Positive Depression Screening Follow-up: Existing condition and In treatment Thrive Assessment: Date of Thrive Assessment Date Thrive assessed 03/12/24 05/11/24 10:53 Currently or been in a relationship where the following occur: I choose not to answer Const Other: General: no acute distress and well developed Nutritional Appearance: well nourished Orientation/consciousness: patient oriented x3 HENMT Head: Yes normocephalic and Yes atraumatic Eyes General: appearance normal, both eyes and all related structures Pupils: Equal, round and reactive pupils present EOM: EOMs intact bilaterally Resp Effort & Inspection: normal respiratory effort Auscultation: clear to auscultation bilaterally Cardio Rate: regular rate Rhythm: regular rhythm Heart sounds: S1 normal heart sound present, S2 normal heart sound present, no gallops, no murmurs and no rubs GI Palpation (GI): No Abdominal aortic bruit present, Soft to palpation, nontender, No hepatosplenomegaly present and No Rebound tenderness present Auscultation: normal bowel sounds General: Yes no CVA tenderness Back/Spine/Pelvis Back: no CVA tenderness Cervical Spine: cervical ROM normal and No Cervical spine tenderness Thoracic/Lumbar Spine: thoraco-lumbar ROM normal, No pain with thoraco-lumbar ROM, No thoracic spinal tenderness and No lumbar spinal tenderness Extrem General: Yes normal to inspection, No edema and No calf tenderness Skin General: warm and dry. Normal skin color. Normal skin turgor Neuro General: patient oriented x3, gait normal and no focal neuro deficit Cranial nerves: Yes Equal, round and reactive pupils present Cognition (Neuro): normal cognition Gait exam (Neuro): Normal gait present Sensory Exam: No Sensory deficit (Neuro) Psych Appearance: grossly normal Affect: normal affect Attitude: cooperative Thought process: Normal thought process present Coding Level of Care Code Est Pt Level 3 (82755) Diagnoses Chronic pain of left knee M25.562; G89.29 Assessment & Plan Assessment & Plan (1) Chronic pain of left knee: Code(s): M25.562 - Pain in left knee; G89.29 - Other chronic pain Category: Medical Plan: No overt injury or trauma. Take Tylenol as prescribed. Warm/cool compresses encouraged. Follow-up with [facility] as planned. Verbalized understanding and agreed with the treatment plan. Dental clearance letter given to patient.
[2024-05-11 10:56] VITALS: BP 132/77; PULSE 97; RESP 16; TEMP 36.9; O2SAT 99; BMI 33.2
--- OUTSIDE RECORDS SUMMARY | 2024-05-11 12:13 | XMS_ITS | Encounter Summary ---
Author Organization [employer] [facility] Address [address] [place] [address] [address] [place] [address] Care Team Providers Care Theoretical Physics Teacher Name Role Phone Unavailable Primary Care Provider Unavailabl e Encounter Details Date Type Department Care Team (Latest Contact Info) Description 07/31/2018 Abstract [facility] CONVERSIONS Dental, Provider, DDS Social History Tobacco Use Types Packs/Day Years Used Date Smoking Tobacco: Never Assessed Comments Unknown Sex and Gender Information Value Date Recorded Sex Assigned at Female 12/11/2021 10:29 AM EDT Legal Sex Female 10:29 AM EDT Gender Identity Female 12/11/2021 10:29 AM EDT Sexual Orientation Straight 12/11/2021 10 :29 AM EDT documented as of this encounter Plan of Treatment Upcoming Encounters Date Type Department Care Team (Late st Contact Info) Description 05/14/2024 8:00 AM EDT Office Visit [facility] [address] [place], [place] [id number] Silverio Ocasio BDS [address] [place], [place] [id number] documented as of this encounter Visit Diagnoses Not on filedocumented in this encounter
--- OUTSIDE RECORDS SUMMARY | 2024-05-11 12:13 | XMS_ITS | Clinical Summary ---
Author Organization [employer] Address [address] [facility] [address] [place] [address] Care Team Providers Care Roller Presser Operator Name Role Phone Unavailable Primary Care Provider Unavailabl e Social History Tobacco Use Types Packs/Day Years Used Date Smoking Tobacco: Never Assessed Comments Unknown Sex and Gender Information Value Date Recorded Sex Assigned at Female 12/11/2021 10:29 AM EDT Legal Sex Female 10:29 AM EDT Gender Identity Female 12/11/2021 10:29 AM EDT Sexual Orientation Straight 12/11/2021 10 :29 AM EDT Plan of Treatment Upcoming Encounters Date Type Department Care Team (Late st Contact Info) Description 05/14/2024 8:00 AM EDT Office Visit [facility] [address] [place] [address] Silverio Ocasio BDBassam [address] [place] [address] Health Maintenance Due Date Last Done Comments CT Colonography 1963 Colonoscopy 1963 Colorectal Cancer Screening 1963 Depression Screening 1963 FIT DNA/Cologuard 1963 FIT 1963 FOBT 1963 HIV Screening 1963 SDOH Screening 1963 Sigmoidoscopy 1963 Alcohol/Substance Use Screening 1975 Tobacco Screening 1975 Hepatitis C Screening 07/08/1981 Pap Smear 07/08/1984 Cervical Cancer Screening 07/08/1993 HPV/Cotest 07/08/1993 Mammogram 2003 Dental Oral Exam 08/21/2019 02/19/2019, , 07/22/2017, Additional history exists Dental Prophylaxis 08/21/2019 02/19/2019, 0 07/31/2018, 01/28/2018, Additional history exists Dental X-Ray: Full Mouth 11/14/2019 11/12/2016 Dental X-Ray: Bitewings 02/21/2020 02/19/19 20, 01/28/2018, 11/12/2016, Additional history exists Hepatitis B Vaccines (2 of 3 - Hep B Twinrix 3-dose series) 08/15/2021 07/18/2021 DTaP/Tdap/Td Vaccines (2 - Td or Tdap) 07/12/2031 07/11/2021 RSV Patients and Patients Aged 60 years or older (1 - 1-dose 75+ series) 07/08/2038 Zoster Vaccines Completed 07/12/2020, 10/14/2019 Hepatitis A Vaccines Aged Out 07/18/2021 No long er eligible based on patient's age to complete this topic Influenza Vaccine Completed 10/01/2023, , 11/13/2021, Additional history exists Pneumococcal Vaccine: 50+ Years Completed 10/01/2023, 11/22/2021 COVID-19 Vaccine Completed 11/13/2023, 02/2022, 11/13/2021, Additional history exists HIB Vaccines Aged Out No longer eligi [...] on patient's age to complete this topic Procedures Procedure Name Priority Date/Time Associated Diagnosis Comments PROPHYLAXIS - ADULT Routine 02/19/2019 1 2:00 AM EST BITEWINGS - 4 RADIOGRAPHIC IMAGES Routine 02/19/2019 12:00 AM EST PERIODIC ORAL EVALUATION - ESTABLISHED PATIENT Routine 02/19/2019 12:00 AM EST INTRAORAL - COMPLETE SERIES OF RADIOGRAPHIC IMAGES Routine 11/12/2016 12:00 AM EDT from Last 3 Months or Most Recently Relevant to Health Maintenance Insurance [facility]
== END 2024-05-11 11:33 | disposition home or self-care (01) ==
LOC: HO.HMCFM 10:48
PROVIDERS: PCP Nurse Practitioner Family; Visit Provider Nurse Practitioner Family
DX: M25.562 Pain in left knee (principal); G89.29 Other chronic pain

== ENCOUNTER → 2024-05-11 10:47 | Outpatient (BNVA) | payer OTHER, SELFPAY | PROVIDERS: PCP Nurse Practitioner Family; Visit Provider Nurse Practitioner Family | DX: M25.562 Pain in left knee (principal); G89.29 Other chronic pain | CPT/HCPCS: 99212 ==

== ENCOUNTER 2024-06-11 08:06 | Day surgery (SDC) | payer OTHER, SELFPAY ==
--- OUTSIDE RECORDS SUMMARY | 2024-05-19 15:57 | XMS_ITS | Clinical Summary ---
Author Organization [email or web address] Address [address] [place] [address] 7t [place] [address] Care Team Providers Care Perianesthesia Rn Name Role Phone Unavailable Primary Care Provider Unavailabl e Allergies Active Allergy Reactions Criticality Noted Date Comments Fish Allergy Anaphylaxis,Hives,Ra sh,Shortness of breath High 05/14/2024 Latex 08/12/2015 Sulfur Dioxide Rash Low 05/14/2024 Medications clonazePAM (KlonoPIN) 0.5 MG tablet TAKE 1/2 -1 TABLET BY MOUTH TWICE A DAY NEEDED FOR ANXIETY 11/19/19 24 Active Prempro 0.3-1.5 MG tablet Take 1 tablet by mouth Once per day. Active cyclobenzaprin e (Flexeril) 10 MG tablet TAKE 1 TABLET ORALLY BEDTIME NEEDED FOR MUSCLE SPASM 11/20/19 24 Active diazePAM (Valium) 5 MG tablet take 1 tablet by mouth three times a day as needed for spasm 10/20/19 24 Active diclofenac (Cataflam) 50 MG tablet Take 1 tablet by mouth Once per day. 12/19/19 24 Active dicyclomine (Bentyl) 10 MG capsule TAKE 1 CAPSULE ORALLY 2 TIMES A DAY NEEDED FOR ABDOMINAL DISCOMFORT 11/28/19 24 Active docusate sodium (Colace) 100 MG capsule take 1 capsule by mouth everyday at bedtime 11/05/19 24 Active DULoxetine (Cymbalta) [address] capsule Take 60 mg by mouth Once per day. Active chlorhexidine (Peridex) 0.12 % solution Use 15 mL in the mouth or throat if needed for wound care for up to 14 days. 473 mL 05/15/19 25 025 Active doxycycline (Vibramycin) 100 MG capsule Take 1 capsule (100 mg) by mouth Once per day for 14 days. Take with at least 8 ounces (large glass) of water, do not lie down for 30 minutes after 14 capsule 05/15/19 25 025 Active doxycycline (Monodox) 100 MG capsule take 2 ( two) at once first day then on 1 capsule daily until gone 08/10/19 17 025 Discontinued Encounters Date Type Department Care Team Description 05/14/2024 8:00 AM EDT Office Visit [facility] [address] [place] [phone] Silverio Ocasio BDS Localized chronic moderate periodontitis (Primary Dx) 05/12/2024 Travel from Last 3 Months Social History Tobacco Use Types Packs/Day Years [...] FIT 1963 FOBT 1963 HIV Screening 1963 Lipid Panel 1963 SDOH Screening 1963 Sigmoidoscopy 1963 Alcohol/Substance [...] 20, 01/28/2018, 11/12/2016, Additional history exists Hepatitis A Vaccines (2 of 3 - Hep A Twinrix risk 3-dose series) 08/15/2021 07/18/2021 Hepatitis B Vaccines (2 of 3 - Hep B Twinrix risk 3-dose series) 08/15/2021 07/18/2021 RSV Patients and Patients Aged 60 years or older (1 - Risk 60-74 years 1-dose series) 2023 DTaP/Tdap/Td Vaccines (2 - Td or Tdap) 07/12/2031 07/11/2021 Zoster Vaccines Completed 07/12/2020, 10/14/2019 Influenza Vaccine Completed 10/01/2023, , 11/13/2021, Additional history exists Pneumococcal Vaccine: 50+ Years Completed 10/01/2023, 11/22/2021, 04/09/2015 COVID-19 Vaccine Completed 11/13/2023, 02/2022, 11/13/2021, Additional [...] Procedure Name Priority Date/Time Associated Diagnosis Comments INTRAORAL - PERIAPICAL FIRST RADIOGRAPHIC IMAGE Routine 05/14/2024 8:00 AM EDT LIMITED ORAL EVALUATION - PROBLEM FOCUSED Routine 05/14/2024 8:00 AM EDT PROPHYLAXIS - ADULT Routine 02/19/2019 1 2:00 AM EST BITEWINGS - 4 RADIOGRAPHIC IMAGES Routine 02/19/2019 12:00 AM EST PERIODIC ORAL EVALUATION - ESTABLISHED PATIENT Routine 02/19/2019 12:00 AM EST INTRAORAL - COMPLETE SERIES OF RADIOGRAPHIC IMAGES Routine 11/12/2016 12:00 AM EDT from Last 3 Months or Most Recently Relevant to Health Maintenance Insurance DENTAL - [facility]
--- OUTSIDE RECORDS SUMMARY | 2024-05-19 15:57 | XMS_ITS | Encounter Summary ---
Author Organization [employer] Address [address] [place] [address] [address] [place] [address] Care Team Providers Care Dumpster Operator Name Role Phone Unavailable Primary Care Provider Unavailabl e Reason for Visit * Reason Comments Dental Exam Encounter Details Date Type Department Care Team (Late st Contact Info) Description 05/14/2024 8:00 AM EDT Office Visit [facility] [address] [place] [address] Silverio Ocasio BDS [address] [place] [address] Localized chronic moderate periodontitis (Primary Dx) Social History Tobacco Use Types Packs/Day Years Used Date Smoking Tobacco: Never Assessed Comments Unknown Sex and Gender Information Value Date Recorded Sex Assigned at Female 12/11/2021 10:29 AM EDT Legal Sex Female 10:29 AM EDT Gender Identity Female 12/11/2021 10:29 AM EDT Sexual Orientation Straight 12/11/2021 10 :29 AM EDT documented as of this encounter Progress Notes * Silverio Ocasio BDS - 05/14/2024 8:00 AM EDT Patient c/o food lodgment irt upper right molar region.Presence of 6 mm pockets between #2,3 and 4.Adv Deep scaling and Root planing.Patient advised to schedule with Dental hygienist Cralos.Adv Doxycyline and Chlorhexidine. documented in this encounter Plan of Treatment Not on file documented as of this encounter Procedures Procedure Name Priority Date/Time Associated Diagnosis Comments LIMITED ORAL EVALUATION - PROBLEM FOCUSED Routine 05/14/2024 8:00 AM EDT INTRAORAL - PERIAPICAL FIRST RADIOGRAPHIC IMAGE Routine 05/14/2024 8:00 AM EDT documented in this encounter Visit Diagnoses Diagnosis Localized chronic moderate periodontitis- Primary documented in this encounter
--- OUTSIDE RECORDS SUMMARY | 2024-05-19 15:57 | XMS_ITS | Encounter Summary ---
Author Organization [employer] Address [address] [place] [address] Care Team Providers Care Roller Stitcher Name Role Phone Unavailable Primary Care Provider Unavailabl e Encounter Details Date Type Department Care Team (Latest Contact Info) Description 07/31/2018 Abstract [facility] CONVERSIONS Dental, Provider, DDS Social [...]
[2024-06-09 13:07] VITALS: BMI 32.3
--- NOTE | 2024-06-10 09:45 | HO.ANESPROP2 ---
Documented by User: Naima Mina NP 06/10/24 09:45 HPI - Anesthesia Eval Consult details Narrative: 58yo F for Upper Endoscopy and Colonoscopy Anesthesia Pre-Procedure Meds Is the patient on any of the following meds?: GLP1/DPP4 PMFSH Active Problems Active Problems: All Active Problems Vasomotor symptoms due to menopause (Acute) Sleep disturbance (Acute) Colon cancer screening (Acute) Chronic pain of left knee (Acute) Obesity (BMI 30-39.9) (Acute) Excessive sweating (Acute) Normal physical examination, routine (Acute) Left knee pain (Acute) Lumbar radiculopathy (Acute) Post laminectomy syndrome (Acute) History of breast cancer (Acute) Fusion of lumbar spine (Acute) Lumbar radiculopathy, acute (Acute) Subjective fever (Acute) Chills (Acute) Breast mass, left (Acute) Postop check (Acute) Hemorrhoids (Acute) Hepatomegaly (Acute) Low back pain (Acute) Rhinitis (Acute) Osteoarthritis of hands, bilateral (Acute) Migraine (Acute) Bilateral tinnitus (Acute) Pain in joints (Acute) Pain in finger of right hand (Acute) NESTOR (obstructive sleep apnea) (Acute) Arthritis of finger of both hands (Acute) Anxiety and depression (Acute) Lower urinary tract symptoms (Acute) Type 2 diabetes mellitus (Acute) Hypothyroidism (Acute) Colitis (Acute) High cholesterol (Acute) Fatty liver (Acute) Acid reflux (Acute) Hypertension (Acute) Past Medical History Medical History History of breast cancer Fusion of lumbar spine Bilateral carpal tunnel syndrome Diabetes Sleep apnea Colitis Carpal tunnel syndrome Thyroid disease Hypertension High cholesterol Fatty liver Acid reflux Sinusitis Family History Family History Mother Hypertension High cholesterol Diabetes Father Alcoholism Family/Other Diabetes Family history of problems with anesthesia: No Surgical History Surgical History History of lumpectomy of left breast History of ear surgery H/O bilateral oophorectomy Status post creation of urethral sling by suprapubic approach History of cholecystectomy History of back surgery H/O: hysterectomy History of Problems with Anesthesia: No Social History Social History Housing: Condominium Are you a primary medical care evaluation specialist to a significant other at home: No Do you presently have visiting nurse or other home services: No Patient Tobacco Use Status: Former Tobacco user e-Cigarette/Vaping Use: Never Used Substance Use Type: Marijuana Substance Use Frequency: Daily Have you been hit, kicked, punched, or otherwise hurt by someone within the past year? If so, by whom?: No Are you DNR?: No Advance Directives: No Advance Directives Information Provided: Yes Poor oral hygiene: No service: No Current occupational status: retired and disabled Current occupational exposures/hazards: No Cognitive needs: No Hearing needs: Yes (Patient see's ENT) Vision needs: No Meds Allergies Allergy/AdvReac Type Severity Reaction Status Date / Time Fish Containing Products Allergy Severe Anaphylaxis Verified 06/11/24 08:24 sulfur dioxide Allergy Severe Anaphylaxis Verified 06/11/24 08:24 adhesive tape Allergy Intermediate Rash Verified 06/11/24 08:24 Sulfa (Sulfonamide AdvReac Unknown unknown Verified 06/11/24 08:24 Antibiotics) Home Medications ?Medication ?Instructions ?Recorded ?Confirmed ?Last Taken ?Type duloxetine 60 mg capsule,delayed 60 mg PO DAILY 06/06/22 06/11/24 Unknown History release alprazolam 0.5 mg tablet 0.25 mg PO DAILY PRN Anxiety 12/12/22 06/11/24 Unknown History trazodone 100 mg tablet 200 mg PO DAILY Insomnia 03/31/24 06/11/24 Unknown History anastrozole 1 mg tablet 1 mg PO DAILY 04/24/24 06/11/24 Unknown History Exam Height,Weight and Vital Signs: Height 5 ft 1 in Weight 77.564 kg Assessment and Plan Assessment Anesthesia Assessment: Chart Reviewed Final Anesthetic Review Family History of Problems with Anesthesia: No History of Problems with Anesthesia: No Documented by User: Kinza Teixeira MD 06/11/24 09:43 [facility] Past Medical History Medical History History of breast cancer Fusion of lumbar spine Bilateral carpal tunnel syndrome Diabetes Sleep apnea Colitis Carpal tunnel syndrome Thyroid disease Hypertension High cholesterol Fatty liver Acid reflux Sinusitis Family History Family History Mother Hypertension High cholesterol Diabetes Father Alcoholism Family/Other Diabetes Surgical History Surgical History History of lumpectomy of left breast History of ear surgery H/O bilateral oophorectomy Status post creation of urethral sling by suprapubic approach History of cholecystectomy History of back surgery H/O: hysterectomy Social History Social History Housing: Condominium Are you a primary medical care evaluation specialist to a significant other at home: No Do you presently have visiting nurse or other home services: No Patient Tobacco Use Status: Former Tobacco user e-Cigarette/Vaping Use: Never Used Substance Use Type: Marijuana Substance Use Frequency: Daily Have you been hit, kicked, punched, or otherwise hurt by someone within the past year? If so, by whom?: No Are you DNR?: No Advance Directives: No Advance Directives Information Provided: Yes Poor oral hygiene: No service: No Current occupational status: retired and disabled Current occupational exposures/hazards: No Cognitive needs: No Hearing needs: Yes (Patient see's ENT) Vision needs: No Meds Allergies Allergy/AdvReac Type Severity Reaction Status Date / Time Fish Containing Products Allergy Severe Anaphylaxis Verified 06/11/24 08:24 sulfur dioxide Allergy Severe Anaphylaxis Verified 06/11/24 08:24 adhesive tape Allergy Intermediate Rash Verified 06/11/24 08:24 Sulfa (Sulfonamide AdvReac Unknown unknown Verified 06/11/24 08:24 Antibiotics) Home Medications ?Medication ?Instructions ?Recorded ?Confirmed ?Last Taken ?Type duloxetine 60 mg capsule,delayed 60 mg PO DAILY 06/06/22 06/11/24 Unknown History release alprazolam 0.5 mg tablet 0.25 mg PO DAILY PRN Anxiety 12/12/22 06/11/24 Unknown History trazodone 100 mg tablet 200 mg PO DAILY Insomnia 03/31/24 06/11/24 Unknown History anastrozole 1 mg tablet 1 mg PO DAILY 04/24/24 06/11/24 Unknown History Exam Airway Mallampati Class: III TM Dist: >3cm Neck ROM: Full Loose/Missing/Broken Teeth: No Heart: RRR Lungs: CTA Assessment and Plan Final Anesthetic Review NPO: Yes ASA Class: III Final Preanesthetic Review: Meds/Allgs Chart Reviewed, Consent Obtained/Reviewed and Anes Risks/Benef Reviewed Patient Risk: Intermediate Procedure Risk: Intermediate Anesthetic Plan Anesthetic Plan: MAC: Disposition: Standard PACU
[2024-06-11 08:22] VITALS: BMI 32.7
[2024-06-11] MEDS: Lactated Ringers 1,000 ML 100 ML IVCONT (08:29)
[2024-06-11 08:55] VITALS: BP 120/71; PULSE 96; RESP 18; TEMP 36.7; O2SAT 96
[2024-06-11 08:56] LABS: Glucose, Whole Blood 153 mg/dL (60-115)
--- NOTE | 2024-06-11 09:26 | MHC.SHP ---
Pre-Procedural Eval Section A - 24 Hr Update-Section A only Date of Service: 06/11/24 Section B - Complete if H&P > 30 days Chief Complaint: abdominal pain Relevant Family History (Specify if Yes): No Relevant Social History: Other (specify) Present Medications: see Short Stay Collaborative assessment Medical History: Significant History (History of breast cancer Fusion of lumbar spine Bilateral carpal tunnel syndrome Diabetes Sleep apnea Colitis Carpal tunnel syndrome Thyroid disease Hypertension High cholesterol Fatty liver Acid reflux Sinusitis) History of Previous Operations: Relevant previous surgery/procedure and date(s) (History of ear surgery H/O bilateral oophorectomy Status post creation of urethral sling by suprapubic approach History of cholecystectomy History of back surgery H/O: hysterectomy) Allergies: Allergies Allergy/AdvReac Type Severity Reaction Status Date / Time Fish Containing Products Allergy Severe Anaphylaxis Verified 06/11/24 08:24 sulfur dioxide Allergy Severe Anaphylaxis Verified 06/11/24 08:24 adhesive tape Allergy Intermediate Rash Verified 06/11/24 08:24 Sulfa (Sulfonamide AdvReac Unknown unknown Verified 06/11/24 08:24 Antibiotics) Review of Systems Sugical H&P ROS: Negative: Constitution, Cardiovascular, Respiratory, Neurological, Psychiatric, Hem-Onc, Allergic/Immunologic, Gastrointestinal, Genitourinary, Musculoskeletal, Integumentary, Endocrine and Eyes/Ears/Nose/Throat Exam Surgical H&P Exam: Normal: HEENT, Normal: Heart, Normal: Lungs, Normal: Extremities, Normal: Abdomen, Normal: Skin and Normal: Neurological Plan Diagnosis/Plan: Unchanged I have reviewed the history and physical and performed a pertinent physical examination on my patient. No changes have occurred unless specified. Time Spent With Patient Time: Total time managing care of this patient today ____ minutes.
--- NOTE | 2024-06-11 09:51 | HO.OPN-COLON ---
Colonoscopy Operative Note Operative Note Date of Service: 06/11/24 Narrative: Operative Information Procedure Description: EGD, Colonoscopy Indication: abdominal pain Anesthesia: MAC FLEXIBLE TRANSORAL UPPER GASTROINTESTINAL ENDOSCOPY AND COLONOSCOPY PROCEDURE NOTE UPPER ENDOSCOPY Consent: Indications for the procedure and potential complications of bleeding, perforation, reaction to medications and missed diagnosis were discussed with the patient and informed consent was obtained. Instrument: Olympus GIF H 190 J mid size upper endoscope Monitoring: Vital signs and clinical assessment, continuous EKG monitoring, Pulse oximetry, Carbon Dioxide monitoring and blood pressure monitoring were done throughout the procedure. Procedure: The patient was placed in the left lateral decubitis position and pre-procedure medications were administered and a bite block was placed. The endoscope was inserted into the mouth and advanced under direct vision to the third part of duodenum. A careful inspection was made as the upper endoscope was withdrawn including a retroflexed examination of the proximal stomach; Findings and interventions are described below. Findings: Larynx:normal Esophagus: GE junction at 36 cm, diaphragm hiatus at 36 cm, mild esophagitis, bx taken from GEJ and distal esophagus Stomach: diffuse erythema and scarring . Biopsies were obtained. Grade 2 flap valve on retroflexed examination of the cardia. Duodenum: Normal bulb and descending duodenum, bx taken Intervention: Biopsies as noted above, COLONOSCOPY Instrument: Olympus variable stiffness pediatric scope 190L Colonoscopy Monitoring: Vital signs and clinical assessment, continuous EKG monitoring, Pulse oximetry, Carbon Dioxide monitoring and blood pressure monitoring were done throughout the procedure. Colon withdrawal time was 14 minutes. Procedure: The patient was placed in the left lateral decubitis position and pre-procedure medications were administered. After a digital rectal examination of the ano-rectum, the video colonoscope was inserted into the rectum and advanced through the colon to the cecum/TI. The colonoscope was slowly withdrawn in a retrograde panoramic fashion and the colon mucosa was carefully examined including a retroflexed view of the rectum. Findings and interventions are described below. Procedure Difficulty:moderate Findings: Terminal Ileum-normal, bx taken bx taken from right, left and rectum areas Cecum: 4-6 mm sessile polyp removed with cold forceps Ascending Colon: 5-7 mm sessile polyp removed with cold snare Transverse Colon - 4-6 mm sessile polyp removed with cold forceps Descending Colon: 4-6 mm sessile polyp removed with cold forceps Sigmoid Colon: normal Rectum: Retroflexion with small internal hemorrhoids, grade I Anorectum - normal Colon preparation: [place] Bowel Preparation Scale Right colon; 2 Transverse colon:2 Left colon; 2 (0 = Unprepared colon segment with mucosa not seen due to solid stool that cannot be cleared. 1 = Portion of mucosa of the colon segment seen, but other areas of the colon segment not well seen due to staining, residual stool and/or opaque liquid. 2 = Minor amount of residual staining, small fragments of stool and/or opaque liquid, but mucosa of colon segment seen well. 3 = Entire mucosa of colon segment seen well with no residual staining, small fragments of stool or opaque liquid) Impression and Post Procedure Diagnosis: Endoscopy Findings: gastritis esophagitis Colonoscopy Findings: colon polyps x 4 internal hemorrhoids Plan: Await Pathology results Repeat Colonoscopy in 3-4 years due to polyps or earlier if clinically indicated High fiber diet leaflet avoid straining at stool, epsom salts and sitz bath, anusol supps or cream if h pylori pos then treat Above findings were reviewed with the patient and relevant handouts were provided if indicated.
[2024-06-11 10:25] VITALS: BP 120/80; PULSE 102; RESP 18; TEMP 36.2; O2SAT 98
[2024-06-11 10:38] VITALS: BP 135/75; PULSE 95; RESP 16; TEMP 36.1; O2SAT 96
== END 2024-06-11 10:57 | disposition home or self-care (01) ==
PROVIDERS: PCP Nurse Practitioner Family; Visit Provider Internal Medicine Gastroenterology
PROC: (CPT 45385; principal; 2024-06-11 11:00)
DX: Z12.11 Encounter for screening for malignant neoplasm of colon (principal); D12.0 Benign neoplasm of cecum; D12.2 Benign neoplasm of ascending colon; K64.0 First degree hemorrhoids; K20.80 Other esophagitis without bleeding; K29.60 Other gastritis without bleeding; K29.80 Duodenitis without bleeding; K21.9 Gastro-esophageal reflux disease without esophagitis; E11.9 Type 2 diabetes mellitus without complications; I10 Essential (primary) hypertension; E78.5 Hyperlipidemia, unspecified; E03.9 Hypothyroidism, unspecified; G47.33 Obstructive sleep apnea (adult) (pediatric); Z87.891 Personal history of nicotine dependence; Z85.3 Personal history of malignant neoplasm of breast
CPT/HCPCS: 45385; 45380; 43239; 82947; 88305; 88313; 88342; J2003; J2704

== ENCOUNTER → 2024-06-11 08:06 | Outpatient (BNV) | payer OTHER, SELFPAY | PROVIDERS: PCP Nurse Practitioner Family; Visit Provider Internal Medicine Gastroenterology | DX: K29.70 Gastritis, unspecified, without bleeding (principal); K20.90 Esophagitis, unspecified without bleeding; D12.0 Benign neoplasm of cecum; D12.2 Benign neoplasm of ascending colon; D12.3 Benign neoplasm of transverse colon; D12.4 Benign neoplasm of descending colon; K64.9 Unspecified hemorrhoids; D12.8 Benign neoplasm of rectum | CPT/HCPCS: 44361; 45380; 45385 ==

== ENCOUNTER 2024-07-08 13:46 | Outpatient (AMB) | payer OTHER, SELFPAY ==
--- NOTE | 2024-07-08 13:47 | A.OFFVIS_ITS ---
Vital Signs 07/08/24 13:48 Height 5 ft 1 in Weight 173 lb BMI 32.7 BP 134/84 Blood Pressure Location Lt brachial Position Sitting Pulse 70 Pulse Source Pulse Oximeter Pulse Oximetry (%) 99 Oxygen Delivery Method Room Air Intake Visit Reasons: Mgmt of GERD + abd pain. S/P Duo Intake Note: ESTABLISHED PATIENT for mgmt of GERD + chronic abd pain. S/P Duo w/ [place] CC; C/O RUQ pain and severe bloating with any solid food intake. Compression Molding Machine Tender Required: No Allergies Fish Containing Products Allergy (Severe, Verified 07/08/24 14:05) Anaphylaxis sulfur dioxide Allergy (Severe, Verified 07/08/24 14:05) Anaphylaxis adhesive tape Allergy (Intermediate, Verified 07/08/24 14:05) Rash Sulfa (Sulfonamide Antibiotics) Adverse Reaction (Unknown, Verified 07/08/24 14:05) unknown HPI HPI Mgmt of GERD + abd pain. S/P Duo: Details: LAST VISIT: Colitis Acid reflux Colon cancer screening High fecal calprotectin Abdominal pain Constipation Postprandial epigastric pain Plan Patient will continue Nexium. Avoiding dietary triggers in late night snacking. Patient was encouraged to take fiber and increase fluid intake. Patient will be sent for upper endoscopy to rule out duodenitis, gastritis, esophagitis, H pylori. What to expect before during and after procedure discussed with patient. Stressed the importance of good bowel prep as she is going to have colonoscopy as well. Patient denies any cardiac or respiratory symptoms. Message sent to Surgical schedules to look both upper endoscopy and colonoscopy. No issues with anesthesia in the past. Patient will be see him after the procedure, sooner on as needed basis. Patient is agreeable to this plan and verbalizes understanding of instructions. She was given the opportunity to ask questions patient concerned. ? Thank you for allowing me to participate in her care Medications New bisacodyl (Dulcolax (bisacodyl)) 10 mg (2 x 5 mg) PO BEDTIME 60 tabs 4RF polyethylene glycol 3350 (Miralax) As directed by gastroenterology department at [facility] 238 grams PO ONCE 238 grams 0RF Z12.11 UPPER ENDOSCOPY: Findings: Larynx:normal Esophagus: GE junction at 36 cm, diaphragm hiatus at 36 cm, mild esophagitis, bx taken from GEJ and distal esophagus Stomach: diffuse erythema and scarring . Biopsies were obtained. Grade 2 flap valve on retroflexed examination of the cardia. Duodenum: Normal bulb and descending duodenum, bx taken Intervention: Biopsies as noted above, COLONOSCOPY Instrument: Olympus variable stiffness pediatric scope 190L Colonoscopy Monitoring: Vital signs and clinical assessment, continuous EKG monitoring, Pulse oximetry, Carbon Dioxide monitoring and blood pressure monitoring were done throughout the procedure. Colon withdrawal time was 14 minutes. Procedure: The patient was placed in the left lateral decubitis position and pre-procedure medications were administered. After a digital rectal examination of the ano-rectum, the video colonoscope was inserted into the rectum and advanced through the colon to the cecum/TI. The colonoscope was slowly withdrawn in a retrograde panoramic fashion and the colon mucosa was carefully examined including a retroflexed view of the rectum. Findings and interventions are described below. Procedure Difficulty:moderate Findings: Terminal Ileum-normal, bx taken bx taken from right, left and rectum areas Cecum: 4-6 mm sessile polyp removed with cold forceps Ascending Colon: 5-7 mm sessile polyp removed with cold snare Transverse Colon - 4-6 mm sessile polyp removed with cold forceps Descending Colon: 4-6 mm sessile polyp removed with cold forceps Sigmoid Colon: normal Rectum: Retroflexion with small internal hemorrhoids, grade I Anorectum - normal Colon preparation: [place] Bowel Preparation Scale Right colon; 2 Transverse colon:2 Left colon; 2 (0 = Unprepared colon segment with mucosa not seen due to solid stool that cannot be cleared. 1 = Portion of mucosa of the colon segment seen, but other areas of the colon segment not well seen due to staining, residual stool and/or opaque liquid. 2 = Minor amount of residual staining, small fragments of stool and/or opaque liquid, but mucosa of colon segment seen well. 3 = Entire mucosa of colon segment seen well with no residual staining, small fragments of stool or opaque liquid) Impression and Post Procedure Diagnosis: Endoscopy Findings: gastritis esophagitis Colonoscopy Findings: colon polyps x 4 internal hemorrhoids Plan: Await Pathology results Repeat Colonoscopy in 3-4 years due to polyps or earlier if clinically indicated High fiber diet leaflet avoid straining at stool, epsom salts and sitz bath, anusol supps or cream if h pylori pos then treat Above findings were reviewed with the patient and relevant handouts were provided if indicated. PATHOLOGY RESULTS Diagnosis A. Duodenum, biopsy: Chronic inactive duodenitis. B. Stomach, biopsy: Oxyntic mucosa with mild chronic inactive inflammation; no Helicobacter organisms seen. C. GE junction, biopsy: - Cardiofundic-type mucosa with moderate chronic inactive inflammation; no intestinal metaplasia seen. - Squamous epithelium within normal limits. D. Esophagus, distal, biopsy: Squamous epithelium within normal limits; no inflammation seen. E. Cecum, polypectomy: Tubular adenoma; negative for high-grade dysplasia or carcinoma. F. Colon, ascending, polypectomy: Fragments of tubular adenoma; negative for high-grade dysplasia or carcinoma. G. Terminal ileum, biopsy: Small intestinal mucosa within normal limits. H. Colon, right, biopsy: Colonic mucosa within normal limits. I. Colon, transverse, polypectomy: Colonic mucosa with mild surface hyperplastic changes. J. Colon, left, biopsy: Colonic mucosa within normal limits. K. Colon, descending, polypectomies: Hyperplastic mucosal polyps. L. Rectum, biopsy: Rectal mucosa within normal limits TODAY'S VISIT Patient is here today for follow-up and to discuss upper endoscopy and colonoscopy results. Patient denies any effects from the anesthesia, prep or procedure itself. Patient reports to be feeling fairly well. Taking as omeprazole and her symptoms of acid reflux are suppressed for the most part. Patient reports occasional abdominal bloating. Patient feels constipated at times. Patient denies melena, hematochezia. Patient denies any dyspepsia, dysphagia or odynophagia. Upper endoscopy and colonoscopy results discussed with patient. Random biopsy from intestinal mucosa normal without colitis. Tubular adenoma found in cecum and ascending colon. [facility] Medical History History of breast cancer Fusion of lumbar spine Bilateral carpal tunnel syndrome Diabetes Sleep apnea Colitis Carpal tunnel syndrome Thyroid disease Hypertension High cholesterol Fatty liver Acid reflux Sinusitis Surgical History History of lumpectomy of left breast History of ear surgery H/O bilateral oophorectomy Status post creation of urethral sling by suprapubic approach History of cholecystectomy History of back surgery H/O: hysterectomy Family History Mother Hypertension High cholesterol Diabetes Father Alcoholism Family/Other Diabetes [facility] Are you a primary medication care manager to a significant other at home: No Do you presently have visiting nurse or other home services: No Patient Tobacco Use Status: Former Tobacco user e-Cigarette/Vaping Use: Never Used Substance Use Type: Marijuana service: No Current occupational status: retired and disabled Current occupational exposures/hazards: No Cognitive needs: No Hearing needs: Yes (Patient see's ENT) Vision needs: No Physical Exam Vital Signs: Last Vital Signs Pulse 70 07/08/24 13:48 BP 134/84 07/08/24 13:48 Pulse Ox 99 07/08/24 13:48 Oxygen Delivery Method Room Air 07/08/24 13:48 BMI result Body Mass Index 32.7 Const General: healthy appearing and no acute distress Nutritional Appearance: obese Orientation/consciousness: patient oriented x3 Resp Effort & Inspection: normal respiratory effort, able to speak in complete sentences, no tracheal deviation and symmetric chest movement Auscultation: clear to auscultation bilaterally Cardio Rate: regular rate GI Inspection: Yes normal to inspection, No distended and Yes obesity Palpation (GI): Soft to palpation, not firm, nontender and No hepatosplenomegaly present Auscultation: normal bowel sounds General: Yes no CVA tenderness Back/Spine/Pelvis Back: no CVA tenderness Skin General skin exam: elasticity normal, turgor normal and dry skin Neuro General: patient oriented x3 Psych Appearance: grossly normal Mental Status: mental status grossly normal Assessment & Plan Assessment & Plan (1) Colitis: Code(s): K52.9 - Noninfective gastroenteritis and colitis, unspecified Category: Medical (2) Acid reflux: Code(s): K21.9 - Gastro-esophageal reflux disease without esophagitis Category: Medical Qualifiers: Esophagitis presence: esophagitis presence not specified Qualified Code(s): K21.9 - Gastro-esophageal reflux disease without esophagitis (3) High fecal calprotectin: Code(s): R19.5 - Other fecal abnormalities (4) Abdominal pain: Code(s): R10.9 - Unspecified abdominal pain Qualifiers: Abdominal location: epigastric Qualified Code(s): R10.13 - Epigastric pain (5) Constipation: Code(s): K59.00 - Constipation, unspecified Qualifiers: Constipation type: slow transit constipation Qualified Code(s): K59.01 - Slow transit constipation (6) Postprandial epigastric pain: Code(s): R10.13 - Epigastric pain Plan Patient will continue taking esomeprazole daily. Continue to avoid dietary triggers and late night snacking. Staying upright for minimal 3 hours after meals discussed with patient. Patient will increase fluid intake and activity to promote better bowel motility. Take senna daily. Patient was also encour aged to increase fiber in her diet. Low FODMAP diet discussed with patient. Patient reports postprandial abdominal bloating. Follow-up in 3-4 months, sooner on as needed basis. Patient is agreeable to this plan and verbalizes understanding of instructions. She was given the opportunity to ask questions and all questions answered. Thank you for allowing me to participate in her care Medications: New sennosides (Natural Senna Laxative) 17.2 mg (2 x 8.6 mg) PO BEDTIME 60 tabs 3RF constipation K59.00 - Constipation, unspecified Coding Level of Care Code Est Pt Level 4 (20406) Complex EM visit Add On G2211 Diagnoses Colitis K52.9 Gastroesophageal reflux disease, unspecified whether esophagitis present K21.9 Esophagitis presence: esophagitis presence not specified High fecal calprotectin R19.5 Epigastric pain R10.13 Abdominal location: epigastric Slow transit constipation K59.01 Constipation type: slow transit constipation Postprandial epigastric pain R10.13 Time Spent (min) 35 Comment 25 minutes spent with patient and additional 10 minutes spent reviewing her records
[2024-07-08 13:48] VITALS: BP 134/84; PULSE 70; O2SAT 99; BMI 32.7
--- OUTSIDE RECORDS SUMMARY | 2024-07-08 14:44 | XMS_ITS | Encounter Summary ---
Author Organization [employer] Address [address] [place] [address] Care Team Providers Care Ip/Mosaic Technician Name Role Phone Unavailable Primary Care Provider Unavailabl e Encounter Details Date Type Department Care Team (Latest Contact Info) Description 07/31/2018 Abstract [facility] CONVERSIONS Dental, Provider, DDS Social [...] Care Team (Late st Contact Info) Description 07/20/2024 3:00 PM EDT Office Visit [facility] [address] [place] [address] Adilene Fam [address] [place], [place] [phone] documented as of this encounter Visit Diagnoses Not on filedocumented in this encounter
== END 2024-07-08 14:32 | disposition home or self-care (01) ==
LOC: HO.HGI 13:47
PROVIDERS: PCP Nurse Practitioner Family; Visit Provider Nurse Practitioner Family
DX: K52.9 Noninfective gastroenteritis and colitis, unspecified (principal); K21.9 Gastro-esophageal reflux disease without esophagitis; R19.5 Other fecal abnormalities; R10.13 Epigastric pain; K59.01 Slow transit constipation
CPT/HCPCS: 99214; G2211

== ENCOUNTER → 2024-07-08 13:46 | Outpatient (BNVA) | payer OTHER, SELFPAY | PROVIDERS: PCP Nurse Practitioner Family; Visit Provider Nurse Practitioner Family | DX: K21.9 Gastro-esophageal reflux disease without esophagitis (principal); K59.01 Slow transit constipation; K52.9 Noninfective gastroenteritis and colitis, unspecified; R19.5 Other fecal abnormalities; R10.13 Epigastric pain | CPT/HCPCS: 99212 ==

== ENCOUNTER 2024-07-31 11:30 | Outpatient (AMB) | payer OTHER, SELFPAY ==
--- NOTE | 2024-07-31 11:34 | A.OFFPC_ITS ---
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 Required: No Is last menstrual period known: No Post menopausal: No Patient : No Allergies Fish Containing Products Allergy (Severe, Verified 07/31/24 12:00) Anaphylaxis sulfur dioxide Allergy (Severe, Verified 07/31/24 12:00) Anaphylaxis adhesive tape Allergy (Intermediate, Verified 07/31/24 12:00) Rash Sulfa (Sulfonamide Antibiotics) Adverse Reaction (Unknown, Verified 07/31/24 12:00) unknown Medication List - Last Reconciled 07/31/24 by Gunjan Davis CNP acetaminophen ER (Tylenol Arthritis Pain) 650 mg PO Q8H PRN 30 days alprazolam 0.25 mg PO DAILY PRN amlodipine 5 mg PO DAILY 90 days anastrozole 1 mg PO DAILY atorvastatin 20 mg PO DAILY 90 days duloxetine 60 mg PO DAILY esomeprazole magnesium 40 mg PO DAILY hydrocortisone 2.5% (Proctosol HC) 1 appl AL BID-QID PRN levothyroxine (Synthroid) 50 mcg PO DAILY 90 days metformin ER 1,000 mg (2 x 500 mg) PO DAILY 90 days ondansetron 4 mg PO Q8H PRN Shower Chair As directed sitagliptin phosphate (Januvia) 100 mg PO QPM 90 days trazodone 200 mg PO DAILY Tobacco use date assessed: 07/31/24 Dental Screening Dental Screen Date: 07/31/24 Did you have a dental visit in the last 12 months?: Yes Did you have a dental problem in the last 6 months where you did not have access to dental care?: No Was dental information given to patient?: Patient has dentist HPI HPI Comments History of Present Illness Details 59-year-old female presents for hyperten jamaal, diabetes, and vasomotor symptoms follow-up. She admits to taking her medications as prescribed without adverse reactions. She notes that she has been making healthy lifestyle changes. She reports vasomotor symptoms especially at night. She has an appointment with her urogynecologist in September. She has gabapentin a home but does not take them due to associated weight gain. She is willing to trial clonidine for her symptoms. She request orders for Flonase, vitamin D3, and magnesium oxide. [facility] Medical History History of breast cancer Fusion of lumbar spine Bilateral carpal tunnel syndrome Diabetes Sleep apnea Colitis Carpal tunnel syndrome Thyroid disease Hypertension High cholesterol Fatty liver Acid reflux Sinusitis Surgical History History of lumpectomy of left breast History of ear surgery H/O bilateral oophorectomy Status post creation of urethral sling by suprapubic approach History of cholecystectomy History of back surgery H/O: hysterectomy Family History Mother Hypertension High cholesterol Diabetes Father Alcoholism Family/Other Diabetes Social History Housing: [facility] Are you a primary resident care technician to a significant other at home: No Do you presently have visiting nurse or other home services: No Patient Tobacco Use Status: Former Tobacco user e-Cigarette/Vaping Use: Never Used Second Hand Smoke Exposure: No Substance Use Type: Marijuana service: No Current occupational status: retired and disabled Current occupational exposures/hazards: No Cognitive needs: No Hearing needs: Yes (Patient see's ENT) Vision needs: No Questionnaire PHQ-9 Over the last 2 weeks, how often have you been bothered by any of the following problems? 1. Little interest or pleasure in doing things: several days 2. Feeling down, depressed, or hopeless: several days 3. Trouble falling or staying asleep, or sleeping too much: several days 4. Feeling tired or having little energy: several days 5. Poor appetite or overeating: several days 6. Feeling bad about yourself - or that you are a failure or have let yourself or your family down: not at all 7. Trouble concentrating on things, such as reading the newspaper or watching television: not at all 8. Moving or speaking so slowly that other people could have noticed. Or the opposite - being so fidgety or restless that you have been moving around a lot more than usual: several days 9. Thoughts that you would be better off or of hurting yourself in some way: not at all Total score: 6 Depression Screening Interpretation: Positive Depression Screening Done: Yes 35077 - PHQ-9 Billing: Yes Source: Developed by Drs. Keith Cota, Rhoda Vega, Álvaro Casiano and colleagues, with an educational jose from [employer]. Thrive Questionnaire Date Thrive assessed: 03/12/24 I am a: Patient What is your living situation today?: I have a steady place to live Within the past 12 months, did the food you bought not last and you didn't have the money to get more?: Often true Within the past 12 months, did you worry whether your food would run out before you got money to buy more?: Often true Do you have trouble paying for medicines?: No Do you have trouble getting transportation to medical appointments?: No Do you have trouble paying your heating and electricity bill?: No Do you have trouble taking care of your child, family member or friend?: I choose not to answer this question Do you have trouble with day-to-day activities such as bathing, preparing meals, shopping, managing finances, etc.?: No Are you currently unemployed and looking for a job?: No Are you interested in more education?: Yes Currently or been in a relationship where the following occur: I choose not to answer THRIVE Score: 2 BON-7 AMB Questionnaire BON-7 Date BON - 7 assessed: 07/31/24 Feeling nervous, anxious, or on edge: 1 = Several days Not being able to stop or control worryin = Several days Worrying too much about different things: 1 = Several days Trouble relaxin = Several days Being so restless that it is hard to sit still: 1 = Several days Becoming easily annoyed or irritable: 1 = Several days Feeling afraid as if something awful might happen: 1 = Several days Total BON-7 score (0-4 normal; 5-9 mild; 10-14 moderate; 15-21 severe): 7 Source: Developed by Rhoda Leonard, Álvaro Casiano and colleagues, with an educational jose from [employer]. BON-7 Assessment Billing BON-7 Assessment Tool: BON-7 Assessment 83463 Review of Systems Const Details: Const Denies chills, Denies fatigue, Denies fever(s), Denies headache(s) and Denies weakness ENT Denies dizziness and Denies headache(s) Card Denies chest pain, Denies lightheadedness, Denies dyspnea and Denies other (Palpitations) Resp Denies cough, Denies dyspnea, Denies wheezing and Denies other ( shortness of breath) GI Denies abdominal pain, Denies melena, Denies hematochezia, Denies change in bowel habits, Denies dyspepsia and Denies nausea Denies hematuria and Denies dysuria Musc Denies abnormal gait, Denies myalgias, Denies arthralgias, Denies numbness and Denies tingling Skin/Breast Denies rash, Denies unusual bruising and Denies wounds Neuro Denies abnormal gait, Denies dizziness, Denies headache(s), Denies memory loss, Denies numbness, Denies Sensory deficit (Neuro), Denies tingling and Denies weakness Psych Denies anxiety, Denies depression, Denies memory loss Endo Denies cold intolerance, Denies fatigue, Denies heat intolerance, Denies polydipsia and Denies polyuria Aller/Immun Denies wheezing Physical exam (Primary Care) Vital Signs: Last Vital Signs Temp 99.0 F 07/31/24 11:44 Pulse 103 H 07/31/24 11:44 Resp 16 07/31/24 11:44 BP 127/87 07/31/24 11:44 Pulse Ox 95 07/31/24 11:44 Oxygen Delivery Method Room Air 07/31/24 11:44 BMI result Body Mass Index 32.5 Tobacco/Smoking Status: Tobacco use Status Tobacco use date assessed 07/31/24 07/31/24 11:42 Patient Tobacco Use Status Former Tobacco user 07/31/24 11:42 e-Cigarette/Vaping Use Never Used 07/31/24 11:42 PHQ-9: PHQ-9 Score PHQ-9: Total score 6 07/31/24 11:49 Depression Screening Interpretation: Positive Thrive Assessment: Date of Thrive Assessment Date Thrive assessed 03/12/24 07/31/24 11:42 Currently or been in a relationship where the following occur: I choose not to answer Const Other: General: no acute distress and well developed Nutritional Appearance: well nourished Orientation/consciousness: patient oriented x3 [facility] Head: Yes normocephalic and Yes atraumatic Eyes General: appearance normal, both eyes and all related structures Pupils: Equal, round and reactive pupils present EOM: EOMs intact bilaterally Resp Effort & Inspection: normal respiratory effort Auscultation: clear to auscultation bilaterally Cardio Rate: regular rate Rhythm: regular rhythm Heart sounds: S1 normal heart sound present, S2 normal heart sound present, no gallops, no murmurs and no rubs GI Palpation (GI): No Abdominal aortic bruit present, Soft to palpation, nontender, No hepatosplenomegaly present and No Rebound tenderness present Auscultation: normal bowel sounds General: Yes no CVA tenderness Back/Spine/Pelvis Back: no CVA tenderness Cervical Spine: cervical ROM normal and No Cervical spine tenderness Thoracic/Lumbar Spine: thoraco-lumbar ROM normal, No pain with thoraco-lumbar ROM, No thoracic spinal tenderness and No lumbar spinal tenderness Extrem General: Yes normal to inspection, No edema and No calf tenderness Skin General: warm and dry. Normal skin color. Normal skin turgor Lesions: no lesions Rashes: no rashes Trauma: no lacerations or abrasions Wounds: no wounds Nails: normal Neuro General: patient oriented x3, gait normal and no focal neuro deficit Cranial nerves: Yes Equal, round and reactive pupils present Cognition (Neuro): normal cognition Gait exam (Neuro): Normal gait present Sensory Exam: No Sensory deficit (Neuro) Psych Appearance: grossly normal Affect: normal affect Attitude: cooperative Thought process: Normal thought process present Results AMB Hemoglobin A1c AMB Hemoglobin A1c 6.2 % Last Edit by Chichi Gates MA on 07/31/24 12:16 Coding Level of Care Code Est Pt Level 4 (74254) Diagnoses Hypertension I10 Type 2 diabetes mellitus E11.9 Vasomotor symptoms due to menopause N95.1 Additional Codes BON-7 Assessment Billing - BON-7 Assessment Tool: BON-7 Assessment 70235 ([id number]) PHQ-9 - 03757 - PHQ-9 Billing: Yes ([id number]) Assessment & Plan Assessment & Plan (1) Hypertension: Code(s): I10 - Essential (primary) hypertension Category: Medical Plan: Resting blood pressure is 110/76, within goal of less than 140/90. Continue current treatment regimen. Low-sodium diet encouraged. Follow-up in 3 months or sooner with symptoms or concerns. Verbalized understanding and agreed with treatment plan. (2) Type 2 diabetes mellitus: Code(s): E11.9 - Type 2 diabetes mellitus without complications Category: Medical Plan: A1c today is 6.2%, within goal of less than 7.0%. Previous A1c was 6.0%. Continue current treatment regimen. ADA diet and routine exercise encouraged. Will recheck A1c in 3 months. Verbalized understanding and agreed with the plan. (3) Vasomotor symptoms due to menopause: Code(s): N95.1 - Menopausal and female climacteric states Category: Medical Plan: She reports vasomotor symptoms especially at night. She has an appointment with her urogynecologist in September. She has gabapentin a home but does not take them due to associated weight gain. She is willing to trial clonidine for her symptom. Clonidine 0.1 mg at bedtime ordered; advised to take as prescribed. Instructed on the risks, benefits, and potential adverse reactions of the medications. Follow-up as needed. Verbalized understanding and agreed with the plan. Orders: Orders AMB Hemoglobin A1c Today Z13.9 - Encounter for screening, unspecified Medications: New clonidine HCl 0.1 mg PO BEDTIME 30 tabs 3RF 30 days magnesium oxide 300 mg PO DAILY 90 tabs 2RF 90 days cholecalciferol (vitamin D3) 50 mcg PO DAILY 90 tabs 2RF 90 days fluticasone propionate 50 mcg/actuation (Flonase Allergy Relief) Administer into each nostril. Two actuations in each nostril daily x1 week; and then 1-2 actuations in each nostril daily 2 sprays intranasal DAILY PRN 16 grams 3RF allergy symptoms
[2024-07-31 11:44] VITALS: BP 127/87; PULSE 103; RESP 16; TEMP 37.2; O2SAT 95; BMI 32.5
--- OUTSIDE RECORDS SUMMARY | 2024-07-31 11:51 | XMS_ITS | Encounter Summary ---
Author Organization [employer] Address [address] [place] [address] Care Team Providers Care Dental Scheduler Name Role Phone Unavailable Primary Care Provider Unavailabl e Encounter Details Date Type Department Care Team (Latest Contact Info) Description 07/31/2018 Abstract C CONVERSIONS Dental, Provider, DDS Social History Tobacco [...]
[2024-07-31 12:21] VITALS: BP 110/76
== END 2024-07-31 12:17 | disposition home or self-care (01) ==
LOC: HO.HMCFM 11:31
PROVIDERS: PCP Nurse Practitioner Family; Visit Provider Nurse Practitioner Family
DX: I10 Essential (primary) hypertension (principal); E11.9 Type 2 diabetes mellitus without complications; N95.1 Menopausal and female climacteric states; Z13.9 Encounter for screening, unspecified

== ENCOUNTER → 2024-07-31 11:30 | Outpatient (BNVA) | payer OTHER, SELFPAY | PROVIDERS: PCP Nurse Practitioner Family; Visit Provider Nurse Practitioner Family | DX: I10 Essential (primary) hypertension (principal); E11.9 Type 2 diabetes mellitus without complications; I95.1 Orthostatic hypotension | CPT/HCPCS: 83036; 96127; 99212 ==

== ENCOUNTER 2024-10-06 13:09 | Outpatient (AMB) | payer OTHER, SELFPAY ==
--- NOTE | 2024-10-06 13:11 | A.OFFVIS_ITS ---
Vital Signs 10/06/24 13:13 Height 5 ft 1 in Weight 170 lb 3.15 oz BMI 32.2 BP 114/68 Blood Pressure Location Rt brachial Position Sitting Pulse 96 Pulse Source Pulse Oximeter Pulse Oximetry (%) 97 Oxygen Delivery Method Room Air Intake Visit Reasons: 3 month after post op Intake Note: ESTABLISHED PATIENT for mgmt of GERD + chronic abd pain. CC; C.O. bloating, constipation, and abd cramping intermittently x2-3 mos. Pt states that she has been doing well otherwise and has been taking new magnesium supplement which has been helping with multiple factors. 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 Continue to avoid dietary triggers and late night snacking. Staying upright for minimal 3 hours after meals discussed with patient. Patient will increase fluid intake and activity to promote better bowel motility. Take senna daily. Patient was also encouraged to increase fiber in her diet. Low FODMAP diet discussed with patient. Patient reports postprandial abdominal bloating. Follow-up in 3-4 months, sooner on as needed basis. Patient is agreeable to this plan and verbalizes understanding of instructions. She was given the opportunity to ask questions and all questions answered. ? Thank you for allowing me to participate in her care New sennosides (Natural Senna Laxative) 17.2 mg (2 x 8.6 mg) PO BEDTIME 60 tabs 3RF constipation K59.00 TODAY'S VISIT: Patient is here today for follow-up. Patient reports postprandial abdominal bloating no matter what he eats. Patient reports that she is moving her bowels, however she does not feel like she can empty her bowels completely. Patient is not Senokot on regular basis, uses as needed about once a week. Patient denies dyspepsia, dysphagia or odynophagia. Denies melena, hematochezia, unintentional weight loss or ribbon like stools. Patient admits that she eats fruits, however most of the fruitsthat she eats are on high FODMAP list. Going over that list and recommendations with patient in the office today to clarify and educate [facility] Medical History History of breast cancer Fusion of lumbar spine Bilateral carpal tunnel syndrome Diabetes Sleep apnea Colitis Carpal tunnel syndrome Thyroid disease Hypertension High cholesterol Fatty liver Acid reflux Sinusitis Surgical History History of lumpectomy of left breast History of ear surgery H/O bilateral oophorectomy Status post creation of urethral sling by suprapubic approach History of cholecystectomy History of back surgery H/O: hysterectomy Family History Mother Hypertension High cholesterol Diabetes Father Alcoholism Family/Other Diabetes Social History Housing: [facility] Are you a primary career development facilitator to a significant other at home: No Do you presently have visiting nurse or other home services: No Patient Tobacco Use Status: Former Tobacco user e-Cigarette/Vaping Use: Never Used Second Hand Smoke Exposure: No Substance Use Type: Marijuana service: No Current occupational status: retired and disabled Current occupational exposures/hazards: No Cognitive needs: No Hearing needs: Yes (Patient see's ENT) Vision needs: No Review of Systems Const Denies weight gain and Denies weight loss ENT Reports no additional complaints, Denies dysphagia and Denies odynophagia Card Reports no additional complaints Resp Reports no additional complaints GI Denies abdominal pain, Denies belching, Denies melena, Denies bloating, Denies change in bowel habits, Reports constipation, Denies dysphagia, Denies excessive flatus, Denies dyspepsia, Reports heartburn (Occasional), Denies diarrhea, Reports loose stools, Denies nausea, Denies odynophagia and Denies vomiting Reports no additional complaints Musc Reports no additional complaints Neuro Reports no additional complaints Psych Reports no additional complaints Endo Reports no additional complaints Physical Exam Vital Signs: Last Vital Signs Pulse 96 10/06/24 13:13 BP 114/68 10/06/24 13:13 Pulse Ox 97 10/06/24 13:13 Oxygen Delivery Method Room Air 10/06/24 13:13 BMI result Body Mass Index 32.2 Const General: healthy appearing and no acute distress Nutritional Appearance: obese Orientation/consciousness: patient oriented x3 Resp Effort & Inspection: normal respiratory effort, able to speak in complete sentences, no tracheal deviation and symmetric chest movement Auscultation: clear to auscultation bilaterally Cardio Rate: regular rate GI Inspection: Yes normal to inspection, No distended and Yes obesity Palpation (GI): Soft to palpation, not firm, nontender and No hepatosplenomegaly present Auscultation: normal bowel sounds General: Yes no CVA tenderness Back/Spine/Pelvis Back: no CVA tenderness Skin General skin exam: elasticity normal, turgor normal and dry skin Neuro General: patient oriented x3 Psych Appearance: grossly normal Mental Status: mental status grossly normal Assessment & Plan Assessment & Plan (1) Colitis: Code(s): K52.9 - Noninfective gastroenteritis and colitis, unspecified Category: Medical (2) Acid reflux: Code(s): K21.9 - Gastro-esophageal reflux disease without esophagitis Category: Medical Qualifiers: Esophagitis presence: esophagitis presence not specified Qualified Code(s): K21.9 - Gastro-esophageal reflux disease without esophagitis (3) High fecal calprotectin: Code(s): R19.5 - Other fecal abnormalities (4) Abdominal pain: Code(s): R10.9 - Unspecified abdominal pain Qualifiers: Abdominal location: generalized Qualified Code(s): R10.84 - Generalized abdominal pain (5) Constipation: Code(s): K59.00 - Constipation, unspecified Qualifiers: Constipation type: slow transit constipation Qualified Code(s): K59.01 - Slow transit constipation (6) Postprandial epigastric pain: Code(s): R10.13 - Epigastric pain Plan Discussed with patient low FODMAP diet and avoiding dietary triggers. List of food recommended as well as list of food to avoid given to patient. Patient reports postprandial loose stools. Will check fecal calprotectin. Epigastric pain. Patient will see me take simethicone as needed. Will check vitamin-D, lipase, thyroid study, vitamin B12 and folate. Patient will try fiber with pre and probiotics and try to take 1-2 senna daily to help her empty her bowels completely. Increase fluid intake and activity to promote better bowel motility. Patient is up in 3 months, sooner on as needed basis. She is agreeable to this plan and verbalizes understanding of instructions. She was given the opportunity to ask questions and all questions answered. Thank you for allowing me to participate in her care Orders: Orders Vitamin D 25-OH (D2 and D3) 10/06/24 E55.9 - Vitamin D deficiency, unspecified Calprotectin, Fecal 10/06/24 R15.9 - Full incontinence of feces Lipase 10/06/24 R10.9 - Unspecified abdominal pain TSH reflex Free T4 10/06/24 K59.00 - Constipation, unspecified Vitamin B12 and Folate 10/06/24 R19.7 - Diarrhea, unspecified Medications: New sennosides (senna) 17.2 mg (2 x 8.6 mg) PO BEDTIME 180 tabs 0RF constipation simethicone 125 mg PO BID-QID PRN 120 caps 3RF abdominal distention Refilled ondansetron 4 mg PO Q8H PRN 20 tabs 0RF nausea and vomiting Coding Level of Care Code Est Pt Level 4 (14627) Complex EM visit Add On G2211 Diagnoses Colitis K52.9 Gastroesophageal reflux disease, unspecified whether esophagitis present K21.9 Esophagitis presence: esophagitis presence not specified High fecal calprotectin R19.5 Generalized abdominal pain R10.84 Abdominal location: generalized Slow transit constipation K59.01 Constipation type: slow transit constipation Postprandial epigastric pain R10.13 Time Spent (min) 40 Comment 15 minutes spent with patient and additional 10 minutes spent reviewing her records
[2024-10-06 13:13] VITALS: BP 114/68; PULSE 96; O2SAT 97; BMI 32.2
--- OUTSIDE RECORDS SUMMARY | 2024-10-06 13:57 | XMS_ITS | Encounter Summary ---
Author Organization [employer] Address [address] [place] [address] Care Team Providers Care Assistant Professor Of Surgery Name Role Phone Unavailable Primary Care Provider Unavailabl e Encounter Details Date Type Department Care Team (Latest Contact Info) Description 07/31/2018 Abstract [facility] CONVERSIONS Dental, Provider, DDS Social History [...] Care Team (Late st Contact Info) Description 10/28/2024 11:00 AM EDT Office Visit [facility] [address] [place] [phone] Adilene Fam [address] [place] [phone] 11/05/2024 2:00 PM EDT Office Visit [facility] [address] [place] [id number] Adilene Fam [address] [place] [phone] documented as of this encounter Visit Diagnoses Not on filedocumented in this encounter
--- OUTSIDE RECORDS SUMMARY | 2024-10-06 13:57 | XMS_ITS | Clinical Summary ---
Author Organization [employer] Address [address] [place] [address] Care Team Providers Care Rotary Drill Operator Helper Name Role Phone Unavailable Primary Care Provider Unavailabl e Allergies Active Allergy Reactions Criticality Noted Date Comments Fish Allergy Anaphylaxis,Hives,Ra sh,Shortness of breath High 05/14/2024 Latex 08/12/2015 Sulfur Dioxide Rash Low 05/14/2024 Medications clonazePAM (KlonoPIN) 0.5 MG tablet TAKE 1/2 -1 TABLET BY MOUTH TWICE A DAY NEEDED FOR ANXIETY 4 Active Prempro 0.3-1.5 MG tablet Take 1 tablet by mouth Once per day. Active cyclobenzaprine (Flexeril) 10 MG tablet TAKE 1 TABLET ORALLY BEDTIME NEEDED FOR MUSCLE SPASM 4 Active diazePAM (Valium) 5 MG tablet take 1 tablet by mouth three times a day as needed for spasm 4 Active diclofenac (Cataflam) 50 MG tablet Take 1 tablet by mouth Once per day. 4 Active dicyclomine (Bentyl) 10 MG capsule TAKE 1 CAPSULE ORALLY 2 TIMES A DAY NEEDED FOR ABDOMINAL DISCOMFORT 4 Active docusate sodium (Colace) 100 MG capsule take 1 capsule by mouth everyday at bedtime 4 Active DULoxetine (Cymbalta) [address] capsule Take 60 mg by mouth Once per day. Active anastrozole (Arimidex) 1 MG chemo tablet Take 1 mg by mouth Once per day. 5 Active Encounters Date Type Department Care Team Description 07/20/2024 3:00 PM EDT Office Visit [facility] [address] [place] [phone] Adilene Fam 07/13/2024 Travel from Last 3 Months Social History Tobacco Use Types Packs/Day Years Used Date Smoking Tobacco: Never Assessed Comments Unknown Sex and Gender Information Value Date Recorded Sex Assigned at Female 12/11/2021 10:29 AM EDT Legal Sex Female 10:29 AM EDT Gender Identity Female 12/11/2021 10:29 AM EDT Sexual Orientation Straight 12/11/2021 10 :29 AM EDT Last Filed Vital Signs Vital Sign Reading Time Taken Comments Blood Pressure 104/68 07/20/2024 3:01 PM EDT Pulse - - Temperature - - Respiratory Rate - - Oxygen Saturation - - Inhaled Oxygen Concentration - - Weight - - Height - - Body Mass Index - - Plan of Treatment Upcoming Encounters Date Type Department Care Team (Late st Contact Info) Description 10/28/2024 11:00 AM EDT Office Visit [facility] D[facility] [address] [place] [phone] Adilene Fam [address] [place] [phone] 11/05/2024 2:00 PM EDT Office Visit [facility] [address] [place] [phone] Adilene Fam [address] [place] [phone] Health Maintenance Due Date Last Done Comments CT Colonography 1963 Colonoscopy 1963 Colorectal Cancer Screening 1963 Depression Screening 1963 FIT DNA/Cologuard 1963 FIT 1963 FOBT 1963 HIV Screening 1963 Lipid Panel 1963 SDOH Screening 1963 Sigmoidoscopy 1963 Disability Screening 1963 Alcohol/Substance Use Screening 1975 Tobacco Screening 1975 Hepatitis C Screening 07/08/1981 Pap Smear 07/08/1984 Cervical Cancer Screening 07/08/1993 HPV/Cotest 07/08/1993 Mammogram 2003 Dental Prophylaxis 08/21/2019 02/19/2019, 0 07/31/2018, 01/28/2018, Additional history exists Dental X-Ray: Full Mouth 11/14/2019 11/12/2016 Dental X-Ray: Bitewings 02/21/2020 02/19/19, 01/28/2018, 11/12/2016, Additional history exists Hepatitis A Vaccines (2 of 3 - Hep A Twinrix risk 3-dose series) 08/15/2021 07/18/2021 Hepatitis B Vaccines (2 of 3 - Hep B Twinrix risk 3-dose series) 08/15/2021 07/18/2021 RSV Patients and Patients Aged 60 years or older (1 - Risk 60-74 years 1-dose series) 2023 Influenza Vaccine (#1) 2024 , 01/11/2023, 11/13/2021, Additional history exists Dental Oral Exam 01/20/2025 07/20/2024, 10/2019, 01/28/2018, Additional history exists DTaP/Tdap/Td Vaccines (2 - Td or Tdap) 07/12/2031 07/11/2021 Zoster Vaccines Completed 07/12/2020, 10/14/2019 Pneumococcal Vaccine: 50+ Years Completed 10/01/2023, 11/22/2021, [...] patient's age to complete this topic Meningococcal B Vaccine Aged Out No l onger eligible based on patient's age to complete [...] Procedure Name Priority Date/Time Associated Diagnosis Comments PERIODIC ORAL EVALUATION - ESTABLISHED PATIENT Routine 07/20/2024 3:00 PM EDT 28 O AMALGAM FILLING Routine 07/20/2024 12:00 AM EDT 29 O AMALGAM FILLING Routine 07/20/2024 12:00 AM EDT 31 O AMALGAM FILLING Routine 07/20/2024 12:00 AM EDT 21 O AMALGAM FILLING Routine 07/20/2024 12:00 AM EDT 20 O AMALGAM FILLING Routine 07/20/2024 12:00 AM EDT 19 MO AMALGAM FILLING Routine 07/20/2024 12:00 AM EDT 18 O AMALGAM FILLING Routine 07/20/2024 12:00 AM EDT 15 O AMALGAM FILLING Routine 07/20/2024 12:00 AM EDT 13 O AMALGAM FILLING Routine 07/20/2024 12:00 AM EDT 12 O AMALGAM FILLING Routine 07/20/2024 12:00 AM EDT 5 DO AMALGAM FILLING Routine 07/20/2024 12:00 AM EDT 4 MOD AMALGAM FILLING Routine 07/20/2024 12:00 AM EDT 3 DO AMALGAM FILLING Routine 07/20/2024 12:00 AM EDT 2 O AMALGAM FILLING Routine 07/20/2024 1 2:00 AM EDT PROPHYLAXIS - ADULT Routine 02/19/2019 1 2:00 AM EST BITEWINGS - 4 RADIOGRAPHIC IMAGES Routine 02/19/2019 12:00 AM EST INTRAORAL - COMPLETE SERIES OF RADIOGRAPHIC IMAGES Routine 11/12/2016 12:00 AM EDT from Last 3 Months or Most Recently Relevant to Health Maintenance Insurance DENTAL - [facility]
--- OUTSIDE RECORDS SUMMARY | 2024-10-06 13:57 | XMS_ITS | Encounter Summary ---
Author Organization [employer] Address [address] [place] [address] Care Team Providers Care Scheduling Representative Name Role Phone Unavailable Primary Care Provider Unavailabl e Encounter Details Date Type Department Care Team (Late st Contact Info) Description 06/02/2024 Telephone [facility] ADULT DENTAL [address] [place] [address] Silverio Ocasio, BDS [address] [place] [address] Social History Tobacco Use Types Packs/Day Years [...] Description 10/28/2024 11:00 AM EDT Office Visit [facility] DENT[facility] [address] [place], [place] [phone] Adilene Fam [address] [place], [place] [phone] 11/05/2024 2:00 PM EDT Office Visit [facility] DENTAL [address] [place], [place] [phone] Adilene Fam [address] [place], [place] [phone] documented as of this encounter Visit Diagnoses Not on filedocumented in this encounter
== END 2024-10-06 13:49 | disposition home or self-care (01) ==
LOC: HO.HGI 13:09
PROVIDERS: PCP Nurse Practitioner Family; Visit Provider Nurse Practitioner Family
DX: K52.9 Noninfective gastroenteritis and colitis, unspecified (principal); K21.9 Gastro-esophageal reflux disease without esophagitis; R19.5 Other fecal abnormalities; R10.84 Generalized abdominal pain; K59.01 Slow transit constipation; R10.13 Epigastric pain
CPT/HCPCS: 99214; G2211

== ENCOUNTER → 2024-10-06 13:09 | Outpatient (BNVA) | payer OTHER, SELFPAY | PROVIDERS: PCP Nurse Practitioner Family; Visit Provider Nurse Practitioner Family | DX: K52.9 Noninfective gastroenteritis and colitis, unspecified (principal); K21.9 Gastro-esophageal reflux disease without esophagitis; R19.5 Other fecal abnormalities; R10.84 Generalized abdominal pain; R10.13 Epigastric pain; K59.01 Slow transit constipation | CPT/HCPCS: 99212 ==

== ENCOUNTER 2024-10-22 08:28 | Outpatient (REF) | payer OTHER, SELFPAY ==
--- OUTSIDE RECORDS SUMMARY | 2024-10-22 09:29 | XMS_ITS | Encounter Summary ---
Author Organization [employer] Address [address] [place] [address] Care Team Providers Care Blocker Metal Base Name Role Phone Unavailable Primary Care Provider Unavailabl e Encounter Details Date Type Department Care Team (Latest Contact Info) Description 07/31/2018 Abstract [facility] CONVERSIONS Dental, Provider, DDS Social History [...] Care Team (Late st Contact Info) Description 11/05/2024 2:00 PM EDT Office Visit [facility] ADULT DENTAL [address] [place] [address] Adilene Fam [address] [place] [address] documented as of this encounter Visit Diagnoses Not on filedocumented in this encounter
--- OUTSIDE RECORDS SUMMARY | 2024-10-22 09:29 | XMS_ITS | Clinical Summary ---
Author Organization [employer] Address [address] [place] [address] Care Team Providers Care Internal Affairs Commander Name Role Phone Unavailable Primary Care Provider [...] by mouth Once per day. 5 Active Social History Tobacco Use Types Packs/Day Years [...] Description 11/05/2024 2:00 PM EDT Office Visit [facility] ADULT DENTAL [address] [place] [address] Adilene Fam [address] [place] [address] [phone] Health Maintenance Due Date Last Done Comments [...] ESTABLISHED PATIENT Routine 07/20/2024 3:00 PM EDT PROPHYLAXIS - ADULT Routine 02/19/2019 1 2:00 AM EST BITEWINGS - 4 RADIOGRAPHIC IMAGES Routine 02/19/2019 12:00 AM EST INTRAORAL - COMPLETE SERIES OF RADIOGRAPHIC IMAGES Routine 11/12/2016 12:00 AM EDT from Last 3 Months or Most Recently Relevant to Health Maintenance Insurance [facility]
--- OUTSIDE RECORDS SUMMARY | 2024-10-22 09:29 | XMS_ITS | Encounter Summary ---
Author Organization [employer] Address [address] [place] [address] Care Team Providers Care Green Meat Packer Name Role Phone Unavailable Primary Care Provider Unavailabl e Encounter Details Date Type Department Care Team (Late st Contact Info) Description 06/02/2024 Telephone [facility] ADULT DENTAL [address] [place] [address] Silverio Ocasio BDS [address] [place], [place] [phone] Social History Tobacco Use Types Packs/Day Years [...] Description 11/05/2024 2:00 PM EDT Office Visit [facility] ADULT D[facility]AL [address] [place] [address] Adilene Fam [address] [place], [place] [phone] documented as of this encounter Visit Diagnoses Not on filedocumented in this encounter
[2024-10-22 12:01] LABS: Lipase 281 U/L (8-78)
[2024-10-22 12:33] LABS: Folate 9.3 ng/mL (> or = 4.0); Vitamin B12 442 pg/mL (200-900)
[2024-10-27 16:38] LABS: Vitamin D 25-OH, D2 <4 ng/mL; Vitamin D 25-OH, D3 38 ng/mL; Vitamin D 25-OH, Total 38 ng/mL (30-100)
== END 2024-10-22 08:29 | disposition home or self-care (01) ==
LOC: HO.WFDLDS 08:28
PROVIDERS: Visit Provider Nurse Practitioner Family
DX: E55.9 Vitamin D deficiency, unspecified (principal); K59.00 Constipation, unspecified; R10.9 Unspecified abdominal pain; R19.7 Diarrhea, unspecified
CPT/HCPCS: 36415; 82306; 82607; 82746; 83690; 84443

== ENCOUNTER 2024-10-26 14:55 | Outpatient (REF) | payer OTHER, SELFPAY ==
--- OUTSIDE RECORDS SUMMARY | 2024-10-26 20:23 | XMS_ITS | Encounter Summary ---
Author Organization [employer] Address [address] [place] [address] Care Team Providers Care Trade Embalmer Name Role Phone Unavailable Primary Care Provider Unavailabl e Encounter Details Date Type Department Care Team (Latest Contact Info) Description 07/31/2018 Abstract [facility] CONVERSIONS Dental, Provider, DDS Social [...] Description 11/05/2024 2:00 PM EDT Office Visit [facility] ADULT DENTAL [address] [place] [address] Adilene Fam [address] [place] [phone] documented as of this encounter Visit Diagnoses Not on filedocumented in this encounter
--- OUTSIDE RECORDS SUMMARY | 2024-10-26 20:23 | XMS_ITS | Clinical Summary ---
Author Organization [employer] Address [address] [place] [address] Care Team Providers Care Parachute Manufacturing Supervisor Name Role Phone Unavailable Primary Care Provider [...] Description 11/05/2024 2:00 PM EDT Office Visit [facility] ADULT DENTAL [address] [place] [address] Adilene Fam [address] [place] [address] [phone] Health Maintenance Due Date Last Done Comments [...] Most Recently Relevant to Health Maintenance Insurance [facility]
--- OUTSIDE RECORDS SUMMARY | 2024-10-26 20:23 | XMS_ITS | Encounter Summary ---
Author Organization [employer] Address [address] [place] [address] Care Team Providers Care Entry Level Sales Consultant Name Role Phone Unavailable Primary Care Provider Unavailabl e Encounter Details Date Type Department Care Team (Late st Contact Info) Description 06/02/2024 Telephone [facility] ADULT DENTAL [address] [place] [address] Silverio Ocasio BDS [address] [place], [place] [phone] Social History Tobacco Use Types Packs/Day Years [...] Description 11/05/2024 2:00 PM EDT Office Visit [facility] ADULT DENTAL [address] [place] [address] Adilene Fam [address] [place], [place] [phone] documented as of this encounter Visit Diagnoses Not on filedocumented in this encounter
[2024-11-03 21:27] LABS: Calprotectin, Fecal 137 mcg/g
== END 2024-10-26 14:56 | disposition home or self-care (01) ==
LOC: HO.LNP 14:55
PROVIDERS: Visit Provider Nurse Practitioner Family
DX: R15.9 Full incontinence of feces (principal)
CPT/HCPCS: 83993

== ENCOUNTER 2024-11-02 10:28 | Outpatient (AMB) | payer OTHER, SELFPAY ==
--- NOTE | 2024-11-02 10:44 | MHC.PC.OV ---
Vital Signs 11/02/24 10:54 11/02/24 11:12 Height 5 ft 1 in Weight 169 lb BMI 31.9 BP 131/67 124/76 Blood Pressure Location Rt brachial Rt brachial Position Sitting Sitting Respiration 16 Pulse 99 92 Pulse Source Pulse Oximeter Auscultation Temp 97.8 F Temp Source Oral Pulse Oximetry (%) 98 Oxygen Delivery Method Room Air Intake Visit Reasons: 3 mos HTN, DM, anxiety, depression Intake Note: patient here for 3 month follow up on HTN, DM and depression Machine Feeder Required: No Is last menstrual period known: No Post menopausal: No Patient : No Allergies Fish Containing Products Allergy (Severe, Verified 11/02/24 11:07) Anaphylaxis sulfur dioxide Allergy (Severe, Verified 11/02/24 11:07) Anaphylaxis adhesive tape Allergy (Intermediate, Verified 11/02/24 11:07) Rash Sulfa (Sulfonamide Antibiotics) Adverse Reaction (Unknown, Verified 11/02/24 11:07) unknown Medication List - Last Reconciled 11/02/24 by Gunjan Davis CNP acetaminophen ER (Tylenol Arthritis Pain) 650 mg PO Q8H PRN 30 days alprazolam 0.25 mg PO DAILY PRN amlodipine 5 mg PO DAILY 90 days anastrozole 1 mg PO DAILY atorvastatin 20 mg PO DAILY 90 days cholecalciferol (vitamin D3) 50 mcg PO DAILY 90 days Creon 36,000-114,000- 180,000 unit (czhwad-rngjcjqf-seemzsu) 1 cap PO QID NS duloxetine 60 mg PO DAILY esomeprazole magnesium 40 mg PO DAILY fluticasone propionate 50 mcg/actuation (Flonase Allergy Relief) 2 sprays intranasal DAILY PRN hydrocortisone 2.5% (Proctosol HC) 1 appl NV BID-QID PRN levothyroxine (Synthroid) 50 mcg PO DAILY 90 days [magnesium taurate miscellaneous DAILY] metformin ER 1,000 mg (2 x 500 mg) PO DAILY 90 days ondansetron 4 mg PO Q8H PRN sennosides (senna) 17.2 mg (2 x 8.6 mg) PO BEDTIME Shower Chair As directed simethicone 125 mg PO BID-QID PRN trazodone 200 mg PO DAILY Tobacco use date assessed: 11/02/24 Dental Screening Dental Screen Date: 11/02/24 Did you have a dental visit in the last 12 months?: No Did you have a dental problem in the last 6 months where you did not have access to dental care?: No Was dental information given to patient?: Patient has dentist HPI HPI Comments History of Present Illness Details 59-year-old female presents for hypertension, diabetes, anxiety, and depression follow-up. She admits to taking her medications as prescribed without adverse reactions. She recently stopped taking Januvia due to elevated lipase of 281. She was recently evaluated at [facility] ED for knee and back pain and her lipase was normal, 59. She also stop taking clonidine because she read that it interact with one of my medications. She reports controlled anxiety and depressive symptoms. She notes that she is making healthy lifestyle changes. She denies acute symptoms at this time. [facility] Medical History History of breast cancer Fusion of lumbar spine Bilateral carpal tunnel syndrome Diabetes Sleep apnea Colitis Carpal tunnel syndrome Thyroid disease Hypertension High cholesterol Fatty liver Acid reflux Sinusitis Surgical History History of lumpectomy of left breast History of ear surgery H/O bilateral oophorectomy Status post creation of urethral sling by suprapubic approach History of cholecystectomy History of back surgery H/O: hysterectomy Family History Mother Hypertension High cholesterol Diabetes Father Alcoholism Family/Other Diabetes Social History [facility] Are you a primary skin care specialist to a significant other at home: No Do you presently have visiting nurse or other home services: No Patient Tobacco Use Status: Former Tobacco user e-Cigarette/Vaping Use: Never Used Second Hand Smoke Exposure: No Substance Use Type: Marijuana service: No Current occupational status: retired and disabled Current occupational exposures/hazards: No Cognitive needs: No Hearing needs: Yes (Patient see's ENT) Vision needs: No Questionnaire PHQ-9 Over the last 2 weeks, how often have you been bothered by any of the following problems? 1. Little interest or pleasure in doing things: not at all 2. Feeling down, depressed, or hopeless: not at all 3. Trouble falling or staying asleep, or sleeping too much: more than half the days 4. Feeling tired or having little energy: more than half the days 5. Poor appetite or overeating: nearly every day 6. Feeling bad about yourself - or that you are a failure or have let yourself or your family down: not at all 7. Trouble concentrating on things, such as reading the newspaper or watching television: not at all 8. Moving or speaking so slowly that other people could have noticed. Or the opposite - being so fidgety or restless that you have been moving around a lot more than usual: not at all 9. Thoughts that you would be better off or of hurting yourself in some way: not at all Total score: 7 Depression Screening Interpretation: Positive Depression Screening Follow-up: Existing condition and In treatment Depression Screening Done: Yes 10692 - PHQ-9 Billing: Yes Source: Developed by Drs. Keith Cota, Rhoda Vega, Álvaro Casiano and colleagues, with an educational jose from [employer]. Thrive Questionnaire Date Thrive assessed: 03/12/24 I am a: Patient What is your living situation today?: I have a steady place to live Within the past 12 months, did the food you bought not last and you didn't have the money to get more?: Often true Within the past 12 months, did you worry whether your food would run out before you got money to buy more?: Often true Do you have trouble paying for medicines?: No Do you have trouble getting transportation to medical appointments?: No Do you have trouble paying your heating and electricity bill?: No Do you have trouble taking care of your child, family member or friend?: I choose not to answer this question Do you have trouble with day-to-day activities such as bathing, preparing meals, shopping, managing finances, etc.?: No Are you currently unemployed and looking for a job?: No Are you interested in more education?: Yes Currently or been in a relationship where the following occur: I choose not to answer THRIVE Score: 2 BON-7 AMB Questionnaire BON-7 Date BON - 7 assessed: 11/02/24 Feeling nervous, anxious, or on edge: 1 = Several days Not being able to stop or control worryin = Not at all Worrying too much about different things: 1 = Several days Trouble relaxin = More than half the days Being so restless that it is hard to sit still: 2 = More than half the days Becoming easily annoyed or irritable: 1 = Several days Feeling afraid as if something awful might happen: 3 = Nearly every day Total BON-7 score (0-4 normal; 5-9 mild; 10-14 moderate; 15-21 severe): 10 Source: Developed by Drs. Keith Cota, Rhoda Vega, Álvaro Casiano and colleagues, with an educational jose from [employer]. BON-7 Assessment Billing BON-7 Assessment Tool: BON-7 Assessment 01489 Review of Systems Const Details: Const Denies chills, Denies fatigue, Denies fever(s), Denies headache(s) and Denies weakness ENT Denies dizziness and Denies headache(s) Card Denies chest pain, Denies lightheadedness, Denies dyspnea and Denies other (Palpitations) Resp Denies cough, Denies dyspnea, Denies wheezing and Denies other ( shortness of breath) GI Denies abdominal pain, Denies melena, Denies hematochezia, Denies change in bowel habits, Denies dyspepsia and Denies nausea Denies hematuria and Denies dysuria Musc Denies abnormal gait, Denies myalgias, Denies arthralgias, Denies numbness and Denies tingling Skin/Breast Denies rash, Denies unusual bruising and Denies wounds Neuro Denies abnormal gait, Denies dizziness, Denies headache(s), Denies memory loss, Denies numbness, Denies Sensory deficit (Neuro), Denies tingling and Denies weakness Psych Denies anxiety, Denies depression, Denies memory loss Endo Denies cold intolerance, Denies fatigue, Denies heat intolerance, Denies polydipsia and Denies polyuria Aller/Immun Denies wheezing Physical exam (Primary Care) Vital Signs: Last Vital Signs Temp 97.8 F 11/02/24 10:54 Pulse 99 11/02/24 10:54 Resp 16 11/02/24 10:54 BP 131/67 11/02/24 10:54 Pulse Ox 98 11/02/24 10:54 Oxygen Delivery Method Room Air 11/02/24 10:54 BMI result Body Mass Index 31.9 Tobacco/Smoking Status: Tobacco use Status Tobacco use date assessed 11/02/24 11/02/24 11:01 Patient Tobacco Use Status Former Tobacco user 11/02/24 10:46 e-Cigarette/Vaping Use Never Used 11/02/24 10:46 PHQ-9: PHQ-9 Score PHQ-9: Total score 7 11/02/24 11:01 Depression Screening Interpretation: Positive Depression Screening Follow-up: Existing condition and In treatment Thrive Assessment: Date of Thrive Assessment Date Thrive assessed 03/12/24 11/02/24 10:46 Currently or been in a relationship where the following occur: I choose not to answer Const Other: General: no acute distress and well developed Nutritional Appearance: well nourished Orientation/consciousness: patient oriented x3 HENMT Head: Yes normocephalic and Yes atraumatic Eyes General: appearance normal, both eyes and all related structures Pupils: Equal, round and reactive pupils present EOM: EOMs intact bilaterally Resp Effort & Inspection: normal respiratory effort Auscultation: clear to auscultation bilaterally Cardio Rate: regular rate Rhythm: regular rhythm Heart sounds: S1 normal heart sound present, S2 normal heart sound present, no gallops, no murmurs and no rubs GI Palpation (GI): No Abdominal aortic bruit present, Soft to palpation, nontender, No hepatosplenomegaly present and No Rebound tenderness present Auscultation: normal bowel sounds General: Yes no CVA tenderness Back/Spine/Pelvis Back: no CVA tenderness Cervical Spine: cervical ROM normal and No Cervical spine tenderness Thoracic/Lumbar Spine: thoraco-lumbar ROM normal, No pain with thoraco-lumbar ROM, No thoracic spinal tenderness and No lumbar spinal tenderness Extrem General: Yes normal to inspection, No edema and No calf tenderness Skin General: warm and dry. Normal skin color. Normal skin turgor Neuro General: patient oriented x3, gait normal and no focal neuro deficit Cranial nerves: Yes Equal, round and reactive pupils present Cognition (Neuro): normal cognition Gait exam (Neuro): Normal gait present Sensory Exam: No Sensory deficit (Neuro) Psych Appearance: grossly normal Affect: normal affect Attitude: cooperative Thought process: Normal thought process present Results AMB Hemoglobin A1c AMB Hemoglobin A1c 6.1 % Last Edit by Chichi Gates MA on 11/02/24 11:08 Coding Level of Care Code Est Pt Level 3 (73213) Diagnoses Hypertension I10 Type 2 diabetes mellitus E11.9 Anxiety and depression F41.9; F32.A Elevated lipase R74.8 Additional Codes BON-7 Assessment Billing - BON-7 Assessment Tool: BON-7 Assessment 71009 ([id number]) PHQ-9 - 74662 - PHQ-9 Billing: Yes ([id number]) Assessment & Plan Assessment & Plan (1) Hypertension: Code(s): I10 - Essential (primary) hypertension Category: Medical Plan: Resting blood pressure is 124/76, within goal of less than 130/80. Continue current treatment regimen. Low-sodium diet encouraged. Follow-up in 3 months or sooner with symptoms or concerns. Verbalized understanding and agreed with the plan. (2) Type 2 diabetes mellitus: Code(s): E11.9 - Type 2 diabetes mellitus without complications Category: Medical Plan: A1c today is 6.1%, within goal of less than 7.0%. Previous A1c was 6.2%. Continue current treatment regimen. ADA diet and routine exercise encouraged. Follow-up in 3 months. Verbalized understanding and agreed with plan. (3) Anxiety and depression: Code(s): F41.9 - Anxiety disorder, unspecified; F32.A - Depression, unspecified Category: Medical Plan: Reports controlled anxiety and depressive symptoms. PHQ-9 and BON-7 scores revealed mild depression and moderate anxiety respectively. Continue current treatment regimen. Routine exercise encouraged. Follow-up in 3 months or sooner with symptoms or concerns. Verbalized understanding and agreed with the plan. (4) Elevated lipase: Code(s): R74.8 - Abnormal levels of other serum enzymes Category: Medical Plan: Lab results on 10/26/2024 from [facility] reviewed; unremarkable findings; lipase is 59. Orders: Orders AMB Hemoglobin A1c Today Z13.9 - Encounter for screening, unspecified
[2024-11-02 10:54] VITALS: BP 131/67; PULSE 99; RESP 16; TEMP 36.6; O2SAT 98; BMI 31.9
[2024-11-02 11:12] VITALS: BP 124/76; PULSE 92
--- OUTSIDE RECORDS SUMMARY | 2024-11-02 12:46 | XMS_ITS | Clinical Summary ---
Author Organization [employer] Address [address] [place] [address] Care Team Providers Care Jack Of All Trades Name Role Phone Unavailable Primary Care Provider [...] Care Team (Late st Contact Info) Description 11/23/2024 11:00 AM EDT Office Visit [facility] [address] [place] [address] Adilene Fam [address] [place] [address] 12/01/2024 11:00 AM EDT Office Visit [facility] [address] [place] [phone] Adilene Fam [address] [place] [phone] Health Maintenance Due Date Last Done Comments [...] - Risk 60-74 years 1-dose series) 2023 Dental Oral Exam 01/20/2025 07/20/2024, 10/2019, 01/28/2018, Additional history exists DTaP/Tdap/Td Vaccines (2 - Td or Tdap) 07/12/2031 07/11/2021 Zoster Vaccines Completed 07/12/2020, 10/14/2019 Pneumococcal Vaccine: 50+ Years Completed 10/01/2023, 11/22/2021, 04/09/2015 Influenza Vaccine Completed 10/05/2024, , 01/11/2023, Additional history exists COVID-19 Vaccine Completed 10/22/2024, 03/2023, 01/11/2023, Additional history exists HIB Vaccines Aged Out [...] Relevant to Health Maintenance Insurance DENTAL - [facility]
--- OUTSIDE RECORDS SUMMARY | 2024-11-02 12:46 | XMS_ITS | Encounter Summary ---
Author Organization [employer] Address [address] [place] [address] Care Team Providers Care Peritoneal Dialysis Registered Nurse Name Role Phone Unavailable Primary Care Provider Unavailabl e Encounter Details Date Type Department Care Team (Latest Contact Info) Description 07/31/2018 Abstract [facility] CONVERSIONS Dental, Provider, DDS Social History [...] Description 11/23/2024 11:00 AM EDT Office Visit [facility] [address] [place] [phone] Adilene Fam [address] [place] [phone] 12/01/2024 11:00 AM EDT Office Visit [facility] [address] [place] [address] Adilene Fam [address] [place] [phone] documented as of this encounter Visit Diagnoses Not on filedocumented in this encounter
--- OUTSIDE RECORDS SUMMARY | 2024-11-02 12:46 | XMS_ITS | Encounter Summary ---
Author Organization [employer] Address [address] [place] [address] Care Team Providers Care Tumbler Plater Name Role Phone Unavailable Primary Care Provider Unavailabl e Encounter Details Date Type Department Care Team (Late st Contact Info) Description 06/02/2024 Telephone [facility] [address] [place] [address] Silverio Ocasio, BDS [address] [place] [address] Social History Tobacco Use Types Packs/Day Years [...] Description 11/23/2024 11:00 AM EDT Office Visit [facility] [address] [place], [place] [phone] Adilene Fam [address] [place], [place] [phone] 12/01/2024 11:00 AM EDT Office Visit [facility] [address] [place], [place] [phone] Adilene Fam [address] [place], [place] [phone] documented as of this encounter Visit Diagnoses Not on filedocumented in this encounter
== END 2024-11-02 11:21 | disposition home or self-care (01) ==
LOC: HO.HMCFM 10:29
PROVIDERS: PCP Nurse Practitioner Family; Visit Provider Nurse Practitioner Family
DX: I10 Essential (primary) hypertension (principal); E11.9 Type 2 diabetes mellitus without complications; F41.9 Anxiety disorder, unspecified; F32.A Depression, unspecified; R74.8 Abnormal levels of other serum enzymes; Z13.9 Encounter for screening, unspecified

== ENCOUNTER → 2024-11-02 10:28 | Outpatient (BNVA) | payer OTHER, SELFPAY | PROVIDERS: PCP Nurse Practitioner Family; Visit Provider Nurse Practitioner Family | DX: I10 Essential (primary) hypertension (principal); E11.9 Type 2 diabetes mellitus without complications; F41.9 Anxiety disorder, unspecified; F32.A Depression, unspecified; R74.8 Abnormal levels of other serum enzymes | CPT/HCPCS: 83036; 96127; 99212 ==

== ENCOUNTER 2025-01-11 13:11 | Outpatient (AMB) | payer OTHER, SELFPAY ==
--- OUTSIDE RECORDS SUMMARY | 2025-01-07 23:59 | XMS_ITS | Continuity of Care Document ---
Author Organization [facility] [employer] Address [address] [place] [address]- Care Team Providers Care Automotive Sales Associate Name Role Phone Gunjan Davis NP Primary Care Physician [phone] Encounter [facility] [id number] Date(s): 12/08/24 - 01/07/25 [facility] [address] [place], [place] [address]RUST Attending Physician: Dean Breen Admitting Physician: AdmtrDean Referring Physician: AdmtrDean Encounter Type: Triage Allergies, Adverse Reactions, Alerts Substance Criticality Severity Reaction Reaction Severity Status sulfa drugs rash Active Adhesive Bandage skin irrita tion, blisters Active Fish 1 hives,anaphylaxis Ac tive 1tilapia fish Immunizations Given and Recorded Vaccine Date Status Refusal Reason pneumococcal 23-valent vaccine 11/22/21 Recorded pneumococcal 23-valent vaccine 04/09/15 Given influenza virus vaccine, inactivated 11/13/21 George rded influenza virus vaccine, inactivated 11/30/20 George rded influenza virus vaccine, inactivated 09/28/18 George rded influenza virus vaccine, inactivated 06/18/18 George rded influenza virus vaccine, inactivated 11/07/17 George rded influenza virus vaccine, inactivated 11/18/15 George rded [id number] 12y+ bivalent booster vax 11/13/21 Recorded Hepatitis A-Hepatitis B Vaccine 07/18/21 Recorded tetanus/diphtheria/pertussis, acel(Tdap) 07/11/21 Recorded SARS-CoV-2 mRNA (yxakhsz-sipa-blgau) vax 05/26/21 Recorded zoster vaccine, inactivated 07/12/20 Recorded zoster vaccine, inactivated 10/14/19 Recorded SARS-CoV-2 (COVID-19) mRNA BNT-162b2 vac 06/01/20 Recorded SARS-CoV-2 (COVID-19) mRNA BNT-162b2 vac 05/11/20 Recorded Medications amLODIPine 5 mg oral tablet 1 tablet, By Mouth, Daily, # 90 tablet, 1 Refills, Maintenance, 03/23/22 12:28:00 PM EST, [id number], 154.94, cm, 03/08/22 9:07:00 EST, Height, 82.7, kg, 12/28/21 14:44:00 EST, Dry Weight Start Date: 03/23/22 Status: Ordered Medication Dispense Status: Completed Quantity: 90.0 Unit: tablet Total Allowed Fills: 1 Fills Dispensed: 0 anastrozole 1 mg oral tablet 1 tablet = 1 mg, By Mouth, Daily, for 90 days, # 90 tablet, 3 Refills, Acute 05/18/25 2:11:00 PM EDT,05/23/24 2:11:00 PM EDT, Tablet, [facility]/pharmacy #[id number], Partial fill upon patient request if the prescription is for a schedule II opioid drug., 155.6, cm, 04/23/24 14:01:00 EDT, Height, 78.6, kg, 04/23/24 14:01:00 EDT, Dry Weight Start Date: 05/23/24 Stop Date: 05/18/25 Status: Ordered Medication Dispense Status: Completed Quantity: 90.0 Unit: tablet Total Allowed Fills: 4 Fills Dispensed: 0 atorvastatin 20 mg oral tablet See Instructions, TAKE 1 TABLET BY MOUTH DAILY AFTER SUPPER. STOP PRAVASTATIN., # 90 tablet, 1 Refills, Maintenance, 04/13/22 9:03:00 AM EST, [id number], 154.94, cm, 03/08/22 9:07:00 EST, Height, 82.7, kg, 12/28/21 14:44:00 EST, Dry Weight Start Date: 04/13/22 Status: Ordered Medication Dispense Status: Completed Quantity: 90.0 Unit: tablet Total Allowed Fills: 1 Fills Dispensed: 0 Cymbalta 60 mg oral enteric coated capsule 1 capsule = 60 mg, By Mouth, Daily, 0 Refills, Maintenance, 06/10/20 9:25:00 AM EDT, Partial fill upon patient request if the prescription is for a schedule II opioid drug. Start Date: 06/10/20 Status: Ordered Medication Dispense Status: Completed Total Allowed Fills: 1 Fills Dispensed: 0 esomeprazole 40 mg oral enteric coated capsule TAKE 1 CAPSULE BY MOUTH EVERY DAY Start Date: 11/28/23 Status: Ordered Medication Dispense Status: Completed Total Allowed Fills: 1 Fills Dispensed: 0 levothyroxine 0.05 mg oral tablet TAKE 1 TABLET BY MOUTH EVERY DAY Start Date: 01/06/25 Status: Ordered Medication Dispense Status: Completed Total Allowed Fills: 1 Fills Dispensed: 0 lidocaine 5% topical film 1 patch, Topically, Daily, PRN Pain , Mild, remove after 12 hours, # 13 each, 0 Refills, Maintenance, 10/26/24 3:55:00 PM EDT, Film, [facility]/pharmacy #[id number], Partial fill upon patient request if the prescription is for a schedule II opioid drug., 1 patch Topically Daily,PRN:Pain , Mild,Instr:remove after12 hours, 155, cm, 10/26/24 13:08:00 EDT, Height, 77, kg, 10/26/24 13:08:00 EDT, Dry Weight Start Date: 10/26/24 Status: Ordered Medication Dispense Status: Completed Quantity: 13.0 Unit: each Total Allowed Fills: 1 Fills Dispensed: 0 MetFORMIN (Eqv-Glucophage XR) 500 mg oral tablet, extended release 2 tablet = 1,000 mg, By Mouth, Daily, # 30 tablet, 2 Refills, Maintenance, 07/20/22 9:09:00 AM EDT, [facility] STORE [id number], 154.94, cm, 06/13/22 15:46:00 EDT, Height, 84.4, kg, 05/08/22 13:56:00 EDT, Dry Weight Start Date: 07/20/22 Status: Ordered Medication Dispense Status: Completed Quantity: 30.0 Unit: tablet Total Allowed Fills: 1 Fills Dispensed: 0 nystatin 281155 u/ml oral suspension 5 mL = 500,000 units, By Mouth, 4 times a day, for 7 days, swish and swallow, # 140 mL, 0 Refills, Acute 01/13/25 10:42:00 AM EST, 01/06/25 10:42:00 AM EST, Suspension, [facility]/pharmacy #[id number], Partial fill upon patient request if the prescription is for a schedule II opioid drug., 155, cm, 01/06/25 10:17:00 EST, Height, 78.2, kg, 12/23/24 11:58:00 EST, Dry Weight Start Date: 01/06/25 Stop Date: 01/13/25 Status: Ordered Medication Dispense Status: Completed Quantity: 140.0 Unit: mL Total Allowed Fills: 1 Fills Dispensed: 0 traZODone 100 mg oral tablet 200 mg, 2, tablet, By Mouth, Daily at bedtime, # 30 tablet, Refills 2, Tot. Refills 0, Maintenance,10/26/19 11:51:00 AM EDT, Route to Pharmacy Electronically, [facility]ORE [id number], 155, cm, 09/08/19 13:02:00 EDT, Height, 85.5, kg, 08/04/19 11:52:00 EDT, Dry Weight Start Date: 10/26/19 Status: Ordered Medication Dispense Status: Completed Quantity: 30.0 Unit: tablet Total Allowed Fills: 1 Fills Dispensed: 0 Veozah 45 mg oral tablet 1 tablet = 45 mg, By Mouth, Daily, at the same time every day, # 30 tablet, 3 Refills, Maintenance,12/08/24 3:32:00 PM EDT, Tablet, [facility]/pharmacy #[id number], Partial fill upon patient request if the prescription is for a schedule II opioid drug., 155, cm, 12/08/24 14:43:00 EDT, Height, 77.8, kg, 12/08/24 14:43:00 EDT, Dry Weight Start Date: 12/08/24 Status: Ordered Medication Dispense Status: Completed Quantity: 30.0 Unit: tablet Total Allowed Fills: 4 Fills Dispensed: 0 Problem List Condition Confirmation Course Effective Dates [...] Active Social History Social History Type Response Sexual Sexually involved in last 6 months: Yes. Gender identity: Female. Preferred pronoun: She/Her/Hers. Smoking Status Former smoker, quit more than 30 days ago; Other: quit 2016; entered on: 06/25/19 Sex Sex Representation Female (finding) Patient Care team information Care Team Personnel Name: Temi Branch RN Position: [facility] ED RN W/OE and Tasks Member Role: Primary Care Nurse Name: Gunjan Davis NP Position: Reference Physician Member Role: PCP Address: [address] [place] [address] Telecom: Care Team Related Persons Name: RICO MALIK Name: RICO MEREDITH Insurance Providers Guarantor name: KARMA WARE [facility] Information #: 1 Payer: [facility] Payer Identifier: NA Member Number: [id number] Group Number: [id number] Subscriber Identifier: NA Relationship to Subscriber: self Coverage Type: Medicare Managed Care (Includes Medicare Advantage Plans) Coverage Verification Date: NA Telecom: NA Address:
--- NOTE | 2025-01-11 13:29 | A.OFFVIS_ITS ---
Vital Signs 01/11/25 13:38 Height 5 ft 1 in Weight 168 lb BMI 31.7 BP 128/72 Blood Pressure Location Rt brachial Position Sitting Pulse 84 Pulse Source Pulse Oximeter Pulse Oximetry (%) 97 Oxygen Delivery Method Room Air Intake Visit Reasons: 4m Intake Note: ESTABLISHED PATIENT for mgmt of GERD + chronic abd pain. CC; C/O umbilical abd pain, frequent BMs, diarrhea, black stools. Pt reports onset within the last two weeks, black stools x1 week ago. Pt only took medication for sx 1x ~ 3 days ago (kaopectate), which did not provide much relief. No additional sx or concerns at this time. Rag Inspector Required: No Accompanied by: Self / Same As Patient Allergies Fish Containing Products Allergy (Severe, Verified 01/11/25 13:30) Anaphylaxis sulfur dioxide Allergy (Severe, Verified 01/11/25 13:30) Anaphylaxis adhesive tape Allergy (Intermediate, Verified 01/11/25 13:30) Rash Sulfa (Sulfonamide Antibiotics) Adverse Reaction (Unknown, Verified 01/11/25 13:30) unknown HPI HPI 4m: Details: LAST VISIT Colitis Acid reflux High fecal calprotectin Abdominal pain Constipation Postprandial epigastric pain Plan Discussed with patient low FODMAP diet and avoiding dietary triggers. List of food recommended as well as list of food to avoid given to patient. Patient reports postprandial loose stools. Will check fecal calprotectin. Epigastric pain. Patient will see me take simethicone as needed. Will check vitamin-D, lipase, thyroid study, vitamin B12 and folate. Patient will try fiber with pre and probiotics and try to take 1-2 senna daily to help her empty her bowels completely. Increase fluid intake and activity to promote better bowel motility. Patient is up in 3 months, sooner on as needed basis. She is agreeable to this plan and verbalizes understanding of instructions. She was given the opportunity to ask questions and all questions answered. ? Thank you for allowing me to participate in her care Orders Vitamin D 25-OH (D2 and D3) 10/06/24 E55.9 Calprotectin, Fecal 10/06/24 R15.9 Lipase 10/06/24 R10.9 TSH reflex Free T4 10/06/24 K59.00 Vitamin B12 and Folate 10/06/24 R19.7 New sennosides (senna) 17.2 mg (2 x 8.6 mg) PO BEDTIME 180 tabs 0RF constipation simethicone 125 mg PO BID-QID PRN 120 caps 3RF abdominal distention Refilled ondansetron 4 mg PO Q8H PRN 20 tabs 0RF nausea and vomiting TODAY'S VISIT Patient is here today for follow-up. Patient reports that she started taking the mesalamine, however she was not feeling great on it. Patient reported feeling off, muscle cramping. She continues to have loose stools. Diarrhea more often than being constipated now. Patient denies hematochezia or mucus in her stools, however episode of melena couple times, however patient took Kaopectate. Patient denies any nausea or vomiting. Currently taking Nexium in the morning. Occasionally will use simethicone for bloating. Patient reports severe bloating still happening quite often. Usually is after eating. Patient is not on any particular diet, is trying to avoid some dietary triggers that she knows of. Patient is not eating lactose. [facility] Medical History History of breast cancer Fusion of lumbar spine Bilateral carpal tunnel syndrome Diabetes Sleep apnea Colitis Carpal tunnel syndrome Thyroid disease Hypertension High cholesterol Fatty liver Acid reflux Sinusitis Surgical History History of lumpectomy of left breast History of ear surgery H/O bilateral oophorectomy Status post creation of urethral sling by suprapubic approach History of cholecystectomy History of back surgery H/O: hysterectomy Family History Mother Hypertension High cholesterol Diabetes Father Alcoholism Family/Other Diabetes Social History Housing: Condominium Are you a primary career development facilitator to a significant other at home: No Do you presently have visiting nurse or other home services: No Patient Tobacco Use Status: Former Tobacco user e-Cigarette/Vaping Use: Never Used Second Hand Smoke Exposure: No Substance Use Type: Marijuana service: No Current occupational status: retired and disabled Current occupational exposures/hazards: No Cognitive needs: No Hearing needs: Yes (Patient see's ENT) Vision needs: No Review of Systems Const Denies weight gain and Denies weight loss ENT Reports no additional complaints, Denies dysphagia and Denies odynophagia Card Reports no additional complaints Resp Reports no additional complaints GI Denies abdominal pain, Denies belching, Denies melena, Denies bloating, Denies change in bowel habits, Reports constipation, Denies dysphagia, Denies excessive flatus, Denies dyspepsia, Reports heartburn (Occasional), Denies diarrhea, Reports loose stools, Denies nausea, Denies odynophagia and Denies vomiting Reports no additional complaints Musc Reports no additional complaints Neuro Reports no additional complaints Psych Reports no additional complaints Endo Reports no additional complaints Physical Exam Vital Signs: Last Vital Signs Pulse 84 01/11/25 13:38 BP 128/72 01/11/25 13:38 Pulse Ox 97 01/11/25 13:38 Oxygen Delivery Method Room Air 01/11/25 13:38 BMI result Body Mass Index 31.7 Const General: healthy appearing and no acute distress Nutritional Appearance: obese Orientation/consciousness: patient oriented x3 Resp Effort & Inspection: normal respiratory effort, able to speak in complete sentences, no tracheal deviation and symmetric chest movement Auscultation: clear to auscultation bilaterally Cardio Rate: regular rate GI Inspection: Yes normal to inspection, No distended and Yes obesity Palpation (GI): Soft to palpation, not firm, nontender and No hepatosplenomegaly present Auscultation: normal bowel sounds General: Yes no CVA tenderness Back/Spine/Pelvis Back: no CVA tenderness Skin General skin exam: elasticity normal, turgor normal and dry skin Neuro General: patient oriented x3 Psych Appearance: grossly normal Mental Status: mental status grossly normal Assessment & Plan Assessment & Plan (1) Colitis: Code(s): K52.9 - Noninfective gastroenteritis and colitis, unspecified Category: Medical (2) Acid reflux: Code(s): K21.9 - Gastro-esophageal reflux disease without esophagitis Category: Medical Qualifiers: Esophagitis presence: esophagitis presence not specified Qualified Code(s): K21.9 - Gastro-esophageal reflux disease without esophagitis (3) High fecal calprotectin: Code(s): R19.5 - Other fecal abnormalities (4) Abdominal pain: Code(s): R10.9 - Unspecified abdominal pain Qualifiers: Abdominal location: generalized Qualified Code(s): R10.84 - Generalized abdominal pain (5) Constipation: Code(s): K59.00 - Constipation, unspecified Qualifiers: Constipation type: slow transit constipation Qualified Code(s): K59.01 - Slow transit constipation (6) Postprandial epigastric pain: Code(s): R10.13 - Epigastric pain Plan Patient tried taking mesalamine genetic one, however she had reaction, feeling weak, muscle pain. Will try to order brand Lialda NC patient will do better. Low FODMAP diet discussed with patient. List of food recommended as well as list of food to avoid given to patient. Pre patient will follow-up in 3 months. She will call us if he will have any GI concerning symptoms. She is agreeable to this plan and verbalizes understanding of instructions. She was given the opportunity to ask questions and all questions answered. Thank you for allowing me to participate in her care Medications: New mesalamine (Lialda) 2.4 grams (2 x 1.2 gram) PO DAILY 30 tabs 4RF K50.90 - Crohn's disease, unspecified, without complications mesalamine (Lialda) 2.4 grams (2 x 1.2 gram) PO DAILY 60 tabs 4RF K50.90 - Crohn's disease, unspecified, without complications Coding Level of Care Code Est Pt Level 4 (47696) Add On Problem Visit Only Diagnoses Colitis K52.9 Gastroesophageal reflux disease, unspecified whether esophagitis present K21.9 Esophagitis presence: esophagitis presence not specified High fecal calprotectin R19.5 Generalized abdominal pain R10.84 Abdominal location: generalized Slow transit constipation K59.01 Constipation type: slow transit constipation Postprandial epigastric pain R10.13 Time Spent (min) 35 Comment 25 minutes spent with patient and additional 10 minutes spent reviewing her records
[2025-01-11 13:38] VITALS: BP 128/72; PULSE 84; O2SAT 97; BMI 31.7
--- OUTSIDE RECORDS SUMMARY | 2025-01-11 16:52 | XMS_ITS | Clinical Summary ---
Author Organization [employer] Address [address] [place] [address] Care Team Providers Care Family Program Specialist Name Role Phone Unavailable Primary Care [...] by mouth Once per day. 5 Active Veozah 45 MG tablet take 1 tablet by mouth every day for 30 days Active Active Problems Problem Noted Date Diagnosed Date Acid reflux disease 12/29/2024 Anxiety 12/29/2024 Blepharitis of left eye 12/29/2024 Chronic right shoulder pain 12/29/2024 Cyst of breast 12/29/2024 Cystitis 12/29/2024 Depression 12/29/2024 DM2 (diabetes mellitus, type 2) 12/29/2024 Duodenitis 12/29/2024 Fatty liver 12/29/2024 Hematuria 12/29/2024 High blood pressure 12/29/2024 High cholesterol 12/29/2024 History of lumbar laminectomy for spinal cord de compression 12/29/2024 Overview (12/29/2024): Mar 2013 Spinal cord decompression from T8-T11, herniated disc. Hypothyroidism 12/29/2024 Irritable bowel syndrome 12/29/2024 Menopause 12/29/2024 Overview (12/29/2024): Medically induced Menopause Mar. 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 05/09/2021 Overview (12/29/2024): Leukoplakia of oral mucosa, including tongue; Note: Date Diagnosed: 05/09/2021 9:37 AM (K13.21) Bilateral tinnitus 06/01/2019 Overview (12/29/2024): Tinnitus, bilateral; Note: Date Diagnosed: 06/01/2019 3:20 PM (H93.13) Encounters Date Type Department Care Team Description 12/29/2024 9:00 AM EST Office Visit [facility] [address] [place] [id number] Chase Salas DMD 12/22/2024 Travel 12/15/2024 11:00 AM EST Office Visit [facility] [address] [place] [id number] Adilene Fam 12/10/2024 Travel 12/01/2024 Travel 11/23/2024 11:00 AM EDT Office Visit [facility] [address] [place] [address] Adilene Fam 11/16/2024 Travel from Last 3 Months Social History Tobacco Use Types Packs/Day Years Used Date Smoking Tobacco: Never Smokeless Tobacco: Never Tobacco Cessation:Counseling Given: Not Answered Comments Unknown Sex and Gender Information Value Date Recorded Sex Assigned at Female 12/11/2021 10:29 AM EDT Legal Sex Female 10:29 AM EDT Gender Identity Female 12/11/2021 10:29 AM EDT Sexual Orientation Straight 12/11/2021 10 :29 AM EDT Last Filed Vital Signs Vital Sign Reading Time Taken Comments Blood Pressure 130/80 12/15/2024 11:02 AM EST Pulse 85 12/15/2024 11:02 AM EST Temperature - - Respiratory Rate - - Oxygen Saturation - - Inhaled Oxygen Concentration - - Weight - - Height - - Body Mass Index - - Plan of Treatment Upcoming Encounters Date Type Department Care Team (Late st Contact Info) Description 03/23/2025 1:30 PM EST Office Visit [facility] [address] [place] [address] Karla Taylor Health Maintenance Due Date Last Done Comments CT Colonography 1963 Colonoscopy 1963 Colorectal Cancer Screening 1963 Depression Screening 1963 Diabetes: Hemoglobin A1C 1963 FIT DNA/Cologuard 1963 FIT 1963 FOBT 1963 HIV Screening 1963 Lipid Panel 1963 SDOH Screening 1963 Sigmoidoscopy 1963 Disability Screening 1963 Diabetes: Foot Exam 07/08/1973 Eye Exam 07/08/1973 Alcohol/Substance Use Screening 1975 Hepatitis C Screening 07/08/1981 Diabetes: Urine Protein Screening 07/08/1982 Pap Smear 07/08/1984 Cervical Cancer Screening 07/08/1993 HPV/Cotest 07/08/1993 Mammogram 2003 RSV Patients and Patients Aged 60 years or older (1 - Risk 50-74 years 1-dose series) 07/08/2013 Dental Prophylaxis 08/21/2019 02/19/2019, 0 07/31/2018, 01/28/2018, Additional history exists Dental X-Ray: Full Mouth 11/14/2019 11/12/2016 Dental X-Ray: Bitewings 02/21/2020 02/19/19 20, 01/28/2018, 11/12/2016, Additional history exists Hepatitis A Vaccines (2 of 3 - Hep A Twinrix risk 3-dose series) 08/15/2021 07/18/2021 Hepatitis B Vaccines (2 of 3 - Hep B Twinrix risk 3-dose series) 08/15/2021 07/18/2021 Dental Oral Exam 01/20/2025 07/20/2024, 10/2019, 01/28/2018, Additional history exists Tobacco Screening 12/29/2025 12/29/2024 DTaP/Tdap/Td Vaccines (2 - Td or Tdap) [...] on patient's age to complete this topic Goals Goal Patient Goal Type Associated Problems Recent Progress Patient-Stated? Author Help patients manage their type 2 diabetes Care Plan Help patients manage their type 2 diabetes No Kody, Tommy Patient has chronic kidney disease Care Plan Patient has chronic kidney disease Tommy Samayoa Procedures Procedure Name Priority Date/Time Associated Diagnosis Comments CASE PRESENTATION, DETAILED AND EXTENSIVE TREATMENT PLANNING Routine 12/29/2024 9:00 AM EST INTRAORAL - PERIAPICAL FIRST RADIOGRAPHIC IMAGE Routine 12/29/2024 9:00 AM EST LIMITED ORAL EVALUATION - PROBLEM FOCUSED Routine 12/29/2024 9:00 AM EST CASE PRESENTATION, DETAILED AND EXTENSIVE TREATMENT PLANNING Routine 12/15/2024 11:00 AM EST LL PERIODONTAL SCALING AND ROOT PLANING - 1 TO 3 TEETH PER QUADRANT Routine 12/15/2024 11:00 AM EST CASE PRESENTATION, DETAILED AND EXTENSIVE TREATMENT PLANNING Routine 11/23/2024 11:00 AM EDT LR PERIODONTAL SCALING AND ROOT PLANING - 1 TO 3 TEETH PER QUADRANT Routine 11/23/2024 11:00 AM EDT UR PERIODONTAL SCALING AND ROOT PLANING - 4 OR MORE TEETH PER QUADRANT Routine 11/23/2024 11:00 AM EDT PERIODIC ORAL EVALUATION - ESTABLISHED PATIENT Routine 07/20/2024 3:00 PM EDT PROPHYLAXIS - ADULT Routine 02/19/2019 1 2:00 AM EST BITEWINGS - 4 RADIOGRAPHIC IMAGES Routine 02/19/2019 12:00 AM EST INTRAORAL - COMPLETE SERIES OF RADIOGRAPHIC IMAGES Routine 11/12/2016 12:00 AM EDT from Last 3 Months or Most Recently Relevant to Health Maintenance Additional Health Concerns Active Problems Noted Date Diagnosed Date Help patients manage their type 2 diabetes 12/29 Patient has chronic kidney disease 12/29/2024 Insurance DENTAL - [facility]
--- OUTSIDE RECORDS SUMMARY | 2025-01-11 16:52 | XMS_ITS | Data Portability ---
Author Organization [place] - [facility], All[facility] Address [address] [address] Assessment Encounter Date Assessment Date Assessment LastModified by Organization Details LastModified Time 06/05/2024 06/05/2024 58yo female with asymmetrical sensorineural hearing loss, right worse than left, and history of right tympanoplasty presents for hearing evaluation. Otologic exam demonstrates TMs are intact with well-aerated middle ear spaces. Audiogram shows bilateral sensorineural hearing loss with age-related changes since 2019. 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 As auditory thresholds are essentially stable and word recognition is good/ excellent, imaging is not indicated. Recommend follow up in one year for repeat audiometric testing, sooner with concerns. [email or web address] Not available 06/05/2024 12:12:33 Plan of Treatment Reminders Order Date Submit Date Provider Last Modified By Organization Details Last Modified Time Details Appointments None record ed. Lab None record ed. Referral None record ed. Procedures None record ed. Surgeries None record ed. Imaging None record ed. Medication Orders None record ed. Patient TargetsNo targets recorded. Patient InstructionsNo instructions recorded. Reason for Referral None Reported. Results Created Date Observation Date Name Description Value Unit Range Abnormal Flag Note LastModifiedBy Organization Detail LastModifiedTime 06/06/19 audio gram No observ ation record ed. BARCODE Not Available 2024 13:06:51 Result Notes None recorded. 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 Procedures Surgical History Date Name Laterality Status Provider Name and Address Organization Details Recorded Time 06/05/2024 Comp Audio with Tymps - 68665 & 38641 completed Iram Lyman [place] - [facility] 06/05/2024 11:30:33 Imaging Results None recorded. Procedure Notes None recorded. Medical Equipment None Reported. Allergies Allergen ID Allergen Name Allergen Category Reaction Reaction Severity Criticality Documentation Date Start Date Code Code System Note Provider Name and Address Organization Details Recorded Time 018257 fish derived food,medi cation anaphylax is moderate Not available 06/05/2024 Abby oconnor [place] - [facility] 5 11:40:21 165928 sulfur dioxide medicatio n itching mild Not available 06/05/2024 36897 79 RxNorm Abby oconnor [place] - [facility] 5 11:40:21 04056 adhesive tape environme nt,medica tion rash moderate Not available 06/25/2023 Abby oconnor [place] - [facility] 5 11:40:21 Medications Name Sig Start Date Stop Date Status Note LastModified by Organization Details LastModified Time cyclobenz aprine 10 mg tablet TAKE 1 TABLET ORALLY BEDTIME NEEDED FOR MUSCLE SPASM 06/02 completed Not Available Not Available Not Available methocarb eitan 500 mg tablet PLEASE SEE ATTACHED FOR DETAILED DIRECTIO NS 06/02 completed Not Available Not Available Not Available buspirone 5 mg tablet 05/09 completed Medicati on ID: [id number] D uration Value: 30 Brand Name: buspiron e Send Method: E-Prescr ibed Sub s Allowed: subs OK Medic ationGen ericName : buspiron e Not Available Not Available Not Available anastrozo le 1 mg tablet TAKE 1 TABLET BY MOUTH EVERY DAY active Not Available Not Available No t Available doxycycli ne hyclate 100 mg capsule TAKE 1 CAPSULE BY MOUTH ONCE A DAY WITH 8OZ WATER FOR 14 DAYS. DO NOT LIE DOWN FOR 30 MINUTES active Not Available Not Available No t Available atorvasta tin 20 mg tablet TAKE 1 TABLET BY MOUTH EVERY DAY FOR 90 DAYS active Not Available Not Available No t Available cefpodoxi me 100 mg tablet TAKE 1 TABLET BY MOUTH EVERY 12 HOURS FOR 4 DAYS 06/02 completed Not Available Not Available Not Available pravastat in 40 mg tablet 02/11 completed Medicati on ID: [id number] B rand Name: pravasta tin Send Method: E-Prescr ibed Sub s Allowed: subs OK Speci al Instruct ion: TAKE ONE TABLET BY MOUTH AFTER DINNER M edicatio nGeneric Name: pravasta tin Not Available Not Available Not Available hydrocodo ne 5 mg-acetam inophen 325 mg tablet TAKE 1 TABLET BY MOUTH EVERY 4 TO 6 HOURS NEEDED FOR PAIN 06/02 completed Not Available Not Available Not Available senna 8.6 mg tablet TAKE 2 TABLETS BY MOUTH AT BEDTIME FOR CONSTIPA TION 06/02 completed Not Available Not Available Not Available meloxicam 15 mg tablet TAKE 1 TABLET EVERY DAY BY ORAL ROUTE AFTER MEAL(S). 06/02 completed Not Available Not Available Not Available sucralfat e 1 gram tablet 05/09 completed Medicati on ID: [id number] D uration Value: 30 Brand Name: sucralfa te Send Method: E-Prescr ibed Sub s Allowed: subs OK Medic ationGen ericName : sucralfa te Not Available Not Available Not Available prednison e 20 mg tablet TAKE 1 TABLET BY MOUTH EVERY DAY FOR 7 DAYS 06/02 completed Not Available Not Available Not Available clonazepa m 0.5 mg tablet TAKE 1/2 -1 TABLET BY MOUTH TWICE A DAY NEEDED FOR ANXIETY 06/02 completed Not Available Not Available Not Available amlodipin e 2.5 mg tablet 05/09 completed Medicati on ID: [id number] D uration Value: 30 Brand Name: amlodipi ne Send Method: E-Prescr ibed Sub s Allowed: subs OK Speci al Instruct ion: LIUE MALIKA TABLETA TODOS LOS D? Med icationG enericNa me: amlodipi ne Not Available Not Available Not Available amlodipin e 5 mg tablet TAKE 1 TABLET BY MOUTH DAILY FOR 90 DAYS active Not Available Not Available No t Available trimethop rim 100 mg tablet 06/02 completed Medicati on ID: [id number] B rand Name: trimetho prim Sen d Method: E-Prescr ibed Sub s Allowed: subs OK Medic ationGen ericName : trimetho prim Not Available Not Available Not Available acetamino phen ER 650 mg tablet,ex tended release TAKE 1 TABLET BY MOUTH EVERY 8 HOURS NEEDED FOR PAIN FOR 10 DAYS active Not Available Not Available No t Available hydrocort isone 2.5 % topical cream with perineal applicato r APPLY RECTALLY 2 TO 4 TIMES A DAY NEEDED FOR HEMORRHO IDS active Not Available Not Available No t Available alprazola m 0.5 mg tablet TAKE 1 TABLET BY MOUTH EVERY DAY NEEDED FOR ANXIETY active Not Available Not Available No t Available famotidin e 20 mg tablet TAKE 1 TABLET BY MOUTH EVERYDAY AT BEDTIME 06/02 completed Not Available Not Available Not Available trazodone 100 mg tablet TAKE 1-2 TABLETS BY MOUTH AT BEDTIME NEEDED FOR SLEEP active Not Available Not Available No t Available benzonata te 100 mg capsule 05/09 completed Medicati on ID: [id number] D uration Value: 10 Brand Name: benzonat ate Send Method: E-Prescr ibed Sub s Allowed: subs OK Medic ationGen ericName : benzonat ate Not Available Not Available Not Available levothyro xine 50 mcg tablet TAKE 1 TABLET BY MOUTH EVERY DAY active Not Available Not Available No t Available pantopraz ole 40 mg tablet,de layed release 05/09 completed Medicati on ID: [id number] D uration Value: 30 Brand Name: pantopra zole Sen d Method: E-Prescr ibed Sub s Allowed: subs OK Medic ationGen ericName : pantopra zole Not Available Not Available Not Available esomepraz ole magnesium 40 mg capsule,d elayed release TAKE 1 CAPSULE BY MOUTH DAILY active Not Available Not Available No t Available buspirone 10 mg tablet 06/02 completed Medicati on ID: [id number] B rand Name: buspiron e Send Method: E-Prescr ibed Sub s Allowed: subs OK Medic ationGen ericName : buspiron e Not Available Not Available Not Available vitamin E 400 unit tablet 1 unit every other day by oral route. 2023 active Not Available Not Available Not Avai lable diclofena c potassium 50 mg tablet TAKE 1 TABLET BY MOUTH EVERY DAY 06/02 completed Not Available Not Available Not Available docusate sodium 100 mg capsule TAKE 1 CAPSULE BY MOUTH EVERYDAY AT BEDTIME 06/02 completed Not Available Not Available Not Available gabapenti n 300 mg capsule START WITH 1 CAPSULE TWICE A DAY FOR A WEEK, IF TOLERATI NG GO UP TO 1 CAP THREE TIMES A DAY 06/02 completed Not Available Not Available Not Available hydroxyzi ne HCl 25 mg tablet 02/11 completed Medicati on ID: [id number] B rand Name: hydroxyz ine HCl Send Method: E-Prescr ibed Sub s Allowed: subs OK Speci al Instruct ion: TAKE 1 TO 2 TABLETS BY MOUTH AT BEDTIME NEEDED M tabluis miguelrosaura Am[employer]ic Name: hydroxyz ine HCl Not Available Not Available Not Available gabapenti n 100 mg capsule TAKE 1 CAPSULE BY MOUTH 3 TIMES A DAY FOR 10 DAYS 06/02 completed Not Available Not Available Not Available ibuprofen 600 mg tablet TAKE 1 TABLET BY MOUTH 3 TIMES A DAY FOR 7 DAYS 06/02 completed Not Available Not Available Not Available ondansetr on 4 mg disintegr ating tablet DISSOLVE 1 TABLET IN MOUTH EVERY 8 HOURS NEEDED FOR NAUSEA AND VOMITING active Not Available Not Available No t Available metformin ER 500 mg tablet,ex tended release 24 hr TAKE 2 TABLETS (1000MG) BY MOUTH EVERY DAY active Not Available Not Available No t Available dicyclomi ne 10 mg capsule TAKE 1 CAPSULE ORALLY 2 TIMES A DAY NEEDED FOR ABDOMINA L DISCOMFO RT active Not Available Not Available No t Available diazepam 5 mg tablet TAKE 1 TABLET BY MOUTH THREE TIMES A DAY NEEDED FOR SPASM 04/22 /2025 completed Not Available Not Available Not Available oxycodone 5 mg tablet 1-2 TABLET BY MOUTH EVERY 6 HOURS FOR 3 DAYS NEEDED FOR PAIN 06/02 completed Not Available Not Available Not Available Laxative (bisacody l) 5 mg tablet,de layed release TAKE 2 TABLETS BY MOUTH EVERY DAY AT BEDTIME 06/02 completed Not Available Not Available Not Available Vitamin D3 25 mcg (1,000 unit) capsule 1 microgra m every day by oral route. 2023 active Not Available Not Available Not Avai lable Prempro 0.3 mg-1.5 mg tablet TAKE 1 TABLET BY MOUTH EVERY DAY 09/29 completed Not Available Not Available Not Available duloxetin e 60 mg capsule,d elayed release TAKE 1 CAPSULE BY MOUTH EVERY DAY active Not Available Not Available No t Available chlorhexi dine gluconate 0.12 % mouthwash PLEASE SEE ATTACHED FOR DETAILED DIRECTIO NS active Not Available Not Available No t Available Januvia 100 mg tablet TAKE 1 TABLET BY MOUTH IN THE EVENING FOR 90 DAYS TAKE AT 5PM active Not Available Not Available No t Available Gavilax 17 gram/dose oral powder TAKE DIRECTED BY GASTROEN TEROLOGY DEPARTME NT AT [facility] active Not Available Not Available No t Available cefixime 400 mg capsule 05/09 completed Medicati on ID: [id number] D uration Value: 3 Brand Name: cefixime Send Method: E-Prescr ibed Sub s Allowed: subs OK Medic ationGen ericName : cefixime Not Available Not Available Not Available riboflavi n (vitamin B2) 400 mg tablet 2023 active Not Available Not Available Not Avai lable Spectravi te Women 50 Plus 8 mg iron-400 mcg-50 mcg tablet TAKE 1 TABLET BY MOUTH DAILY X30 DAYS 06/02 completed Not Available Not Available Not Available Veozah 45 mg tablet TAKE 1 TABLET BY MOUTH EVERY DAY FOR 30 DAYS active Not Available Not Available No t Available tramadol 25 mg tablet TAKE 1 TABLET BY MOUTH TWICE A DAY NEEDED FOR PAIN 06/02 completed Not Available Not Available Not Available Vitals Date Recorded Body height Body mass index (BMI) Body weight Provider Name and Address Organization Details Last Updated DateTime 06/05/2024 154.94 cm 33.1 kg/m2 50093.66 g Abby Garciaa [place] - [facility] 06/05/2024 11:40:16 Social History None recorded. Functional Status None recorded. Mental Status None recorded. Family History Nothing Reported. Medical History Condition Response Allergies/Hayfever N Heart Problems N Anxiety N Tonsil Infections N Emphysema N Migraines N Thyroid Problems N COPD N Depression N Developmental Delay N Glaucoma N Nasal or Sinus Problems N Anemia N Immune System Disorder N Anesthesia Complications N Heart Attack ([place]) N Other Skin Condition N Diabetes N Rhinitis N Bleeding Disorder N Food Allergy N Hearing Loss Y Arthritis N Hyperlipidemia N Cancer N Stroke N Dementia N Nasal polyps N Asthma N Sleep Disorder N High Cholesterol N GERD/Reflux N Liver Disease N Headaches N Fibromyalgia N Hypertension N Speech Delay N Kidney Disease N Gynecological HistoryNo gynecological history recorded. Obstetrics History GPAL:G 0 P 0 0 0 0 Past Encounters Encounter ID Performer Location Encounter Start Date Encounter Closed Date Diagnosis/Indication Diagnosis SNOMED-CT Code Diagnosis ICD10 Code Diagnosis IMO Codes Diagnosis Note [id number] CADEN FENTON PA-C [facility] [address] [address] 06/05/2024 10:51:16 06/05/2024 11:53:31 Sensorineural hearing loss of bilateral ears [id number] H90.3 Audiologic al evaluation results: Right ear: Moderate sloping to profound sensorineu ral hearing loss with good word recognitio n. Left ear: Normal through 1 kHz sloping to severe sensorineu ral hearing loss with excellent word recognitio n. Tympanomet ry: Right Ear:Type A Left Ear:Type A Bilateral tinnitus 78538 13768 102 H93.13 Health Concerns Section Related Observation LastModified by Organization Detai ls LastModified Time None Recorded Concern Status LastModified by Organization Details LastModified Time None Recorded Advance Directives Directive None Recorded Payers Insurance Date Sequence Insurance Name Policy Number Policy Lenz Covered Member ID Lenz Member ID Guarantor Name 05/13/2024 2 [place] [facility] Jacy Santiago [id number] Jacy Santiago 06/05/2024 1 [facility] - DOS ON OR AFTER 2022 - [employer] (MEDICARE REPLACEMENT/AD VANTAGE - HMO) Jacy Santiago [id number] Jacy Lynn Jack Notes Date Note Type Note Provider Name and Address Organization Details Recorded Time 06/05/2024 text/html ROS as noted in the HPI 58yo female with asymmetrical sensorineural hearing loss, right worse than left, presents for hearing evaluation. Reports bilateral tinnitus. She stopped wearing hearing aids 1 year ago because they stopped working. Denies ear pain, drainage, or dizziness. She has a history of right-sided tympanoplasty with Dr. Perez. She is interested in a hearing aid consult. ELIZABETH JONES MD [address] [place] [address], [phone], [facility] - [facility] 06/05/2024 12:51:54 OBGyn Episode No OBEpisode recorded.
--- OUTSIDE RECORDS SUMMARY | 2025-01-11 16:52 | XMS_ITS | Encounter Summary ---
Author Organization [employer] Address [address] [place] [address] Care Team Providers Care Tube Teller Name Role Phone Unavailable Primary Care Provider Unavailabl e Encounter Details Date Type Department Care Team (Late st Contact Info) Description 06/02/2024 Telephone [facility] [address] [place] [address] Silverio Ocasio, BDS [address] [place] [address] Social History Tobacco Use Types Packs/Day Years [...] Description 03/23/2025 1:30 PM EST Office Visit [facility] [address] [place] [address] Karla Taylor documented as of this encounter Visit Diagnoses Not on filedocumented in this encounter
--- OUTSIDE RECORDS SUMMARY | 2025-01-11 16:52 | XMS_ITS | Encounter Summary ---
Author Organization [employer] Address [address] [place] [address] Care Team Providers Care Historiographer Name Role Phone Unavailable Primary Care Provider Unavailabl e Encounter Details Date Type Department Care Team (Latest Contact Info) Description 07/31/2018 Abstract [facility] CONVERSIONS Dental, Provider, DDS Social History [...] Description 03/23/2025 1:30 PM EST Office Visit [facility] [address] [place] [address] Karla Taylor documented as of this encounter Visit Diagnoses Not on filedocumented in this encounter
== END 2025-01-11 14:11 | disposition home or self-care (01) ==
LOC: HO.HGI 13:12
PROVIDERS: PCP Nurse Practitioner Family; Visit Provider Nurse Practitioner Family
DX: K52.9 Noninfective gastroenteritis and colitis, unspecified (principal); K21.9 Gastro-esophageal reflux disease without esophagitis; R19.5 Other fecal abnormalities; R10.84 Generalized abdominal pain; K59.01 Slow transit constipation; R10.13 Epigastric pain
CPT/HCPCS: 99214; G2211

== ENCOUNTER → 2025-01-11 13:11 | Outpatient (BNVA) | payer OTHER, SELFPAY | PROVIDERS: PCP Nurse Practitioner Family; Visit Provider Nurse Practitioner Family | DX: K21.9 Gastro-esophageal reflux disease without esophagitis (principal); R19.5 Other fecal abnormalities; R10.84 Generalized abdominal pain; K59.01 Slow transit constipation; R10.13 Epigastric pain | CPT/HCPCS: 99212 ==